=== PATIENT | female | born 2005 | race Caucasian/White ===

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

== ENCOUNTER 2024-03-23 11:09 | Emergency (ER) | payer MEDICAID, SELFPAY ==
[2024-03-23] VITALS (30 sets, daily range): BP systolic 126–127; BP diastolic 72–76; PULSE 84–118; RESP 12–39; TEMP 36.7; O2SAT 97–100
--- NOTE | 2024-03-23 11:30 | RT.EKG_ITS ---
APPROVED REPORT Exam: Resting ECG Reason for Exam: weakness Patient Location: E HR:73 bpm ECG Measurements Heart Rate 73 AXIS RI 130 P -9 QRSd 76 QRS 68 QT 426 T 71 QTc 469 Conclusion Sinus rhythm...normal P axis, V-rate 60- 99 Abnormal T, consider ischemia, anterior leads...T <-0.20mV, V2-V4 Physicin: no stemi
[2024-03-23] MEDS: LORazepam 1 MG TAB PO (12:10)
--- NOTE | 2024-03-23 12:12 | ED.GENADUL_ITS ---
Discharge Plan Disposition Condition: Stable Discharge Details Chief Complaint: Anxiety Clinical Impression: Anxiety, Hypokalemia, Hypomagnesemia, Hypocalcemia, Suicidal ideation Primary Care Provider: Unknown,Unknown ED Provider: Oskar Gordon and New Rx's Prescriptions: New potassium chloride 20 mEq tablet,ER particles/crystals 20 meq PO DAILY Qty: 10 0RF magnesium 250 mg tablet 250 mg PO DAILY Qty: 10 0RF calcium carbonate 600 mg calcium (1,500 mg) tablet 600 mg PO DAILY Qty: 10 0RF Continued montelukast 10 mg tablet See Rx Instructions .ROUTE .COMPLEX Qty: 30 0RF Dose Instruction: TAKE ONE TABLET BY MOUTH THE NIGHT BEFORE ALLERGY INJECTIONS AND ONE TABLET THE MORNING OF THE ALLERGY INJECTION Patient Comments: Pt takes once a month prior to injections. Rx Instructions: TAKE ONE TABLET BY MOUTH THE NIGHT BEFORE ALLERGY INJECTIONS AND ONE TABLET THE MORNING OF THE ALLERGY INJECTION (DME) compressor, for nebulizer Device See Rx Instructions .Route Qty: 1 0RF Rx Instructions: As directed (DME) nebulizer accessories Kit See Rx Instructions .Route Qty: 1 0RF Rx Instructions: As directed albuterol sulfate 2.5 mg /3 mL (0.083 %) solution for nebulization 2.5 mg inhalation Q6H Qty: 75 0RF Rx Instructions: Take 2.5mg (3mL) nebulizer solution every 4-6 hours as needed olopatadine [Eye Allergy Itch Relief] 0.2 % drops 1 drp ophthalmic (eye) DAILY PRN levalbuterol tartrate [Xopenex HFA] 45 mcg/actuation HFA aerosol inhaler 2 inh inhalation Q6H PRN Nucala 100 mg/mL auto-injector 100 mg subcut Q4W Qty: 1 12RF lisdexamfetamine [Vyvanse] 40 mg capsule 40 mg PO QAM (DME) BreatheRite MDI Spacer Spacer See Rx Instructions .ROUTE .MEDSUPPLY Qty: 1 0RF Rx Instructions: As directed sertraline [Zoloft] 100 mg tablet 100 mg PO DAILY trazodone 100 mg tablet 50 mg PO QHS PRN bupropion HCl 150 mg tablet sustained-release 12 hr 300 mg PO DAILY Nexplanon 68 mg implant 1 implant subdermal ONCE Qty: 1 0RF Rx Instructions: as a single dose (DME) Depend Underwear For Women S-M Misc See Rx Instructions .Route Qty: 64 4RF Rx Instructions: As directed fluticasone propion-salmeterol [Advair HFA] 230-21 mcg/actuation HFA aerosol inhaler 2 puff inhalation BID Qty: 12 12RF aripiprazole 10 mg tablet 15 mg PO DAILY Changed calcitriol 0.5 mcg capsule 0.5 mcg PO DAILY Qty: 10 0RF Discharge Instructions Instructions: Hypokalemia, Hypocalcemia (DC), Anxiety, Adult ED, Hypomagnesemia Additional Instructions: Thank you for your calcitriol dose to 0.5 or 1 tablet daily Take the potassium supplementation, magnesium, and calcium daily as prescribed Follow-up with your doctor on Monday HPI General Date/Time Provider Initiated Documentation: 03/23/24 11:21 . HPI Narrative: 19-year-old female presents from work with report of anxiety attack . 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 She states she has had paresthesias in her hands. She states she has an ongoing history of anxiety and her brother has been home for the past week which is she suspects exacerbating her symptoms. She has had intermittent suicidality, does not necessarily new for her but worsening. Patient states that her her symptoms are consistent with her prior panic attacks. She denies any current suicidal ideation or homicidal ideation. She is followed. Additional considerations. Denies any chest pain or shortness of breath. She states she did not completely lose consciousness. Related Data Home Medications Medication Instructions Recorded Confirmed montelukast 10 mg tablet See Rx Instructions .Route 06/21/22 03/23/24 .COMPLEX #30 tabs diaper,brief,adult,disposable #64 ea 08/02/22 03/23/24 (Depend Underwear For Women Small-Medium) inhalational spacing device #1 ea 08/14/22 03/23/24 (BreatheRite MDI Spacer) albuterol sulfate 2.5 mg/3 mL 2.5 mg (3 mL) inhalation Q6H #75 mL 08/30/22 03/23/24 (0.083 %) solution for nebulization compressor, for nebulizer #1 ea 08/30/22 03/23/24 nebulizer accessories #1 ea 08/30/22 03/23/24 levalbuterol tartrate 45 2 inh inhalation Q6H PRN 03/16/23 03/23/24 mcg/actuation aerosol inhaler (Xopenex HFA) olopatadine 0.2 % eye drops (Eye 1 drp ophthalmic (eye) DAILY PRN 03/16/23 03/23/24 Allergy Itch Relief) sertraline 100 mg tablet (Zoloft) 100 mg PO DAILY 09/14/23 03/23/24 fluticasone propionate 230 2 puff inhalation BID #12 grams 09/20/23 03/23/24 mcg-salmeterol 21 mcg/actuation HFA inhaler (Advair HFA) aripiprazole 10 mg tablet 15 mg PO DAILY 10/02/23 03/23/24 bupropion HCl 150 mg tablet,12 hr 300 mg PO DAILY 11/10/23 03/23/24 sustained-release etonogestrel 68 mg subdermal 1 implant subdermal ONCE #1 ea 11/10/23 03/23/24 implant (Nexplanon) lisdexamfetamine 40 mg capsule 40 mg PO QAM 02/14/24 03/23/24 (Vyvanse) mepolizumab 100 mg/mL subcutaneous 100 mg subcut Q4W #1 mL 03/12/24 03/23/24 auto-injector (Nucala) trazodone 100 mg tablet 50 mg PO QHS PRN 03/12/24 03/23/24 calcitriol 0.5 mcg capsule 0.5 mcg PO DAILY #10 caps 03/23/24 03/23/24 calcium carbonate 600 mg PO DAILY #10 tabs 03/23/24 magnesium 250 mg tablet 250 mg PO DAILY #10 tabs 03/23/24 potassium chloride 20 mEq 20 meq PO DAILY #10 tabs 03/23/24 tablet,extended release(part/cryst) Previous Rx's Medication Instructions Recorded montelukast 10 mg tablet See Rx Instructions .Route 06/21/22 .COMPLEX #30 tabs diaper,brief,adult,disposable #64 ea 08/02/22 (Depend Underwear For Women Small-Medium) inhalational spacing device #1 ea 08/14/22 (BreatheRite MDI Spacer) albuterol sulfate 2.5 mg/3 mL 2.5 mg (3 mL) inhalation Q6H #75 mL 08/30/22 (0.083 %) solution for nebulization compressor, for nebulizer #1 ea 08/30/22 nebulizer accessories #1 ea 08/30/22 fluticasone propionate 230 2 puff inhalation BID #12 grams 09/20/23 mcg-salmeterol 21 mcg/actuation HFA inhaler (Advair HFA) etonogestrel 68 mg subdermal 1 implant subdermal ONCE #1 ea 11/10/23 implant (Nexplanon) mepolizumab 100 mg/mL subcutaneous 100 mg subcut Q4W #1 mL 03/12/24 auto-injector (Nucala) calcitriol 0.5 mcg capsule 0.5 mcg PO DAILY #10 caps 03/23/24 calcium carbonate 600 mg PO DAILY #10 tabs 03/23/24 magnesium 250 mg tablet 250 mg PO DAILY #10 tabs 03/23/24 potassium chloride 20 mEq 20 meq PO DAILY #10 tabs 03/23/24 tablet,extended release(part/cryst) Allergies Allergy/AdvReac Type Severity Reaction Status Date / Time cat dander Allergy Wheezing Verified 03/23/24 11:15 dog dander Allergy Wheezing Verified 03/23/24 11:15 house dust mite Allergy Wheezing Verified 03/23/24 11:15 tree and shrub pollen Allergy Wheezing Verified 03/23/24 11:15 hydrocodone AdvReac TACHYCARDIA Unverified 03/23/24 11:15 PER PT ibuprofen AdvReac per Verified 03/23/24 11:15 nephrology tramadol AdvReac Other (See Verified 03/23/24 11:15 Comment) environmental Allergy Mild Wheezing Uncoded 03/23/24 11:15 General Stated Complaint: Anxiety KEILY: 3 Exam Narrative Exam Narrative: Alert, oriented, pupils equal round reactive to light and accommodation, no respiratory distress, cardiac rate rhythm regular, no abdominal tenderness, tremulous, carpal spasms, alert and oriented x 4, ambulatory Course Vital Signs Vital signs: Vital Signs Temperature 36.7 C 03/23/24 11:12 Pulse 104 H 03/23/24 11:12 Respiratory Rate 26 H 03/23/24 11:12 Blood Pressure 126/72 03/23/24 11:12 Pulse Oximetry 98 03/23/24 11:12 Temperature 36.7 C 03/23/24 11:12 Pulse 104 H 03/23/24 11:12 Respiratory Rate 26 H 03/23/24 11:12 Respiratory Effort Short of Breath 03/23/24 11:17 Blood Pressure 126/72 03/23/24 11:12 Blood Pressure Position Sitting 03/23/24 11:12 Pulse Oximetry 98 03/23/24 11:12 Oxygen Delivery Method Room Air 03/23/24 11:12 Oxygen Flow Rate 0 03/23/24 11:12 Medical Decision Making .Given patient's history of chronic kidney disease and hyperparathyroidism I did check bladder, patient was found to have hypokalemia and hypomagnesemia with hypocalcemia. Potassium 2.9, magnesium 1.3, calcium was 7.1 will order calcium, potassium, and magnesium in the emergency department. She is on calcitriol, will increase to 0.5 daily from 0.25 daily. Patient has chronic kidney disease will not give IV calcium as patient is relatively asymptomatic on assessment will give oral calcium, increase calcitriol, IV magnesium 2 g IV potassium 10 mEq of p.o. potassium 40 mEq were initiated. Patient will be also placed on magnesium and potassium. QTc is not prolonged and EKG is baseline for patient. Denies any chest pain or shortness of breath. She is now feeling improved but expressing suicidality without specific plan. I see CPSO was ordered. Patient has medically cleared and will need mental health assessment at this time. Care will be transitioned to from pending assessment Quality:[facility] Health Related Social Needs: No Data to Display Critical Care Time Critical Care Time Attestation: 35 minutes of critical care time performed secondary, 2 g IV magnesium supplementation, 10 mEq IV potassium supplementation, calcium supplementation, telemetry monitoring [facility] All Active Problems (Updated 03/23/24 @ 20:37 by DEAN Cortes) Suicidal ideation (Acute) Hypocalcemia (Acute) Hypomagnesemia (Acute) Hypokalemia (Acute) Anxiety (Chronic) Traumatic plantar fasciitis (Acute) LEFT Nexplanon in place (Acute) 09/2023. For menstrual control. Sinusitis (Acute) TMJ pain dysfunction syndrome (Acute) Otalgia of right ear (Acute) Wears hearing aid in both ears (Acute) Contraception (Acute) 09/2023. Patient given information regarding Nexplanon. 10/18/23. Nexplanon for menstrual control. Chronic kidney disease (CKD) (Chronic) Palpitations (Acute) Dysfunction of right eustachian tube (Acute) De Quervain's tenosynovitis, left (Acute) Low back pain (Acute) Moderate persistent asthma (Acute) Abnormal chest xray (Acute) Cough (Acute) Recurrent UTI (Acute) Nocturnal enuresis (Acute 12/15/14) pull ups at night Complex regional pain syndrome of right upper extremity (Acute) Allergic reaction (Acute) Urinary tract infection (Acute) Injury of thumb, right (Acute) Strain of extensor pollicis longus tendon (Acute) Anxiety (Chronic) Sciatica of right side (Acute) Calcification of brain (Acute) per [facility] neuro notes; bifrontal first noted in 2010; 2019 with some affecting basal ganglia, d/t underlying hypoparathyroidism Right-sided tinnitus (Acute) Encounter for immunotherapy (Acute) Chronic allergic rhinitis (Acute) Patulous eustachian tube of left ear (Acute) Nasal vestibulitis (Acute) Sensorineural hearing loss of both ears (Acute) Stage 2 chronic kidney disease (Chronic) Vesicoureteric reflux (Chronic 12/15/14) s/p bilateral ureteral implants Depression (Chronic 03/02/18) With anxiety: Sometimes features of anxiety are more prominent while at other times the depression is more challenging. 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 Stopped per patient request 09/2023 restarted per patient request Hypokalemia Abnormal uterine bleeding (AUB) 2017. menstrual irreg. OCPs 05/29/2019. Dysmenorrhea. DepoProvera 150 mg every 3 months Ingrowing toenail (05/14/18) Left great toe; s/p resection ADHD (attention deficit hyperactivity disorder) Surgical History Brutus teeth extracted all 4 teeth extracted ureteral implants- bilat Tonsillectomy and adenoidectomy Myringotomy w/ PE (pressure equalizing) tubes Family History Mother Family history unknown Father Family history unknown Social History Smoking/Tobacco Use Status: Never Smoking risk assessment performed?: Yes Alcohol Intake: never Drug use: Never Substance use type: does not use Adopted: Yes Housing: house Education Level: college Details: [employer], starting [employer] in the fall current occupation: 02/28/2020 works at [employer] Pets and animals: Yes Pets and animals: cat(s), dog(s) and other Details: CHICKENS, TURKEYS, SHEEP, COWS Sexually active: No Do you feel safe at home: Yes Do you feel safe in your relationship?: Yes Female Reproductive History Menstrual Age of Menarche: 11 Duration of menses: other control method: implanted Sign Out Sign Out Data: Sign Out Comment: SI, metabolite abn, pending assessment and dispo Last updated by Hina Marrufo PA at 03/23/24 15:32 Sign Out Comment: Patient refused safety plan, vol. Has electrolyte abnor malities- hyperPTH disease. Repleted here, home meds and supplements ordered with daily BMP and magnesium lab draw. Possible CareBed available Monday- would re-eval if patient was open to going home tomorrow. Last updated by Mushtaq Jackson PA at 03/23/24 20:41
[2024-03-23 12:17] LABS: Anion Gap 13.4 mmol/L (3-11); BUN 8 mg/dL (7-18); CO2 24.6 mmol/L (21.0-32.0); CREATININE 0.8 mg/dL (0.55-1.02); Calcium 7.1 mg/dL (8.5-10.1); Chloride 104 mmol/L (98-107); Estimated GFR 108.11 (mL/min/1.73m2); Glucose 93 mg/dL (74-106); Magnesium 1.3 mg/dL (1.8-2.4); Sodium 142 mmol/L (136-145)
[2024-03-23 12:25] LABS: Potassium 2.9 mmol/L (3.5-5.1)
[2024-03-23] MEDS: Potassium Chloride 20 MEQ TABCR 40 MEQ PO (12:46)
[2024-03-23] MEDS: Magnesium Oxide 400 MG TAB 800 MG PO (12:46)
[2024-03-23] MEDS: POTASSIUM CHLORIDE 10 MEQ/100 ML BAG 100 MEQ IVINF (12:59)
[2024-03-23] MEDS: MAGNESIUM SULFATE 2 GM/50 ML BAG IVINF (12:59)
[2024-03-23 13:22] LABS: Bilirubin Negative (Negative); Blood Negative (Negative); Clarity Clear (Clear); Glucose Negative (Negative); Ketones Negative (Negative); Leukocyte Esterase Negative (Negative); Nitrite Negative (Negative); Specific Gravity 1.015 (1.005-1.025); Urobilinogen 0.2 mg/dL (Up to 0.2)
[2024-03-23] MEDS: LORazepam 2 MG/ML VIAL 0.5 MG IVP (14:32)
--- NOTE | 2024-03-23 16:08 | ED.PROG_ITS ---
Date of service: 03/23/24 Time of Service: 16:09 Medical Decision Making This dictation utilizes [id number] dictation software and may contain unedited grammatical errors. Patient seen in sign-out from Hina Marrufo PA-C, please see her complete note. Essentially this 19 y/o F presents to ED today with a chief complaint of panic attacks, lightheadedness and difficulty breathing which is her usual symptom for panic, tingling in hands and feet- later during the visit she endorsed SI and needs evaluation by [facility]. Patients' mental condition is complicated by hyperparathyroidism, and she was found to have significant electrolyte abnormalities of hypocalcemia, hypokalemia, and hypomagnesemia. Patient had been repleted with 1500mg Ca++, 2gm Magnesium, and multiple doses of IV potassium by prior provider. Her dose of calcitriol had been increased, and she was directed to use calcium, potassium, and magnesium supplements as an outpatient with potential discharge dependent on [facility] evaluation. Patients' medical history: hyperparathyroidism. Family and social history: noncontributory. Pertinent exam findings / vital signs include no seizure activity, negative Tchovstek's sign. Differential / pathologies of concern include suicidal ideation. Diagnostic studies of: -reviewed labs, will add send-out of Ionized Ca++ level. -EKG showed no QT prolongation Interventions of: -Reconciled home medications. ED Course/Assessment/Plan: 19-year-old female presents with suicidal ideation, has hyperparathyroidism and has multiple electrolyte abnormalities which were corrected by prior provider in the ED. Patient and spoke with NK at bedtime and denied SI to them, but is endorsing it to me on my initial interview after signout. Patient states she does not feel safe around herself and is refusing their safety plan. She is voluntary seeking placement. Home meds are reconciled I did add potassium supplements and magnesium supplements and calcium supplements while here in zone B, as well as qAM labs of BMP and magnesium. Patient signed out to oncoming provider Dr. Andrew Gordon at shift change without any acute outbursts or agitated events today. Disposition of Suicidal Ideation. Patient verbalized understanding of the plan and return to ED criteria and engaged in shared decision making. Medical Records Medical records reviewed: Yes I reviewed the patient's medical records. Lab Data Lab results reviewed: Yes I reviewed the patient's lab results. Labs: Laboratory Tests Range/Units 03/23/24 03/23/24 11:54 13:12 Sodium (136-145) mmol/L 142 Potassium (3.5-5.1) mmol/L 2.9 L* Chloride (98-107) mmol/L 104 Carbon Dioxide (21.0-32.0) mmol/L 24.6 Anion Gap (3-11) mmol/L 13.4 H BUN (7-18) mg/dL 8 Creatinine (0.55-1.02) mg/dL 0.8 Est GFR (CKD-EPI 2020) (mL/min/1.73m2) 108.11 Glucose (74-106) mg/dL 93 Calcium (8.5-10.1) mg/dL 7.1 L Magnesium (1.8-2.4) mg/dL 1.3 L Urine Color (Yellow) Yellow Urine Clarity (Clear) Clear Urine pH (5-8) 7.0 Ur Specific [place] (1.005-1.025) 1.015 Urine Protein (Neg-Trace) mg/dL Negative Urine Ketones (Negative) mg/dL Negative Urine Blood (Negative) Negative Urine Nitrite (Negative) Negative Urine Bilirubin (Negative) Negative Urine Urobilinogen (Up to 0.2) mg/dL 0.2 Ur Leukocyte Esterase (Negative) Negative Urine Glucose (Negative) mg/dL Negative Quality:SDOH Health Related Social Needs: No Data to Display Sign Out Sign Out Data: Sign Out Comment: SI, metabolite abn, pending MH assessment and dispo Last updated by Hina Marrufo PA at 03/23/24 15:32 Discharge Plan Disposition Condition: Stable Discharge Details Chief Complaint: Anxiety Clinical Impression: Anxiety, Hypokalemia, Hypomagnesemia, Hypocalcemia, Suicidal ideation Primary Care Provider: Unknown,Unknown ED Provider: Mushtaq Jackson Home Meds and New Rx's Prescriptions: New potassium chloride 20 mEq tablet,ER particles/crystals 20 meq PO DAILY Qty: 10 0RF magnesium 250 mg tablet 250 mg PO DAILY Qty: 10 0RF calcium carbonate 600 mg calcium (1,500 mg) tablet 600 mg PO DAILY Qty: 10 0RF Continued montelukast 10 mg tablet See Rx Instructions .ROUTE .COMPLEX Qty: 30 0RF Dose Instruction: TAKE ONE TABLET BY MOUTH THE NIGHT BEFORE ALLERGY INJECTIONS AND ONE TABLET THE MORNING OF THE ALLERGY INJECTION Patient Comments: Pt takes once a month prior to injections. Rx Instructions: TAKE ONE TABLET BY MOUTH THE NIGHT BEFORE ALLERGY INJECTIONS AND ONE TABLET THE MORNING OF THE ALLERGY INJECTION (DME) compressor, for nebulizer Device See Rx Instructions .Route Qty: 1 0RF Rx Instructions: As directed (DME) nebulizer accessories Kit See Rx Instructions .Route Qty: 1 0RF Rx Instructions: As directed albuterol sulfate 2.5 mg /3 mL (0.083 %) solution for nebulization 2.5 mg inhalation Q6H Qty: 75 0RF Rx Instructions: Take 2.5mg (3mL) nebulizer solution every 4-6 hours as needed olopatadine [Eye Allergy Itch Relief] 0.2 % drops 1 drp ophthalmic (eye) DAILY PRN levalbuterol tartrate [Xopenex HFA] 45 mcg/actuation HFA aerosol inhaler 2 inh inhalation Q6H PRN Nucala 100 mg/mL auto-injector 100 mg subcut Q4W Qty: 1 12RF lisdexamfetamine [Vyvanse] 40 mg capsule 40 mg PO QAM (DME) BreatheRite MDI Spacer Spacer See Rx Instructions .ROUTE .MEDSUPPLY Qty: 1 0RF Rx Instructions: As directed sertraline [Zoloft] 100 mg tablet 100 mg PO DAILY trazodone 100 mg tablet 50 mg PO QHS PRN bupropion HCl 150 mg tablet sustained-release 12 hr 300 mg PO DAILY Nexplanon 68 mg implant 1 implant subdermal ONCE Qty: 1 0RF Rx Instructions: as a single dose (DME) Depend Underwear For Women S-M [facility] [place] See Rx Instructions .Route Qty: 64 4RF Rx Instructions: As directed fluticasone propion-salmeterol [Advair HFA] 230-21 mcg/actuation HFA aerosol inhaler 2 puff inhalation BID Qty: 12 12RF aripiprazole 10 mg tablet 15 mg PO DAILY Changed calcitriol 0.5 mcg capsule 0.5 mcg PO DAILY Qty: 10 0RF Discharge Instructions Instructions: Hypokalemia, Hypocalcemia (DC), Anxiety, Adult ED, Hypomagnesemia Additional Instructions: Thank you for your calcitriol dose to 0.5 or 1 tablet daily Take the potassium supplementation, magnesium, and calcium daily as prescribed Follow-up with your doctor on Monday
[2024-03-23] MEDS: Calcium Carbonate 1.5 GM TAB PO (17:58)
--- NOTE | 2024-03-23 18:36 | CMSP_ITS ---
Date of service: 03/23/24 Time of Service: 18:36 Care Management Safety Plan Status Status: Voluntary Reason for Wait Reason for Wait: Inpatient Admission Safety Plan Safety Plan: VOLUNTARY FOR INPATIENT PSYCHIATRIC STABILIZATION.? Patient is appropriate in all interactions since arriving at [facility]; Pt has demonstrated appropriate coping and communication skills, has articulated his or her needs and concerns and is fully engaged during staff interactions. Safety plan has been established with patient, and care team, to adhere to patient goals, identify restrictions based on behavioral status, address nutrition, and determine allowed personal belongings, tools for hygiene and personal care. Determine level of activity including ambulation, level of superv ision, visitors, and determine privileges based on behaviors and level of engagement by pt. VOLUNTARY SAFETY PLAN: 1. Will remain on suicide precautions, in paper clothes 2. Will remain in Zone B under direct supervision of one-on-one staff at all times provided by [employer]; BANDAR, ORTHOPEDIC RADIOLOGIC TECHNOLOGIST platform architect. 3. May have paper cups, plates, finger foods as well as a cardboard spoon with which to eat meals. 4. Follow [facility] Management of the Admitted Behavioral Health Patient policy. 5. Shower available in Zone B without restriction. 6. Personal belongings-soft items permitted at RN discretion. 7. Visitors-none at this time. 8. Activities: soft cart items approved per RN discretion. 9.? Bathroom available in Zone B without restriction. 10. Phone: limited to [facility] cordless phone at RN discretion. Due to VOLUNTARY status, if patient wishes to leave [facility], staff will contact [place] Crisis Screener ([phone]) and Biomedical Engineer ([phone]) as soon as possible. In the event of elopement, notify [place] [employer] Police ([phone]). Patient is currently voluntarily at [facility] and seeking inpatient admission when a bed becomes available. [place] Frontline Ice [employer] Associate will continue seeking placement. Please contact the Biomedical Engineer ([phone]) and [place] [employer] Associate ([phone]) for any needed changes in the Safety Plan. Safety plan has been provided to interdepartmental care team.
--- NOTE | 2024-03-23 18:36 | PDOC.CMSAFE ---
Date of service: 03/23/24 Time of Service: 18:36 Care Management Safety Plan Status Status: Voluntary Reason for Wait Reason for Wait: Inpatient Admission Safety Plan Safety Plan: VOLUNTARY FOR INPATIENT PSYCHIATRIC STABILIZATION.? Patient is appropriate in all interactions since arriving at [facility]; Pt has demonstrated appropriate coping and communication skills, has articulated his or her needs and concerns and is fully engaged during staff interactions. Safety plan has been established with patient, and care team, to adhere to patient goals, identify restrictions based on behavioral status, address nutrition, and determine allowed personal belongings, tools for hygiene and personal care. Determine level of activity including ambulation, level of supervision, visitors, and determine privileges based on behaviors and level of engagement by pt. VOLUNTARY SAFETY PLAN: 1. Will remain on suicide precautions, in paper clothes 2. Will remain in Zone B under direct supervision of one-on-one staff at all times provided by [employer]; BANDAR, PAPER GRADER record maker. 3. May have paper cups, plates, finger foods as well as a cardboard spoon with which to eat meals. 4. Follow [facility] Management of the Admitted Behavioral Health Patient policy. 5. Shower available in Zone B without restriction. 6. Personal belongings-soft items permitted at RN discretion. 7. Visitors-none at this time. 8. Activities: soft cart items approved per RN discretion. 9.? Bathroom available in Zone B without restriction. 10. Phone: limited to [facility] cordless phone at RN discretion. Due to VOLUNTARY status, if patient wishes to leave [facility], staff will contact [facility] Crisis Screener ([phone]) and Slip Cover Maker ([phone]) as soon as possible. In the event of elopement, notify [facility] Police ([phone]). Patient is currently voluntarily at [facility] and seeking inpatient admission when a bed becomes available. [facility] Frontline Sod Stripper will continue seeking placement. Please contact the Slip Cover Maker ([phone]) and [facility] Sod Stripper ([phone]) for any needed changes in the Safety Plan. Safety plan has been provided to interdepartmental care team.
--- NOTE | 2024-03-23 18:37 | CMPROGNOTE_ITS ---
Date of service: 03/23/24 Time of Service: 18:37 Care Management Progress Note Progress Note Text Progress Note Text: Jyothi presented with a report of having an anxiety attack while at work ([employer]). She stated that her brother is home for the summer, which she feels is exacerbating her symptoms. 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 She was screened by [facility], who stated that she does not meet criteria for inpatient psychiatric admission, and together they created a safety plan for her to return home. As she was preparing to be discharged, she stated to MD that she feels suicidal. She was transitioned to zone B, awaiting voluntary inpatient psychiatric treatment. Per [facility], they will reassess tomorrow. Referrals have not been sent at this time; [facility] stated that she reported having to work on Monday, therefore they are unsure that she will follow through with placement. CM will continue to follow.
[2024-03-24 07:04] LABS: Anion Gap 11.3 mmol/L (3-11); BUN 13 mg/dL (7-18); CO2 25.7 mmol/L (21.0-32.0); CREATININE 0.8 mg/dL (0.55-1.02); Calcium 7.7 mg/dL (8.5-10.1); Chloride 104 mmol/L (98-107); Estimated GFR 108.11 (mL/min/1.73m2); Glucose 103 mg/dL (74-106); Magnesium 1.7 mg/dL (1.8-2.4); Potassium 4.2 mmol/L (3.5-5.1); Sodium 141 mmol/L (136-145)
[2024-03-24 10:28] VITALS: BP 103/66; PULSE 90; RESP 16; TEMP 36; O2SAT 97
[2024-03-24] MEDS: ARIPiprazole 15 MG TAB PO (10:33)
[2024-03-24] MEDS: buPROPion-CR 150 MG TABCR 300 MG PO (10:34)
[2024-03-24] MEDS: Budesonide/Formoterol 160/4.5 6 GM 60 PUFF INH IH (10:34)
[2024-03-24] MEDS: Calcium Carbonate 1.5 GM TAB PO (10:35)
[2024-03-24] MEDS: Lisdexamphetamine 40 MG CAP PO (10:35)
[2024-03-24] MEDS: Magnesium Oxide 400 MG TAB PO (10:36)
[2024-03-24] MEDS: Potassium Chloride 20 MEQ TABCR PO (10:36)
[2024-03-24] MEDS: Sertraline 100 MG TAB PO (10:36)
--- NOTE | 2024-03-24 14:47 | ED.PROG_ITS ---
<Statement entered by DEAN Cortes - 03/24/24 18:24> Patient seen in sign-out. Awaiting safety plan faxed over and Mother to pick-up. No complications, no interventions needed- patient departed around 1800hrs. Date of service: 03/24/24 Time of Service: 18:25 Medical Decision Making Patient taken in signout from Hina Marrufo PA-C. Patient is awaiting discharge with safety plan faxed to us. Patient's mother will warehouse picker, no acute events prior to discharge, departed at 1800 hrs. Medical Records Medical records reviewed: Yes I reviewed the patient's medical records. Quality:SDOH Health Related Social Needs: No Data to Display Sign Out Sign Out Data: Sign Out Comment: SI, metabolite abn, pending assessment and dispo Last updated by Hina Marrufo PA at 03/23/24 15:32 Sign Out Comment: Patient refused safety plan, vol. Has electrolyte abnormalities- hyperPTH disease. Repleted here, home meds and supplements ordered with daily BMP and magnesium lab draw. Possible CareBed available Monday- would re-eval if patient was open to going home tomorrow. Last updated by Mushtaq Jackson PA at 03/23/24 20:41 Sign Out Comment: pending dc with mother with safety plan ~1800 Last updated by Hina Marrufo PA at 03/24/24 15:37 Discharge Plan Disposition Patient Disposition: Home Condition: Stable Discharge Details Clinical Impression: Anxiety, Hypokalemia, Hypomagnesemia, Hypocalcemia, Suicidal ideation Primary Care Provider: Unknown,Unknown ED Provider: Mushtaq Jackson Home Meds and New Rx's Prescriptions: New potassium chloride 20 mEq tablet,ER particles/crystals 20 meq PO DAILY Qty: 10 0RF magnesium 250 mg tablet 250 mg PO DAILY Qty: 10 0RF calcium carbonate 600 mg calcium (1,500 mg) tablet 600 mg PO DAILY Qty: 10 0RF Continued montelukast 10 mg tablet See Rx Instructions .ROUTE .COMPLEX Qty: 30 0RF Dose Instruction: TAKE ONE TABLET BY MOUTH THE NIGHT BEFORE ALLERGY INJECTIONS AND ONE TABLET THE MORNING OF THE ALLERGY INJECTION Patient Comments: Pt takes once a month prior to injections. Rx Instructions: TAKE ONE TABLET BY MOUTH THE NIGHT BEFORE ALLERGY INJECTIONS AND ONE TABLET THE MORNING OF THE ALLERGY INJECTION (DME) compressor, for nebulizer Device See Rx Instructions .Route Qty: 1 0RF Rx Instructions: As directed (DME) nebulizer accessories Kit See Rx Instructions .Route Qty: 1 0RF Rx Instructions: As directed albuterol sulfate 2.5 mg /3 mL (0.083 %) solution for nebulization 2.5 mg inhalation Q6H Qty: 75 0RF Rx Instructions: Take 2.5mg (3mL) nebulizer solution every 4-6 hours as needed olopatadine [Eye Allergy Itch Relief] 0.2 % drops 1 drp ophthalmic (eye) DAILY PRN levalbuterol tartrate [Xopenex HFA] 45 mcg/actuation HFA aerosol inhaler 2 inh inhalation Q6H PRN Nucala 100 mg/mL auto-injector 100 mg subcut Q4W Qty: 1 12RF lisdexamfetamine [Vyvanse] 40 mg capsule 40 mg PO QAM (DME) BreatheRite MDI Spacer Spacer See Rx Instructions .ROUTE .MEDSUPPLY Qty: 1 0RF Rx Instructions: As directed sertraline [Zoloft] 100 mg tablet 100 mg PO DAILY trazodone 100 mg tablet 50 mg PO QHS PRN bupropion HCl 150 mg tablet sustained-release 12 hr 300 mg PO DAILY Nexplanon 68 mg implant 1 implant subdermal ONCE Qty: 1 0RF Rx Instructions: as a single dose (DME) Depend Underwear For Women [facility] See Rx Instructions .Route Qty: 64 4RF Rx Instructions: As directed fluticasone propion-salmeterol [Advair HFA] 230-21 mcg/actuation HFA aerosol inhaler 2 puff inhalation BID Qty: 12 12RF aripiprazole 10 mg tablet 15 mg PO DAILY Changed calcitriol 0.5 mcg capsule 0.5 mcg PO DAILY Qty: 10 0RF Discharge Instructions Instructions: Hypokalemia, Hypocalcemia (DC), Anxiety, Adult ED, Hypomagnesemia Additional Instructions: Thank you for your calcitriol dose to 0.5 or 1 tablet daily Take the potassium supplementation, magnesium, and calcium daily as prescribed Follow-up with your doctor and career law clerk on Monday Discharge Data Discharge Date/Time-TO BE ENTERED AT DEPARTURE: 03/24/24 18:11
--- NOTE | 2024-03-24 18:09 | PDOC.CMPRO ---
Date of service: 03/24/24 Time of Service: 18:10 Care Management Progress Note Progress Note Text Progress Note Text: [facility] met with Jyothi again today to discuss creating a safety plan to return home. Per report, Jyothi stated that she feels she would cut herself at home, but was able to identify how to mitigate the risk, by locking up sharp knives in her home. JESSICA reached out to her mother, who agreed to participate in the safety plan to keep Jyothi safe and lock up sharps. Her mother offered to pick her up this evening around 6pm. Discharge Anticipated Barriers to Discharge: None Identified Patient/Family Education Needs: Review discharge instructions, discuss Ask Me Three Transportation: Private vehicle Plan: Jyothi will be discharged with a safety plan that she created with [facility]. She will follow up in the community with her HAND DRY CLEANER supports, and her family will help support her with her safety plan. Her mother will drive her home today via private vehicle. She is happy to be going home.
== END 2024-03-24 18:11 | disposition home or self-care (01) ==
PROVIDERS: Physician Assistant; Emergency Provider Physician Assistant
DX: F41.9 Anxiety disorder, unspecified (principal); R45.851 Suicidal ideations; E83.51 Hypocalcemia; E87.6 Hypokalemia; E83.42 Hypomagnesemia
CPT/HCPCS: 00123; 36415; 80048; 93005; 96365; 96366; 96375; 99285; 99291; H0046; 81003; 83735; 93010; J2060; J3475; J3480

== ENCOUNTER 2024-04-08 15:19 | Outpatient (CLI) | payer MEDICAID, SELFPAY ==
[2024-04-08 15:42] LABS: Creatinine,Urine 69.05 mg/dL; POTASSIUM,URINE RANDOM 37.2 mmol/L
[2024-04-08 15:49] LABS: Albumin 4.2 g/dL (3.4-5.0); Anion Gap 12.6 mmol/L (3-11); BUN 11 mg/dL (7-18); CO2 29.4 mmol/L (21.0-32.0); Calcium 8.2 mg/dL (8.5-10.1); Chloride 102 mmol/L (98-107); Estimated GFR 82.71 (mL/min/1.73m2); Glucose 104 mg/dL (74-106); PHOSPHORUS 4.7 mg/dL (2.6-4.7); Potassium 3.3 mmol/L (3.5-5.1); Sodium 144 mmol/L (136-145)
[2024-04-08 22:11] LABS: Osmolality, Urine 409 mOsm/kg (150-1150)
[2024-04-08 22:42] LABS: Osmolality Serum 288 mOsm/kg (275-295)
== END 2024-04-08 15:20 | disposition home or self-care (01) ==
LOC: LBO 15:25
PROVIDERS: Visit Provider Pediatrics Pediatric Nephrology
DX: N18.1 Chronic kidney disease, stage 1 (principal); E87.6 Hypokalemia; E83.59 Other disorders of calcium metabolism; N29 Other disorders of kidney and ureter in diseases classified elsewhere
CPT/HCPCS: 36415; 80069; 83935; 82565; 83930; 84133

== ENCOUNTER 2024-04-09 12:00 | Outpatient (CLI) | payer MEDICAID, SELFPAY ==
[2024-04-09 11:34] LABS: Abs Immature Grans 0.02 10^3/uL (0.0-0.06); Absolute Basophil Count 0.04 10^3/uL (0.0-0.2); Absolute Eosinophil Count 0.16 10^3/uL (0.0-0.7); Absolute Lymphocyte Count 2.14 10^3/uL (1.2-3.4); Absolute Monocyte Count 0.52 10^3/uL (0.1-0.8); Absolute Neutrophil Count 3.12 10^3/uL (1.2-6.7); Basophils % 0.7 %; Eosinophils % 2.7 %; HCT 32.3 % (36.0-46.0); HGB 10.5 g/dL (11.2-15.7); Immature Grans % 0.3 %; Lymphocytes % 35.7 %; MCH 30.3 pg (27.0-33.0); MCHC 32.5 % (32.0-36.0); MCV 93 fL (80-95); MPV 10.2 fL (8.0-11.0); Monocytes % 8.7 %; Neutrophils % 51.9 %; Platelet Count 297 10^3/uL (130-400); RBC 3.46 10^6/uL (3.93-5.22); RDW 12.5 % (11.7-14.6); RDW-SD 42.8 fL
== END 2024-04-09 12:01 | disposition home or self-care (01) ==
LOC: LBO 12:01
PROVIDERS: Visit Provider Physician Assistant Surgical
DX: J45.909 Unspecified asthma, uncomplicated (principal); N18.1 Chronic kidney disease, stage 1; E87.6 Hypokalemia; E83.59 Other disorders of calcium metabolism; N29 Other disorders of kidney and ureter in diseases classified elsewhere
CPT/HCPCS: 36415; 85025

== ENCOUNTER 2024-04-16 14:41 | Emergency (ER) | payer MEDICAID, SELFPAY ==
[2024-04-16 14:44] VITALS: BP 130/77; PULSE 110; RESP 20; TEMP 36.6; O2SAT 99
--- NOTE | 2024-04-16 14:45 | DI.CT_ITS ---
Exam(s) CT ABDOMEN PELVIS W EXAM: CT ABDOMEN PELVIS W CLINICAL HISTORY: RLQ pain TECHNIQUE: Imaging Protocol: Axial computed tomography images with coronal and sagittal reformatted images were created and reviewed. CONTRAST MATERIAL: Intravenous: Omnipaque 350 Contrast volume:67 mL Oral: No COMPARISON: CT CT ABDOMEN PELVIS W from 09/20/[address] ABDOMEN PELVIS W from 10/31/2023 FINDINGS: ABDOMEN: Lung Bases: Normal where visualized. Liver: Normal density. No measurable mass. Portal, Superior Mesenteric, and Splenic Veins: Unremarkable. Gallbladder and Biliary Tract: No radiodense calculus or dilation. Pancreas: Normal density, no abnormal calcifications or inflammatory process. Spleen: Normal. Adrenals: No masses seen. Kidneys: Normal size, contour and axis. No radiodense stones or obstructive uropathy. The hypodensity seen in the kidneys bilaterally most consistent with small cysts. No follow-up is recommended. Abdominal Aorta: Abdominal portion non-dilated. Bowel: There are fluid-filled loops of small and large bowel present which can be seen with diarrheal illness. The stomach is incompletely distended limiting evaluation. There is no evidence of an virgilio endicitis. Peritoneal Cavity: No ascites, collection or mesenteric inflammatory response. No free air. Lymph Nodes: Within normal limits. Bones: Within normal limits for the patient's age. Soft Tissues: Unremarkable. PELVIS: Bladder: Symmetric distention, no gross wall thickening. Reproductive Organs: Unremarkable as visualized. Lymph Nodes: Within normal limits. Bones: Within normal limits for the patient's age. IMPRESSION: 1. Normal appendix. 2. Fluid-filled loops of small and large bowel which can be seen with a diarrheal illness. No bowel wall thickening or obstruction is seen. 3. The ovaries are grossly unremarkable as is the gallbladder. There is no biliary ductal dilatation . 4. No evidence of hydronephrosis. RADIATION DOSE DELIVERED: Total DLP DATA REPOSITORY: All CT scans at this facility are submitted to the National Radiology Data Registry (NRDR) Dose Index Registry (DIR) with the [employer] (ACR). RADIATION OPTIMIZATION: All CT scans at this facility use at least one of these dose optimization te chniques: automated exposure control; mA and/or kV adjustment per patient size (includes targeted exa ms where dose is matched to clinical indication); or iterative reconstruction.
--- NOTE | 2024-04-16 15:06 | ED.GENADUL_ITS ---
Discharge Plan Discharge Details Chief Complaint: PsychEval Primary Care Provider: Unknown,Unknown ED Provider: Sabas Benz Home Meds and New Rx's Prescriptions: No Action montelukast 10 mg tablet See Rx Instructions .ROUTE .COMPLEX Qty: 30 0RF Dose Instruction: TAKE ONE TABLET BY MOUTH THE NIGHT BEFORE ALLERGY INJECTIONS AND ONE TABLET THE MORNING OF THE ALLERGY INJECTION Patient Comments: Pt takes once a month prior to injections. Rx Instructions: TAKE ONE TABLET BY MOUTH THE NIGHT BEFORE ALLERGY INJECTIONS AND ONE TABLET THE MORNING OF THE ALLERGY INJECTION (DME) compressor, for nebulizer Device See Rx Instructions .Route Qty: 1 0RF Rx Instructions: As directed (DME) nebulizer accessories Kit See Rx Instructions .Route Qty: 1 0RF Rx Instructions: As directed levalbuterol tartrate [Xopenex HFA] 45 mcg/actuation HFA aerosol inhaler 2 inh inhalation Q6H PRN Nucala 100 mg/mL auto-injector 100 mg subcut Q4W Qty: 1 12RF lisdexamfetamine [Vyvanse] 40 mg capsule 40 mg PO QAM (DME) BreatheRite MDI Spacer Spacer See Rx Instructions .ROUTE .MEDSUPPLY Qty: 1 0RF Rx Instructions: As directed sertraline [Zoloft] 100 mg tablet 100 mg PO DAILY trazodone 100 mg tablet 50 mg PO QHS PRN bupropion HCl 150 mg tablet sustained-release 12 hr 300 mg PO DAILY Nexplanon 68 mg implant 1 implant subdermal ONCE Qty: 1 0RF Rx Instructions: as a single dose (DME) Depend Under[facility] For Women [facility] See Rx Instructions .Route Qty: 64 4RF Rx Instructions: As directed fluticasone propion-salmeterol [Advair HFA] 230-21 mcg/actuation HFA aerosol inhaler 2 puff inhalation BID Qty: 12 12RF potassium chloride 20 mEq tablet,ER particles/crystals 20 meq PO DAILY Qty: 10 0RF magnesium 250 mg tablet 250 mg PO DAILY Qty: 10 0RF calcitriol 0.5 mcg capsule 0.5 mcg PO DAILY Qty: 10 0RF calcium carbonate 600 mg calcium (1,500 mg) tablet 600 mg PO DAILY Qty: 10 0RF HPI General Date/Time Provider Initiated Documentation: 04/16/24 14:44 . HPI Narrative: 19-year-old female history of anxiety and depression, presents with right lower quad abdominal pain that began 4 hours ago at the same time patient has developed suicidal ideation and thoughts of cutting herself in order to . Patient denies any urinary symptoms. Denies headache chest pain shortness of breath or other systemic signs of illness. Denies history of abdominal surgery. Related Data Home Medications ?Medication ?Instructions ?Recorded ?Confirmed montelukast 10 mg tablet See Rx Instructions .Route 06/21/22 04/16/24 .COMPLEX #30 tabs diaper,brief,adult,disposable #64 ea 08/02/22 04/16/24 (Depend Underwear For Women Small-Medium) inhalational spacing device #1 ea 08/14/22 04/16/24 (BreatheRite MDI Spacer) compressor, for nebulizer #1 ea 08/30/22 04/16/24 nebulizer accessories #1 ea 08/30/22 04/16/24 levalbuterol tartrate 45 2 inh inhalation Q6H PRN 03/16/23 04/16/24 mcg/actuation aerosol inhaler (Xopenex HFA) sertraline 100 mg tablet (Zoloft) 100 mg PO DAILY 09/14/23 04/16/24 bupropion HCl 150 mg tablet,12 hr 300 mg PO DAILY 11/10/23 04/16/24 sustained-release etonogestrel 68 mg subdermal 1 implant subdermal ONCE #1 ea 11/10/23 04/16/24 implant (Nexplanon) lisdexamfetamine 40 mg capsule 40 mg PO QAM 02/14/24 04/16/24 (Vyvanse) mepolizumab 100 mg/mL subcutaneous 100 mg subcut Q4W #1 mL 03/12/24 04/16/24 auto-injector (Nucala) trazodone 100 mg tablet 50 mg PO QHS PRN 03/12/24 04/16/24 calcitriol 0.5 mcg capsule 0.5 mcg PO DAILY #10 caps 03/23/24 04/16/24 calcium carbonate 600 mg PO DAILY #10 tabs 03/23/24 04/16/24 magnesium 250 mg tablet 250 mg PO DAILY #10 tabs 03/23/24 04/16/24 potassium chloride 20 mEq 20 meq PO DAILY #10 tabs 03/23/24 04/16/24 tablet,extended release(part/cryst) fluticasone propionate 230 2 puff inhalation BID #12 grams 04/11/24 04/16/24 mcg-salmeterol 21 mcg/actuation HFA inhaler (Advair HFA) Previous Rx's ?Medication ?Instructions ?Recorded montelukast 10 mg tablet See Rx Instructions .Route 06/21/22 .COMPLEX #30 tabs diaper,brief,adult,disposable #64 ea 08/02/22 (Depend Underwear For Women Small-Medium) inhalational spacing device #1 ea 08/14/22 (BreatheRite MDI Spacer) compressor, for nebulizer #1 ea 08/30/22 nebulizer accessories #1 ea 08/30/22 etonogestrel 68 mg subdermal 1 implant subdermal ONCE #1 ea 11/10/23 implant (Nexplanon) mepolizumab 100 mg/mL subcutaneous 100 mg subcut Q4W #1 mL 03/12/24 auto-injector (Nucala) calcitriol 0.5 mcg capsule 0.5 mcg PO DAILY #10 caps 03/23/24 calcium carbonate 600 mg PO DAILY #10 tabs 03/23/24 magnesium 250 mg tablet 250 mg PO DAILY #10 tabs 03/23/24 potassium chloride 20 mEq 20 meq PO DAILY #10 tabs 03/23/24 tablet,extended release(part/cryst) fluticasone propionate 230 2 puff inhalation BID #12 grams 04/11/24 mcg-salmeterol 21 mcg/actuation HFA inhaler (Advair HFA) Allergies Allergy/AdvReac Type Severity Reaction Status Date / Time cat dander Allergy Wheezing Verified 04/16/24 14:47 dog dander Allergy Wheezing Verified 04/16/24 14:47 house dust mite Allergy Wheezing Verified 04/16/24 14:47 tree and shrub pollen Allergy Wheezing Verified 04/16/24 14:47 hydrocodone AdvReac TACHYCARDIA Unverified 04/16/24 14:47 PER PT ibuprofen AdvReac per Verified 04/16/24 14:47 nephrology tramadol AdvReac Other (See Verified 04/16/24 14:47 Comment) environmental Allergy Mild Wheezing Uncoded 04/16/24 14:47 General Stated Complaint: PsychEval KEILY: 2 Exam Narrative Exam Narrative: Alert oriented interactive calm cooperative Moist mucous membranes tolerating secretions Speaking full sentences no respiratory distress no tachypnea Abdomen soft nontender nondistended, some subjective discomfort in right lower quadrant without guarding or rebounding, no CVA tenderness Moving extremities without deficit, patient is in the left lower extremity total boot for ankle sprain Alert interactive, calm cooperative, does endorse worsening anxiety depression and suicidal thoughts Course Vital Signs Vital signs: Vital Signs Temperature 36.6 C 04/16/24 14:44 Pulse 110 H 04/16/24 14:44 Respiratory Rate 20 04/16/24 14:44 Blood Pressure 130/77 04/16/24 14:44 Pulse Oximetry 99 04/16/24 14:44 Temperature 36.6 C 04/16/24 14:44 Temperature Source Temporal Artery Scan 04/16/24 14:44 Pulse 110 H 04/16/24 14:44 Respiratory Rate 20 04/16/24 14:44 Respiratory Effort Normal, Non-Labored 04/16/24 14:47 Blood Pressure 130/77 04/16/24 14:44 Blood Pressure Position Sitting 04/16/24 14:44 Pulse Oximetry 99 04/16/24 14:44 Oxygen Delivery Method Room Air 04/16/24 14:44 Oxygen Flow Rate 0 04/16/24 14:44 Medical Decision Making 19-year-old female presents with right lower quadrant abdominal pain for the last 4 hours associated with 4 hours of suicidal ideation, thoughts of cutting herself in order to , denies any definitive psychosocial stressor at work or at home, feels safe where she is living, patient is afebrile nontoxic mildly tachycardic on arrival likely related to anxiety, abdomen soft nontender nondistended, no peritoneal signs however patient does have subjective discomfort in the right lower quadrant no CVA tenderness, consider early appendicitis versus kidney stone versus pyelonephritis versus UTI versus enteritis versus colitis patient also endorses that some of her physical symptoms manifest when her psychiatric symptoms are flaring. Consider component of psychosomatic discomfort. Given suicidality with thoughts of a plan patient will be evaluated by [facility] human services to determine whether inpatient psychiatric treatment would be appropriate beneficial. Patient resting comfortably calm cooperative no acute distress. Will obtain basic labs urine urinalysis CT abdomen pelvis fluids analgesia antiemetics close reassess 18: 56 patient resting comfortably no acute distress. Hemodynamically stable labs and imaging unremarkable. Patient is medically cleared. Evaluated by [facility] human services, will be held voluntarily for inpatient psychiatric placement. Patient has escalating suicidal ideation with plansof killing herself with a gun if patient is to decide to leave we will initiate EE 23: 25 rest comfortably no acute distress. Quality:SDOH Health Related Social Needs: No Data to Display PFSH All Active Problems (Updated 03/23/24 @ 20:37 by DEAN Cortes) Suicidal ideation (Acute) Hypocalcemia (Acute) Hypomagnesemia (Acute) Hypokalemia (Acute) Anxiety (Chronic) Traumatic plantar fasciitis (Acute) LEFT Nexplanon in place (Acute) 09/2023. For menstrual control. Sinusitis (Acute) TMJ pain dysfunction syndrome (Acute) Otalgia of right ear (Acute) Wears hearing aid in both ears (Acute) Contraception (Acute) 09/2023. Patient given information regarding Nexplanon. 10/18/23. Nexplanon for menstrual control. Chronic kidney disease (CKD) (Chronic) Palpitations (Acute) Dysfunction of right eustachian tube (Acute) De Quervain's tenosynovitis, left (Acute) Low back pain (Acute) Moderate persistent asthma (Acute) Abnormal chest xray (Acute) Cough (Acute) Recurrent UTI (Acute) Nocturnal enuresis (Acute 12/15/14) pull ups at night Complex regional pain syndrome of right upper extremity (Acute) Allergic reaction (Acute) Urinary tract infection (Acute) Injury of thumb, right (Acute) Strain of extensor pollicis longus tendon (Acute) Anxiety (Chronic) Sciatica of right side (Acute) Calcification of brain (Acute) per [facility] neuro notes; bifrontal first noted in 2019 with some affecting basal ganglia, d/t underlying hypoparathyroidism Right-sided tinnitus (Acute) Encounter for immunotherapy (Acute) Chronic allergic rhinitis (Acute) Patulous eustachian tube of left ear (Acute) Nasal vestibulitis (Acute) Sensorineural hearing loss of both ears (Acute) Stage 2 chronic kidney disease (Chronic) Vesicoureteric reflux (Chronic 12/15/14) s/p bilateral ureteral implants Depression (Chronic 03/02/18) With anxiety: Sometimes features of anxiety are more prominent while at other times the depression is more challenging. 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 Stopped per patient request 09/2023 restarted per patient request Hypokalemia Abnormal uterine bleeding (AUB) 2017. menstrual irreg. OCPs 05/29/2019. Dysmenorrhea. DepoProvera 150 mg every 3 months Ingrowing toenail (05/14/18) Left great toe; s/p resection ADHD (attention deficit hyperactivity disorder) Surgical History [place] teeth extracted all 4 teeth extracted ureteral implants- bilat Tonsillectomy and adenoidectomy Myringotomy w/ PE (pressure equalizing) tubes Family History Mother Family history unknown Father Family history unknown Social History Smoking/Tobacco Use Status: Never Smoking risk assessment performed?: Yes Alcohol Intake: never Drug use: Never Substance use type: does not use Adopted: Yes Housing: house Education Level: college Details: [employer], starting [employer] in the fall current occupation: 02/28/2020 works at [employer] Pets and animals: Yes Pets and animals: cat(s), dog(s) and other Details: CHICKENS, TURKEYS, SHEEP, COWS Sexually active: No Do you feel safe at home: Yes Do you feel safe in your relationship?: Yes Female Reproductive History Menstrual Age of Menarche: 11 Duration of menses: other control method: implanted
[2024-04-16 15:20] LABS: Bilirubin Negative (Negative); Blood Large (Negative); Clarity Clear (Clear); Glucose Negative (Negative); Ketones Negative (Negative); Leukocyte Esterase Negative (Negative); Nitrite Negative (Negative); Specific Gravity 1.015 (1.005-1.025); Urobilinogen 0.2 mg/dL (Up to 0.2); pH 7.5 (5-8)
[2024-04-16 15:21] LABS: Abs Immature Grans 0.02 10^3/uL (0.0-0.06); Absolute Basophil Count 0.04 10^3/uL (0.0-0.2); Absolute Eosinophil Count 0.14 10^3/uL (0.0-0.7); Absolute Lymphocyte Count 2.34 10^3/uL (1.2-3.4); Absolute Neutrophil Count 3.37 10^3/uL (1.2-6.7); Basophils % 0.6 %; Eosinophils % 2.2 %; HCT 32.1 % (36.0-46.0); HGB 10.5 g/dL (11.2-15.7); Immature Grans % 0.3 %; Lymphocytes % 36.5 %; MCH 29.8 pg (27.0-33.0); MCHC 32.7 % (32.0-36.0); MCV 91 fL (80-95); Monocytes % 7.8 %; Neutrophils % 52.6 %; Platelet Count 264 10^3/uL (130-400); RBC 3.52 10^6/uL (3.93-5.22); RDW-SD 40.2 fL; WBC 6.41 10^3/uL (4.4-10.8)
[2024-04-16] MEDS: ACETAMINOPHEN 1,000 MG/100 ML BTL 400 MG IVPB (15:22)
[2024-04-16] MEDS: Normal Saline 1,000 ML 1000 ML IV (15:22)
[2024-04-16 15:29] LABS: Bacteria Negative HPF (Negative); C & S Indicated? No; Casts Negative LPF (Negative); Crystals Negative HPF (Negative); Epithelial Cells Few HPF (Negative); Mucus Negative (Negative); Other Cells Rare Renal (Negative); WBC Negative HPF (0-5)
[2024-04-16 15:41] LABS: ALT 22 U/L (14-59); AST 16 U/L (15-37); Albumin 4.3 g/dL (3.4-5.0); Alkaline Phosphatase 66 U/L (46-116); Anion Gap 9.3 mmol/L (3-11); BUN 8 mg/dL (7-18); Bilirubin, Total 0.13 mg/dL (0.2-1.0); CO2 29.7 mmol/L (21.0-32.0); CREATININE 0.8 mg/dL (0.55-1.02); Calcium 7.3 mg/dL (8.5-10.1); Chloride 102 mmol/L (98-107); Estimated GFR 108.11 (mL/min/1.73m2); Glucose 92 mg/dL (74-106); Potassium 3.5 mmol/L (3.5-5.1); Sodium 141 mmol/L (136-145); Total Protein 7.8 g/dL (6.4-8.2)
[2024-04-16] MEDS: Omnipaque 350 MG/ML 100 ML BTL IJ (16:09)
[2024-04-16] MEDS: Normal Saline - Diluent 50 ML VIAL IJ (16:10)
[2024-04-16] MEDS: Normal Saline Flush 10 ML SYR IVP (16:11)
[2024-04-16 17:07] LABS: Lipase 33 U/L (16-77)
[2024-04-16] MEDS: traZODone 100 MG TAB PO (22:46)
--- NOTE | 2024-04-17 07:37 | ED.PROG_ITS ---
Date of service: 04/17/24 Time of Service: 07:37 Medical Decision Making Patient seeking voluntary placement for depression and SI, no reported issues on prior shift and currently calm and cooperative without new acute complaints. Will continue to monitor until safe disposition found. Quality:SDOH Health Related Social Needs: No Data to Display Sign Out Sign Out Data: Sign Out Comment: SI with plan to shoot herself, to be made EE if she tries to leave; evaluated by [facility], awaiting placement Last updated by Sabas Benz MD at 04/16/24 23:28 Sign Out Comment: Suicidal ideations with plan, currently voluntary but plan to EE if attempts to leave. No interventions throughout the night. Awaiting placement. Last updated by Mushtaq Tim DO at 04/17/24 03:22 Discharge Plan Discharge Details Chief Complaint: PsychEval Primary Care Provider: Unknown,Unknown ED Provider: Rambo Gunn Home Meds and New Rx's Prescriptions: No Action montelukast 10 mg tablet See Rx Instructions .ROUTE .COMPLEX Qty: 30 0RF Dose Instruction: TAKE ONE TABLET BY MOUTH THE NIGHT BEFORE ALLERGY INJECTIONS AND ONE TABLET THE MORNING OF THE ALLERGY INJECTION Patient Comments: Pt takes once a month prior to injections. Rx Instructions: TAKE ONE TABLET BY MOUTH THE NIGHT BEFORE ALLERGY INJECTIONS AND ONE TABLET THE MORNING OF THE ALLERGY INJECTION (DME) compressor, for nebulizer Device See Rx Instructions .Route Qty: 1 0RF Rx Instructions: As directed (DME) nebulizer accessories Kit See Rx Instructions .Route Qty: 1 0RF Rx Instructions: As directed levalbuterol tartrate [Xopenex HFA] 45 mcg/actuation HFA aerosol inhaler 2 inh inhalation Q6H PRN Nucala 100 mg/mL auto-injector 100 mg subcut Q4W Qty: 1 12RF lisdexamfetamine [Vyvanse] 40 mg capsule 40 mg PO QAM (DME) BreatheRite MDI Spacer Spacer See Rx Instructions .ROUTE .MEDSUPPLY Qty: 1 0RF Rx Instructions: As directed sertraline [Zoloft] 100 mg tablet 100 mg PO DAILY trazodone 100 mg tablet 50 mg PO QHS PRN bupropion HCl 150 mg tablet sustained-release 12 hr 300 mg PO DAILY Nexplanon 68 mg implant 1 implant subdermal ONCE Qty: 1 0RF Rx Instructions: as a single dose (DME) Depend Underwear For Women S-M [facility] See Rx Instructions .Route Qty: 64 4RF Rx Instructions: As directed fluticasone propion-salmeterol [Advair HFA] 230-21 mcg/actuation HFA aerosol inhaler 2 puff inhalation BID Qty: 12 12RF potassium chloride 20 mEq tablet,ER particles/crystals 20 meq PO DAILY Qty: 10 0RF magnesium 250 mg tablet 250 mg PO DAILY Qty: 10 0RF calcitriol 0.5 mcg capsule 0.5 mcg PO DAILY Qty: 10 0RF calcium carbonate 600 mg calcium (1,500 mg) tablet 600 mg PO DAILY Qty: 10 0RF
[2024-04-17] MEDS: Sertraline 100 MG TAB PO (09:41)
[2024-04-17] MEDS: buPROPion-CR 150 MG TABCR 300 MG PO (09:42)
[2024-04-17 09:43] VITALS: BP 96/62; PULSE 96; RESP 16; TEMP 36.7; O2SAT 99
== END 2024-04-17 11:13 | disposition home or self-care (01) ==
PROVIDERS: Emergency Medicine; Emergency Provider Emergency Medicine
DX: R45.851 Suicidal ideations (principal); R10.31 Right lower quadrant pain
CPT/HCPCS: 00123; 36415; 80053; 81025; 83690; 96365; 99285; 74177; 81003; 81015; 85025; 99284; J0131; J3490

== ENCOUNTER → 2024-04-27 12:23 | Emergency (ER) | payer MEDICAID, SELFPAY ==
[2024-04-27 12:33] VITALS: BP 131/84; PULSE 84; RESP 18; TEMP 36.9; O2SAT 98
[2024-04-27 13:39] LABS: *AMPHETAMINES SCREEN URINE Positive (Negative); *BARBITURATES SCREEN URINE Negative (Negative); *BENZODIAZEPINES SCREEN URINE Negative (Negative); Cannabinoids THC Negative (Negative); Cocaine Screen,Urine Negative (Negative); METHADONE URINE SCREEN Negative (Negative); OPIATES URINE SCREEN Negative (Negative)
[2024-04-27 13:41] LABS: Tricyclic Antidepressants Negative (Negative)
--- NOTE | 2024-04-27 15:29 | CMSP_ITS ---
Date of service: 04/27/24 Time of Service: 15:30 Care Management Safety Plan Status Status: Voluntary Reason for Wait Reason for Wait: Inpatient Admission Safety Plan Safety Plan: VOLUNTARY FOR INPATIENT PSYCHIATRIC STABILIZATION.? Patient is appropriate in all interactions since arriving at [facility]; Pt has demonstrated appropriate coping and communication skills, has articulated his or her needs and concerns and is fully engaged during staff interactions. Safety plan has been established with patient, and care team, to adhere to patient goals, identify restrictions based on behavioral status, address nutrition, and determine allowed personal belongings, tools for hygiene and personal care. Determine level of activity including ambulation, level of superv ision, visitors, and determine privileges based on behaviors and level of engagement by pt. VOLUNTARY SAFETY PLAN: 1. Will remain on suicide precautions, in paper clothes 2. Will remain in Zone B under direct supervision of one-on-one staff at all times provided by [employer]; BANDAR, PROJECT DRILLING ENGINEER forensic psychologist. 3. May have paper cups, plates, finger foods as well as a cardboard spoon with which to eat meals. 4. Follow [facility] Management of the Admitted Behavioral Health Patient policy. 5. Shower available in Zone B without restriction. 6. Personal belongings-soft items permitted at RN discretion. 7. Visitors- at RN discretion. 8. Activities: soft cart items approved per RN discretion. 9.? Bathroom available in Zone B without restriction. 10. Phone: limited to [facility] cordless phone at RN discretion. Due to VOLUNTARY status, if patient wishes to leave [facility], staff will contact [facility] Crisis Screener ([phone]) and Structural Steel Fitter ([phone]) as soon as possible. In the event of elopement, notify [facility] Police ([phone]). Patient is currently voluntarily at [facility] and seeking inpatient admission when a bed becomes available. [facility] Frontline Guzzler Builder will continue seeking p lacement. Please contact the Structural Steel Fitter ([phone]) and [facility] Guzzler Builder ([phone]) for any needed changes in the Safety Plan. Safety plan has been provided to interdepartmental care team.
--- NOTE | 2024-04-27 15:29 | PDOC.CMSAFE ---
Date of service: 04/27/24 Time of Service: 15:30 Care Management Safety Plan Status Status: Voluntary Reason for Wait Reason for Wait: Inpatient Admission Safety Plan Safety Plan: VOLUNTARY FOR INPATIENT PSYCHIATRIC STABILIZATION.? Patient is appropriate in all interactions since arriving at [facility]; Pt has demonstrated appropriate coping and communication skills, has articulated his or her needs and concerns and is fully engaged during staff interactions. Safety plan has been established with patient, and care team, to adhere to patient goals, identify restrictions based on behavioral status, address nutrition, and determine allowed personal belongings, tools for hygiene and personal care. Determine level of activity including ambulation, level of supervision, visitors, and determine privileges based on behaviors and level of engagement by pt. VOLUNTARY SAFETY PLAN: 1. Will remain on suicide precautions, in paper clothes 2. Will remain in Zone B under direct supervision of one-on-one staff at all times provided by [employer]; BANDAR, COMMERCIAL CREDIT SPECIALIST office support clerk. 3. May have paper cups, plates, finger foods as well as a cardboard spoon with which to eat meals. 4. Follow [facility] Management of the Admitted Behavioral Health Patient policy. 5. Shower available in Zone B without restriction. 6. Personal belongings-soft items permitted at RN discretion. 7. Visitors- at RN discretion. 8. Activities: soft cart items approved per RN discretion. 9.? Bathroom available in Zone B without restriction. 10. Phone: limited to [facility] cordless phone at RN discretion. Due to VOLUNTARY status, if patient wishes to leave [facility], staff will contact [facility] Crisis Screener ([phone]) and Volunteer Services Director ([phone]) as soon as possible. In the event of elopement, notify [facility] Police ([phone]). Patient is currently voluntarily at [facility] and seeking inpatient admission when a bed becomes available. [facility] Frontline Durability Engineer will continue seeking placement. Please contact the Volunteer Services Director ([phone]) and [facility] Durability Engineer ([phone]) for any needed changes in the Safety Plan. Safety plan has been provided to interdepartmental care team.
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
[2024-04-27] MEDS: traZODone 50 MG TAB PO (21:48)
--- NOTE | 2024-04-27 23:12 | W.EDPROG ---
Date of service: 04/27/24 Time of Service: 23:12 Medical Decision Making Resting comfortably no acute distress. Voluntary awaiting placement Quality:[facility] Health Related Social Needs: No Data to Display Sign Out Sign Out Data: Sign Out Comment: Pending voluntary inpatient psychiatric placement History of depression and anxiety with worsening symptoms. Recently here and held with suicidal ideation. No longer has access to gun, but is requesting voluntary placement at this time. Medically cleared, seen by [facility] Last updated by Loyd Mcclain MD at 04/27/24 16:04 Discharge Plan Disposition Patient Disposition: Psychiatric Hospital/Unit Specific Psychiatric Facility: Other Discharge Details Clinical Impression: Anxiety, Depression, Feeling suicidal Primary Care Provider: Liza Munson ED Provider: Sabas Benz Meds and New Rx's Prescriptions: No Action montelukast 10 mg tablet See Rx Instructions .ROUTE .COMPLEX Qty: 30 0RF Dose Instruction: TAKE ONE TABLET BY MOUTH THE NIGHT BEFORE ALLERGY INJECTIONS AND ONE TABLET THE MORNING OF THE ALLERGY INJECTION Patient Comments: Pt takes once a month prior to injections. Rx Instructions: TAKE ONE TABLET BY MOUTH THE NIGHT BEFORE ALLERGY INJECTIONS AND ONE TABLET THE MORNING OF THE ALLERGY INJECTION (DME) compressor, for nebulizer Device See Rx Instructions .Route Qty: 1 0RF Rx Instructions: As directed (DME) nebulizer accessories Kit See Rx Instructions .Route Qty: 1 0RF Rx Instructions: As directed levalbuterol tartrate [Xopenex HFA] 45 mcg/actuation HFA aerosol inhaler 2 inh inhalation Q6H PRN Nucala 100 mg/mL auto-injector 100 mg subcut Q4W Qty: 1 12RF lisdexamfetamine [Vyvanse] 40 mg capsule 40 mg PO QAM mecobalamin (vitamin B12) 1,000 mcg tablet,disintegrating 1,000 mcg sublingual DAILY Rx Instructions: place tablet under tongue and allow to dissolve for at least30 secs before swallowing (DME) BreatheRite MDI Spacer Spacer See Rx Instructions .ROUTE .MEDSUPPLY Qty: 1 0RF Rx Instructions: As directed sertraline [Zoloft] 100 mg tablet 100 mg PO DAILY trazodone 100 mg tablet 50 mg PO QHS PRN bupropion HCl 150 mg tablet sustained-release 12 hr 300 mg PO DAILY Nexplanon 68 mg implant 1 implant subdermal ONCE Qty: 1 0RF Rx Instructions: as a single dose (DME) Depend Underwear For Women S-M Misc See Rx Instructions .Route Qty: 64 4RF Rx Instructions: As directed fluticasone propion-salmeterol [Advair HFA] 230-21 mcg/actuation HFA aerosol inhaler 2 puff inhalation BID Qty: 12 12RF potassium chloride 20 mEq tablet,ER particles/crystals 20 meq PO DAILY Qty: 10 0RF magnesium 250 mg tablet 250 mg PO DAILY Qty: 10 0RF calcitriol 0.5 mcg capsule 0.5 mcg PO DAILY Qty: 10 0RF calcium carbonate 600 mg calcium (1,500 mg) tablet 600 mg PO DAILY Qty: 10 0RF
--- NOTE | 2024-04-28 01:56 | PDOC.MHCN_ITS ---
Date of service: 04/27/24 Time of Service: 18:05 PHQ-9 Over the last 2 weeks, how often have you been bothered by any of the following problems? 1. Little interest or pleasure in doing things: nearly every day 2. Feeling down, depressed, or hopeless: nearly every day 3. Trouble falling or staying asleep, or sleeping too much: nearly every day 4. Feeling tired or having little energy: nearly every day 5. Poor appetite or overeating: nearly every day 6. Feeling bad about yourself - or that you are a failure or have let yourself and your family down: more than half the days 7. Trouble concentrating on things, such as reading the newspaper or watching television: several days 8. Moving or speaking so slowly that other people could have noticed? - Or the opposite - being so fidgety or restless that you have been moving around a lot more than usual: not at all 9. Thoughts that you would be better off or of hurting yourself in some way: nearly every day Total score: 21 If you checked off any problems, how difficult have these problems made it for you to do your work, take care of things at home, or get along with other people?: extremely difficult Source: Developed by Drs. Oskar Marquez, Darlene Betancur, Antonio Barry and colleagues, with an educational heriberto from [employer]. Suicide Severity Rate CSSRS Have you wished you were or wished you could go to sleep and not wake up?: Yes Have you actually had any thoughts of killing yourself?: Yes CSSRS2 Have you been thinking about how you might do this?: Yes Have you had these thoughts and had some intention of acting on them?: Yes Have you started to work out or worked out the details of how to kill yourself? Do you intend to carry out this plan?: Yes CSSRS3 Have you ever done anything, started to do anything or prepared to do anything to end your life?: Yes CSSRS4 Was this within the past three months?: No Screening Score Total Score: 6 Screening: Positive Mental Health Emergency Note Release [facility] release signed:: Yes Reason for Visit In the last 2 weeks has the pt presented for ES prior to today?: Yes, presented at [facility] ED Safety Risk/Harm to Self or Others Current Ideation to Harm Self or Others: Yes to self. Intent: yes, has intent. Plan: no.does not have a plan. History of suicide attempt: No history of suicide attempt reported Asssessment/Mental Status Appearance: Unremarkable Attitude: Cooperative Behavior: Unremarkable Speech: Normal and Soft Affect: Cogruent with mood Mood: Sad, Depressed and Anxious Thought process: Unremarkable Hallucinations: yes, Visual and Auditory Delusions: No evidence Attention: Wandering and Inattention Perception: Not impaired Orientation: Fully orientated Memory: Intact Insight: Fair Judgement: Fair Neurovegetative Symptoms Sleep: Decrease Appetitie: Decrease Interests: Decrease Energy: Decrease Libido: Not applicable Substance Use: Have you used substances in the last 7 days?: No Impression Client presented to [facility] ED due to panic attack at work and worsening thoughts of NSSI and SI. Client reported that as she was leaving work, she started to panic due to wanting to hurt herself when she got home. Client reported that she had no plan but intent to do anything or use anything to hurt herself. Client reported that this made her go to the emergency room for help. Client reported that she wanted to go to inpatient treatment, and that she wanted to go. Client reported that the previous week when she admitted for mental health assistance, she was safety planned home even though she did not want to be. Client reported that her auditory and visual hallucinations have returned. Client reported that he thoughts of NSSI and SI have increased. Client reported that she is also struggling living with her parents and them frequently bringing her brother home. Client reported that she is interested in an inpatient program to help with her thoughts of SI and NSSI in addition to her hallucinations. Plan/Disposition Recommended Disposition: Hospitalization facilities contacted. Plan: Client will remain at [facility] in zone b while waiting for voluntary inpatient placement. Client will need daily assessments till place. Reports/communication Outcome discussed with: ED/Personnel
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
[2024-04-28] MEDS: Lisdexamphetamine 40 MG CAP PO (08:19)
[2024-04-28] MEDS: Budesonide/Formoterol 160/4.5 6 GM 60 PUFF INH IH (08:19)
[2024-04-28] MEDS: Calcitriol 0.25 MCG CAP 0.5 MCG PO (08:20)
[2024-04-28] MEDS: Cyanocobalamin 500 MCG TAB 1000 MCG PO (08:20)
[2024-04-28] MEDS: Calcium Carbonate 1.5 GM TAB PO (08:20)
[2024-04-28] MEDS: Sertraline 100 MG TAB PO (08:21)
[2024-04-28] MEDS: buPROPion-CR 150 MG TABCR 300 MG PO (08:21)
[2024-04-28] MEDS: Potassium Chloride 20 MEQ TABCR PO (08:25)
[2024-04-28] MEDS: Magnesium Oxide 400 MG TAB 200 MG PO (08:25)
[2024-04-28 08:33] VITALS: BP 93/60; PULSE 101; RESP 20; TEMP 36; O2SAT 98
--- NOTE | 2024-04-28 14:07 | CMSP_ITS ---
Date of service: 04/28/24 Time of Service: 14:07 Care Management Safety Plan Status Status: Voluntary Reason for Wait Reason for Wait: Inpatient Admission Safety Plan Safety Plan: VOLUNTARY FOR INPATIENT PSYCHIATRIC STABILIZATION.? Patient is appropriate in all interactions since arriving at [facility]; Pt has demonstrated appropriate coping and communication skills, has articulated his or her needs and concerns and is fully engaged during staff interactions. Safety plan has been established with patient, and care team, to adhere to patient goals, identify restrictions based on behavioral status, address nutrition, and determine allowed personal belongings, tools for hygiene and personal care. Determine level of activity including ambulation, level of supervision, visitors, and determine privileges based on behaviors and level of engagement by pt. VOLUNTARY SAFETY PLAN: 1. Will remain on suicide precautions, in paper clothes 2. Will remain in Zone B under direct supervision of one-on-one staff at all times provided by [employer]; BANDAR, EDUCATIONAL ADVISER combat systems operator. 3. May have paper cups, plates, finger foods as well as a cardboard spoon with which to eat meals. 4. Follow [facility] Management of the Admitted Behavioral Health Patient policy. 5. Shower available in Zone B without restriction. 6. Personal belongings-soft items permitted at RN discretion. 7. Visitors- at RN discretion. 8. Activities: soft cart items approved per RN discretion. 9.? Bathroom available in Zone B without restriction. 10. Phone: limited to [facility] cordless phone at RN discretion. Due to VOLUNTARY status, if patient wishes to leave [facility], staff will contact [facility] Crisis Screener ([phone]) and Pillow Cleaner ([phone]) as soon as possible. In the event of elopement, notify [facility] Police ([phone]). Patient is currently voluntarily at [facility] and seeking inpatient admission when a bed becomes available. [facility] Frontline Supervisor Decorating will continue seeking place ment. Please contact the Pillow Cleaner ([phone]) and [facility] Supervisor Decorating ([phone]) for any needed changes in the Safety Plan. Safety plan has been provided to interdepartmental care team.
--- NOTE | 2024-04-28 14:07 | PDOC.CMSAFE ---
Date of service: 04/28/24 Time of Service: 14:07 Care Management Safety Plan Status Status: Voluntary Reason for Wait Reason for Wait: Inpatient Admission Safety Plan Safety Plan: VOLUNTARY FOR INPATIENT PSYCHIATRIC STABILIZATION.? Patient is appropriate in all interactions since arriving at [facility]; Pt has demonstrated appropriate coping and communication skills, has articulated his or her needs and concerns and is fully engaged during staff interactions. Safety plan has been established with patient, and care team, to adhere to patient goals, identify restrictions based on behavioral status, address nutrition, and determine allowed personal belongings, tools for hygiene and personal care. Determine level of activity including ambulation, level of supervision, visitors, and determine privileges based on behaviors and level of engagement by pt. VOLUNTARY SAFETY PLAN: 1. Will remain on suicide precautions, in paper clothes 2. Will remain in Zone B under direct supervision of one-on-one staff at all times provided by [employer]; BANDAR, HAND ROLLER ENGRAVER tornado chaser. 3. May have paper cups, plates, finger foods as well as a cardboard spoon with which to eat meals. 4. Follow [facility] Management of the Admitted Behavioral Health Patient policy. 5. Shower available in Zone B without restriction. 6. Personal belongings-soft items permitted at RN discretion. 7. Visitors- at RN discretion. 8. Activities: soft cart items approved per RN discretion. 9.? Bathroom available in Zone B without restriction. 10. Phone: limited to [facility] cordless phone at RN discretion. Due to VOLUNTARY status, if patient wishes to leave [facility], staff will contact [facility] Crisis Screener ([phone]) and Pearl Maker ([phone]) as soon as possible. In the event of elopement, notify [facility] Police ([phone]). Patient is currently voluntarily at [facility] and seeking inpatient admission when a bed becomes available. [facility] Frontline Manufacturing Engineer Paint will continue seeking placement. Please contact the Pearl Maker ([phone]) and [facility] Manufacturing Engineer Paint ([phone]) for any needed changes in the Safety Plan. Safety plan has been provided to interdepartmental care team.
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
--- NOTE | 2024-04-28 16:31 | ED.PROG_ITS ---
Date of service: 04/28/24 Time of Service: 16:31 Medical Decision Making I received signout on this 19-year-old female in the emergency department voluntarily in the setting of suicidal ideation. She is medically cleared. No active behavioral issues last shift. Will update documentation as clinically warranted and signed patient out to the [facility] overnight provider. 7:40 PM I spoke with Dr. Lopez from the [facility] who agreed graciously to accept the patient for voluntary hospitalization. 10:54 PM I signed transfer paperwork on this patient. Will sign patient out to the [facility] overnight provider. Quality:[facility] Health Related Social Needs: No Data to Display Sign Out Sign Out Data: Sign Out Comment: Pending voluntary inpatient psychiatric placement History of depression and anxiety with worsening symptoms. Recently here and held with suicidal ideation. No longer has access to gun, but is requesting voluntary placement at this time. Medically cleared, seen by [facility] Last updated by Loyd Mcclain MD at 04/27/24 16:04 Sign Out Comment: voluntary, SI, no issues today, medically cleared, [facility] working on referrals Last updated by Sabas Benz MD at 04/27/24 23:13 Sign Out Comment: No issues overnight. Daily medications are ordered. Remains voluntary for inpatient psychiatric admission. Last updated by Oskar Gordon MD at 04/28/24 07:06 Sign Out Comment: Pending voluntary inpatient psychiatric placement History of depression and anxiety with worsening symptoms. Recently here and held with suicidal ideation. Seen by [facility] twice today, intermittently states she wants to leave but then agrees to stay. Last updated by Loyd Mcclain MD at 04/28/24 16:28 Discharge Plan Disposition Patient Disposition: Psychiatric Hospital/Unit Specific Psychiatric Facility: Other Discharge Details Clinical Impression: Anxiety, Depression, Feeling suicidal Primary Care Provider: Liza Munson ED Provider: Jeffy Mo Home Meds and New Rx's Prescriptions: No Action montelukast 10 mg tablet See Rx Instructions .ROUTE .COMPLEX Qty: 30 0RF Dose Instruction: TAKE ONE TABLET BY MOUTH THE NIGHT BEFORE ALLERGY INJECTIONS AND ONE TABLET THE MORNING OF THE ALLERGY INJECTION Patient Comments: Pt takes once a month prior to injections. Rx Instructions: TAKE ONE TABLET BY MOUTH THE NIGHT BEFORE ALLERGY INJECTIONS AND ONE TABLET THE MORNING OF THE ALLERGY INJECTION (DME) compressor, for nebulizer Device See Rx Instructions .Route Qty: 1 0RF Rx Instructions: As directed (DME) nebulizer accessories Kit See Rx Instructions .Route Qty: 1 0RF Rx Instructions: As directed levalbuterol tartrate [Xopenex HFA] 45 mcg/actuation HFA aerosol inhaler 2 inh inhalation Q6H PRN Nucala 100 mg/mL auto-injector 100 mg subcut Q4W Qty: 1 12RF lisdexamfetamine [Vyvanse] 40 mg capsule 40 mg PO QAM mecobalamin (vitamin B12) 1,000 mcg tablet,disintegrating 1,000 mcg sublingual DAILY Rx Instructions: place tablet under tongue and allow to dissolve for at least30 secs before swallowing (DME) BreatheRite MDI Spacer Spacer See Rx Instructions .ROUTE .MEDSUPPLY Qty: 1 0RF Rx Instructions: As directed sertraline [Zoloft] 100 mg tablet 100 mg PO DAILY trazodone 100 mg tablet 50 mg PO QHS PRN bupropion HCl 150 mg tablet sustained-release 12 hr 300 mg PO DAILY Nexplanon 68 mg implant 1 implant subdermal ONCE Qty: 1 0RF Rx Instructions: as a single dose (DME) Depend Underwear For Women S-M Misc See Rx Instructions .Route Qty: 64 4RF Rx Instructions: As directed fluticasone propion-salmeterol [Advair HFA] 230-21 mcg/actuation HFA aerosol inhaler 2 puff inhalation BID Qty: 12 12RF potassium chloride 20 mEq tablet,ER particles/crystals 20 meq PO DAILY Qty: 10 0RF magnesium 250 mg tablet 250 mg PO DAILY Qty: 10 0RF calcitriol 0.5 mcg capsule 0.5 mcg PO DAILY Qty: 10 0RF calcium carbonate 600 mg calcium (1,500 mg) tablet 600 mg PO DAILY Qty: 10 0RF
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
[2024-04-28] MEDS: traZODone 50 MG TAB PO (21:51)
--- NOTE | 2024-04-28 23:44 | W.EDPROG ---
Date of service: 04/28/24 Time of Service: 23:44 Medical Decision Making This patient was signed out to me. Please see previous notes for H&P and initial eval. In brief, 19yo F presenting voluntary wtih SI, medically cleared, plan for [facility] tomorrow. Overnight patient appeared to be sleeping. Did not wake for assessment. No acute events. Will be signed out to oncoming physician, plan remains as above. Quality:[facility] Health Related Social Needs: No Data to Display Sign Out Sign Out Data: Sign Out Comment: Pending voluntary inpatient psychiatric placement History of depression and anxiety with worsening symptoms. Recently here and held with suicidal ideation. No longer has access to gun, but is requesting voluntary placement at this time. Medically cleared, seen by [facility] Last updated by Loyd Mcclain MD at 04/27/24 16:04 Sign Out Comment: voluntary, SI, no issues today, medically cleared, [facility] working on referrals Last updated by Sabas Benz MD at 04/27/24 23:13 Sign Out Comment: No issues overnight. Daily medications are ordered. Remains voluntary for inpatient psychiatric admission. Last updated by Oskar Gordon MD at 04/28/24 07:06 Sign Out Comment: Pending voluntary inpatient psychiatric placement History of depression and anxiety with worsening symptoms. Recently here and held with suicidal ideation. Seen by [facility] twice today, intermittently states she wants to leave but then agrees to stay. Last updated by Loyd Mcclain MD at 04/28/24 16:28 Sign Out Comment: Patient accepted to [facility] voluntarily. No active behavioral issues last shift. Home medications in place. Last updated by Jeffy Mo MD at 04/28/24 22:55 Discharge Plan Disposition Patient Disposition: Psychiatric Hospital/Unit Specific Psychiatric Facility: Other Discharge Details Clinical Impression: Anxiety, Depression, Feeling suicidal Primary Care Provider: Liza Munson ED Provider: Yuridia Hong Home Meds and New Rx's Prescriptions: No Action montelukast 10 mg tablet See Rx Instructions .ROUTE .COMPLEX Qty: 30 0RF Dose Instruction: TAKE ONE TABLET BY MOUTH THE NIGHT BEFORE ALLERGY INJECTIONS AND ONE TABLET THE MORNING OF THE ALLERGY INJECTION Patient Comments: Pt takes once a month prior to injections. Rx Instructions: TAKE ONE TABLET BY MOUTH THE NIGHT BEFORE ALLERGY INJECTIONS AND ONE TABLET THE MORNING OF THE ALLERGY INJECTION (DME) compressor, for nebulizer Device See Rx Instructions .Route Qty: 1 0RF Rx Instructions: As directed (DME) nebulizer accessories Kit See Rx Instructions .Route Qty: 1 0RF Rx Instructions: As directed levalbuterol tartrate [Xopenex HFA] 45 mcg/actuation HFA aerosol inhaler 2 inh inhalation Q6H PRN Nucala 100 mg/mL auto-injector 100 mg subcut Q4W Qty: 1 12RF lisdexamfetamine [Vyvanse] 40 mg capsule 40 mg PO QAM mecobalamin (vitamin B12) 1,000 mcg tablet,disintegrating 1,000 mcg sublingual DAILY Rx Instructions: place tablet under tongue and allow to dissolve for at least30 secs before swallowing (DME) BreatheRite MDI Spacer Spacer See Rx Instructions .ROUTE .MEDSUPPLY Qty: 1 0RF Rx Instructions: As directed sertraline [Zoloft] 100 mg tablet 100 mg PO DAILY trazodone 100 mg tablet 50 mg PO QHS PRN bupropion HCl 150 mg tablet sustained-release 12 hr 300 mg PO DAILY Nexplanon 68 mg implant 1 implant subdermal ONCE Qty: 1 0RF Rx Instructions: as a single dose (DME) Depend Underwear For Women [facility] See Rx Instructions .Route Qty: 64 4RF Rx Instructions: As directed fluticasone propion-salmeterol [Advair HFA] 230-21 mcg/actuation HFA aerosol inhaler 2 puff inhalation BID Qty: 12 12RF potassium chloride 20 mEq tablet,ER particles/crystals 20 meq PO DAILY Qty: 10 0RF magnesium 250 mg tablet 250 mg PO DAILY Qty: 10 0RF calcitriol 0.5 mcg capsule 0.5 mcg PO DAILY Qty: 10 0RF calcium carbonate 600 mg calcium (1,500 mg) tablet 600 mg PO DAILY Qty: 10 0RF
[2024-04-29 07:28] VITALS: BP 96/61; PULSE 91; RESP 18; TEMP 36.3; O2SAT 99
[2024-04-29] MEDS: Budesonide/Formoterol 160/4.5 6 GM 60 PUFF INH IH (08:30)
[2024-04-29] MEDS: Acetaminophen 325 MG TAB 650 MG PO (08:31)
[2024-04-29] MEDS: buPROPion-CR 150 MG TABCR 300 MG PO (08:31)
[2024-04-29] MEDS: Lisdexamphetamine 40 MG CAP PO (08:32)
[2024-04-29] MEDS: Cyanocobalamin 500 MCG TAB 1000 MCG PO (08:32)
[2024-04-29] MEDS: Magnesium Oxide 400 MG TAB 200 MG PO (08:32)
[2024-04-29] MEDS: Potassium Chloride 20 MEQ TABCR PO (08:32)
[2024-04-29] MEDS: Calcitriol 0.25 MCG CAP 0.5 MCG PO (08:32)
[2024-04-29] MEDS: Calcium Carbonate 1.5 GM TAB PO (08:32)
[2024-04-29] MEDS: Sertraline 100 MG TAB PO (08:32)
--- NOTE | 2024-04-29 10:57 | MHPN_ITS ---
Date of service: 04/28/24 Time of Service: 12:45 Mental Health Emergency Note Release [facility] release signed:: Yes Reason for Visit In the last 2 weeks has the pt presented for ES prior to today?: Yes, presented at [facility] ED Asssessment/Mental Status Appearance: Disheveled Attitude: Cooperative Behavior: Unremarkable Speech: Normal Affect: Normal Mood: Depressed Thought process: Unremarkable Hallucinations: yes, Visual and Auditory Delusions: No evidence Attention: Unremarkable Perception: Not impaired Orientation: Fully orientated Memory: Intact Insight: Fair Judgement: Fair Neurovegetative Symptoms Sleep: Increase Appetitie: No change Interests: No change Energy: No change Libido: Not applicable Impression Client reported no change in he SI. Client reported she she has been sleeping. Client reported no change in her appetite. Client reported that she is still feeling suicidal. Client reported concerns about appointments she has scheduled throughout this week, client was informed that she should be able to attend while at an inpatient facility via zoom. Plan/Disposition Recommended Disposition: Hospitalization facilities contacted. Plan: Client will remain at [facility] in zone b till inpatient placement is found. Reports/communication Outcome discussed with: ED/Personnel
== END ==
LOC: ER 04-29 08:31 → RED 04-29 09:33
PROVIDERS: Emergency Medicine; Emergency Provider Student in an Organized Health Care Education/Training Program; PCP Nurse Practitioner Family
DX: F32.A Depression, unspecified (principal); R45.851 Suicidal ideations
CPT/HCPCS: 00123; 80307; 96127; 99285; H0046

== ENCOUNTER 2024-05-08 13:27 | Emergency (ER) | payer MEDICAID, SELFPAY ==
[2024-05-08 13:30] VITALS: BP 135/84; PULSE 95; RESP 15; TEMP 37; O2SAT 95
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
[2024-05-08 15:15] LABS: Abs Immature Grans 0.03 10^3/uL (0.0-0.06); Absolute Basophil Count 0.03 10^3/uL (0.0-0.2); Absolute Eosinophil Count 0.15 10^3/uL (0.0-0.7); Absolute Lymphocyte Count 2.37 10^3/uL (1.2-3.4); Absolute Neutrophil Count 3.91 10^3/uL (1.2-6.7); Basophils % 0.4 %; Eosinophils % 2.2 %; HCT 29.1 % (36.0-46.0); HGB 9.6 g/dL (11.2-15.7); Immature Grans % 0.4 %; Lymphocytes % 34.4 %; MCH 29.5 pg (27.0-33.0); MCV 90 fL (80-95); MPV 9.5 fL (8.0-11.0); Monocytes % 5.8 %; Neutrophils % 56.8 %; Platelet Count 218 10^3/uL (130-400); RBC 3.25 10^6/uL (3.93-5.22); RDW 12.8 % (11.7-14.6); RDW-SD 42.3 fL; WBC 6.89 10^3/uL (4.4-10.8)
[2024-05-08 15:32] LABS: Bilirubin Negative (Negative); Blood Negative (Negative); Clarity Clear (Clear); Glucose Negative (Negative); Ketones Negative (Negative); Leukocyte Esterase Negative (Negative); Nitrite Negative (Negative); Specific Gravity 1.015 (1.005-1.025); Urobilinogen 0.2 mg/dL (Up to 0.2); pH 6.5 (5-8)
[2024-05-08 15:34] LABS: ALT 14 U/L (14-59); AST 17 U/L (15-37); Albumin 3.9 g/dL (3.4-5.0); Alkaline Phosphatase 57 U/L (46-116); Anion Gap 10.2 mmol/L (3-11); BUN 8 mg/dL (7-18); Bilirubin, Total 0.18 mg/dL (0.2-1.0); CO2 27.8 mmol/L (21.0-32.0); CREATININE 0.8 mg/dL (0.55-1.02); Calcium 6.9 mg/dL (8.5-10.1); Chloride 102 mmol/L (98-107); Estimated GFR 108.11 (mL/min/1.73m2); Glucose 109 mg/dL (74-106); Potassium 3.1 mmol/L (3.5-5.1); Sodium 140 mmol/L (136-145); TSH (W/Ref FT4) 1.43 uIU/mL (0.36-3.74); Total Protein 7.3 g/dL (6.4-8.2)
[2024-05-08 15:35] LABS: Salicylate < 2.8 mg/dL (<2.8)
[2024-05-08 15:38] LABS: Acetaminophen < 2 ug/mL (10-30)
[2024-05-08 15:41] LABS: ETHANOL BLOOD < 3.0 mg/dL (<10)
[2024-05-08 15:47] LABS: *AMPHETAMINES SCREEN URINE Positive (Negative); *BARBITURATES SCREEN URINE Negative (Negative); *BENZODIAZEPINES SCREEN URINE Negative (Negative); Cannabinoids THC Negative (Negative); Cocaine Screen,Urine Negative (Negative); METHADONE URINE SCREEN Negative (Negative); OPIATES URINE SCREEN Negative (Negative); Tricyclic Antidepressants Negative (Negative)
[2024-05-08] MEDS: Potassium Chloride 20 MEQ TABCR 40 MEQ PO (16:12)
[2024-05-08 17:25] VITALS: BP 124/77; PULSE 96; RESP 12; O2SAT 100
== END 2024-05-08 17:27 | disposition home or self-care (01) ==
PROVIDERS: Emergency Provider Emergency Medicine; PCP Nurse Practitioner Family
DX: R45.851 Suicidal ideations (principal); F32.A Depression, unspecified
CPT/HCPCS: 36415; 80053; 80307; 81025; 99283; 80320; 80329; 81003; 84443; 85025

== ENCOUNTER 2024-06-27 16:22 | Outpatient (CLI) | payer MEDICAID, SELFPAY ==
[2024-06-27 17:09] LABS: Albumin 4.2 g/dL (3.4-5.0); Anion Gap 12.9 mmol/L (3-11); BUN 10 mg/dL (7-18); CO2 27.1 mmol/L (21.0-32.0); CREATININE 0.8 mg/dL (0.55-1.02); Calcium 6.9 mg/dL (8.5-10.1); Chloride 103 mmol/L (98-107); Estimated GFR 108.11 (mL/min/1.73m2); Glucose 85 mg/dL (74-106); PHOSPHORUS 5.1 mg/dL (2.6-4.7); Potassium 3.5 mmol/L (3.5-5.1); Sodium 143 mmol/L (136-145)
[2024-06-27 21:46] LABS: Ionized Calcium 0.85 mmol/L (1.14-1.35)
== END 2024-06-27 16:23 | disposition home or self-care (01) ==
LOC: LBO 16:22
PROVIDERS: PCP Nurse Practitioner Family; Visit Provider Pediatrics Pediatric Nephrology
DX: Z86.39 Personal history of other endocrine, nutritional and metabolic disease (principal); N18.1 Chronic kidney disease, stage 1
CPT/HCPCS: 36415; 80069; 82330

== ENCOUNTER 2024-07-08 16:51 | Emergency (ER) | payer MEDICAID, SELFPAY ==
[2024-07-08 16:53] VITALS: BP 111/59; PULSE 109; RESP 18; TEMP 36.4; O2SAT 98
[2024-07-08 17:30] VITALS: RESP 18
[2024-07-08 18:16] LABS: Magnesium 1.6 mg/dL (1.8-2.4)
[2024-07-08 18:17] LABS: Anion Gap 10.8 mmol/L (3-11); BUN 12 mg/dL (7-18); CO2 27.2 mmol/L (21.0-32.0); Calcium 7.4 mg/dL (8.5-10.1); Chloride 104 mmol/L (98-107); Estimated GFR 82.71 (mL/min/1.73m2); Glucose 87 mg/dL (74-106); Sodium 142 mmol/L (136-145)
[2024-07-08] MEDS: Acetaminophen 500 MG TAB 1000 MG PO (18:18)
[2024-07-08] MEDS: Potassium Chloride Liquid 20 MEQ PKT 40 MEQ PO (18:36)
[2024-07-08] MEDS: Magnesium Oxide 400 MG TAB PO (18:36)
[2024-07-08 18:51] LABS: *AMPHETAMINES SCREEN URINE Positive (Negative); *BARBITURATES SCREEN URINE Negative (Negative); *BENZODIAZEPINES SCREEN URINE Negative (Negative); Cannabinoids THC Negative (Negative); Cocaine Screen,Urine Negative (Negative); METHADONE URINE SCREEN Negative (Negative); OPIATES URINE SCREEN Negative (Negative)
[2024-07-08 18:52] LABS: Tricyclic Antidepressants Negative (Negative)
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
== END 2024-07-08 19:00 | disposition home or self-care (01) ==
PROVIDERS: Emergency Provider Emergency Medicine; PCP Nurse Practitioner Family
DX: E87.6 Hypokalemia (principal); E83.42 Hypomagnesemia; E83.51 Hypocalcemia; R45.851 Suicidal ideations
CPT/HCPCS: 80048; 80307; 81025; 99284; 83735

== ENCOUNTER 2024-07-10 12:43 | Outpatient (CLI) | payer MEDICAID, SELFPAY ==
--- NOTE | 2024-07-10 13:04 | DI.RAD_ITS ---
Exam(s) XR CHEST 2V PA LATERAL EXAM: XR CHEST 2V PA LATERAL CLINICAL HISTORY: Cough, R05.9. TECHNIQUE: 2D digital imaging was performed. COMPARISON: CR,XR XR CHEST 3 VIEW from 03/25/2023 FINDINGS: 2 views: Heart size is normal. The mediastinum is not widened. Lungs are clear. No infiltrates nor pleural effusions. IMPRESSION: No acute pulmonary findings. DATA REPOSITORY: RADIATION DOSE DELIVERED:
== END 2024-07-10 13:03 ==
LOC: DI 12:46
PROVIDERS: PCP Nurse Practitioner Family; Visit Provider Physician Assistant Medical
DX: R05.9 Cough, unspecified (principal)
CPT/HCPCS: 71046

== ENCOUNTER 2024-08-12 12:12 | Outpatient (REF) | payer MEDICAID, SELFPAY ==
[2024-08-12 18:42] LABS: Folate 14.8 ng/mL (8.6-20.0); T4 8.1 ug/dL (4.7-13.3); TSH 1.22 uIU/mL (0.36-3.74); Vitamin B12 904 pg/mL (193-986)
== END 2024-08-12 12:13 | disposition home or self-care (01) ==
LOC: NCHCN 12:12
PROVIDERS: PCP Nurse Practitioner Family; Visit Provider Nurse Practitioner Family
DX: R20.2 Paresthesia of skin (principal)
CPT/HCPCS: 82607; 82746; 84436; 84443

== ENCOUNTER 2024-08-29 17:48 | Outpatient (REF) | payer MEDICAID, SELFPAY ==
[2024-08-29 17:05] LABS: Bilirubin Negative (Negative); Blood Moderate (Negative); Clarity Clear (Clear); Glucose Negative (Negative); Ketones Negative (Negative); Leukocyte Esterase Negative (Negative); Nitrite Negative (Negative); Specific Gravity 1.025 (1.005-1.025); Urobilinogen 0.2 mg/dL (Up to 0.2); pH 5.5 (5-8)
[2024-08-29 17:20] LABS: Bacteria Rare HPF (Negative); C & S Indicated? C&S Done As Ordered; Casts Negative LPF (Negative); Crystals Negative HPF (Negative); Epithelial Cells Few HPF (Negative); Mucus Negative (Negative); RBC 20-50 HPF (0-2); WBC 0-2 HPF (0-5)
== END 2024-08-29 17:49 | disposition home or self-care (01) ==
LOC: LBN 17:48
PROVIDERS: PCP Nurse Practitioner Family; Visit Provider Pediatrics Pediatric Nephrology
DX: R30.0 Dysuria (principal)
CPT/HCPCS: 81003; 81015; 87086

== ENCOUNTER 2024-09-02 01:14 | Outpatient (CLI) | payer MEDICAID, SELFPAY ==
--- NOTE | 2024-09-02 | DI.MRI_ITS ---
Exam(s) MR LUMBAR SPINE WO EXAM: MR LUMBAR SPINE WO CLINICAL HISTORY: LUMBAR RADICULOPATHY, M54.16. TECHNIQUE: Multiplanar multisequence MRI of the Lumbar spine was performed. COMPARISON: CT CT ABDOMEN PELVIS W from 04/16/[address] scan images of 04/16/2024 were re viewed. FINDINGS: Conus medullaris is at normal level. There is no evidence of conus mass nor subjacent clumping of in trathecal nerve roots to suggest arachnoiditis. The distal thecal sac appears unremarkable.There is no evidence of Tarlov intrasacral cysts nor other significant findings within the sacral canal Bones:There are no fractures nor ominous osseous lesions in the lumbar vertebral bodies and visualize d sacrum. On the uppermost aspect of the field of view of the sagittal images there is the Schmorl's node invagination in the inferior endplate of T10 noted. No abnormal intraosseous signal seen on th e STIR imaging at this level. With respect to the individual levels... T12-L1: Unremarkable L1-2: Normal disc height and signal. No disc herniation nor central canal stenosis.No foraminal steno sis L2-3: Normal disc height. No disc herniation nor central canal stenosis.No foraminal stenosis.No face t arthropathy. L3-4: Normal disc height. No disc herniation or central canal stenosis.No foraminal stenosis.No face t arthropathy. L4-5: Normal disc height and signal. No disc herniation or central canal stenosis. No facet arthrop athy. No foraminal stenosis. L5-S1: Normal disc height and signal. No disc herniation or central spinal canal stenosis. No damion inal stenosis. No facet arthropathy. Soft tissues: Multiple small cysts are noted in both kidneys. The entire kidneys not occluded in th e field of view. There is no hydronephrosis. IMPRESSION: 1. No significant findings in the lumbosacral spinal column. No evidence of disc herniation or centr al canal stenosis nor foraminal stenosis. 2. No listhesis. No pars defects. 3. Small cortical cysts are noted in both kidneys. The largest measures 1.5 cm diameter. DATA REPOSITORY:
== END 2024-09-02 01:34 ==
LOC: DI 01:14
PROVIDERS: PCP Nurse Practitioner Family; Visit Provider Nurse Practitioner Family
DX: M54.16 Radiculopathy, lumbar region (principal)
CPT/HCPCS: 72148

== ENCOUNTER 2024-09-12 22:00 | Outpatient (REF) | payer MEDICAID, SELFPAY ==
[2024-09-16 19:23] LABS: HSV 1 DNA Result Negative (Negative); HSV 2 DNA Result Negative (Negative)
== END 2024-09-12 22:01 | disposition home or self-care (01) ==
LOC: LBN 22:00
PROVIDERS: PCP Nurse Practitioner Family; Visit Provider Family Medicine
DX: K13.0 Diseases of lips
CPT/HCPCS: 87529

== ENCOUNTER 2024-09-19 08:15 | Emergency (ER) | payer MEDICAID, SELFPAY ==
[2024-09-19 08:19] VITALS: BP 115/61; PULSE 114; RESP 16; TEMP 36.3; O2SAT 98
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
[2024-09-19] MEDS: Prochlorperazine 10 MG/2 ML VIAL IVP (09:02)
[2024-09-19] MEDS: diphenhydrAMINE 50 MG/ML VIAL 25 MG IVP (09:02)
[2024-09-19] MEDS: Dexamethasone 10 MG/ML VIAL IVP (09:02)
[2024-09-19 09:07] LABS: Abs Immature Grans 0.03 10^3/uL (0.0-0.06); Absolute Basophil Count 0.03 10^3/uL (0.0-0.2); Absolute Eosinophil Count 0.09 10^3/uL (0.0-0.7); Absolute Lymphocyte Count 1.51 10^3/uL (1.2-3.4); Absolute Monocyte Count 0.44 10^3/uL (0.1-0.8); Absolute Neutrophil Count 3.22 10^3/uL (1.2-6.7); Basophils % 0.6 %; Eosinophils % 1.7 %; HCT 31.9 % (36.0-46.0); HGB 10.5 g/dL (11.2-15.7); Immature Grans % 0.6 %; Lymphocytes % 28.4 %; MCH 28.1 pg (27.0-33.0); MCHC 32.9 % (32.0-36.0); MCV 85 fL (80-95); MPV 9.8 fL (8.0-11.0); Monocytes % 8.3 %; Neutrophils % 60.4 %; Platelet Count 244 10^3/uL (130-400); RBC 3.74 10^6/uL (3.93-5.22); RDW 15.6 % (11.7-14.6); RDW-SD 48.8 fL; WBC 5.32 10^3/uL (4.4-10.8)
[2024-09-19 09:10] VITALS: BP 123/77; PULSE 91
[2024-09-19 09:21] LABS: ALT 13 U/L (14-59); AST 14 U/L (15-37); Albumin 3.8 g/dL (3.4-5.0); Alkaline Phosphatase 61 U/L (46-116); Anion Gap 7.4 mmol/L (3-11); BUN 8 mg/dL (7-18); CO2 29.6 mmol/L (21.0-32.0); Calcium 8.2 mg/dL (8.5-10.1); Chloride 103 mmol/L (98-107); Estimated GFR 82.71 (mL/min/1.73m2); Glucose 101 mg/dL (74-106); Magnesium 1.4 mg/dL (1.8-2.4); Potassium 3.8 mmol/L (3.5-5.1); Sodium 140 mmol/L (136-145); Total Protein 7.5 g/dL (6.4-8.2)
[2024-09-19 09:35] LABS: HCG Qual (Serum) Negative
[2024-09-19 09:45] LABS: COVID-19 PCR Negative (Negative); Influenza A PCR Negative (Negative); Influenza B PCR Negative (Negative); RSV PCR Negative (Negative)
[2024-09-19 09:46] LABS: Source Nasopharynx
--- NOTE | 2024-09-19 16:40 | NUR.NOTE ---
Pt's prescription for zofran was not received by [facility], verbal order placed per MD's d/c paperwork.
== END 2024-09-19 10:04 | disposition home or self-care (01) ==
PROVIDERS: Emergency Provider Emergency Medicine; PCP Nurse Practitioner Family
DX: G43.909 Migraine, unspecified, not intractable, without status migrainosus (principal); E83.42 Hypomagnesemia
CPT/HCPCS: 36415; 80053; 87637; 96374; 96375; 99284; 83735; 84703; 85025; J0780; J1100; J1200

== ENCOUNTER 2024-09-23 17:14 | Outpatient (CLI) | payer MEDICAID, SELFPAY ==
--- NOTE | 2024-09-23 17:00 | RT.EKG_ITS ---
APPROVED REPORT Exam: Resting ECG Reason for Exam: chest discomfort Patient Location: O HR:79 bpm ECG Measurements Heart Rate 79 AXIS FL 152 P 8 QRSd 89 QRS 73 QT 405 T 72 QTc 465 Conclusion Sinus rhythm...normal P axis, V-rate 50- 99 Normal Electrocardiogram
== END 2024-09-23 17:15 | disposition home or self-care (01) ==
LOC: DI.CM 17:14
PROVIDERS: PCP Nurse Practitioner Family; Visit Provider Nurse Practitioner Family
DX: R07.89 Other chest pain (principal)
CPT/HCPCS: 93010

== ENCOUNTER 2024-09-23 17:50 | Emergency (ER) | payer MEDICAID, SELFPAY ==
[2024-09-23 17:57] VITALS: BP 136/94; PULSE 88; RESP 16; TEMP 36.4; O2SAT 100
[2024-09-23 17:59] VITALS: PULSE 86; RESP 16; TEMP 36.4; O2SAT 100
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
[2024-09-23] MEDS: Propranolol 10 MG TAB PO (18:30)
[2024-09-23 18:42] LABS: Abs Immature Grans 0.03 10^3/uL (0.0-0.06); Absolute Basophil Count 0.04 10^3/uL (0.0-0.2); Absolute Eosinophil Count 0.14 10^3/uL (0.0-0.7); Absolute Monocyte Count 0.55 10^3/uL (0.1-0.8); Absolute Neutrophil Count 5.24 10^3/uL (1.2-6.7); Basophils % 0.5 %; Eosinophils % 1.8 %; HCT 32.2 % (36.0-46.0); HGB 10.5 g/dL (11.2-15.7); Immature Grans % 0.4 %; Lymphocytes % 24.1 %; MCH 27.9 pg (27.0-33.0); MCHC 32.6 % (32.0-36.0); MCV 85 fL (80-95); MPV 10.3 fL (8.0-11.0); Neutrophils % 66.2 %; Platelet Count 259 10^3/uL (130-400); RBC 3.77 10^6/uL (3.93-5.22); RDW 15.7 % (11.7-14.6); RDW-SD 48.5 fL
[2024-09-23 18:57] LABS: ALT 16 U/L (14-59); AST 17 U/L (15-37); Alkaline Phosphatase 63 U/L (46-116); Anion Gap 5.1 mmol/L (3-11); BUN 11 mg/dL (7-18); CO2 32.9 mmol/L (21.0-32.0); CREATININE 0.7 mg/dL (0.55-1.02); Calcium 7.6 mg/dL (8.5-10.1); Chloride 104 mmol/L (98-107); Glucose 95 mg/dL (74-106); Magnesium 1.5 mg/dL (1.8-2.4); Potassium 3.3 mmol/L (3.5-5.1); Sodium 142 mmol/L (136-145); Total Protein 7.7 g/dL (6.4-8.2)
[2024-09-23] MEDS: Potassium Chloride 20 MEQ TABCR 40 MEQ PO (19:11)
[2024-09-23 20:07] LABS: Bilirubin Negative (Negative); Blood Negative (Negative); Clarity Sl Cloudy (Clear); Glucose Negative (Negative); Ketones Negative (Negative); Leukocyte Esterase Negative (Negative); Nitrite Negative (Negative); Urobilinogen 0.2 mg/dL (Up to 0.2)
[2024-09-23 20:08] LABS: *AMPHETAMINES SCREEN URINE Positive (Negative); *BARBITURATES SCREEN URINE Negative (Negative); *BENZODIAZEPINES SCREEN URINE Negative (Negative); Cannabinoids THC Negative (Negative); Cocaine Screen,Urine Negative (Negative); METHADONE URINE SCREEN Negative (Negative); OPIATES URINE SCREEN Negative (Negative)
[2024-09-23 20:11] LABS: Tricyclic Antidepressants Negative (Negative)
[2024-09-23 20:25] VITALS: BP 114/76; PULSE 85; RESP 16; TEMP 36.8; O2SAT 99
[2024-09-23] MEDS: Magnesium Gluconate 500 MG TAB 250 MG PO (22:41)
--- NOTE | 2024-09-24 01:22 | PDOC.MHCN_ITS ---
Date of service: 09/23/24 Time of Service: 21:00 Mental Health Emergency Note Release [facility] release signed:: Yes Reason for Visit Client reported SI while in ER for shortness of breath. 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 Risk: Does risk to harm exist?: No Risk: Low Risk Duty to warn indicated: No Impression Client is experiencing an emotional low and is feeling depleted of her coping skills so she feels that going inpatient is the only way to gain the ability back. Client refused to safety plan home and meet with her CASINO OPERATIONS SUPERVISOR team and therapist tomorrow. Resources [facility] reviewed and given:: [phone] [facility] Plan/Disposition Recommended Disposition: Hospitalization facilities contacted and CASINO OPERATIONS SUPERVISOR. Plan: [facility] Nurse sent referrals out for inpatient treatment. Person reported agreement to plan: Yes Facilities contacted if Applicable [facility] Not accepted, Other [facility] Not accepted, Other [facility] Not accepted, Other, [facility] Not accepted, Other [facility] Not accepted, Other Reports/communication Outcome discussed with: ED/Personnel
--- NOTE | 2024-09-24 01:22 | PDOC.MHCN ---
Date of service: 09/23/24 Time of Service: 21:00 Mental Health Emergency Note Release [facility] release signed:: Yes Reason for Visit Client reported SI while in ER for shortness of breath. 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 Risk: Does risk to harm exist?: No Risk: Low Risk Duty to warn indicated: No Impression Client is experiencing an emotional low and is feeling depleted of her coping skills so she feels that going inpatient is the only way to gain the ability back. Client refused to safety plan home and meet with her GUT CARRIER team and therapist tomorrow. [facility] and given[phone] and [facility] Plan/Disposition Recommended Disposition: Hospitalization facilities contacted and GUT CARRIER. Plan: Vein Pumper sent referrals out for inpatient treatment. Person reported agreement to plan: Yes Facilities contacted if Applicable [facility] Not accepted, Other [facility] Not accepted, Other [facility] Not accepted, Other, [facility] Not accepted, Other [facility] Not accepted, Other Reports/communication Outcome discussed with: ED/Personnel
[2024-09-24 07:10] VITALS: BP 82/51; PULSE 111; TEMP 36.5; O2SAT 98
--- NOTE | 2024-09-24 08:05 | ED.PROG_ITS ---
Date of service: 09/24/24 Time of Service: 08:05 Medical Decision Making I received signout on this 19-year-old female currently in the ED in the setting of SI. No active behavioral issues last shift. Home medications ordered along with regular diet on safety tray. Will update documentation as clinically war ranted and signed patient out to the oncoming evening provider. 11:20 AM I met with Nancy from [facility] who devised a safety plan for this patient with which she felt comfortable. Will discharge with empiric trial of expectant outpatient management. Quality:SDOH Health Related Social Needs: No Data to Display Discharge Plan Disposition Patient Disposition: Home Discharge Details Clinical Impression: Depression with suicidal ideation, Hypomagnesemia, Stage 2 chronic kidney disease, Anxiety, Moderate persistent asthma, Nexplanon in place Primary Care Provider: Liza Munson ED Provider: Jeffy Mo Home Meds and New Rx's Prescriptions: Continued montelukast 10 mg tablet See Rx Instructions .ROUTE .COMPLEX Qty: 30 0RF Dose Instruction: TAKE ONE TABLET BY MOUTH THE NIGHT BEFORE ALLERGY INJECTIONS AND ONE TABLET THE MORNING OF THE ALLERGY INJECTION Patient Comments: Pt takes once a month prior to injections. Rx Instructions: TAKE ONE TABLET BY MOUTH THE NIGHT BEFORE ALLERGY INJECTIONS AND ONE TABLET THE MORNING OF THE ALLERGY INJECTION (DME) compressor, for nebulizer Device See Rx Instructions .Route Qty: 1 0RF Rx Instructions: As directed (DME) nebulizer accessories Kit See Rx Instructions .Route Qty: 1 0RF Rx Instructions: As directed levalbuterol tartrate [Xopenex HFA] 45 mcg/actuation HFA aerosol inhaler 2 inh inhalation Q6H PRN lisdexamfetamine [Vyvanse] 40 mg capsule 40 mg PO QAM mecobalamin (vitamin B12) 1,000 mcg tablet,disintegrating 1,000 mcg sublingual DAILY Rx Instructions: place tablet under tongue and allow to dissolve for at least30 secs before swallowing (DME) BreatheRite MDI Spacer Spacer See Rx Instructions .ROUTE .MEDSUPPLY Qty: 1 0RF Rx Instructions: As directed sertraline [Zoloft] 100 mg tablet 100 mg PO DAILY trazodone 100 mg tablet 100 mg PO QHS PRN bupropion HCl 150 mg tablet sustained-release 12 hr 300 mg PO DAILY Nexplanon 68 mg implant 1 implant subdermal ONCE Qty: 1 0RF Rx Instructions: as a single dose Ajovy Autoinjector 225 mg/1.5 mL auto-injector 225 mg subcut Q28D ketoconazole 2 % cream 1 applic topical BID PRN (Reason: crack in corner of mouth) Qty: 15 0RF (DME) Depend Underwear For Women S-M Misc See Rx Instructions .Route Qty: 64 4RF Rx Instructions: As directed fluticasone propion-salmeterol [Advair HFA] 230-21 mcg/actuation HFA aerosol inhaler 2 puff inhalation BID Qty: 12 12RF magnesium 250 mg tablet 250 mg PO DAILY Qty: 10 0RF calcitriol 0.5 mcg capsule 0.5 mcg PO DAILY Qty: 10 0RF calcium carbonate 600 mg calcium (1,500 mg) tablet 600 mg PO DAILY Qty: 10 0RF cetirizine [24Hour Allergy] 10 mg tablet 20 mg PO DAILY ondansetron 4 mg tablet,disintegrating 4 mg PO Q8H PRN (Reason: nausea and vomiting) Qty: 30 0RF Discharge Instructions Additional Instructions: You are seen in the emergency department for your thoughts of self-harm. You received a safety plan. If you do not feel comfortable this plan or if you have any other concerns please return to the emergency department. Otherwise please follow-up with your primary care team in the next week.
[2024-09-24] MEDS: Cetirizine 10 MG TAB 20 MG PO (08:28)
[2024-09-24] MEDS: Calcium Carbonate 1.5 GM TAB PO (08:28)
[2024-09-24] MEDS: Calcitriol 0.25 MCG CAP 0.5 MCG PO (08:28)
[2024-09-24] MEDS: Magnesium Gluconate 500 MG TAB 250 MG PO (08:28)
[2024-09-24] MEDS: buPROPion-CR 150 MG TABCR 300 MG PO (08:28)
[2024-09-24] MEDS: Sertraline 100 MG TAB PO (08:29)
--- NOTE | 2024-09-24 08:32 | PDOC.CMSAFE ---
Date of service: 09/24/24 Time of Service: 08:32 Care Management Safety Plan Status Status: Voluntary Reason for Wait Reason for Wait: Inpatient Admission Safety Plan Safety Plan: VOLUNTARY FOR INPATIENT PSYCHIATRIC STABILIZATION.? Patient is appropriate in all interactions since arriving at [facility]; Pt has demonstrated appropriate coping and communication skills, has articulated his or her needs and concerns and is fully engaged during staff interactions. Safety plan has been established with patient, and care team, to adhere to patient goals, identify restrictions based on behavioral status, address nutrition, and determine allowed personal belongings, tools for hygiene and personal care. Determine level of activity including ambulation, level of supervision, visitors, and determine privileges based on behaviors and level of engagement by pt. VOLUNTARY SAFETY PLAN: 1. Will remain on suicide precautions, in paper clothes 2. Will remain in Zone B under direct supervision of one-on-one staff at all times provided by [employer]; BANDAR, DEPUTY SHERIFF CUSTODY science instructor. 3. May have paper cups, plates, finger foods as well as a cardboard spoon with which to eat meals. 4. Follow [facility] Management of the Admitted Behavioral Health Patient policy. 5. Shower available in Zone B without restriction. 6. Personal belongings-soft items permitted at RN discretion. 7. Visitors- at RN discretion. 8. Activities: soft cart items approved per RN discretion. 9.? Bathroom available in Zone B without restriction. 10. Phone: limited to [facility] cordless phone at RN discretion. Due to VOLUNTARY status, if patient wishes to leave [facility], staff will contact [facility] Crisis Screener ([phone]) and Vocational Rehabilitation Consultant ([phone]) as soon as possible. In the event of elopement, notify [facility] Police ([phone]). Patient is currently voluntarily at [facility] and seeking inpatient admission when a bed becomes available. [facility] Frontline Manager Respiratory will continue seeking placement. Please contact the Vocational Rehabilitation Consultant ([phone]) and [facility] Manager Respiratory ([phone]) for any needed changes in the Safety Plan. Safety plan has been provided to interdepartmental care team.
[2024-09-24] MEDS: Budesonide/Formoterol 160/4.5 6 GM 60 PUFF INH IH (09:01)
--- NOTE | 2024-09-24 12:00 | PDOC.CMDIS ---
Date of service: 09/24/24 Time of Service: 12:00 LACE Index Scoring Tool Questions: Length of Stay (in days): 1 Was the patient admitted via the E.D.?: Yes E.D. Visits: 7 Answers: Total Score: 8 Risk of Readmission: Low Risk Care Management Discharge Plan Reason for Hospitalization: Panic Attack, anxiety Discharge Plan: Jyothi is safety planned home after her assessment by [facility] clinician today. Follow up with community providers, ADMINISTRATIVE ANALYST and therapist is recommended. No new services are ordered at the time of discharge. Transportation will be provided by family. Patient/Family Education Needs: Review porras elements of discharge as set by [facility] clinician, Review plan for community follow up, discuss ask me three. SDOH Health Related Social Needs: No Data to Display MH Services (Omit if N/A) Current MH Services: ADMINISTRATIVE ANALYST
--- NOTE | 2024-09-25 08:31 | PDOC.MHPN2 ---
Date of service: 09/24/24 Time of Service: 09:45 Mental Health Emergency Note Release [facility] release signed:: Yes Reason for Visit Passive SI no plan. 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 Miguelina is in ful support of the safety plan and discharge. Safety Risk/Harm to Self or Others Current Ideation to Harm Self or Others: No Risk: Does risk to harm exist?: No Risk: N/A Duty to warn indicated: No Impression Client had a long day at a waterpark with friends yesterday, but physician underwriter feels she is fully able to utilize her team at this time. Resources [employer] reviewed and given:: 988 Plan/Disposition Recommended Disposition: [facility] Services [facility] Services: EMPLOYMENT CONSULTANT and Therapy and Therapy. Plan: Client and physician underwriter filled out a safety plan and she is in good spirits to head home. Person reported agreement to plan: Yes Reports/communication Outcome discussed with: ED/Personnel Final Disposition/Discharge Final accepting facility/transferred to: Other
--- NOTE | 2024-09-27 12:53 | NUR.NOTE ---
Nursing Note: Patient needing a work note
== END 2024-09-24 11:42 | disposition home or self-care (01) ==
PROVIDERS: Emergency Medicine; Emergency Provider Emergency Medicine; PCP Nurse Practitioner Family
DX: R45.851 Suicidal ideations (principal); F32.A Depression, unspecified; E83.42 Hypomagnesemia; N18.2 Chronic kidney disease, stage 2 (mild); F41.9 Anxiety disorder, unspecified
CPT/HCPCS: 00123; 36415; 80053; 80307; 99285; 81003; 83735; 85025; J3490

== ENCOUNTER 2024-09-29 16:55 | Emergency (ER) | payer MEDICAID, SELFPAY ==
[2024-09-29 16:58] VITALS: BP 97/62; PULSE 74; RESP 16; O2SAT 98
[2024-09-29] MEDS: Diph,Pertuss(Acell),Tet Vac/Pf 0.5 ML SYR IM (17:23)
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
--- NOTE | 2024-09-30 13:47 | PDOC.MHCN ---
Date of service: 09/29/24 Time of Service: 13:49 Mental Health Emergency Note Release [facility] release signed:: Yes Reason for Visit The client is known to [facility] and is serviced through the [employer] [employer] [facility] program. She has had numerous hospitalizations per her report, April @ [facility], Jul @ [facility] and August at . She was last seen on 09.23.24 by ES for a crisis assessment. She no showed her appointments this month and was last seen by her team on 09.09.24. The client arrived to the ED tonight after 988 called for an active rescue when she reported she had cut her wrists. She was seen by the ED and it was reported her wounds were superficial and were only scratches. In the last 2 weeks has the pt presented for ES prior to today?: Yes, presented at [facility] ED Client Information Client is: [employer] Well Housed: Yes Non Suicidal Self Injury Current: Yes, scratching History: yes, same as above Safety Risk/Harm to Self or Others Current Ideation to Harm Self or Others: Yes to self. Intent: yes, has intent. Plan: yes,has a plan. History of suicide attempt: No history of suicide attempt reported Risk: Does risk to harm exist?: yes. Access to means: Yes. Types of Means: Other weapons and Medication. Counseling provided: Yes Risk: Moderate Risk Duty to warn indicated: No Asssessment/Mental Status Appearance: Well groomed Attitude: Cooperative Behavior: Unremarkable Speech: Normal Affect: Normal Mood: Euthymic Thought process: Unremarkable Hallucinations: No Delusions: No Attention: Unremarkable Perception: Not impaired Orientation: Fully orientated Memory: Intact Insight: Fair Judgement: Poor Neurovegetative Symptoms Sleep: Decrease Appetitie: Decrease Interests: No change Energy: No change Libido: Not applicable Substance Use: Do you use nicotine?: No Have you used substances in the last 7 days?: No Additional Issues: Assaultive/Threatening Behavior: No Medical Concerns: No Client engaged in active self harm w/weapon: No Threatening to run away: No Child reported abuse/neglect: No Voluntarily presenting for services: Yes Domestic violence is a concern: No Extreme Psychosis or extreme behavior is present: Yes Impression The client is a 19-year-old, single, female who lives with her parents in [facility]. 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 The client uses She/Her pronouns. All underrepresented identifiers were honored during this assessment. The client presents in Zone B lying in bed with the TV on via zoom. She endorses SI with a risk rating of 7/10 with a plan of cutting herself or crashing her car. She stated that she needs another inpatient stay. This clinician inquired about what she feel an inpatient stay would do and she was unable to answer. This clinician had already spoken to the CARE industrial safety and health manager who agreed to admit her until her appointment wit her therapist on Monday. The client showed fair insight and poor judgement. She made good eye contact and there are no observations of a thought disorder. Resources Reosurces reviewed and given:: 988 and Other Plan/Disposition Recommended Disposition: Community resources. Plan: The client was agreeable to a CARE Bed stay and will admit tonight. Person reported agreement to plan: Yes Reports/communication Outcome discussed with: ED/Personnel
--- NOTE | 2024-10-01 12:52 | NUR.NOTE ---
Nursing Note: Pt presented to the Triage area today to ask for a work note. She states she was told by her care team that she should ask for a note to excuse her from work until she is seen by her provider, for which she has an appointment scheduled Monday. Work note written and copy provided to patient. Original to be scanned to chart.
== END 2024-09-29 19:17 | disposition home or self-care (01) ==
PROVIDERS: Emergency Provider Emergency Medicine; PCP Nurse Practitioner Family
DX: S61.512A Laceration without foreign body of left wrist, initial encounter (principal); F32.A Depression, unspecified; F41.9 Anxiety disorder, unspecified; J45.40 Moderate persistent asthma, uncomplicated; N18.2 Chronic kidney disease, stage 2 (mild); X78.8XXA Intentional self-harm by other sharp object, initial encounter; Y93.89 Activity, other specified
CPT/HCPCS: 00123; 90471; 90715; 99284

== ENCOUNTER 2024-10-03 08:39 | Emergency (ER) | payer MEDICAID, SELFPAY ==
[2024-10-03 08:50] VITALS: BP 113/74; PULSE 90; RESP 15; TEMP 36.6; O2SAT 100
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
--- NOTE | 2024-10-04 11:57 | PDOC.MHCN ---
Date of service: 10/03/24 Time of Service: 10:35 Mental Health Emergency Note Release [facility] release signed:: Yes Reason for Visit The client presented to this clinician with shaking and was withdrawn physical by wrapping her arms around herself. The client appeared well groomed. The client presented as anxious with shaking and anxious thought patterns. 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 (The client reports passive SI- denies plan or intent) Intent: no, has no intent. Plan: no.does not have a plan. History of suicide attempt: No history of suicide attempt reported Risk: Does risk to harm exist?: No Duty to warn indicated: No Asssessment/Mental Status Appearance: Unremarkable Attitude: Cooperative and Friendly Behavior: Agitated Speech: Normal Affect: Constricted and Cogruent with mood Mood: Stressed and Anxious Thought process: Unremarkable Hallucinations: No Delusions: No Attention: Unremarkable Perception: Not impaired Orientation: Fully orientated Memory: Intact Insight: Fair Judgement: Fair Neurovegetative Symptoms Sleep: No change Appetitie: No change Interests: No change Energy: No change Libido: Not applicable Substance Use: Do you use nicotine?: No Have you used substances in the last 7 days?: No Additional Issues: Assaultive/Threatening Behavior: No Medical Concerns: No Client engaged in active self harm w/weapon: No Threatening to run away: No Child reported abuse/neglect: No Voluntarily presenting for services: Yes Domestic violence is a concern: No Extreme Psychosis or extreme behavior is present: No Impression The client to this clinician with anxiety based on reported anxious thoughts and agitated body ,one ends while also withdrawing and wrapping her arms around d herself while shaking. Client also reported racing heart. The clinician briefly walked the client through DBT skills to lower her heart rate and decrease anxiety symptoms. The client reported self harm to her wrists with her pocket knife. The client reported no intention of suicide when self harming. The client reported wanting medication management and groups to work with. The clinician informed the client of her treatment team meeting on the that would cover medication management and therapy groups for her. The client engaged in safety plan and was able to identify her family, friends and her dog as deterrents. The client agreed to her father holding onto sharps and medications as part of the safety plan. All underrepresented individuals were honored during this assessment. Resources Reosurces reviewed and given:: [id number] and [facility] Plan/Disposition Recommended Disposition: PHYSIOLOGICAL CHEMIST (Follow-up already established with PHYSIOLOGICAL CHEMIST team tomorrow. ). Plan: The client will hand over medications and sharps to her father and attend her treatment team meeting on the 04 of October. The client will hand over medications and sharps to her father and attend her treatment team meeting tomorrow 10/04/24. Person reported agreement to plan: Yes Reports/communication Outcome discussed with: ED/Personnel (Verbal passover given to ED provider and zone b nurse Rambo)
== END 2024-10-03 14:35 | disposition home or self-care (01) ==
PROVIDERS: Emergency Provider Emergency Medicine Emergency Medical Services; PCP Nurse Practitioner Family
DX: R45.851 Suicidal ideations (principal); F32.A Depression, unspecified
CPT/HCPCS: 00123; 99284

== ENCOUNTER 2024-10-04 09:36 | Emergency (ER) | payer MEDICAID, SELFPAY ==
[2024-10-04 09:40] VITALS: BP 109/74; PULSE 96; RESP 14; O2SAT 99
--- NOTE | 2024-10-04 10:08 | NUR.NOTE ---
Propranolol bottle labeled and sent to pharmacy Nursing Note:
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
== END 2024-10-04 11:08 | disposition home or self-care (01) ==
PROVIDERS: Emergency Provider Emergency Medicine Emergency Medical Services; PCP Nurse Practitioner Family
DX: F32.A Depression, unspecified (principal); R45.851 Suicidal ideations
CPT/HCPCS: 99285; 99284

== ENCOUNTER 2024-10-04 13:10 | Emergency (ER) | payer MEDICAID, SELFPAY ==
[2024-10-04 13:23] VITALS: BP 111/79; PULSE 120; RESP 10; TEMP 37.1; O2SAT 96
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
--- NOTE | 2024-10-04 15:04 | PDOC.MHCN ---
Date of service: 10/04/24 Time of Service: 11:15 PHQ-9 Over the last 2 weeks, how often have you been bothered by any of the following problems? 1. Little interest or pleasure in doing things: nearly every day 2. Feeling down, depressed, or hopeless: nearly every day 3. Trouble falling or staying asleep, or sleeping too much: more than half the days 4. Feeling tired or having little energy: more than half the days 5. Poor appetite or overeating: more than half the days 6. Feeling bad about yourself - or that you are a failure or have let yourself and your family down: nearly every day 7. Trouble concentrating on things, such as reading the newspaper or watching television: more than half the days 8. Moving or speaking so slowly that other people could have noticed? - Or the opposite - being so fidgety or restless that you have been moving around a lot more than usual: several days 9. Thoughts that you would be better off or of hurting yourself in some way: nearly every day Total score: 21 Source: Developed by Drs. Oskar Marquez, Darlene Betancur, Antonio Barry and colleagues, with an educational heriberto from [employer]. Suicide Severity Rate CSSRS Have you wished you were or wished you could go to sleep and not wake up?: Yes Have you actually had any thoughts of killing yourself?: Yes CSSRS2 Have you been thinking about how you might do this?: Yes Have you had these thoughts and had some intention of acting on them?: Yes Have you started to work out or worked out the details of how to kill yourself? Do you intend to carry out this plan?: No CSSRS3 Have you ever done anything, started to do anything or prepared to do anything to end your life?: Yes CSSRS4 Was this within the past three months?: No Screening Score Total Score: 6 Screening: Positive Mental Health Emergency Note Release [facility] release signed:: Yes Reason for Visit suicidal ideation In the last 2 weeks has the pt presented for ES prior to today?: Yes, presented at Client Information Client is: [employer] Non Suicidal Self Injury Current: Yes, forearms History: yes, yesterday Safety Risk/Harm to Self or Others Current Ideation to Harm Self or Others: Yes to self. Intent: yes, has intent. Plan: no.does not have a plan. Risk: Does risk to harm exist?: yes. Risk: Moderate Risk Duty to warn indicated: No Asssessment/Mental Status Appearance: Unremarkable Attitude: Cooperative and Guarded Behavior: Agitated Speech: Soft and Slow Affect: Cogruent with mood Mood: Sad, Stressed, Depressed and Anxious Thought process: Goal directed Hallucinations: No Delusions: No Attention: Unremarkable Perception: Not impaired Orientation: Fully orientated Memory: Intact Insight: Poor Judgement: Poor Neurovegetative Symptoms Sleep: Decrease Appetitie: Decrease Energy: Decrease Libido: Not applicable Substance Use: Other Drug Issues: Other Do you use nicotine?: No Have you used substances in the last 7 days?: No Additional Issues: Assaultive/Threatening Behavior: No Medical Concerns: Yes Client engaged in active self harm w/weapon: No Threatening to run away: No Child reported abuse/neglect: No Voluntarily presenting for services: Yes Domestic violence is a concern: No Extreme Psychosis or extreme behavior is present: No Impression This 19 year female states that she does not feel safe at home nor by hereself and will find a away to end her life. She is intelligent, future focused, and wants to learn more coping skills so she does not endorse SI Plan/Disposition Recommended Disposition: [facility] Services [facility] Services: [employer] and Therapy and Hospitalization facilities contacted. Plan: Go to the ER and wait in hospital until an inpatient bed referral comes available Person reported agreement to plan: Yes Facilities contacted if Applicable [facility] Not accepted, No bed available [facility] Not accepted, No bed available, [facility] Not accepted, No bed available Reports/communication Outcome discussed with: ED/Personnel
--- NOTE | 2024-10-04 17:02 | CMSP_ITS ---
Date of service: 10/04/24 Time of Service: 17:03 Care Management Safety Plan Status Status: Voluntary Reason for Wait Reason for Wait: Inpatient Admission Safety Plan Safety Plan: VOLUNTARY FOR INPATIENT PSYCHIATRIC STABILIZATION.? Patient is appropriate in all interactions since arriving at [facility]; Pt has demonstrated appropriate coping and communication skills, has articulated his or her needs and concerns and is fully engaged during staff interactions. Safety plan has been established with patient, and care team, to adhere to patient goals, identify restrictions based on behavioral status, address nutrition, and determine allowed personal belongings, tools for hygiene and personal care. Determine level of activity including ambulation, level of supervision, visitors, and determine privileges based on behaviors and level of engagement by pt. VOLUNTARY SAFETY PLAN: 1. Will remain on suicide precautions, in paper clothes 2. Will remain in Zone B under direct supervision of one-on-one staff at all times provided by [employer]; BNADAR, MAGAZINE EDITOR floriculture teacher. 3. May have paper cups, plates, finger foods as well as a cardboard spoon with which to eat meals. 4. Follow [facility] Management of the Admitted Behavioral Health Patient policy. 5. Shower available in Zone B without restriction. 6. Personal belongings-soft items permitted at RN discretion. 7. Visitors- at RN discretion. 8. Activities: soft cart items approved per RN discretion. 9.? Bathroom available in Zone B without restriction. 10. Phone: limited to [facility] cordless phone at RN discretion. Due to VOLUNTARY status, if patient wishes to leave [facility], staff will contact [facility] Crisis Screener ([phone]) and Office Cashier ([phone]) as soon as possible. In the event of elopement, notify [facility] Police ([phone]). Patient is currently voluntarily at [facility] and seeking inpatient admission when a bed becomes available. [facility] Frontline Staffing Administrator will continue seeking placement. Please contact the Office Cashier ([phone]) and [facility] Staffing Administrator ([phone]) for any needed changes in the Safety Plan. Safety plan has been provided to interdepartmental care team.
--- NOTE | 2024-10-04 17:02 | PDOC.CMSAFE ---
Date of service: 10/04/24 Time of Service: 17:03 Care Management Safety Plan Status Status: Voluntary Reason for Wait Reason for Wait: Inpatient Admission Safety Plan Safety Plan: VOLUNTARY FOR INPATIENT PSYCHIATRIC STABILIZATION.? Patient is appropriate in all interactions since arriving at [facility]; Pt has demonstrated appropriate coping and communication skills, has articulated his or her needs and concerns and is fully engaged during staff interactions. Safety plan has been established with patient, and care team, to adhere to patient goals, identify restrictions based on behavioral status, address nutrition, and determine allowed personal belongings, tools for hygiene and personal care. Determine level of activity including ambulation, level of supervision, visitors, and determine privileges based on behaviors and level of engagement by pt. VOLUNTARY SAFETY PLAN: 1. Will remain on suicide precautions, in paper clothes 2. Will remain in Zone B under direct supervision of one-on-one staff at all times provided by [employer]; BANDAR, PROGRAM AIDE sorter/assay tech. 3. May have paper cups, plates, finger foods as well as a cardboard spoon with which to eat meals. 4. Follow [facility] Management of the Admitted Behavioral Health Patient policy. 5. Shower available in Zone B without restriction. 6. Personal belongings-soft items permitted at RN discretion. 7. Visitors- at RN discretion. 8. Activities: soft cart items approved per RN discretion. 9.? Bathroom available in Zone B without restriction. 10. Phone: limited to [facility] cordless phone at RN discretion. Due to VOLUNTARY status, if patient wishes to leave [facility], staff will contact [facility] Crisis Screener ([phone]) and Spray Pilot ([phone]) as soon as possible. In the event of elopement, notify [facility] Police ([phone]). Patient is currently voluntarily at [facility] and seeking inpatient admission when a bed becomes available. [facility] Frontline Oracle Architect will continue seeking placement. Please contact the Spray Pilot ([phone]) and [facility] Oracle Architect ([phone]) for any needed changes in the Safety Plan. Safety plan has been provided to interdepartmental care team.
--- NOTE | 2024-10-04 17:03 | PDOC.CMPRO ---
Date of service: 10/04/24 Time of Service: 17:03 Care Management Progress Note Progress Note Text Progress Note Text: CM met with staff regarding Jyothi's plan of care. Jyothi was in the general ED at the time, but was being transitioned to zone B. Per report, she was in the ED earlier today, then left to go see her medication provider at a scheduled [facility] visit. Her med provider made the recommendation that she return to the hospital for inpatient psychiatric treatment, which her father was also asking for. Jyothi is agreeable to this plan. Jyothi is voluntary, seeking inpatient psychiatric treatment. Referrals are being sent; safety plan in place. CM will continue to follow. Social Determinants of Health Screening Social Determinants of Health last assessed: 10/04/24 Will the Patient Participate in the Screening?: Yes Do you worry about having a steady place to live?: no Problems where you live: no known problems In the past 12 months, have you had to go without electric, gas, oil or water in your home?: no Have you or anyone in your house had to go without enough food to eat?: no Has lack of transportation kept you from medical appointments or from doing things needed for daily living?: no Has anyone in your life made you feel unsafe or unsupported?: no How hard is it for you to pay for the very basics like food, housing, medical care, and heating? Would you say it is:: Not hard at all Do you want help finding or keeping work or a job?: I do not need or want help If for any reason you need help with day-to-day activities such as bathing, preparing meals, shopping, managing finances, etc., do you get the help you need?: I don?t need any help How often do you feel lonely or isolated from those around you?: Often Do you speak a language other than Frisian at home?: No Does the patient want assistance with any of the above?: Yes Social Determinants of Health Comments(SDOH Details): Seeking placement for MH. Health Related Social Needs Health related social needs: feeling lonely/isolated (Z60.8)
[2024-10-04 19:05] LABS: *AMPHETAMINES SCREEN URINE Positive (Negative); *BARBITURATES SCREEN URINE Negative (Negative); *BENZODIAZEPINES SCREEN URINE Negative (Negative); Cannabinoids THC Negative (Negative); Cocaine Screen,Urine Negative (Negative); METHADONE URINE SCREEN Negative (Negative); OPIATES URINE SCREEN Negative (Negative); Tricyclic Antidepressants Negative (Negative)
[2024-10-04] MEDS: traZODone 100 MG TAB 200 MG PO (20:08)
[2024-10-05 07:06] VITALS: BP 104/71; PULSE 102; RESP 18; TEMP 36.5; O2SAT 98
--- NOTE | 2024-10-05 07:21 | ED.PROG_ITS ---
Date of service: 10/05/24 Time of Service: 07:21 Medical Decision Making Patient seeking voluntary placement for thoughts of self-harm, no reported issues on prior shift and no new acute complaints. Will continue to monitor until safe disposition found. Quality:SDOH Health Related Social Needs: Health related social needs feeling lonely/isolated (Z 60.8) Discharge Plan Discharge Details Chief Complaint: PsychEval Clinical Impression: Depression with suicidal ideation Primary Care Provider: Liza Munson ED Provider: Rambo Gunn [place] Meds and New Rx's Prescriptions: No Action montelukast 10 mg tablet See Rx Instructions .ROUTE .COMPLEX Qty: 30 0RF Dose Instruction: TAKE ONE TABLET BY MOUTH THE NIGHT BEFORE ALLERGY INJECTIONS AND ONE TABLET THE MORNING OF THE ALLERGY INJECTION Patient Comments: Pt takes once a month prior to injections. Rx Instructions: TAKE ONE TABLET BY MOUTH THE NIGHT BEFORE ALLERGY INJECTIONS AND ONE TABLET THE MORNING OF THE ALLERGY INJECTION (DME) compressor, for nebulizer Device See Rx Instructions .Route Qty: 1 0RF Rx Instructions: As directed (DME) nebulizer accessories Kit See Rx Instructions .Route Qty: 1 0RF Rx Instructions: As directed lisdexamfetamine [Vyvanse] 40 mg capsule 40 mg PO QAM mecobalamin (vitamin B12) 1,000 mcg tablet,disintegrating 1,000 mcg sublingual DAILY Rx Instructions: place tablet under tongue and allow to dissolve for at least30 secs before swallowing calcitriol 0.25 mcg capsule 0.25 mcg PO BID calcitriol 0.5 mcg capsule 0.5 mcg PO HS albuterol sulfate 0.63 mg/3 mL solution for nebulization 0.63 mg inhalation Q6H PRN (DME) BreatheRite MDI Spacer Spacer See Rx Instructions .ROUTE .MEDSUPPLY Qty: 1 0RF Rx Instructions: As directed trazodone 100 mg tablet 200 mg PO QHS PRN sertraline [Zoloft] 100 mg tablet 150 mg PO DAILY Nexplanon 68 mg implant 1 implant subdermal ONCE Qty: 1 0RF Rx Instructions: as a single dose Ajovy Autoinjector 225 mg/1.5 mL auto-injector 225 mg subcut Q28D (DME) Depend Underwear For Women S-M Misc See Rx Instructions .Route Qty: 64 4RF Rx Instructions: As directed fluticasone propion-salmeterol [Advair HFA] 230-21 mcg/actuation HFA aerosol inhaler 2 puff inhalation BID Qty: 12 12RF levalbuterol tartrate [Xopenex HFA] 45 mcg/actuation HFA aerosol inhaler 2 inh inhalation Q6H PRN (Reason: shortness of breath) Qty: 15 12RF aripiprazole [Abilify] 15 mg tablet 15 mg PO QHS benztropine 0.5 mg tablet 0.5 mg PO BID Effer-K 20 mEq tablet, effervescent 20 meq PO DAILY prazosin 1 mg capsule 3 mg PO QHS Ubrelvy 100 mg tablet 100 mg PO ONCE PRN Rx Instructions: 1-2 tabs epinephrine [EpiPen] 0.3 mg/0.3 mL auto-injector 0.3 ml subcut ONCE PRN Rx Instructions: as a single dose; may repeat once calcium carbonate 400 mg/5 mL suspension 1,250 mg PO BID Rx Instructions: 1250mg/5ml oral suspension Effer-K 20 mEq tablet, effervescent 20 meq PO DAILY levalbuterol tartrate [Xopenex HFA] 2 puff inhalation PRN magnesium 250 mg tablet 250 mg PO DAILY Qty: 10 0RF cetirizine [24Hour Allergy] 10 mg tablet 20 mg PO DAILY
--- NOTE | 2024-10-05 09:07 | CMSP_ITS ---
Date of service: 10/05/24 Time of Service: 09:07 Care Management Safety Plan Status Status: Voluntary Reason for Wait Reason for Wait: Inpatient Admission Safety Plan Safety Plan: VOLUNTARY FOR INPATIENT PSYCHIATRIC STABILIZATION.? Patient is appropriate in all interactions since arriving at [facility]; Pt has demonstrated appropriate coping and communication skills, has articulated his or her needs and concerns and is fully engaged during staff interactions. Safety plan has been established with patient, and care team, to adhere to patient goals, identify restrictions based on behavioral status, address nutrition, and determine allowed personal belongings, tools for hygiene and personal care. Determine level of activity including ambulation, level of supervision, visitors, and determine privileges based on behaviors and level of engagement by pt. VOLUNTARY SAFETY PLAN: 1. Will remain on suicide precautions, in paper clothes. Jyothi may wear her fleece jacket that she came in with. 2. Will remain in Zone B under direct supervision of one-on-one staff at all times provided by [employer]; BANDAR, EDUCATION MANAGER music video director. 3. May have paper cups, plates, finger foods as well as a cardboard spoon with which to eat meals. 4. Follow [facility] Management of the Admitted Behavioral Health Patient policy. 5. Shower available in Zone B without restriction. 6. Personal belongings-soft items permitted at RN discretion. 7. Visitors- at RN discretion. 8. Activities: soft cart items approved per RN discretion. 9.? Bathroom available in Zone B without restriction. 10. Phone: limited to [facility] cordless phone at RN discretion. Due to VOLUNTARY status, if patient wishes to leave [facility], staff will contact [facility] Crisis Screener ([phone]) and Liner Machine Operator ([phone]) as soon as possible. In the event of elopement, notify [facility] Police ([phone]). Patient is currently voluntarily at [facility] and seeking inpatient admission when a bed becomes available. [facility] Frontline Home Health Assistant will continue seeking placement. Please contact the Liner Machine Operator ([phone]) and [facility] Home Health Assistant ([phone]) for any needed changes in the Safety Plan. Safety plan has been provided to interdepartmental care team.
--- NOTE | 2024-10-05 12:46 | NUR.NOTE ---
Nursing Note: Pt informed [facility] that she is not receiving her medications. Notes re-consulted and [facility] informed that per Dr. Segundo's notes, I ordered the patient's home medications, patient reports that she was taken off everything except for her trazodone, which was ordered 200 mg at bedtime. She states that the plan was for her to be stabilized on new medications, and at this time I will hold on initiation of mood stabilizers given that she is not sure what the plan for her med changes were. If the patient has acute exacerbation of symptoms, or is boarding in our emergency department for an extended period of time we can consult telepsychiatry to discuss medication management. [facility] consulted with their prescriber who stated that she has not been removed from her medications but correct that her Trazodone has been increased. Physician informed of discrepancy and pt's medications ordered.
--- NOTE | 2024-10-05 12:50 | NUR.NOTE ---
Nursing Note: Upon arrival of pt to Zone B (10/04/24), pt presented with wrist wrapped in coban. Pt advised that she cannot have a ligature in the milieu. Pt stated, The doctor told me that I can have this on my wrist. This radio script writer informed pt that for her safety, the dressing must be replaced with a safer alternative. Dressing taken down to reveal superficial lacerations, scabbed intact. No bleeding. Wound redressed with 2x2 and short tape.
--- NOTE | 2024-10-05 15:04 | CMPROGNOTE_ITS ---
Date of service: 10/05/24 Time of Service: 15:04 Care Management Progress Note Progress Note Text Progress Note Text: CM met with Jeferson, television maintenance worker from [facility], today after her met with Jyothi. He stated that Jyothi is endorsing suicidal thoughts and has a plan if she were to go home. She and her family are seeking voluntary admission. Referrals have been sent. [facility] Care Bed evaluated Jyothi, and did not find the setting suitable for Jyothi. Jyothi also does not feel she does well at the Care Bed. Jyothi stated to Jeferson that she does not feel safe with herself or her family. Safety plan is in place. CM will continue to follow. Social Determinants of Health Screening Social Determinants of Health last assessed: 10/05/24 Will the Patient Participate in the Screening?: Yes Do you worry about having a steady place to live?: no Problems where you live: no known problems In the past 12 months, have you had to go without electric, gas, oil or water in your home?: no Have you or anyone in your house had to go without enough food to eat?: no Has lack of transportation kept you from medical appointments or from doing things needed for daily living?: no Has anyone in your life made you feel unsafe or unsupported?: no How hard is it for you to pay for the very basics like food, housing, medical care, and heating? Would you say it is:: Not hard at all Do you want help finding or keeping work or a job?: I do not need or want help If for any reason you need help with day-to-day activities such as bathing, preparing meals, shopping, managing finances, etc., do you get the help you need?: I don?t need any help How often do you feel lonely or isolated from those around you?: Often Do you speak a language other than Gabonese at home?: No Does the patient want assistance with any of the above?: Yes Social Determinants of Health Comments(SDOH Details): Seeking placement for MH. Health Related Social Needs Health related social needs: feeling lonely/isolated (Z60.8)
--- NOTE | 2024-10-05 15:56 | MHPN_ITS ---
Date of service: 10/05/24 Time of Service: 10:30 PHQ-9 Over the last 2 weeks, how often have you been bothered by any of the following problems? 1. Little interest or pleasure in doing things: more than half the days 2. Feeling down, depressed, or hopeless: nearly every day 3. Trouble falling or staying asleep, or sleeping too much: more than half the days 4. Feeling tired or having little energy: more than half the days 5. Poor appetite or overeating: several days 6. Feeling bad about yourself - or that you are a failure or have let yourself and your family down: nearly every day 7. Trouble concentrating on things, such as reading the newspaper or watching television: more than half the days 8. Moving or speaking so slowly that other people could have noticed? - Or the opposite - being so fidgety or restless that you have been moving around a lot more than usual: not at all 9. Thoughts that you would be better off or of hurting yourself in some way: nearly every day Total score: 18 Source: Developed by Drs. Oskar Marquez, Darlene Betancur, Antonio Barry and colleagues, with an educational heriberto from [employer]. Suicide Severity Rate CSSRS Have you wished you were or wished you could go to sleep and not wake up?: Yes Have you actually had any thoughts of killing yourself?: Yes CSSRS2 Have you been thinking about how you might do this?: Yes Have you had these thoughts and had some intention of acting on them?: Yes Have you started to work out or worked out the details of how to kill yourself? 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 Intent: yes, has intent. Plan: yes,has a plan. Risk: Does risk to harm exist?: yes. Risk: High Risk Duty to warn indicated: No Asssessment/Mental Status Appearance: Other Attitude: Cooperative and Friendly Behavior: Other Speech: Normal and Soft Affect: Cogruent with mood Mood: Sad, Stressed and Depressed Thought process: Goal directed Hallucinations: No Delusions: No Attention: Unremarkable Perception: Not impaired Orientation: Fully orientated Memory: Intact Insight: Fair Judgement: Fair Neurovegetative Symptoms Sleep: Decrease Appetitie: Disordered Interests: Decrease Energy: Decrease Libido: Not applicable Substance Use: Other (no alcohol use) Drug Issues: Other (no drug use) Do you use nicotine?: No Have you used substances in the last 7 days?: No Additional Issues: Assaultive/Threatening Behavior: No Medical Concerns: Yes Client engaged in active self harm w/weapon: No Threatening to run away: No Child reported abuse/neglect: No Voluntarily presenting for services: No Domestic violence is a concern: No Extreme Psychosis or extreme behavior is present: No Impression depressed, suicidal, active thoughts of self harm. Intelligent young lady with mental health issues which need to be further examined Resources Reosurces reviewed and given:: 988 Plan/Disposition Recommended Disposition: Hospitalization facilities contacted. Plan: Awaiting placement while on zone B, referrals have been sent out Person reported agreement to plan: Yes Facilities contacted if Applicable [facility] Not accepted, No bed available Not accepted, No bed available, [facility] Not accepted, No bed available Reports/communication Outcome discussed with: ED/Personnel
--- NOTE | 2024-10-05 20:05 | W.EDPROG ---
Date of service: 10/23/24 Time of Service: 15:00 Medical Decision Making This is a 19-year-old female patient boarding in our emergency department for suicidal ideation and depression. Prior to my taking over their care, the patient was medically cleared, and has been resting comfortably. They have met with the social worker delinquency prevention and we are awaiting final dispo. They have not required any additional medications for restraint or sedation. The patient was signed out to the oncoming provider prior to final disposition. Remained hemodynamically appropriate, calm, cooperative, and comfortable while under my care. Moira Walters MD Medical Records Medical records reviewed: Yes I reviewed the patient's medical records. Lab Data Lab results reviewed: Yes I reviewed the patient's lab results. Quality:SDOH Health Related Social Needs: Health related social needs feeling lonely/isolated (Z60.8) Discharge Plan Discharge Details Chief Complaint: PsychEval Clinical Impression: Depression with suicidal ideation Primary Care Provider: Liza Munson ED Provider: Moira Walters Home Meds and New Rx's Prescriptions: No Action (DME) compressor, for nebulizer Device See Rx Instructions .Route Qty: 1 0RF Rx Instructions: As directed (DME) nebulizer accessories Kit See Rx Instructions .Route Qty: 1 0RF Rx Instructions: As directed lisdexamfetamine [Vyvanse] 40 mg capsule 40 mg PO QAM calcitriol 0.25 mcg capsule 0.25 mcg PO BID (DME) BreatheRite MDI Spacer Spacer See Rx Instructions .ROUTE .MEDSUPPLY Qty: 1 0RF Rx Instructions: As directed trazodone 100 mg tablet 200 mg PO QHS PRN sertraline [Zoloft] 100 mg tablet 150 mg PO DAILY (DME) Depend Underwear For Women [facility] See Rx Instructions .Route Qty: 64 4RF Rx Instructions: As directed aripiprazole [Abilify] 15 mg tablet 15 mg PO QHS benztropine 0.5 mg tablet 0.5 mg PO BID Effer-K 20 mEq tablet, effervescent 20 meq PO DAILY prazosin 1 mg capsule 3 mg PO QHS Ubrelvy 100 mg tablet 100 mg PO ONCE PRN Rx Instructions: 1-2 tabs epinephrine [EpiPen] 0.3 mg/0.3 mL auto-injector 0.3 ml subcut ONCE PRN Rx Instructions: as a single dose; may repeat once calcium carbonate 400 mg/5 mL suspension 1,250 mg PO BID Rx Instructions: 1250mg/5ml oral suspension levalbuterol tartrate [Xopenex HFA] 2 puff inhalation PRN cetirizine [24Hour Allergy] 10 mg tablet 20 mg PO DAILY
[2024-10-05 20:45] VITALS: BP 106/60; PULSE 86; O2SAT 99
[2024-10-05] MEDS: Calcium Carbonate *TUMS* 500 MG CHEW 1000 MG PO (20:47)
[2024-10-05] MEDS: Benztropine 1 MG TAB 0.5 MG PO (20:47)
[2024-10-05] MEDS: Calcitriol 0.25 MCG CAP PO (20:47)
[2024-10-05] MEDS: ARIPiprazole 15 MG TAB PO (20:47)
[2024-10-05] MEDS: traZODone 100 MG TAB PO (20:49)
[2024-10-05] MEDS: Prazosin 1 MG CAP 3 MG PO (20:49)
--- NOTE | 2024-10-06 07:36 | ED.PROG_ITS ---
Date of service: 10/06/24 Time of Service: 07:36 Medical Decision Making Patient is seeking voluntary placement for thoughts of self-harm, no reported issues with prior shift and no new acute complaints. Will continue to monitor until safe disposition found. Quality:SDOH Health Related Social Needs: Health related social needs feeling lonely/isolated (Z 60.8) Discharge Plan Discharge Details Chief Complaint: PsychEval Clinical Impression: Depression with suicidal ideation Primary Care Provider: Liza Munson ED Provider: Rambo Gunn Home Meds and New Rx's Prescriptions: No Action (DME) compressor, for nebulizer Device See Rx Instructions .Route Qty: 1 0RF Rx Instructions: As directed (DME) nebulizer accessories Kit See Rx Instructions .Route Qty: 1 0RF Rx Instructions: As directed lisdexamfetamine [Vyvanse] 40 mg capsule 40 mg PO QAM calcitriol 0.25 mcg capsule 0.25 mcg PO BID (DME) BreatheRite MDI Spacer Spacer See Rx Instructions .ROUTE .MEDSUPPLY Qty: 1 0RF Rx Instructions: As directed trazodone 100 mg tablet 200 mg PO QHS PRN sertraline [Zoloft] 100 mg tablet 150 mg PO DAILY (DME) Depend Underwear For Women [place] [facility] [place] Rx Instructions .Route Qty: 64 4RF Rx Instructions: As directed aripiprazole [Abilify] 15 mg tablet 15 mg PO QHS benztropine 0.5 mg tablet 0.5 mg PO BID Effer-K 20 mEq tablet, effervescent 20 meq PO DAILY prazosin 1 mg capsule 3 mg PO QHS Ubrelvy 100 mg tablet 100 mg PO ONCE PRN Rx Instructions: 1-2 tabs epinephrine [EpiPen] 0.3 mg/0.3 mL auto-injector 0.3 ml subcut ONCE PRN Rx Instructions: as a single dose; may repeat once calcium carbonate 400 mg/5 mL suspension 1,250 mg PO BID Rx Instructions: 1250mg/5ml oral suspension levalbuterol tartrate [Xopenex HFA] 2 puff inhalation PRN cetirizine [24Hour Allergy] 10 mg tablet 20 mg PO DAILY
[2024-10-06 08:07] VITALS: BP 92/56; PULSE 123; RESP 20; TEMP 36.8; O2SAT 99
[2024-10-06] MEDS: Cetirizine 10 MG TAB 20 MG PO (08:57)
[2024-10-06] MEDS: Calcitriol 0.25 MCG CAP PO ×2 (08:58→19:41)
[2024-10-06] MEDS: Potassium Bicarbonate/Cit AC 25 MEQ TABLET.EFF PO (08:58)
[2024-10-06] MEDS: Calcium Carbonate *TUMS* 500 MG CHEW 1000 MG PO ×2 (08:58→19:41)
[2024-10-06] MEDS: Lisdexamphetamine 40 MG CAP PO (08:59)
[2024-10-06] MEDS: Benztropine 1 MG TAB 0.5 MG PO ×2 (08:59→19:41)
[2024-10-06] MEDS: Sertraline 100 MG TAB 150 MG PO (09:00)
--- NOTE | 2024-10-06 12:04 | CMSP_ITS ---
Date of service: 10/06/24 Time of Service: 12:04 Care Management Safety Plan Status Status: Voluntary Reason for Wait Reason for Wait: Inpatient Admission Safety Plan Safety Plan: VOLUNTARY FOR INPATIENT PSYCHIATRIC STABILIZATION.? Patient is appropriate in all interactions since arriving at [facility]; Pt has demonstrated appropriate coping and communication skills, has articulated his or her needs and concerns and is fully engaged during staff interactions. Safety plan has been established with patient, and care team, to adhere to patient goals, identify restrictions based on behavioral status, address nutrition, and determine allowed personal belongings, tools for hygiene and personal care. Determine level of activity including ambulation, level of supervision, visitors, and determine privileges based on behaviors and level of engagement by pt. VOLUNTARY SAFETY PLAN: 1. Will remain on suicide precautions, in paper clothes. Jyothi may wear her fleece jacket that she came in with. 2. Will remain in Zone B under direct supervision of one-on-one staff at all times provided by [employer]; BANDAR, COMMUNITY SERVICES MANAGER director data processing. 3. May have paper cups, plates, finger foods as well as a cardboard spoon with which to eat meals. 4. Follow [facility] Management of the Admitted Behavioral Health Patient policy. 5. Shower available in Zone B without restriction. 6. Personal belongings-soft items permitted at RN discretion. 7. Visitors- at RN discretion. 8. Activities: soft cart items approved per RN discretion. 9.? Bathroom available in Zone B without restriction. 10. Phone: limited to [facility] cordless phone at RN discretion. Due to VOLUNTARY status, if patient wishes to leave [facility], staff will contact [facility] Crisis Screener ([phone]) and Hadoop Java Developer ([phone]) as soon as possible. In the event of elopement, notify [facility] Police ([phone]). Patient is currently voluntarily at [facility] and seeking inpatient admission when a bed becomes available. [facility] Frontline Genomics Scientist will continue seeking placement. Please contact the Hadoop Java Developer ([phone]) and [facility] Genomics Scientist ([phone]) for any needed changes in the Safety Plan. Safety plan has been provided to interdepartmental care team.
--- NOTE | 2024-10-06 12:23 | MHPN_ITS ---
Date of service: 10/06/24 Time of Service: 11:21 Mental Health Emergency Note Release [facility] release signed:: Yes Reason for Visit The client is known to [facility] and the ES team and is an active client of the SYSTEMS INTEGRATION ADVISOR team. The client was admitted to the ED with superficial injuries to her wrists earlier last week and then discharged on a safety plan. The client was admitted into the care bed on 09/29/24 and discharged on 10/02/24. The client has been in patient within the last twelve months per chart review this was about 4 months ago at [facility]. All inpatient hospitalizations have been on a voluntary basis. On Monday10/04/2024 SHAMA Pradhan and ELIUD Delong completed a mobile crisis assessment of the client post a medication appointment with her psychiatric provider at [facility]. Per the provider he felt like the client needed to be hospitalized. The client is currently at [facility] zone b seeking inpatient treatment. This machine sign writer meets with the client face to face at [facility] for daily re- assessment. In the last 2 weeks has the pt presented for ES prior to today?: Yes, presented at [facility] ED and [facility] Client Information Client is: SYSTEMS INTEGRATION ADVISOR Well Housed: Yes Current Treatment Team if applicable First care steam station supervisor: Name: Pieter Zaragoza Role: SYSTEMS INTEGRATION ADVISOR therapist Contact Info: [phone] Second care steam station supervisor: Name: Peter Brown Role: SYSTEMS INTEGRATION ADVISOR family caseworkermanager care Info: [phone] Non Suicidal Self Injury Current: No Impression The client is a 19 year old single female who reports living with her parents. 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 She was seen by this clinician at [facility] in the ED for re- assessment while awaiting for voluntary inpatient treatment .The client presented to this clinician with anxiety based on reported anxious thoughts and continued passive suicidal ideations. The client reports that she does not currently have a plan to harm herself, but reports that this changes based on the environment and whether she feels safe or not. The client reports that her appetite has been good and that she has had an increase in sleep since being in the hospital. This machine sign writer and the client discuss goals of treatment and the client reports that she wants to become stable, adjust medications, and learn more skills to utilize. Plan/Disposition Recommended Disposition: Hospitalization (No beds available today) facilities contacted. Plan: The client will continue to await inpatient treatment at [facility] b. The client will be assessed daily until placement is secured or the client is able to be safety planned back to the community. Person reported agreement to plan: Yes Reports/communication Outcome discussed with: ED/Personnel (Verbal report given to [facility] staff)
--- NOTE | 2024-10-06 12:23 | PDOC.MHPN2 ---
Date of service: 10/06/24 Time of Service: 11:21 Mental Health Emergency Note Release [facility] release signed:: Yes Reason for Visit The client is known to [facility] and the ES team and is an active client of the EVENT ORGANIZER team. The client was admitted to the ED with superficial injuries to her wrists earlier last week and then discharged on a safety plan. The client was admitted into the care bed on 09/29/24 and discharged on 10/02/24. The client has been in patient within the last twelve months per chart review this was about 4 months ago at [facility]. All inpatient hospitalizations have been on a voluntary basis. On Monday10/04/2024 SHAMA Pradhan and ELIUD Delong completed a mobile crisis assessment of the client post a medication appointment with her psychiatric provider at [facility]. Per the provider he felt like the client needed to be hospitalized. The client is currently at [facility] zone b seeking inpatient treatment. This financial writer meets with the client face to face at [facility] for daily re-assessment. In the last 2 weeks has the pt presented for ES prior to today?: Yes, presented at [facility] ED and [facility] Client Information Client is: EVENT ORGANIZER Well Housed: Yes Current Treatment Team if applicable First care steam setter: Name: Pieter Zaragoza Role: EVENT ORGANIZER therapist Contact Info: [phone] Second care steam setter: Name: Peter Brown Role: EVENT ORGANIZER director of casework departmentpolicy manager Info: [phone] Non Suicidal Self Injury Current: No Impression The client is a 19 year old single female who reports living with her parents. 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 She was seen by this clinician at [facility] in the ED for re-assessment while awaiting for voluntary inpatient treatment .The client presented to this clinician with anxiety based on reported anxious thoughts and continued passive suicidal ideations. The client reports that she does not currently have a plan to harm herself, but reports that this changes based on the environment and whether she feels safe or not. The client reports that her appetite has been good and that she has had an increase in sleep since being in the hospital. This financial writer and the client discuss goals of treatment and the client reports that she wants to become stable, adjust medications, and learn more skills to utilize. Plan/Disposition Recommended Disposition: Hospitalization (No beds available today) facilities contacted. Plan: The client will continue to await inpatient treatment at [facility] b. The client will be assessed daily until placement is secured or the client is able to be safety planned back to the community. Person reported agreement to plan: Yes Reports/communication Outcome discussed with: ED/Personnel (Verbal report given to [facility] b staff)
--- NOTE | 2024-10-06 17:12 | W.EDPROG ---
Date of service: 10/06/24 Time of Service: 16:00 Medical Decision Making In brief, this is a 19-year-old female patient boarding voluntarily, awaiting inpatient placement for suicidal ideation prior to my taking over their care, the patient was medically cleared, and has been resting comfortably. They have met with the sr. social media & mobile manager and we are awaiting final dispo. They have not required any additional medications for restraint or sedation. She had some bleeding of her second toe on her right foot after picking at a scab, which was bandaged. The patient was signed out to the oncoming provider prior to final disposition. Remained hemodynamically appropriate, calm, cooperative, and comfortable while under my care. Moira Walters MD Medical Records Medical records reviewed: Yes I reviewed the patient's medical records. Lab Data Lab results reviewed: Yes I reviewed the patient's lab results. Quality:SDOH Health Related Social Needs: Health related social needs feeling lonely/isolated (Z60.8) Discharge Plan Discharge Details Chief Complaint: PsychEval Clinical Impression: Depression with suicidal ideation Primary Care Provider: Liza Munson ED Provider: Moira Walters Home Meds and New Rx's Prescriptions: No Action (DME) compressor, for nebulizer Device See Rx Instructions .Route Qty: 1 0RF Rx Instructions: As directed (DME) nebulizer accessories Kit See Rx Instructions .Route Qty: 1 0RF Rx Instructions: As directed lisdexamfetamine [Vyvanse] 40 mg capsule 40 mg PO QAM calcitriol 0.25 mcg capsule 0.25 mcg PO BID (DME) BreatheRite MDI Spacer Spacer See Rx Instructions .ROUTE .MEDSUPPLY Qty: 1 0RF Rx Instructions: As directed trazodone 100 mg tablet 200 mg PO QHS PRN sertraline [Zoloft] 100 mg tablet 150 mg PO DAILY (DME) Depend Underwear For Women S-M Misc See Rx Instructions .Route Qty: 64 4RF Rx Instructions: As directed aripiprazole [Abilify] 15 mg tablet 15 mg PO QHS benztropine 0.5 mg tablet 0.5 mg PO BID Effer-K 20 mEq tablet, effervescent 20 meq PO DAILY prazosin 1 mg capsule 3 mg PO QHS Ubrelvy 100 mg tablet 100 mg PO ONCE PRN Rx Instructions: 1-2 tabs epinephrine [EpiPen] 0.3 mg/0.3 mL auto-injector 0.3 ml subcut ONCE PRN Rx Instructions: as a single dose; may repeat once calcium carbonate 400 mg/5 mL suspension 1,250 mg PO BID Rx Instructions: 1250mg/5ml oral suspension levalbuterol tartrate [Xopenex HFA] 2 puff inhalation PRN cetirizine [24Hour Allergy] 10 mg tablet 20 mg PO DAILY
[2024-10-06 17:51] VITALS: PULSE 114; O2SAT 99
[2024-10-06] MEDS: Budesonide/Formoterol 80/4.5 6.9 GM 60 PUFF INH IH (18:35)
[2024-10-06] MEDS: Inhaler, Assist Device 1 EACH MC (18:36)
[2024-10-06] MEDS: ARIPiprazole 15 MG TAB PO (19:27)
[2024-10-06 19:35] VITALS: BP 100/62; PULSE 93; O2SAT 98
[2024-10-06] MEDS: Prazosin 1 MG CAP 3 MG PO (19:42)
[2024-10-06] MEDS: traZODone 100 MG TAB PO (19:42)
[2024-10-07 08:11] VITALS: BP 104/66; PULSE 110; TEMP 36.6; O2SAT 99
[2024-10-07] MEDS: Sertraline 100 MG TAB 150 MG PO (08:11)
[2024-10-07] MEDS: Benztropine 1 MG TAB 0.5 MG PO (08:24)
[2024-10-07] MEDS: Potassium Bicarbonate/Cit AC 25 MEQ TABLET.EFF PO (08:24)
[2024-10-07] MEDS: Calcitriol 0.25 MCG CAP PO (08:24)
[2024-10-07] MEDS: Cetirizine 10 MG TAB 20 MG PO (08:24)
--- NOTE | 2024-10-07 08:31 | ED.PROG_ITS ---
Date of service: 10/07/24 Time of Service: 08:31 Medical Decision Making Patient seeking voluntary placement for thoughts of self-harm, no reported issues on prior shift and no new acute complaints we will continue to monitor until safe disposition found Quality:SDOH Health Related Social Needs: Health related social needs feeling lonely/isolated (Z 60.8) Discharge Plan Discharge Details Chief Complaint: PsychEval Clinical Impression: Depression with suicidal ideation Primary Care Provider: Liza Munson ED Provider: Rambo Gunn Home Meds and New Rx's Prescriptions: No Action (DME) compressor, for nebulizer Device See Rx Instructions .Route Qty: 1 0RF Rx Instructions: As directed (DME) nebulizer accessories Kit See Rx Instructions .Route Qty: 1 0RF Rx Instructions: As directed lisdexamfetamine [Vyvanse] 40 mg capsule 40 mg PO QAM calcitriol 0.25 mcg capsule 0.25 mcg PO BID (DME) BreatheRite MDI Spacer Spacer See Rx Instructions .ROUTE .MEDSUPPLY Qty: 1 0RF Rx Instructions: As directed trazodone 100 mg tablet 200 mg PO QHS PRN sertraline [Zoloft] 100 mg tablet 150 mg PO DAILY (DME) Depend Underwear For Women S-M [facility] See Rx Instructions .Route Qty: 64 4RF Rx Instructions: As directed aripiprazole [Abilify] 15 mg tablet 15 mg PO QHS benztropine 0.5 mg tablet 0.5 mg PO BID Effer-K 20 mEq tablet, effervescent 20 meq PO DAILY prazosin 1 mg capsule 3 mg PO QHS Ubrelvy 100 mg tablet 100 mg PO ONCE PRN Rx Instructions: 1-2 tabs epinephrine [EpiPen] 0.3 mg/0.3 mL auto-injector 0.3 ml subcut ONCE PRN Rx Instructions: as a single dose; may repeat once calcium carbonate 400 mg/5 mL suspension 1,250 mg PO BID Rx Instructions: 1250mg/5ml oral suspension levalbuterol tartrate [Xopenex HFA] 2 puff inhalation PRN cetirizine [24Hour Allergy] 10 mg tablet 20 mg PO DAILY
[2024-10-07] MEDS: Budesonide/Formoterol 80/4.5 6.9 GM 60 PUFF INH IH (13:45)
[2024-10-07] MEDS: LORazepam 1 MG TAB PO ×2 (16:33→19:32)
--- NOTE | 2024-10-07 16:53 | CMSP_ITS ---
Date of service: 10/07/24 Time of Service: 16:53 Care Management Safety Plan Status Status: Voluntary Reason for Wait Reason for Wait: Inpatient Admission Safety Plan Safety Plan: VOLUNTARY FOR INPATIENT PSYCHIATRIC STABILIZATION.? Patient is appropriate in all interactions since arriving at [facility]; Pt has demonstrated appropriate coping and communication skills, has articulated his or her needs and concerns and is fully engaged during staff interactions. Safety plan has been established with patient, and care team, to adhere to patient goals, identify restrictions based on behavioral status, address nutrition, and determine allowed personal belongings, tools for hygiene and personal care. Determine level of activity including ambulation, level of supervision, visitors, and determine privileges based on behaviors and level of engagement by pt. VOLUNTARY SAFETY PLAN: 1. Will remain on suicide precautions, in paper clothes. Jyothi may wear her fleece jacket that she came in with. 2. Will remain in Zone B under direct supervision of one-on-one staff at all times provided by [employer]; BANDAR, IT SUPPORT TECHNICIAN prints and drawings curator. 3. May have paper cups, plates, finger foods as well as a cardboard spoon with which to eat meals. 4. Follow [facility] Management of the Admitted Behavioral Health Patient policy. 5. Shower available in Zone B without restriction. 6. Personal belongings-soft items permitted at RN discretion. Pt has own sweatshirt/fleece jacket and stuffed animal, at RN discretion. 7. Visitors- at RN discretion. 8. Activities: soft cart items approved per RN discretion. 9.? Bathroom available in Zone B without restriction. 10. Phone: limited to [facility] cordless phone at RN discretion. Due to VOLUNTARY status, if patient wishes to leave [facility], staff will contact [facility] Crisis Screener ([phone]) and Junior Account Manager ([phone]) as soon as possible. In the event of elopement, notify [place] [employer] Police ([phone]). Patient is currently voluntarily at [facility] and seeking inpatient admission when a bed becomes available. [facility] Frontline Supervisor [employer] will continue seeking placement. Please contact the Junior Account Manager ([phone]) and [facility] Supervisor [employer] ([phone]) for any needed changes in the Safety Plan. Safety plan has been provided to interdepartmental care team.
--- NOTE | 2024-10-07 16:55 | PDOC.CMPRO ---
Date of service: 10/07/24 Time of Service: 16:55 Care Management Progress Note Progress Note Text Progress Note Text: CM met with staff to discuss Jyothi's plan of care. Per RN and [employer], she has been appropriate in interactions. She is wearing her own fleece sweatshirt, and has her own stuffed animal for comfort. Per report, [facility] met with Jyothi via zoom today, who feels that she continues to meet criteria for inpatient psychiatric treatment. Safety plan in place. CM will continue to follow. Social Determinants of Health Screening Social Determinants of Health last assessed: 10/07/24 Will the Patient Participate in the Screening?: Yes Do you worry about having a steady place to live?: no Problems where you live: no known problems In the past 12 months, have you had to go without electric, gas, oil or water in your home?: no Have you or anyone in your house had to go without enough food to eat?: no Has lack of transportation kept you from medical appointments or from doing things needed for daily living?: no Has anyone in your life made you feel unsafe or unsupported?: no How hard is it for you to pay for the very basics like food, housing, medical care, and heating? Would you say it is:: Not hard at all Do you want help finding or keeping work or a job?: I do not need or want help If for any reason you need help with day-to-day activities such as bathing, preparing meals, shopping, managing finances, etc., do you get the help you need?: I don?t need any help How often do you feel lonely or isolated from those around you?: Often Do you speak a language other than Mozambican at home?: No Does the patient want assistance with any of the above?: Yes Social Determinants of Health Comments(SDOH Details): Seeking placement for MH. Health Related Social Needs Health related social needs: feeling lonely/isolated (Z60.8)
--- NOTE | 2024-10-07 17:56 | ED.PROG_ITS ---
Date of service: 10/07/24 Time of Service: 17:58 Medical Decision Making Care assumed from off going provider. Patient is currently pending voluntary inpatient psychiatric placement for treatment for suicidal ideation. At this time she has been accepted for placement by Jarrell duran. A doc to doc has been done with Dr. North Patient's Calcitrol was provided as the facility will not be able to give that her this medication or require it during the holiday weekend. We dispensed 2 days worth of this medication. Quality:SDOH Health Related Social Needs: Health related social needs feeling lonely/isolated (Z 60.8) Discharge Plan Discharge Details Chief Complaint: PsychEval Clinical Impression: Depression with suicidal ideation Primary Care Provider: Liza Munson ED Provider: Loyd Mcclain Home Meds and New Rx's Prescriptions: No Action (DME) compressor, for nebulizer Device See Rx Instructions .Route Qty: 1 0RF Rx Instructions: As directed (DME) nebulizer accessories Kit See Rx Instructions .Route Qty: 1 0RF Rx Instructions: As directed lisdexamfetamine [Vyvanse] 40 mg capsule 40 mg PO QAM calcitriol 0.25 mcg capsule 0.25 mcg PO BID (DME) BreatheRite MDI Spacer Spacer See Rx Instructions .ROUTE .MEDSUPPLY Qty: 1 0RF Rx Instructions: As directed trazodone 100 mg tablet 200 mg PO QHS PRN sertraline [Zoloft] 100 mg tablet 150 mg PO DAILY (DME) Depend Underwear For Women S-M [facility] See Rx Instructions .Route Qty: 64 4RF Rx Instructions: As directed aripiprazole [Abilify] 15 mg tablet 15 mg PO QHS benztropine 0.5 mg tablet 0.5 mg PO BID Effer-K 20 mEq tablet, effervescent 20 meq PO DAILY prazosin 1 mg capsule 3 mg PO QHS Ubrelvy 100 mg tablet 100 mg PO ONCE PRN Rx Instructions: 1-2 tabs epinephrine [EpiPen] 0.3 mg/0.3 mL auto-injector 0.3 ml subcut ONCE PRN Rx Instructions: as a single dose; may repeat once calcium carbonate 400 mg/5 mL suspension 1,250 mg PO BID Rx Instructions: 1250mg/5ml oral suspension levalbuterol tartrate [Xopenex HFA] 2 puff inhalation PRN cetirizine [24Hour Allergy] 10 mg tablet 20 mg PO DAILY
--- NOTE | 2024-10-07 20:17 | PDOC.MHPN2 ---
Date of service: 10/07/24 Time of Service: 10:15 Mental Health Emergency Note Release [facility] release signed:: Yes Reason for Visit Hospital reassessment completed while client waits at [facility] for voluntary inpatient treatment. This conventional mortgage underwriter is importing documentation for ESC Sandra In the last 2 weeks has the pt presented for ES prior to today?: Yes, presented at [facility] ED and [facility] Impression I completed a mental health assessment for this client while they wait for voluntary inpatient mental health treatment placement from [facility]. The client states that they are doing alright. The client described their mood as on and off, depending of the time of day. They feel a little bit better today than yesterday. The client continues to endorse SI but denies HI. The client had a breakfast sandwich prior to the reassessment. The client slept ok from 9pm-1:30am but once awake had difficulty staying asleep. The client has been completing word searches while they wait for placement. The client has no additional needs, questions or concerns at this time. Plan/Disposition Recommended Disposition: Hospitalization (No beds available) facilities contacted. Plan: Client requests to remain at [facility] for voluntary inpatient mental health treatment placement. Reports/communication Outcome discussed with: ED/Personnel (Verbal report given to [facility] staff)
== END 2024-10-07 19:54 ==
PROVIDERS: Emergency Medicine; Emergency Provider Emergency Medicine; PCP Nurse Practitioner Family
DX: F32.A Depression, unspecified (principal); R45.851 Suicidal ideations; F41.9 Anxiety disorder, unspecified; Z60.8 Other problems related to social environment
CPT/HCPCS: 00123; 80307; 81025; 96127; 99285; J3490

== ENCOUNTER 2024-10-29 08:26 | Outpatient (REF) | payer MEDICAID, SELFPAY ==
[2024-10-29 09:09] LABS: Bilirubin Negative (Negative); Blood Negative (Negative); Clarity Clear (Clear); Glucose Negative (Negative); Ketones Negative (Negative); Leukocyte Esterase Negative (Negative); Nitrite Negative (Negative); Specific Gravity 1.015 (1.005-1.025); Urobilinogen 0.2 mg/dL (Up to 0.2); pH 6.5 (5-8)
== END 2024-10-29 08:27 | disposition home or self-care (01) ==
LOC: LBN 08:26
PROVIDERS: PCP Nurse Practitioner Family; Visit Provider Pediatrics Pediatric Nephrology
DX: R30.0 Dysuria (principal); R82.89 Other abnormal findings on cytological and histological examination of urine
CPT/HCPCS: 81003; 87086

== ENCOUNTER 2024-11-05 16:54 | Emergency (ER) | payer MEDICAID, SELFPAY ==
[2024-11-05 17:01] VITALS: BP 137/83; PULSE 107; RESP 18; TEMP 36.8; O2SAT 97
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
[2024-11-05 17:32] VITALS: PULSE 92; PULSE 95; RESP 26; O2SAT 98
[2024-11-05 17:34] VITALS: BP 125/66; PULSE 84; PULSE 90; RESP 18; O2SAT 97
[2024-11-05 17:39] VITALS: RESP 20
[2024-11-05 17:40] VITALS: PULSE 92; RESP 22; O2SAT 98
[2024-11-05 17:44] LABS: Bilirubin Negative (Negative); Blood Negative (Negative); Clarity Clear (Clear); Glucose Negative (Negative); Ketones Negative (Negative); Leukocyte Esterase Negative (Negative); Nitrite Negative (Negative); Urobilinogen 0.2 mg/dL (Up to 0.2); pH 8.5 (5-8)
[2024-11-05 17:48] LABS: Abs Immature Grans 0.04 10^3/uL (0.0-0.06); Absolute Basophil Count 0.05 10^3/uL (0.0-0.2); Absolute Eosinophil Count 0.06 10^3/uL (0.0-0.7); Absolute Lymphocyte Count 2.15 10^3/uL (1.2-3.4); Absolute Monocyte Count 0.52 10^3/uL (0.1-0.8); Absolute Neutrophil Count 5.77 10^3/uL (1.2-6.7); Basophils % 0.6 %; Eosinophils % 0.7 %; HCT 31.7 % (36.0-46.0); HGB 10.2 g/dL (11.2-15.7); Immature Grans % 0.5 %; MCH 27.3 pg (27.0-33.0); MCHC 32.2 % (32.0-36.0); MCV 85 fL (80-95); MPV 10.4 fL (8.0-11.0); Monocytes % 6.1 %; Neutrophils % 67.1 %; Platelet Count 323 10^3/uL (130-400); RBC 3.74 10^6/uL (3.93-5.22); RDW 16.9 % (11.7-14.6); RDW-SD 52.4 fL; WBC 8.59 10^3/uL (4.4-10.8)
[2024-11-05 17:54] LABS: *AMPHETAMINES SCREEN URINE Negative (Negative); *BARBITURATES SCREEN URINE Negative (Negative); *BENZODIAZEPINES SCREEN URINE Negative (Negative); Cannabinoids THC Negative (Negative); Cocaine Screen,Urine Negative (Negative); METHADONE URINE SCREEN Negative (Negative); OPIATES URINE SCREEN Negative (Negative)
[2024-11-05 17:55] LABS: Tricyclic Antidepressants Negative (Negative)
[2024-11-05 18:03] LABS: ALT 43 U/L (14-59); AST 25 U/L (15-37); Albumin 4.1 g/dL (3.4-5.0); Alkaline Phosphatase 67 U/L (46-116); Anion Gap 8.5 mmol/L (3-11); BUN 16 mg/dL (7-18); Bilirubin, Total 0.28 mg/dL (0.2-1.0); CO2 27.5 mmol/L (21.0-32.0); Calcium 7.5 mg/dL (8.5-10.1); Chloride 105 mmol/L (98-107); Estimated GFR 82.71 (mL/min/1.73m2); Glucose 100 mg/dL (74-106); Magnesium 1.6 mg/dL (1.8-2.4); Potassium 3.3 mmol/L (3.5-5.1); Sodium 141 mmol/L (136-145)
[2024-11-05 18:11] LABS: TSH (W/Ref FT4) 1.15 uIU/mL (0.36-3.74)
[2024-11-05] MEDS: LORazepam 0.5 MG TAB PO (19:07)
[2024-11-05] MEDS: POTASSIUM CHLORIDE 20 MEQ, POTASSIUM CHLORIDE 10 MEQ 30 MEQ PO (19:07)
[2024-11-05] MEDS: Magnesium Oxide 400 MG TAB PO (19:07)
[2024-11-05] MEDS: Calcium Carbonate *TUMS* 500 MG CHEW 1000 MG PO (19:07)
== END 2024-11-05 19:58 | disposition home or self-care (01) ==
PROVIDERS: Emergency Provider Registered Nurse Emergency; PCP Nurse Practitioner Family
DX: R25.2 Cramp and spasm (principal); E87.8 Other disorders of electrolyte and fluid balance, not elsewhere classified
CPT/HCPCS: 80053; 80307; 81025; 99283; 81003; 83735; 84443; 85025

== ENCOUNTER 2024-11-06 18:56 | Emergency (ER) | payer MEDICAID, SELFPAY ==
[2024-11-06 18:58] VITALS: BP 137/82; PULSE 96; RESP 18; TEMP 36.5; O2SAT 98
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
[2024-11-06 19:38] VITALS: RESP 16
[2024-11-06 19:42] LABS: Abs Immature Grans 0.03 10^3/uL (0.0-0.06); Absolute Basophil Count 0.04 10^3/uL (0.0-0.2); Absolute Eosinophil Count 0.13 10^3/uL (0.0-0.7); Absolute Lymphocyte Count 1.81 10^3/uL (1.2-3.4); Absolute Monocyte Count 0.41 10^3/uL (0.1-0.8); Absolute Neutrophil Count 5.53 10^3/uL (1.2-6.7); Basophils % 0.5 %; Eosinophils % 1.6 %; HCT 31.9 % (36.0-46.0); HGB 10.2 g/dL (11.2-15.7); Immature Grans % 0.4 %; Lymphocytes % 22.8 %; MCH 27.5 pg (27.0-33.0); MCV 86 fL (80-95); MPV 10.8 fL (8.0-11.0); Monocytes % 5.2 %; Neutrophils % 69.5 %; Platelet Count 309 10^3/uL (130-400); RBC 3.71 10^6/uL (3.93-5.22); RDW 17.1 % (11.7-14.6); WBC 7.95 10^3/uL (4.4-10.8)
[2024-11-06 20:04] LABS: Anion Gap 11.7 mmol/L (3-11); BUN 19 mg/dL (7-18); CO2 26.3 mmol/L (21.0-32.0); CREATININE 1.1 mg/dL (0.55-1.02); Calcium 7.7 mg/dL (8.5-10.1); Chloride 102 mmol/L (98-107); Estimated GFR 73.77 (mL/min/1.73m2); Glucose 125 mg/dL (74-106); Magnesium 1.6 mg/dL (1.8-2.4); Potassium 3.4 mmol/L (3.5-5.1); Sodium 140 mmol/L (136-145)
[2024-11-06] MEDS: CALCIUM GLUCONATE in NaCl 1 GM/50 ML BAG IVPB (21:19)
[2024-11-06] MEDS: MAGNESIUM SULFATE 2 GM/50 ML BAG IVINF (21:20)
[2024-11-06] MEDS: LORazepam 1 MG TAB PO (21:20)
[2024-11-06 22:37] VITALS: BP 120/69; PULSE 73; RESP 22; O2SAT 99
== END 2024-11-06 22:37 | disposition home or self-care (01) ==
PROVIDERS: Emergency Provider Emergency Medicine; PCP Nurse Practitioner Family
DX: M24.542 Contracture, left hand (principal); M24.541 Contracture, right hand; E83.42 Hypomagnesemia; E83.51 Hypocalcemia
CPT/HCPCS: 80048; 96365; 96368; 99284; 83735; 85025; J0613; J3475

== ENCOUNTER 2024-11-11 18:49 | Emergency (ER) | payer MEDICAID, SELFPAY ==
[2024-11-11] VITALS (8 sets, daily range): BP systolic 122–124; BP diastolic 74; PULSE 85–112; RESP 16; TEMP 36.4; O2SAT 96
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
[2024-11-11 20:10] LABS: Abs Immature Grans 0.03 10^3/uL (0.0-0.06); Absolute Basophil Count 0.05 10^3/uL (0.0-0.2); Absolute Eosinophil Count 0.15 10^3/uL (0.0-0.7); Absolute Lymphocyte Count 2.45 10^3/uL (1.2-3.4); Absolute Monocyte Count 0.42 10^3/uL (0.1-0.8); Basophils % 0.7 %; Eosinophils % 2.1 %; HCT 31.1 % (36.0-46.0); HGB 9.7 g/dL (11.2-15.7); Immature Grans % 0.4 %; MCH 26.9 pg (27.0-33.0); MCHC 31.2 % (32.0-36.0); MCV 86 fL (80-95); MPV 10.2 fL (8.0-11.0); Monocytes % 5.8 %; Platelet Count 312 10^3/uL (130-400); RBC 3.61 10^6/uL (3.93-5.22); RDW 16.2 % (11.7-14.6); RDW-SD 51.7 fL
[2024-11-11 20:25] LABS: ALT 29 U/L (14-59); AST 21 U/L (15-37); Albumin 3.9 g/dL (3.4-5.0); Alkaline Phosphatase 63 U/L (46-116); Anion Gap 7.2 mmol/L (3-11); BUN 17 mg/dL (7-18); Bilirubin, Total 0.16 mg/dL (0.2-1.0); CO2 29.8 mmol/L (21.0-32.0); CREATININE 0.9 mg/dL (0.55-1.02); Calcium 7.6 mg/dL (8.5-10.1); Chloride 106 mmol/L (98-107); Estimated GFR 93.86 (mL/min/1.73m2); Glucose 89 mg/dL (74-106); Magnesium 1.5 mg/dL (1.8-2.4); Potassium 3.2 mmol/L (3.5-5.1); Sodium 143 mmol/L (136-145); Total Protein 7.4 g/dL (6.4-8.2)
[2024-11-11] MEDS: Potassium Chloride 20 MEQ TABCR 40 MEQ PO (20:40)
[2024-11-11] MEDS: MAGNESIUM SULFATE 2 GM/50 ML BAG IV_INF (20:40)
[2024-11-11] MEDS: Magnesium Oxide 400 MG TAB PO (20:40)
[2024-11-11 21:05] LABS: Folate 13.2 ng/mL (8.6-20.0); Vitamin B12 1273 pg/mL (193-986)
== END 2024-11-11 22:08 | disposition home or self-care (01) ==
PROVIDERS: Emergency Provider Physician Assistant; PCP Nurse Practitioner Family
DX: E87.6 Hypokalemia (principal); E83.51 Hypocalcemia; E83.42 Hypomagnesemia; Z60.8 Other problems related to social environment
CPT/HCPCS: 80053; 83519; 96365; 99284; 82308; 82330; 82397; 82607; 82746; 83735; 84443; 85025; J3475

== ENCOUNTER 2024-11-15 15:41 | Observation (INO) | payer MEDICAID, SELFPAY ==
[2024-11-15] VITALS (44 sets, daily range): BP systolic 108–134; BP diastolic 56–82; PULSE 69–100; RESP 12–36; TEMP 36.4; O2SAT 96–100
--- NOTE | 2024-11-15 16:00 | RT.EKG_ITS ---
APPROVED REPORT Exam: Resting ECG Reason for Exam: near syncope Patient Location: E HR:71 bpm ECG Measurements Heart Rate 71 AXIS OK 132 P -27 QRSd 75 QRS 66 QT 409 T 59 QTc 446 Conclusion Sinus rhythm, rate 71 No interval abnormalities No STEMI No significant changes from priors
--- NOTE | 2024-11-15 16:05 | W.ED.GENAD ---
Discharge Plan Disposition Patient Disposition: Admit to [facility] Discharge Details Clinical Impression: Muscle spasm, Electrolyte disturbance, Hypokalemia, Hypomagnesemia, Hypocalcemia Primary Care Provider: Liza Munson ED Provider: Jana Short Home Meds and New Rx's Prescriptions: No Action (DME) compressor, for nebulizer Device See Rx Instructions .Route Qty: 1 0RF Rx Instructions: As directed (DME) nebulizer accessories Kit See Rx Instructions .Route Qty: 1 0RF Rx Instructions: As directed lisdexamfetamine [Vyvanse] 40 mg capsule 20 mg PO QAM calcitriol 0.25 mcg capsule 0.25 mcg PO BID (DME) BreatheRite MDI Spacer Spacer See Rx Instructions .ROUTE .MEDSUPPLY Qty: 1 0RF Rx Instructions: As directed trazodone 100 mg tablet 175 mg PO QHS PRN sertraline [Zoloft] 100 mg tablet 150 mg PO DAILY (DME) Depend Underwear For Women S-M Misc See Rx Instructions .Route Qty: 64 4RF Rx Instructions: As directed benztropine 0.5 mg tablet 0.5 mg PO BID prazosin 1 mg capsule 3 mg PO QHS Ubrelvy 100 mg tablet 100 mg PO ONCE PRN Rx Instructions: 1-2 tabs epinephrine [EpiPen] 0.3 mg/0.3 mL auto-injector 0.3 ml subcut ONCE PRN Rx Instructions: as a single dose; may repeat once calcium carbonate 400 mg/5 mL suspension 1,250 mg PO BID Rx Instructions: 1250mg/5ml oral suspension levalbuterol tartrate [Xopenex HFA] 2 puff inhalation PRN buspirone 30 mg tablet 20 mg PO TID cetirizine [24Hour Allergy] 10 mg tablet 20 mg PO DAILY HPI General Date/Time Provider Initiated Documentation: 11/15/24 15:42. HPI Narrative: Jyothi is a 19year old female who presents to the emergency department today for evaluation of muscle spasms in hands and feet with soreness. She reports that this started approximately 3 weeks ago, she was diagnosed with hypomagnesemia, hypokalemia, and hypocalcemia.she has been taking supplements recommended, but says that symptoms became worse today. Today she had an episode while standing at the refrigerator where she felt like she was going to pass out, her heart started racing, she felt weak all over, and her vision blacked out for a moment. She grabbed onto the fridge and this dissipated without intervention after 1 minute. She denies recent illness such as fever/chills, congestion, sore throat, cough, nausea/vomiting, change in bowel or bladder function. She does have a low appetite, admits that she has not been eating regularly, tries to get 1 good meal a day. past medical history is significant for hypoparathyroidism, CKD. Physical exam remarkable for hyperreflexia to patellar reflexes. Sensation grossly intact bilaterally. 5/5 muscle strength upper and lower extremities. During evaluation she had a muscle spasm in her hands which resulted in her third fourth and fifth fingers flexing and remaining in this position. Cranial nerves II through XII intact as tested. Moist mucous membranes. Easy work of breathing, lung sounds clear bilaterally. Normal heart sounds. D/dx includes but is not limited to: Electrolyte imbalance, starvation ketosis, anorexia, dehydration I independently interpreted the following tests: EKG reassuring, normal sinus rhythm, rate 71. No changes consistent with acute ischemia, normal intervals. CBC reassuring, mild anemia unchanged from previous on 11/11/2024. CMP notable for mild hypokalemia, today 3.3 compared to 3.2 on 11/11/24 and hypocalcemia, 8.3. Hypomagnesemia today 1.4, compared to 1.5 on 11/11/2019. TSH unremarkable. While in the emergency department, Jyothi received IV magnesium and calcium, as well as p.o. potassium. She was able to eat sandwich, crackers, and marcie karley while waiting. After repletion of IV magnesium level sarita to 2.7. Potassium dropped from 3.3 from 3.1 after p.o. potassium. Calcium remains low at 8.2 after receiving calcium gluconate IV. Her hands have remained in a clenched position, and that she has experienced lower leg spasm as well which was appreciated by this clinician. Jyothi also reports some sternal discomfort, EKG unchanged from previous, famotidine given for probable heartburn inpatient with low risk of ACS. No troponins indicated based on [facility] high-sensitivity troponin decision aid in patient with heart score of 0. Unclear etiology of spasm/tetany; possibly related to electrolyte imbalance, though somatization is also possible. Discussed case with Dr Morris; pt to be admitted overnight for electrolyte repletion/monitoring Related Data Home Medications ?Medication ?Instructions ?Recorded ?Confirmed diaper,brief,adult,disposable #64 ea 08/02/22 11/15/24 (Depend Underwear For Women Small-Medium) inhalational spacing device #1 ea 08/14/22 11/15/24 (BreatheRite MDI Spacer) compressor, for nebulizer #1 ea 08/30/22 11/15/24 nebulizer accessories #1 ea 08/30/22 11/15/24 lisdexamfetamine 40 mg capsule 20 mg PO QAM 02/14/24 11/15/24 (Vyvanse) trazodone 100 mg tablet 175 mg PO QHS PRN 03/12/24 11/15/24 cetirizine 10 mg tablet (24Hour 20 mg PO DAILY 07/08/24 11/15/24 Allergy) calcitriol 0.25 mcg capsule 0.25 mcg PO BID 10/01/24 11/15/24 sertraline 100 mg tablet (Zoloft) 150 mg PO DAILY 10/01/24 11/15/24 benztropine 0.5 mg tablet 0.5 mg PO BID 10/04/24 11/15/24 calcium carbonate 400 mg/5 mL oral 1,250 mg PO BID 10/04/24 11/15/24 suspension epinephrine 0.3 mg/0.3 mL 0.3 ml subcut ONCE PRN 10/04/24 11/15/24 injection, auto-injector (EpiPen) levalbuterol tartrate 2 puff inhalation PRN 10/04/24 11/15/24 prazosin 1 mg capsule 3 mg PO QHS 10/04/24 11/15/24 ubrogepant 100 mg tablet (Ubrelvy) 100 mg PO ONCE PRN 10/04/24 11/15/24 buspirone 30 mg tablet 20 mg PO TID 11/11/24 11/15/24 Previous Rx's ?Medication ?Instructions ?Recorded diaper,brief,adult,disposable #64 ea 08/02/22 (Depend Underwear For Women Small-Medium) inhalational spacing device #1 ea 08/14/22 (BreatheRite MDI Spacer) compressor, for nebulizer #1 ea 08/30/22 nebulizer accessories #1 08/30/22 Allergies Allergy/AdvReac Type Severity Reaction Status Date / Time cat dander Allergy Wheezing Verified 11/15/24 15:46 dog dander Allergy Wheezing Verified 11/15/24 15:46 house dust mite Allergy Wheezing Verified 11/15/24 15:46 tree and shrub pollen Allergy Wheezing Verified 11/15/24 15:46 hydrocodone AdvReac TACHYCARDIA Verified 11/15/24 15:46 PER PT ibuprofen AdvReac per Verified 11/15/24 15:46 nephrology tramadol AdvReac Other (See Verified 11/15/24 15:46 Comment) General Stated Complaint: GenMedical KEILY: 4 Review of Systems Narrative: See HPI Exam Const General: cooperative, healthy appearing, comfortable, no acute distress, well developed and well groomed Nutritional Appearance: average body habitus Orientation: alert and oriented x3 HENMT Head: normal to inspection and atraumatic Ears: hearing grossly normal bilaterally General nose exam: external nose normal Face and sinus: normal facial exam Mouth: oral mucosae normal and moist mucous membranes Throat: posterior oropharynx normal Neck Neck: normal visual inspection Resp Effort & Inspection: normal respiratory effort and able to speak in complete sentences Auscultation: clear to auscultation bilaterally Cardio Rate: regular rate Rhythm: regular rhythm Skin General skin exam: no rashes or lesions noted Trauma: no lacerations or abrasions Neuro General: patient alert, patient oriented x3, gait normal, tone normal, moves all extremities, no focal motor deficits and CN's II-XI intact bilaterally Cranial Nerves: CN's II-XI intact bilaterally, EOM intact bilaterally, no nystagmus, facial strength normal and other (negative chvostek sign) Cognition: normal cognition Speech: speech normal Motor: muscle tone normal throughout and strength 5/5 throughout Sensory Exam: no sensory deficits noted DTR's: Rt Patellar: 3+ and Lt Patellar: 3+ Extrem General: normal to inspection Course Vital Signs Vital signs: Vital Signs Temperature 36.4 C 11/15/24 15:43 Pulse 98 H 11/15/24 15:43 Respiratory Rate 18 11/15/24 15:43 Blood Pressure 108/62 11/15/24 15:43 Pulse Oximetry 98 11/15/24 15:43 Temperature 36.4 C 11/15/24 15:43 Pulse 98 H 11/15/24 15:43 Respiratory Rate 18 11/15/24 15:43 Blood Pressure 108/62 11/15/24 15:43 Pulse Oximetry 98 11/15/24 15:43 Oxygen Delivery Method Room Air 11/15/24 15:43 Oxygen Flow Rate 0 11/15/24 15:43 Pain Level 6 11/15/24 15:43 Medical Decision Making Quality:SDOH Health Related Social Needs: Health related social needs feeling lonely/isolated (Z60.8) PFSH All Active Problems (Updated 11/15/24 @ 22:07 by Jana Salas) Hypokalemia (Acute) Hypocalcemia (Acute) Hypomagnesemia (Acute) Hypocalcemia (Acute) Muscle spasm (Acute) Hypomagnesemia (Acute) Electrolyte disturbance (Acute) Muscle spasm (Acute) Lip lesion (Acute) Traumatic plantar fasciitis (Acute) LEFT Nexplanon in place (Acute) 09/2023. For menstrual control. Sinusitis (Acute) TMJ pain dysfunction syndrome (Acute) Otalgia of right ear (Acute) Wears hearing aid in both ears (Acute) Contraception (Acute) 09/2023. Patient given information regarding Nexplanon. 10/18/23. Nexplanon for menstrual control. Chronic kidney disease (CKD) (Chronic) Palpitations (Acute) Dysfunction of right eustachian tube (Acute) De Quervain's tenosynovitis, left (Acute) Low back pain (Acute) Moderate persistent asthma (Acute) Abnormal chest xray (Acute) Cough (Acute) Recurrent UTI (Acute) Nocturnal enuresis (Acute 12/15/14) pull ups at night Complex regional pain syndrome of right upper extremity (Acute) Allergic reaction (Acute) Urinary tract infection (Acute) Injury of thumb, right (Acute) Strain of extensor pollicis longus tendon (Acute) Anxiety (Chronic) Sciatica of right side (Acute) Calcification of brain (Acute) per [facility] neuro notes; bifrontal first noted in 2019 with some affecting basal ganglia, d/t underlying hypoparathyroidism Right-sided tinnitus (Acute) Encounter for immunotherapy (Acute) Chronic allergic rhinitis (Acute) Patulous eustachian tube of left ear (Acute) Nasal vestibulitis (Acute) Sensorineural hearing loss of both ears (Acute) Stage 2 chronic kidney disease (Chronic) Vesicoureteric reflux (Chronic 12/15/14) s/p bilateral ureteral implants Depression (Chronic 03/02/18) With anxiety: Sometimes features of anxiety are more prominent while at other times the depression is more challenging. 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 Stopped per patient request 09/2023 restarted per patient request Hypokalemia Abnormal uterine bleeding (AUB) 2017. menstrual irreg. OCPs 05/29/2019. Dysmenorrhea. DepoProvera 150 mg every 3 months Ingrowing toenail (05/14/18) Left great toe; s/p resection ADHD (attention deficit hyperactivity disorder) Surgical History [place] teeth extracted all 4 teeth extracted ureteral implants- bilat Tonsillectomy and adenoidectomy Myringotomy w/ PE (pressure equalizing) tubes Family History Mother Family history unknown Father Family history unknown Social History Smoking/Tobacco Use Status: Never Smoking risk assessment performed?: Yes Alcohol Intake: current Alcohol Intake frequency: a few times a month Drug use: Never Substance use type: does not use Adopted: Yes Housing: house Education Level: college Details: [employer], starting [employer] in the fall current occupation: 02/28/2020 works at [email or web address] Pets and animals: Yes Pets and animals: cat(s), dog(s) and other Details: CHICKENS, TURKEYS, SHEEP, COWS Sexually active: No Do you feel safe at home: No (Pt reports environment is safe but she feels suicidal) Do you feel safe in your relationship?: Yes Female Reproductive History Menstrual Age of Menarche: 11 Duration of menses: other control method: implanted
[2024-11-15 16:27] LABS: Abs Immature Grans 0.04 10^3/uL (0.0-0.06); Absolute Basophil Count 0.03 10^3/uL (0.0-0.2); Absolute Eosinophil Count 0.05 10^3/uL (0.0-0.7); Absolute Lymphocyte Count 1.81 10^3/uL (1.2-3.4); Absolute Monocyte Count 0.42 10^3/uL (0.1-0.8); Absolute Neutrophil Count 5.34 10^3/uL (1.2-6.7); Basophils % 0.4 %; Eosinophils % 0.7 %; HCT 30.3 % (36.0-46.0); HGB 9.8 g/dL (11.2-15.7); Immature Grans % 0.5 %; Lymphocytes % 23.5 %; MCH 27.3 pg (27.0-33.0); MCHC 32.3 % (32.0-36.0); MCV 84 fL (80-95); MPV 10.5 fL (8.0-11.0); Monocytes % 5.5 %; Neutrophils % 69.4 %; Platelet Count 283 10^3/uL (130-400); RBC 3.59 10^6/uL (3.93-5.22); RDW 16.1 % (11.7-14.6); RDW-SD 50.4 fL; WBC 7.69 10^3/uL (4.4-10.8)
[2024-11-15 16:55] LABS: ALT 30 U/L (14-59); AST 21 U/L (15-37); Albumin 4.2 g/dL (3.4-5.0); Alkaline Phosphatase 63 U/L (46-116); Anion Gap 13.1 mmol/L (3-11); BUN 18 mg/dL (7-18); Bilirubin, Total 0.28 mg/dL (0.2-1.0); CO2 27.9 mmol/L (21.0-32.0); CREATININE 0.9 mg/dL (0.55-1.02); Calcium 8.3 mg/dL (8.5-10.1); Chloride 102 mmol/L (98-107); Estimated GFR 93.86 (mL/min/1.73m2); Glucose 93 mg/dL (74-106); Magnesium 1.4 mg/dL (1.8-2.4); Potassium 3.3 mmol/L (3.5-5.1); Sodium 143 mmol/L (136-145); TSH (W/Ref FT4) 1.52 uIU/mL (0.36-3.74); Total Protein 7.7 g/dL (6.4-8.2)
[2024-11-15 17:26] LABS: Lab Add On Test DONE
[2024-11-15 18:04] LABS: Folate 19.6 ng/mL (8.6-20.0); Vitamin B12 1089 pg/mL (193-986)
[2024-11-15] MEDS: Magnesium Oxide 400 MG TAB PO (18:49)
[2024-11-15] MEDS: CALCIUM GLUCONATE in NaCl 1 GM/50 ML BAG IVPB (18:49)
[2024-11-15] MEDS: Potassium Bicarbonate/Cit AC 25 MEQ TABLET.EFF PO (18:56)
[2024-11-15] MEDS: MAGNESIUM SULFATE 2 GM/50 ML BAG IV_INF (18:57)
--- NOTE | 2024-11-15 20:30 | RT.EKG_ITS ---
APPROVED REPORT Exam: Resting ECG Reason for Exam: chest pain Patient Location: E HR:82 bpm ECG Measurements Heart Rate 82 AXIS WV 143 P 54 QRSd 78 QRS 80 QT 398 T 74 QTc 464 Conclusion Sinus rhythm, rate 82 No interval abnormalities No STEMI T wave inversions V1, V2, no change from priors
[2024-11-15 21:28] LABS: Anion Gap 8.1 mmol/L (3-11); BUN 16 mg/dL (7-18); CO2 28.9 mmol/L (21.0-32.0); CREATININE 0.9 mg/dL (0.55-1.02); Calcium 8.2 mg/dL (8.5-10.1); Chloride 106 mmol/L (98-107); Estimated GFR 93.86 (mL/min/1.73m2); Glucose 78 mg/dL (74-106); Magnesium 2.7 mg/dL (1.8-2.4); Potassium 3.1 mmol/L (3.5-5.1); Sodium 143 mmol/L (136-145)
[2024-11-15 22:05] LABS: PHOSPHORUS 3.8 mg/dL (2.6-4.7)
--- NOTE | 2024-11-15 22:51 | HPE_ITS ---
Date of service: 11/15/24 Time of Service: 22:51 Assessment and Plan Assessment and plan (1) Hypokalemia: Status: Acute Assessment and plan: Potassium is 3.1. It was 3.3 on admission and she received some oral liquid potassium. The follow-up potassium was slightly lower. I question whether she actually took the medication. Will give her IV D5 quarter normal saline with 40 mEq of potassium per liter at 100 cc/h overnight. Recheck her electrolytes in the a.m. (2) Hypocalcemia: Status: Acute Assessment and plan: Calcium is slightly low. I do not think is low enough to cause hyperreflexia or spasms. She received a dose of calcium gluconate in the emergency room. Will continue to monitor her symptoms and check her level again in the a.m. (3) Hypomagnesemia: Status: Acute Assessment and plan: Magnesium level was low on admission but she responded to a magnesium bolus and it is now normal. (4) Muscle spasm: Status: Acute Assessment and plan: The muscle spasms she has seem to be somewhat volitional. They are symmetrical on the right and left in her hands and they are not consistent with the actual flexor muscles going into spasm as evidenced by the soft forearms and the lack of evidence of contracture of these muscles. At this point I am suspicious that some of this muscle spasm display is factitious. (5) Anxiety: Status: Chronic Assessment and plan: She is a long history of anxiety disorder. She is followed at [facility]. Continue on her present psych meds. (6) Sensorineural hearing loss of both ears: Status: Acute Assessment and plan: She has bilateral hearing aids which seem to be working (7) Stage 2 chronic kidney disease: Status: Chronic Assessment and plan: She says she has stage II chronic kidney disease. Her creatinine is normal. Will check a phosphorus level. She is followed by nephrology at [facility] Dr. Mitchell. (8) Hypoparathyroidism: Status: Chronic Assessment and plan: She has a congenital form of hypoparathyroidism. She is followed by endocrinology at [facility], Dr. Anderson. History of Present Illness History of Present Illness Chief Complaint: Fingers cramping/electrolyte abnormality Narrative: 19-year-old female with history of hypoparathyroidism and recurrent electrolyte abnormalities presented to the emergency room this evening because her third fourth and fifth digits on both hands are josh. She finds this painful and worrisome. She states she is taking her medications as prescribed. In the emergency room she was found to have potassium of 3.1, calcium 8.2, corrects to 8.04 magnesium 1.4 came up to 2.7 with replacement. The remainder of her exam and vitals were normal. She is admitted to observation for electrolyte replacement and monitoring. Review of Systems Narrative: Patient has a long history of depression and anxiety. She has had multiple emergency room visits for suicidal ideation. This evening her main concern is this contraction of her third fourth and fifth digits of both hands. She says she also gets spasms at her ankles. Tonight it is primarily her right ankle that is turning in. She is not complaining of any other systemic illness at this time. No chest pain or shortness of breath. No abdominal discomfort. No headache no dizziness. She states she had about a 35 pound weight loss several months ago but that has stabilized. She has some very fixed ideas about her diet. She drinks vitamin water and Powerade daily. She denies drinking excessive amounts of fluids. PFSH All Active Problems (Updated 11/15/24 @ 23:02 by Rambo Morris MD) Hypokalemia (Acute) Hypocalcemia (Acute) Hypomagnesemia (Acute) Muscle spasm (Acute) Hypomagnesemia (Acute) Anxiety (Chronic) Sensorineural hearing loss of both ears (Acute) Stage 2 chronic kidney disease (Chronic) Hypoparathyroidism (Chronic 10/31/14) congenital, followed by [facility] endocrinology Medical History (Updated 11/15/24 @ 23:02 by Rambo Morris MD) Esotropia (12/15/14) glasses for correction 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 Started fluox 03/05, stopped spring 2020- restarted but stopped in the fall secondary to concerns of worsening suicidal ideation- trial lexapro- increase dose to 20 mg today (03/28/22) Chronic kidney disease (CKD) Nasal vestibulitis Patulous eustachian tube of left ear Chronic allergic rhinitis Encounter for immunotherapy Right-sided tinnitus Calcification of brain per [facility] neuro notes; bifrontal first noted in 2019 with some affecting basal ganglia, d/t underlying hypoparathyroidism Sciatica of right side Strain of extensor pollicis longus tendon Injury of thumb, right Urinary tract infection Allergic reaction Complex regional pain syndrome of right upper extremity Nocturnal enuresis (12/15/14) pull ups at night Recurrent UTI Cough Abnormal chest xray Moderate persistent asthma Low back pain De Quervain's tenosynovitis, left Dysfunction of right eustachian tube Palpitations Contraception 09/2023. Patient given information regarding Nexplanon. 10/18/23. Nexplanon for menstrual control. Wears hearing aid in both ears Otalgia of right ear TMJ pain dysfunction syndrome Sinusitis Nexplanon in place 09/2023. For menstrual control. Traumatic plantar fasciitis LEFT Lip lesion Muscle spasm Electrolyte disturbance Hypocalcemia Depo-Provera contraceptive status 04/2023. Stopped per patient request 09/2023 restarted per patient request Hypokalemia Abnormal uterine bleeding (AUB) 2017. menstrual irreg. OCPs 05/29/2019. Dysmenorrhea. DepoProvera 150 mg every 3 months Ingrowing toenail (05/14/18) Left great toe; s/p resection ADHD (attention deficit hyperactivity disorder) Surgical History (Updated 11/15/24 @ 23:02 by Rambo Morris MD) Vesicoureteric reflux (12/15/14) s/p bilateral ureteral implants [place] teeth extracted all 4 teeth extracted ureteral implants- bilat Tonsillectomy and adenoidectomy Myringotomy w/ PE (pressure equalizing) tubes Family History Mother Family history unknown Father Family history unknown Social History Smoking/Tobacco Use Status: Never Smoking risk assessment performed?: Yes Alcohol Intake: current Alcohol Intake frequency: a few times a month Drug use: Never Substance use type: does not use Adopted: Yes Housing: house Education Level: college Details: [employer], starting [employer] in the fall current occupation: 02/28/2020 works at [employer] Pets and animals: Yes Pets and animals: cat(s), dog(s) and other Details: CHICKENS, TURKEYS, SHEEP, COWS Sexually active: No Do you feel safe at home: No (Pt reports environment is safe but she feels suicidal) Do you feel safe in your relationship?: Yes Female Reproductive History Menstrual Age of Menarche: 11 Duration of menses: other control method: implanted Meds Allergies and Home Medications Allergies Allergy/AdvReac Type Severity Reaction Status Date / Time cat dander Allergy Wheezing Verified 11/15/24 15:46 dog dander Allergy Wheezing Verified 11/15/24 15:46 house dust mite Allergy Wheezing Verified 11/15/24 15:46 tree and shrub pollen Allergy Wheezing Verified 11/15/24 15:46 hydrocodone AdvReac TACHYCARDIA Verified 11/15/24 15:46 PER PT ibuprofen AdvReac per Verified 11/15/24 15:46 nephrology tramadol AdvReac Other (See Verified 11/15/24 15:46 Comment) Home Medications ?Medication ?Instructions ?Recorded ?Confirmed ?Type diaper,brief,adult,disposable #64 ea 08/02/22 11/15/24 Rx (Depend Underwear For Women Small-Medium) inhalational spacing device #1 ea 08/14/22 11/15/24 Rx (BreatheRite MDI Spacer) compressor, for nebulizer #1 ea 08/30/22 11/15/24 Rx nebulizer accessories #1 ea 08/30/22 11/15/24 Rx lisdexamfetamine 40 mg capsule 20 mg PO QAM 02/14/24 11/15/24 History (Vyvanse) trazodone 100 mg tablet 175 mg PO QHS PRN 03/12/24 11/15/24 History cetirizine 10 mg tablet (24Hour 20 mg PO DAILY 07/08/24 11/15/24 History Allergy) calcitriol 0.25 mcg capsule 0.25 mcg PO BID 10/01/24 11/15/24 History sertraline 100 mg tablet (Zoloft) 150 mg PO DAILY 10/01/24 11/15/24 History benztropine 0.5 mg tablet 0.5 mg PO BID 10/04/24 11/15/24 History calcium carbonate 400 mg/5 mL oral 1,250 mg PO BID 10/04/24 11/15/24 History suspension epinephrine 0.3 mg/0.3 mL 0.3 ml subcut ONCE PRN 10/04/24 11/15/24 History injection, auto-injector (EpiPen) levalbuterol tartrate 2 puff inhalation PRN 10/04/24 11/15/24 History prazosin 1 mg capsule 3 mg PO QHS 10/04/24 11/15/24 History ubrogepant 100 mg tablet (Ubrelvy) 100 mg PO ONCE PRN 10/04/24 11/15/24 History buspirone 30 mg tablet 20 mg PO TID 11/11/24 11/15/24 History Exam Narrative Exam Narrative: On exam she is well-kempt and in no apparent distress. She is holding her phone with her hand using primarily her thumb and index finger. Her third fourth and fifth digits are tightly flexed against the palm of her hand on both the right and left hand. She was able to straighten them out manually but said it really hurt in the palm of her hand and around the wrist region. Interestingly there was no tenderness along the flexor muscles of her forearm. The contracture does not appear to be at all permanent and indeed she is able to fully extend all of her fingers using the other hand. Her lungs are completely clear to auscultation. Heart sounds regular. Abdomen soft and nontender. The lower extremities she is turning the right ankle and slightly but it is flexible the left ankle was normal. She is moving upper and lower extremities without any other decrement of function. Her affect was calm and appropriate. Results Labs 11/15/24 16:22 11/15/24 21:14 Labs: Laboratory Results - last 24 hr 11/15/24 11/15/24 11/15/24 16:22 16:38 21:14 WBC 7.69 RBC 3.59 L Hgb 9.8 L Hct 30.3 L MCV 84 MCH 27.3 MCHC 32.3 RDW 16.1 H Plt Count 283 MPV 10.5 Immature Gran % 0.5 Neutrophils % 69.4 Lymphocytes % 23.5 Monocytes % 5.5 Eosinophils % 0.7 Basophils % 0.4 Nucleated RBC % 0.0 Absolute Neutrophils 5.34 Absolute Lymphocytes 1.81 Absolute Monocytes 0.42 Absolute Eosinophils 0.05 Absolute Basophils 0.03 Sodium 143 143 Potassium 3.3 L 3.1 L Chloride 102 106 Carbon Dioxide 27.9 28.9 Anion Gap 13.1 H 8.1 BUN 18 16 Creatinine 0.9 0.9 Est GFR (CKD-EPI 2020) 93.86 93.86 Glucose 93 78 Calcium 8.3 L 8.2 L Phosphorus 3.8 Magnesium 1.4 L 2.7 H Total Bilirubin 0.28 AST 21 ALT 30 Alkaline Phosphatase 63 Total Protein 7.7 Albumin 4.2 Vitamin B12 1089 H Folate 19.6 TSH 1.52 Add-On Test Request DONE Last Vital Signs Temp 36.4 C 11/15/24 15:43 Pulse 98 H 11/15/24 15:43 Resp 18 11/15/24 15:43 BP 108/62 11/15/24 15:43 Pulse Ox 98 11/15/24 15:43 Time Spent Time spent with Patient: 55-74 minutes Time was spent: preparing to see the patient(eg.review tests), obtaining and/or reviewing separately otained hiistory, ordering medications,tests, procedures, referring, communicating with other health transitional care nurse, indepentently interpreting results and counseling the patient
--- NOTE | 2024-11-15 23:50 | W.PC.ACHO ---
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) Depression (03/02/18) Chronic kidney disease (CKD) Nasal vestibulitis Patulous eustachian tube of left ear Chronic allergic rhinitis Encounter for immunotherapy Right-sided tinnitus Calcification of brain Sciatica of right side Strain of extensor pollicis longus tendon Injury of thumb, right Urinary tract infection Allergic reaction Complex regional pain syndrome of right upper extremity Nocturnal enuresis (12/15/14) Recurrent UTI Cough Abnormal chest xray Moderate persistent asthma Low back pain De Quervain's tenosynovitis, left Dysfunction of right eustachian tube Palpitations Contraception Wears hearing aid in both ears Otalgia of right ear TMJ pain dysfunction syndrome Sinusitis Nexplanon in place Traumatic plantar fasciitis Lip lesion Muscle spasm Electrolyte disturbance Hypocalcemia Depo-Provera contraceptive status Hypokalemia Abnormal uterine bleeding (AUB) Ingrowing toenail (05/14/18) ADHD (attention deficit hyperactivity disorder) (Last Updated 11/15/24 @ 23:02 by Rambo Morris MD) Vesicoureteric reflux (12/15/14) [place] teeth extracted ureteral implants- bilat Tonsillectomy and adenoidectomy Myringotomy w/ PE (pressure equalizing) tubes Most Recent Vital Signs Temperature 36.4 C 11/15/24 15:43 Pulse 84 11/15/24 23:20 Pulse 86 11/15/24 23:20 Respiratory Rate 20 11/15/24 23:20 Blood Pressure 112/66 11/15/24 23:01 Blood Pressure Mean 80 11/15/24 23:01 Pulse Oximetry 98 11/15/24 23:20 Oxygen Delivery Method Room Air 11/15/24 15:43 Oxygen Flow Rate 0 11/15/24 15:43 Pain Level 6 11/15/24 15:43 Allergies cat dander Allergy (Verified 11/15/24 15:46) Wheezing dog dander Allergy (Verified 11/15/24 15:46) Wheezing house dust mite Allergy (Verified 11/15/24 15:46) Wheezing tree and shrub pollen Allergy (Verified 11/15/24 15:46) Wheezing hydrocodone Adverse Reaction (Verified 11/15/24 15:46) TACHYCARDIA PER PT ibuprofen Adverse Reaction (Verified 11/15/24 15:46) per nephrology tramadol Adverse Reaction (Verified 11/15/24 15:46) Other (See Comment) 10/18/23- Pt reports gives palpitations and low BP Precautions Isolation Standard precaution 11/15/24 15:47 IV IV Catheter Type [Right Saline Lock Antecubital] IV Catheter Gauge [Right 18 Antecubital] Diagnostics 11/15/24 11/15/24 11/15/24 Range/Units 21:14 16:38 16:22 WBC 7.69 (4.4-10.8) 10^3/uL RBC 3.59 L (3.93-5.22) 10^6/uL Hgb 9.8 L (11.2-15.7) g/dL Hct 30.3 L (36.0-46.0) % MCV 84 (80-95) fL MCH 27.3 (27.0-33.0) pg MCHC 32.3 (32.0-36.0) % RDW 16.1 H (11.7-14.6) % Plt Count 283 (130-400) 10^3/uL MPV 10.5 (8.0-11.0) fL Immature Gran % 0.5 % Neutrophils % 69.4 % Lymphocytes % 23.5 % Monocytes % 5.5 % Eosinophils % 0.7 % Basophils % 0.4 % Nucleated RBC % 0.0 (0.0-0.3) % Absolute Neutrophils 5.34 (1.2-6.7) 10^3/uL Absolute Lymphocytes 1.81 (1.2-3.4) 10^3/uL Absolute Monocytes 0.42 (0.1-0.8) 10^3/uL Absolute Eosinophils 0.05 (0.0-0.7) 10^3/uL Absolute Basophils 0.03 (0.0-0.2) 10^3/uL Sodium 143 143 (136-145) mmol/L Potassium 3.1 L 3.3 L (3.5-5.1) mmol/L Chloride 106 102 (98-107) mmol/L Carbon Dioxide 28.9 27.9 (21.0-32.0) mmol/L Anion Gap 8.1 13.1 H (3-11) mmol/L BUN 16 18 (7-18) mg/dL Creatinine 0.9 0.9 (0.55-1.02) mg/dL Est GFR (CKD-EPI 2020) 93.86 93.86 (mL/min/1.73m2) Glucose 78 93 (74-106) mg/dL Calcium 8.2 L 8.3 L (8.5-10.1) mg/dL Phosphorus 3.8 (2.6-4.7) mg/dL Magnesium 2.7 H 1.4 L (1.8-2.4) mg/dL Total Bilirubin 0.28 (0.2-1.0) mg/dL AST 21 (15-37) U/L ALT 30 (14-59) U/L Alkaline Phosphatase 63 (46-116) U/L Total Protein 7.7 (6.4-8.2) g/dL Albumin 4.2 (3.4-5.0) g/dL Vitamin B12 1089 H (193-986) pg/mL Folate 19.6 (8.6-20.0) ng/mL TSH 1.52 (0.36-3.74) uIU/mL Add-On Test Request DONE [id number] Documentation POC Urine Test Start: 11/15/24 16:04 Freq: .Urine Test Status: Active Protocol: Activity Type Activity Date Activity User E-sign Co-sign Detail Recorded Client Recorded Date Recorded By Document 11/15/24 16:27 N.RILR [id number] 11/15/24 16:28 N.RILR Intake and Output - 24 Hour Total 11/15/24 15:41 thru 11/15/24 21:10 Intake Total 100 Balance 100 Weight 56.245 kg Intake: IV 100 Problems (Last Updated 11/15/24 @ 23:02 by Rambo Morris MD) Hypokalemia (Acute) Hypocalcemia (Acute) Hypomagnesemia (Acute) Muscle spasm (Acute) Anxiety (Chronic) Sensorineural hearing loss of both ears (Acute) Stage 2 chronic kidney disease (Chronic) Hypoparathyroidism (Chronic 10/31/14) v v v v v v v v v Sending and/or Receiving Nurses: Please use comment section below to note any information pertinent to the patient hand-off not included above. Information / Comments: Report given by SHOP ESTIMATOR Jaxon., patient is alert and oriented, came in due to weakness and spasms, Has history of pschiac, Vital signs stable, electrolytes enzymes with abnormal results. Denied of pain. Report received from:
[2024-11-15] MEDS: Famotidine 20 MG TAB PO (23:55)
[2024-11-16] MEDS: POTASSIUM CHLORIDE/D5-0.45NACL 1,000 ML 100 MEQ IV ×2 (00:38→09:57)
[2024-11-16] MEDS: Prazosin 1 MG CAP 3 MG PO ×2 (00:50→20:16)
[2024-11-16 07:13] LABS: Abs Immature Grans 0.01 10^3/uL (0.0-0.06); Absolute Basophil Count 0.03 10^3/uL (0.0-0.2); Absolute Eosinophil Count 0.17 10^3/uL (0.0-0.7); Absolute Lymphocyte Count 2.21 10^3/uL (1.2-3.4); Absolute Monocyte Count 0.43 10^3/uL (0.1-0.8); Absolute Neutrophil Count 2.89 10^3/uL (1.2-6.7); Basophils % 0.5 %; HCT 30.8 % (36.0-46.0); HGB 9.8 g/dL (11.2-15.7); Immature Grans % 0.2 %; Lymphocytes % 38.5 %; MCH 27.2 pg (27.0-33.0); MCHC 31.8 % (32.0-36.0); MCV 86 fL (80-95); MPV 11.1 fL (8.0-11.0); Monocytes % 7.5 %; Neutrophils % 50.3 %; Platelet Count 307 10^3/uL (130-400); RDW 16.7 % (11.7-14.6); RDW-SD 52.4 fL; WBC 5.74 10^3/uL (4.4-10.8)
[2024-11-16 07:33] LABS: Anion Gap 8.6 mmol/L (3-11); BUN 15 mg/dL (7-18); CO2 28.4 mmol/L (21.0-32.0); Calcium 7.5 mg/dL (8.5-10.1); Chloride 104 mmol/L (98-107); Estimated GFR 82.71 (mL/min/1.73m2); Glucose 95 mg/dL (74-106); Magnesium 1.7 mg/dL (1.8-2.4); Potassium 3.7 mmol/L (3.5-5.1); Sodium 141 mmol/L (136-145)
[2024-11-16 07:58] VITALS: BP 90/41; PULSE 68; RESP 18; TEMP 36.8; O2SAT 98
[2024-11-16] MEDS: Cetirizine 10 MG TAB 20 MG PO (09:40)
[2024-11-16] MEDS: Sertraline 100 MG TAB 150 MG PO (09:40)
[2024-11-16] MEDS: Calcitriol 0.25 MCG CAP PO ×2 (09:40→20:16)
[2024-11-16] MEDS: busPIRone 5 MG TAB 20 MG PO ×3 (09:40→20:16)
[2024-11-16] MEDS: Calcium Carbonate 1.25 GM TAB PO ×2 (09:40→20:15)
[2024-11-16] MEDS: Benztropine 1 MG TAB 0.5 MG PO ×2 (09:41→20:16)
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
--- NOTE | 2024-11-16 10:21 | PGE_ITS ---
Date of Service Date of service: 11/16/24 Time of Service: 10:22 Assessment and Plan Assessment and plan (1) Hypokalemia: Status: Acute Assessment and plan: Resolved now was 3.7 this morning. Will discontinue IV fluid with potassium and observe overnight BMP in the morning (2) Hypocalcemia: Status: Acute Assessment and plan: Remains low despite calcium calcium gluconate in the emergency room. Will give another gram of calcium gluconate and reassess in a.m. (3) Hypomagnesemia: Status: Acute Assessment and plan: Ongoing hypomagnesemia despite supplementation, additional IV magnesium given Magnesium level in the morning (4) Muscle spasm: Status: Acute Assessment and plan: No further pathologic reported or symptoms during physical examination was initiated initially thought to be somewhat volitional/factitious as They were symmetrical on the right and left in her hands and not consistent with the actual flexor muscles going into spasm as evidenced by the soft forearms and the lack of evidence of contracture of these muscles. (5) Anxiety: Status: Chronic Assessment and plan: Ongoing history of anxiety and followed by [facility]; the patient has had multiple visits to the ED. Continue home psych medicine regimen (6) Sensorineural hearing loss of both ears: Status: Acute Assessment and plan: She has bilateral hearing aids which seem to be working (7) Stage 2 chronic kidney disease: Status: Chronic Assessment and plan: She says she has stage II chronic kidney disease. Her creatinine is normal. Phosphorus level minimally elevated at 5.0 will repeat in a.m. Followed by nephrology at [facility] Dr. Mitchell. Patient advised that if her flower arranger needs her to be transferred that she would have to contact the medical provider directly. (8) Hypoparathyroidism: Status: Chronic Assessment and plan: She has a congenital form of hypoparathyroidism that might be a factor in her hypocalcemia. Followed by endocrinology at [facility], Dr. Anderson. Discussed with Dr. Meléndez Subjective Subjective Interval history since last seen: Reports partner due to lack of sleep during admission process last night, no further problem reported, no acute distress oral intake well-tolerated denies nausea vomiting abdominal 46-year-old chills. Exam Narrative Exam Narrative: Alert and oriented x 3, nonfocal, S1-S2 regular no murmur, positive pulses to all 4 extremities, abdomen is nondistended soft and nontender, bowel sounds are present no CVA tenderness Objective Last Vital Signs Temp 36.8 C 11/16/24 07:58 Pulse 68 11/16/24 07:58 Resp 18 11/16/24 07:58 BP 90/41 L 11/16/24 07:58 Pulse Ox 98 11/16/24 07:58 Laboratory Results - last 24 hr 11/15/24 11/15/24 11/15/24 16:22 16:38 21:14 WBC 7.69 RBC 3.59 L Hgb 9.8 L Hct 30.3 L MCV 84 MCH 27.3 MCHC 32.3 RDW 16.1 H Plt Count 283 MPV 10.5 Immature Gran % 0.5 Neutrophils % 69.4 Lymphocytes % 23.5 Monocytes % 5.5 Eosinophils % 0.7 Basophils % 0.4 Nucleated RBC % 0.0 Absolute Neutrophils 5.34 Absolute Lymphocytes 1.81 Absolute Monocytes 0.42 Absolute Eosinophils 0.05 Absolute Basophils 0.03 Sodium 143 143 Potassium 3.3 L 3.1 L Chloride 102 106 Carbon Dioxide 27.9 28.9 Anion Gap 13.1 H 8.1 BUN 18 16 Creatinine 0.9 0.9 Est GFR (CKD-EPI 2020) 93.86 93.86 Glucose 93 78 Calcium 8.3 L 8.2 L Phosphorus 3.8 Magnesium 1.4 L 2.7 H Total Bilirubin 0.28 AST 21 ALT 30 Alkaline Phosphatase 63 Total Protein 7.7 Albumin 4.2 Vitamin B12 1089 H Folate 19.6 TSH 1.52 Add-On Test Request DONE 11/16/24 06:12 WBC 5.74 RBC 3.60 L Hgb 9.8 L Hct 30.8 L MCV 86 MCH 27.2 MCHC 31.8 L RDW 16.7 H Plt Count 307 MPV 11.1 H Immature Gran % 0.2 Neutrophils % 50.3 Lymphocytes % 38.5 Monocytes % 7.5 Eosinophils % 3.0 Basophils % 0.5 Nucleated RBC % 0.0 Absolute Neutrophils 2.89 Absolute Lymphocytes 2.21 Absolute Monocytes 0.43 Absolute Eosinophils 0.17 Absolute Basophils 0.03 Sodium 141 Potassium 3.7 Chloride 104 Carbon Dioxide 28.4 Anion Gap 8.6 BUN 15 Creatinine 1.0 Est GFR (CKD-EPI 2020) 82.71 Glucose 95 Calcium 7.5 L Phosphorus 5.0 H Magnesium 1.7 L Total Bilirubin AST ALT Alkaline Phosphatase Total Protein Albumin Vitamin B12 Folate TSH Add-On Test Request Time Spent with Patient Time Spent with Patient: >50 minutes Time was spent: preparing to see the patient(eg.review tests), obtaining and/or reviewing separately otained hiistory, ordering medications,tests, procedures, referring, communicating with other health career guidance counselor, indepentently interpreting results, counseling the patient and care coordination
[2024-11-16 10:52] VITALS: BP 107/52; BP 113/63; BP 89/60; PULSE 100; PULSE 74; PULSE 84
[2024-11-16 11:05] LABS: Creatine Kinase 108 U/L (26-192)
[2024-11-16] MEDS: MAGNESIUM SULFATE 2 GM/50 ML BAG IV_INF (11:09)
[2024-11-16 12:40] VITALS: BP 90/41; PULSE 68; RESP 18; TEMP 36.8; O2SAT 98
[2024-11-16 12:49] LABS: Bilirubin Negative (Negative); Blood Large (Negative); Clarity Clear (Clear); Glucose Negative (Negative); Ketones Negative (Negative); Leukocyte Esterase Negative (Negative); Nitrite Negative (Negative); Urobilinogen 0.2 mg/dL (Up to 0.2); pH 7.5 (5-8)
[2024-11-16 12:57] LABS: Bacteria Negative HPF (Negative); C & S Indicated? No; Casts Negative LPF (Negative); Crystals Negative HPF (Negative); Epithelial Cells Rare HPF (Negative); Mucus Negative (Negative); WBC Negative HPF (0-5)
[2024-11-16 13:02] LABS: *AMPHETAMINES SCREEN URINE Negative (Negative); *BARBITURATES SCREEN URINE Negative (Negative); *BENZODIAZEPINES SCREEN URINE Negative (Negative); Cannabinoids THC Negative (Negative); Cocaine Screen,Urine Negative (Negative); METHADONE URINE SCREEN Negative (Negative); OPIATES URINE SCREEN Negative (Negative)
[2024-11-16] MEDS: Lactated Ringers 1,000 ML 1000 ML IV (13:06)
[2024-11-16 13:08] LABS: Tricyclic Antidepressants Negative (Negative)
[2024-11-16 15:37] VITALS: BP 109/66; PULSE 74; RESP 18; TEMP 36.7; O2SAT 97
[2024-11-16] MEDS: Acetaminophen 325 MG TAB PO (18:46)
[2024-11-16 19:24] VITALS: BP 120/56; PULSE 71; RESP 16; TEMP 36.5; O2SAT 98
[2024-11-16] MEDS: Normal Saline Flush 10 ML SYR IVP ×2 (20:16→22:03)
[2024-11-16] MEDS: CALCIUM GLUCONATE in NaCl 1 GM/50 ML BAG IVPB (22:02)
[2024-11-17 07:06] LABS: Magnesium 1.6 mg/dL (1.8-2.4)
[2024-11-17 07:09] LABS: ALT 27 U/L (14-59); AST 20 U/L (15-37); Albumin 3.9 g/dL (3.4-5.0); Alkaline Phosphatase 60 U/L (46-116); Anion Gap 10.7 mmol/L (3-11); BUN 17 mg/dL (7-18); Bilirubin, Total 0.22 mg/dL (0.2-1.0); CO2 27.3 mmol/L (21.0-32.0); CREATININE 0.9 mg/dL (0.55-1.02); Calcium 7.8 mg/dL (8.5-10.1); Chloride 104 mmol/L (98-107); Estimated GFR 93.86 (mL/min/1.73m2); Glucose 96 mg/dL (74-106); Potassium 3.8 mmol/L (3.5-5.1); Sodium 142 mmol/L (136-145); Total Protein 7.4 g/dL (6.4-8.2)
[2024-11-17 07:26] VITALS: BP 101/55; PULSE 80; RESP 18; TEMP 36.7; O2SAT 97
[2024-11-17] MEDS: Calcitriol 0.25 MCG CAP PO (09:47)
[2024-11-17] MEDS: busPIRone 5 MG TAB 20 MG PO ×2 (09:48→14:43)
[2024-11-17] MEDS: Sertraline 100 MG TAB 150 MG PO (09:49)
[2024-11-17] MEDS: Calcium Carbonate 1.25 GM TAB PO (09:49)
[2024-11-17] MEDS: Normal Saline Flush 10 ML SYR IVP ×2 (09:50→14:19)
[2024-11-17] MEDS: Cetirizine 10 MG TAB 20 MG PO (09:51)
[2024-11-17] MEDS: Benztropine 1 MG TAB 0.5 MG PO (09:53)
[2024-11-17] MEDS: MAGNESIUM SULFATE 2 GM/50 ML BAG IV_INF (12:20)
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
--- NOTE | 2024-11-17 17:50 | CMDISCH_ITS ---
Date of service: 11/17/24 Time of Service: 17:50 LACE Index Scoring Tool Questions: Length of Stay (in days): 2 Was the patient admitted via the E.D.?: Yes E.D. Visits: 10 Answers: Total Score: 9 Risk of Readmission: Low Risk Care Management Discharge Plan Reason for Hospitalization: electrolyte abnormalities Discharge Plan: Jyothi returned home with no new services. She drove herself home via private vehicle. She will follow up with her PCP and discharge plan of care. Patient/Family Education Needs: Review discharge instructions and limitations, discussion of self care needs including ask me three. [facility] Health Related Social Needs: Health related social needs education (Z55.6)
== END 2024-11-17 15:46 | disposition home or self-care (01) ==
LOC: ER 23:22 → MS 23:42
PROVIDERS: Nurse Practitioner Acute Care; Admitting Provider Family Medicine; Emergency Provider Nurse Practitioner Family; PCP Nurse Practitioner Family; Responsible Provider Nurse Practitioner Acute Care; Visit Provider Family Medicine
DX: E87.6 Hypokalemia (principal); E83.42 Hypomagnesemia; M62.838 Other muscle spasm; H90.3 Sensorineural hearing loss, bilateral; N18.2 Chronic kidney disease, stage 2 (mild); Z79.899 Other long term (current) drug therapy; D64.9 Anemia, unspecified; R07.89 Other chest pain; J45.40 Moderate persistent asthma, uncomplicated; G90.511 Complex regional pain syndrome I of right upper limb; M54.31 Sciatica, right side; F41.8 Other specified anxiety disorders; N29 Other disorders of kidney and ureter in diseases classified elsewhere
CPT/HCPCS: 00123; 36415; 80048; 80053; 80307; 81025; 82550; 93005; 96365; 96366; 96375; 99285; 81003; 81015; 82607; 82746; 83735; 84100; 84443; 85025; 93010; 99223; 99233; 99239; G0378; J0613; J3475; J3490

== ENCOUNTER 2024-12-09 16:39 | Outpatient (CLI) | payer MEDICAID, SELFPAY ==
[2024-12-11 09:53] LABS: Vitamin D 25 Total 19 ng/mL (30-100)
== END 2024-12-09 16:40 | disposition home or self-care (01) ==
LOC: LBO 16:41
PROVIDERS: PCP Nurse Practitioner Family; Visit Provider Internal Medicine
DX: E20.0 Idiopathic hypoparathyroidism (principal); E20.81 Hypoparathyroidism due to impaired parathyroid hormone secretion
CPT/HCPCS: 36415; 82306; 82310

== ENCOUNTER 2024-12-17 09:57 | Outpatient (CLI) | payer MEDICAID, SELFPAY | END 2024-12-17 09:58 | disposition home or self-care (01) | LOC: LBO 05-15 09:58 | PROVIDERS: PCP Nurse Practitioner Family; Visit Provider Internal Medicine | DX: E20.0 Idiopathic hypoparathyroidism (principal); E20.81 Hypoparathyroidism due to impaired parathyroid hormone secretion | CPT/HCPCS: 82306; 82310 ==

== ENCOUNTER 2024-12-17 13:21 | Outpatient (REF) | payer MEDICAID, SELFPAY ==
[2024-12-17 20:17] LABS: ALT 19 U/L (14-59); AST 18 U/L (15-37); Albumin 4.2 g/dL (3.4-5.0); Alkaline Phosphatase 62 U/L (46-116); Anion Gap 8.1 mmol/L (3-11); BUN 9 mg/dL (7-18); Bilirubin, Total 0.2 mg/dL (0.2-1.0); CO2 32.9 mmol/L (21.0-32.0); CREATININE 0.9 mg/dL (0.55-1.02); Calcium 9.3 mg/dL (8.5-10.1); Chloride 103 mmol/L (98-107); Estimated GFR 93.86 (mL/min/1.73m2); Glucose 93 mg/dL (74-106); Magnesium 1.4 mg/dL (1.8-2.4); Potassium 4.2 mmol/L (3.5-5.1); Sodium 144 mmol/L (136-145); Total Protein 7.7 g/dL (6.4-8.2)
== END 2024-12-17 13:22 | disposition home or self-care (01) ==
LOC: NCHCN 13:21
PROVIDERS: PCP Nurse Practitioner Family; Visit Provider Nurse Practitioner Family
DX: E87.6 Hypokalemia (principal); E83.42 Hypomagnesemia
CPT/HCPCS: 80053; 83735

== ENCOUNTER 2024-12-19 09:31 | Outpatient (RCR) | payer MEDICAID, SELFPAY ==
--- NOTE | 2024-12-31 15:26 | W.HOLTRPT ---
Date of service: 12/31/24 Time of Service: 15:26 Holter Monitor Report Referring Provider:: Liza Munson Indications:: Tachycardia Holter Monitor Note: This is a 48-hour Holter monitor. Rhythm throughout was sinus with an average heart rate of 87. Minimum was 54, maximum 149 There were 3 premature ventricular contractions. There was 1 atrial premature beat. There was no atrial fibrillation, no SVT, no high-grade AV block, no pauses greater than 3 seconds. No symptoms were reported
== END 2025-01-15 23:59 | disposition home or self-care (01) ==
LOC: CARDOPNVT 09:31
PROVIDERS: PCP Nurse Practitioner Family; Visit Provider Internal Medicine Cardiovascular Disease
DX: R00.0 Tachycardia, unspecified (principal); I49.1 Atrial premature depolarization
CPT/HCPCS: 93225; 93226

== ENCOUNTER 2024-12-20 20:53 | Emergency (ER) | payer MEDICAID, SELFPAY ==
[2024-12-20 20:58] VITALS: BP 118/76; PULSE 69; RESP 18; TEMP 36.9; O2SAT 100
[2024-12-20 21:02] VITALS: RESP 18
--- NOTE | 2024-12-20 21:30 | RT.EKG_ITS ---
APPROVED REPORT Exam: Resting ECG Reason for Exam: Hx of electrolyte abn/bulemia Patient Location: E HR:59 bpm ECG Measurements Heart Rate 59 AXIS OH 152 P 14 QRSd 81 QRS 62 QT 437 T 63 QTc 434 Conclusion Sinus bradycardia...rate< 60 No STEMI
--- NOTE | 2024-12-20 21:35 | ED.GENADUL_ITS ---
Discharge Plan Disposition Patient Disposition: Home Condition: Stable Discharge Details Clinical Impression: Hypomagnesemia, Myalgia, Self induced vomiting Primary Care Provider: Liza Munson ED Provider: Magalys Le Home Meds and New Rx's Prescriptions: New magnesium oxide 400 mg (241.3 mg magnesium) tablet 400 mg PO DAILY 7 Days Qty: 7 0RF Rx Instructions: Please take 1 tablet by mouth daily for the next 7 days Continued (DME) compressor, for nebulizer Device See Rx Instructions .Route Qty: 1 0RF Rx Instructions: As directed (DME) nebulizer accessories Kit See Rx Instructions .Route Qty: 1 0RF Rx Instructions: As directed lisdexamfetamine [Vyvanse] 40 mg capsule 20 mg PO QAM calcitriol 0.25 mcg capsule 0.25 mcg PO BID (DME) BreatheRite MDI Spacer Spacer See Rx Instructions .ROUTE .MEDSUPPLY Qty: 1 0RF Rx Instructions: As directed trazodone 100 mg tablet 300 mg PO TID PRN sertraline [Zoloft] 100 mg tablet 150 mg PO DAILY (DME) [facility] [place] .Route Qty: 64 4RF Rx Instructions: As directed benztropine 0.5 mg tablet 0.5 mg PO BID prazosin 1 mg capsule 3 mg PO QHS Ubrelvy 100 mg tablet 100 mg PO ONCE PRN Rx Instructions: 1-2 tabs epinephrine [EpiPen] 0.3 mg/0.3 mL auto-injector 0.3 ml subcut ONCE PRN Rx Instructions: as a single dose; may repeat once calcium carbonate 400 mg/5 mL suspension 1,250 mg PO BID Rx Instructions: 1250mg/5ml oral suspension levalbuterol tartrate [Xopenex HFA] 2 puff inhalation PRN buspirone 30 mg tablet 20 mg PO TID cyclobenzaprine 10 mg Tablet 10 mg PO TID PRN PRNQty: 10 0RF cetirizine [24Hour Allergy] 10 mg tablet 20 mg PO DAILY Discharge Instructions Instructions: Bulimia nervosa, Hypomagnesemia Additional Instructions: At this time your magnesium is low, it was replaced here in the department. All other labs are within normal limits or at your baseline. A prescription for magnesium for the next 7 days was sent to pharmacy on file. This may also help with your headaches. Please follow-up with your primary care provider and/or [facility] human services regarding the self-induced vomiting. Increase oral fluids Follow up with primary care provider in 3-5 days. Return to ED sooner if any worsening or concerns. Thank you for allowing us to care for you today. Referrals: [facility] [Provider Group] - 2 days (Call regarding the vomiting) Liza Munson [Primary Care Provider] - 3 days HPI General Date/Time Provider Initiated Documentation: 12/20/24 21:05 . Limitations to Documentation: no limitations . Information obtained by: patient, RN notes reviewed and old records reviewed . HPI Narrative: 19-year-old female presents to the ER with chief complaint of overall not feeling well, body aches and headache for the last 3 to 4 days. She reports that she has been inducing vomiting for approximately a year now. She is wearing a Zio patch for some tachycardia. She is not tachycardic upon arrival. Reports some dysuria. Denies any fever or chills. Related Data Home Medications ?Medication ?Instructions ?Recorded ?Confirmed diaper,brief,adult,disposable #64 ea 08/02/22 11/15/24 (Depend Underwear For Women Small-Medium) inhalational spacing device #1 ea 08/14/22 11/15/24 (BreatheRite MDI Spacer) compressor, for nebulizer #1 ea 08/30/22 11/15/24 nebulizer accessories #1 ea 08/30/22 11/15/24 lisdexamfetamine 40 mg capsule 20 mg PO QAM 02/14/24 12/20/24 (Vyvanse) trazodone 100 mg tablet 300 mg PO TID PRN 03/12/24 12/20/24 cetirizine 10 mg tablet (24Hour 20 mg PO DAILY 07/08/24 12/20/24 Allergy) calcitriol 0.25 mcg capsule 0.25 mcg PO BID 10/01/24 12/20/24 sertraline 100 mg tablet (Zoloft) 150 mg PO DAILY 10/01/24 12/20/24 benztropine 0.5 mg tablet 0.5 mg PO BID 10/04/24 12/20/24 calcium carbonate 400 mg/5 mL oral 1,250 mg PO BID 10/04/24 12/20/24 suspension epinephrine 0.3 mg/0.3 mL 0.3 ml subcut ONCE PRN 10/04/24 12/20/24 injection, auto-injector (EpiPen) levalbuterol tartrate 2 puff inhalation PRN 10/04/24 12/20/24 prazosin 1 mg capsule 3 mg PO QHS 10/04/24 12/20/24 ubrogepant 100 mg tablet (Ubrelvy) 100 mg PO ONCE PRN 10/04/24 12/20/24 buspirone 30 mg tablet 20 mg PO TID 11/11/24 12/20/24 cyclobenzaprine 10 mg tablet 10 mg PO TID PRN PRN #10 tabs 11/17/24 12/20/24 magnesium oxide 400 mg (241.3 mg 400 mg PO DAILY Low magnesium 7 12/20/24 magnesium) tablet days #7 tabs Previous Rx's ?Medication ?Instructions ?Recorded diaper,brief,adult,disposable #64 ea 08/02/22 (Depend Underwear For Women Small-Medium) inhalational spacing device #1 ea 08/14/22 (BreatheRite MDI Spacer) compressor, for nebulizer #1 ea 08/30/22 nebulizer accessories #1 ea 08/30/22 cyclobenzaprine 10 mg tablet 10 mg PO TID PRN PRN #10 tabs 11/17/24 magnesium oxide 400 mg (241.3 mg 400 mg PO DAILY Low magnesium 7 12/20/24 magnesium) tablet days #7 tabs Allergies Allergy/AdvReac Type Severity Reaction Status Date / Time cat dander Allergy Wheezing Verified 12/20/24 21:02 dog dander Allergy Wheezing Verified 12/20/24 21:02 house dust mite Allergy Wheezing Verified 12/20/24 21:02 tree and shrub pollen Allergy Wheezing Verified 12/20/24 21:02 hydrocodone AdvReac TACHYCARDIA Verified 12/20/24 21:02 PER PT ibuprofen AdvReac per Verified 12/20/24 21:02 nephrology tramadol AdvReac Other (See Verified 12/20/24 21:02 Comment) General Stated Complaint: GenMedical KEILY: 4 Review of Systems All systems reviewed & are unremarkable except as noted in HPI and below Constitutional Constitutional: Reports as per HPI, Reports body ache(s) and Reports headache(s) ENT Ears, Nose, Mouth, and Throat: Reports headache(s) Genitourinary Genitourinary: Reports dysuria Neurologic Neurologic: Reports headache(s) Exam Narrative Exam Narrative: Constitutional: Alert and oriented x3. Appears stated age. Normal body habitus. Head: Normocephalic, no trauma. Eyes: Pupils PERRL, Red reflex noted, EOM's intact. Eyelids symmetrical without lesions, discharge, or swelling. ENT: Bilateral TM's WNL, External ear normal to inspection, no mastoid TTP, swelling, or erythema, Nasal turbinates WNL, no nasal discharge. Normal dentition, Posterior pharynx WNL, no exudate. Chest: RRR, Normal S1, S2, distal pulses intact. Resp: Lungs clear to auscultation bilaterally, no wheezes, rales, or rhonchi. Abdomen: Soft, non-distended, Normoactive bowel sounds all 4 quads. Musculoskeletal: Normal gait, Moves all 4 extremities without difficulty. Skin: No suspicious rashes or lesions. Capillary refill less than 2 sec. Neurologic: Cranial nerves II-XII intact. Alert and oriented x 3. Motor: No deficits noted. Sensory: Intact bilaterally all 4 extremities. Hematologic/Lymphatic: No ecchymosis, no lymphadenopathy. Course Vital Signs Vital signs: Vital Signs Temperature 36.9 C 12/20/24 20:58 Pulse 69 12/20/24 20:58 Respiratory Rate 18 12/20/24 20:58 Blood Pressure 118/76 12/20/24 20:58 Pulse Oximetry 100 12/20/24 20:58 Temperature 36.9 C 12/20/24 20:58 Temperature Source Oral 12/20/24 20:58 Pulse 69 12/20/24 20:58 Respiratory Rate 18 12/20/24 21:02 Respiratory Effort Normal 12/20/24 21:02 Respiratory Depth Normal 12/20/24 21:02 Respiratory Pattern Normal 12/20/24 21:02 Blood Pressure 118/76 12/20/24 20:58 Blood Pressure Position Sitting 12/20/24 20:58 Pulse Oximetry 100 12/20/24 20:58 Oxygen Delivery Method Room Air 12/20/24 20:58 Oxygen Flow Rate 0 12/20/24 20:58 Medical Decision Making 19-year-old female presents to the ER with chief complaint of overall not feeling well, body aches and headache for the last 3 to 4 days. She reports that she has been inducing vomiting for approximately a year now. She is wearing a Zio patch for some tachycardia. She is not tachycardic upon arrival. Reports some dysuria. Denies any fever or chills. CBC shows no leukocytosis, hemoglobin 9.5 hematocrit 29.4, this is at patient's baseline. Sodium 139 potassium 3.7 BUN 19 creatinine 1.0 magnesium is low at 1.4, lipase within normal limits. Will give a gram of Tylenol p.o., 4 of Zofran ODT, gram of magnesium IV piggyback and 4 mg of p.o. magnesium oxide. Patient to be discharged home with 7 days p.o. magnesium oxide. Reviewed information to follow-up with human services regarding the self-induced vomiting. This text was generated using [employer] system, please disregard any oddities of phrase or misspellings. Medical Records Medical records reviewed: Yes I reviewed the patient's medical records. Lab Data Lab results reviewed: Yes I reviewed the patient's lab results. Labs: Laboratory Tests Range/Units 12/20/24 21:40 WBC (4.4-10.8) 10^3/uL 6.77 RBC (3.93-5.22) 10^6/uL 3.51 L Hgb (11.2-15.7) g/dL 9.5 L Hct (36.0-46.0) % 29.4 L MCV (80-95) fL 84 MCH (27.0-33.0) pg 27.1 MCHC (32.0-36.0) % 32.3 RDW (11.7-14.6) % 16.1 H Plt Count (130-400) 10^3/uL 231 MPV (8.0-11.0) fL 11.0 Immature Gran % % 0.1 Neutrophils % % 56.2 Lymphocytes % % 35.2 Monocytes % % 5.6 Eosinophils % % 2.5 Basophils % % 0.4 Nucleated RBC % (0.0-0.3) % 0.0 Absolute Neutrophils (1.2-6.7) 10^3/uL 3.80 Absolute Lymphocytes (1.2-3.4) 10^3/uL 2.38 Absolute Monocytes (0.1-0.8) 10^3/uL 0.38 Absolute Eosinophils (0.0-0.7) 10^3/uL 0.17 Absolute Basophils (0.0-0.2) 10^3/uL 0.03 Sodium (136-145) mmol/L 139 Potassium (3.5-5.1) mmol/L 3.7 Chloride (98-107) mmol/L 102 Carbon Dioxide (21.0-32.0) mmol/L 29.7 Anion Gap (3-11) mmol/L 7.3 BUN (7-18) mg/dL 19 H Creatinine (0.55-1.02) mg/dL 1.0 Est GFR (CKD-EPI 2020) (mL/min/1.73m2) 82.71 Glucose (74-106) mg/dL 96 Calcium (8.5-10.1) mg/dL 8.9 Magnesium (1.8-2.4) mg/dL 1.4 L Total Bilirubin (0.2-1.0) mg/dL 0.2 AST (15-37) U/L 16 ALT (14-59) U/L 14 Alkaline Phosphatase (46-116) U/L 57 Total Protein (6.4-8.2) g/dL 7.5 Albumin (3.4-5.0) g/dL 4.0 Lipase (<78) U/L 24 Quality:SDOH Health Related Social Needs: Health related social needs education (Z55.6) PFSH All Active Problems (Updated 12/20/24 @ 22:56 by Magalys Le NP) Self induced vomiting (Acute) Myalgia (Acute) Hypokalemia (Acute) Hypocalcemia (Acute) Hypomagnesemia (Acute) Muscle spasm (Acute) Hypomagnesemia (Acute) Anxiety (Chronic) Sensorineural hearing loss of both ears (Acute) Stage 2 chronic kidney disease (Chronic) Hypoparathyroidism (Chronic 10/31/14) congenital, followed by [facility] endocrinology Medical History (Updated 12/20/24 @ 22:56 by Magalys Le NP) Esotropia (12/15/14) glasses for correction 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 Started fluox 03/05, stopped spring 2020- restarted but stopped in the fall secondary to concerns of worsening suicidal ideation- trial lexapro- increase dose to 20 mg today (03/28/22) Chronic kidney disease (CKD) Nasal vestibulitis Patulous eustachian tube of left ear Chronic allergic rhinitis Encounter for immunotherapy Right-sided tinnitus Calcification of brain per [facility] neuro notes; bifrontal first noted in 2010; 2019 with some affecting basal ganglia, d/t underlying hypoparathyroidism Sciatica of right side Strain of extensor pollicis longus tendon Injury of thumb, right Urinary tract infection Allergic reaction Complex regional pain syndrome of right upper extremity Nocturnal enuresis (12/15/14) pull ups at night Recurrent UTI Cough Abnormal chest xray Moderate persistent asthma Low back pain De Quervain's tenosynovitis, left Dysfunction of right eustachian tube Palpitations Contraception 09/2023. Patient given information regarding Nexplanon. 10/18/23. Nexplanon for menstrual control. Wears hearing aid in both ears Otalgia of right ear TMJ pain dysfunction syndrome Sinusitis Nexplanon in place 09/2023. For menstrual control. Traumatic plantar fasciitis LEFT Lip lesion Electrolyte disturbance Depo-Provera contraceptive status 04/2023. Stopped per patient request 09/2023 restarted per patient request Hypokalemia Abnormal uterine bleeding (AUB) 2017. menstrual irreg. OCPs 05/29/2019. Dysmenorrhea. DepoProvera 150 mg every 3 months Ingrowing toenail (05/14/18) Left great toe; s/p resection ADHD (attention deficit hyperactivity disorder) Surgical History (Updated 11/15/24 @ 23:02 by Rambo Morris MD) Vesicoureteric reflux (12/15/14) s/p bilateral ureteral implants [place] teeth extracted all 4 teeth extracted ureteral implants- bilat Tonsillectomy and adenoidectomy Myringotomy w/ PE (pressure equalizing) tubes Family History Mother Family history unknown Father Family history unknown Social History Smoking/Tobacco Use Status: Never Smoking risk assessment performed?: Yes Alcohol Intake: current Alcohol Intake frequency: a few times a month Drug use: Never Substance use type: does not use Adopted: Yes Housing: house Education Level: college Details: [employer], starting [employer] in the fall current occupation: 02/28/2020 works at [employer] Pets and animals: Yes Pets and animals: cat(s), dog(s) and other Details: CHICKENS, TURKEYS, SHEEP, COWS Sexually active: No Do you feel safe at home: No (Pt reports environment is safe but she feels suicidal) Do you feel safe in your relationship?: Yes Female Reproductive History Menstrual Age of Menarche: 11 Duration of menses: other control method: implanted
[2024-12-20 21:49] LABS: Abs Immature Grans 0.01 10^3/uL (0.0-0.06); Absolute Basophil Count 0.03 10^3/uL (0.0-0.2); Absolute Eosinophil Count 0.17 10^3/uL (0.0-0.7); Absolute Lymphocyte Count 2.38 10^3/uL (1.2-3.4); Absolute Monocyte Count 0.38 10^3/uL (0.1-0.8); Basophils % 0.4 %; Eosinophils % 2.5 %; HCT 29.4 % (36.0-46.0); HGB 9.5 g/dL (11.2-15.7); Immature Grans % 0.1 %; Lymphocytes % 35.2 %; MCH 27.1 pg (27.0-33.0); MCHC 32.3 % (32.0-36.0); MCV 84 fL (80-95); Monocytes % 5.6 %; Neutrophils % 56.2 %; Platelet Count 231 10^3/uL (130-400); RBC 3.51 10^6/uL (3.93-5.22); RDW 16.1 % (11.7-14.6); RDW-SD 49.2 fL; WBC 6.77 10^3/uL (4.4-10.8)
[2024-12-20] MEDS: Normal Saline 1,000 ML 1000 ML IV (21:51)
[2024-12-20 22:05] LABS: ALT 14 U/L (14-59); AST 16 U/L (15-37); Alkaline Phosphatase 57 U/L (46-116); Anion Gap 7.3 mmol/L (3-11); BUN 19 mg/dL (7-18); Bilirubin, Total 0.2 mg/dL (0.2-1.0); CO2 29.7 mmol/L (21.0-32.0); Calcium 8.9 mg/dL (8.5-10.1); Chloride 102 mmol/L (98-107); Estimated GFR 82.71 (mL/min/1.73m2); Glucose 96 mg/dL (74-106); Lipase 24 U/L (<78); Magnesium 1.4 mg/dL (1.8-2.4); Potassium 3.7 mmol/L (3.5-5.1); Sodium 139 mmol/L (136-145); Total Protein 7.5 g/dL (6.4-8.2)
[2024-12-20] MEDS: Acetaminophen 500 MG TAB 1000 MG PO (22:32)
[2024-12-20] MEDS: Magnesium Oxide 400 MG TAB PO (22:32)
[2024-12-20] MEDS: MAGNESIUM SULFATE 1 GM/100 ML BAG IV_INF (22:32)
[2024-12-20] MEDS: Ondansetron O.D.T. 4 MG TABEF PO (22:32)
--- NOTE | 2024-12-23 09:24 | NUR.NOTE ---
Nursing Note: Received call from Karishma at [facility] clarifying patients new prescription. Verbal confirmation made regarding Magnesium x 7 days for low magnesium
== END 2024-12-20 23:36 | disposition home or self-care (01) ==
PROVIDERS: Emergency Provider Registered Nurse Emergency; PCP Nurse Practitioner Family
DX: M79.10 Myalgia, unspecified site (principal); F50.89 Other specified eating disorder; E83.42 Hypomagnesemia
CPT/HCPCS: 80053; 83690; 93005; 96361; 96365; 99284; 83735; 85025; 93010; J3475

== ENCOUNTER 2024-12-26 16:45 | Outpatient (REF) | payer MEDICAID, SELFPAY ==
[2024-12-26 18:08] LABS: Calcium 10.7 mg/dL (8.5-10.1); Vitamin D 25 Total 22 ng/mL (30-100)
== END 2024-12-26 16:46 | disposition home or self-care (01) ==
LOC: LBO 16:45
PROVIDERS: Internal Medicine; PCP Nurse Practitioner Family; Visit Provider Nurse Practitioner Family
DX: Z13.89 Encounter for screening for other disorder (principal)
CPT/HCPCS: 82306; 82310

== ENCOUNTER 2025-01-07 15:36 | Outpatient (REF) | payer MEDICAID, SELFPAY ==
[2025-01-07 19:17] LABS: ALT 17 U/L (14-59); AST 17 U/L (15-37); Albumin 3.9 g/dL (3.4-5.0); Alkaline Phosphatase 72 U/L (46-116); Anion Gap 5.9 mmol/L (3-11); BUN 15 mg/dL (7-18); Bilirubin, Total 0.2 mg/dL (0.2-1.0); CO2 30.1 mmol/L (21.0-32.0); CREATININE 0.9 mg/dL (0.55-1.02); Calcium 9.5 mg/dL (8.5-10.1); Chloride 106 mmol/L (98-107); Estimated GFR 93.86 (mL/min/1.73m2); Glucose 103 mg/dL (74-106); Potassium 3.5 mmol/L (3.5-5.1); Sodium 142 mmol/L (136-145); Total Protein 7.2 g/dL (6.4-8.2)
== END 2025-01-07 15:37 | disposition home or self-care (01) ==
LOC: NCHCN 15:36
PROVIDERS: PCP Nurse Practitioner Family; Visit Provider Nurse Practitioner Family
DX: N18.2 Chronic kidney disease, stage 2 (mild) (principal)
CPT/HCPCS: 80053

== ENCOUNTER 2025-01-10 16:51 | Emergency (ER) | payer MEDICAID, SELFPAY ==
[2025-01-10 17:02] VITALS: BP 129/85; PULSE 94; RESP 16; TEMP 37.1; O2SAT 100
--- NOTE | 2025-01-10 17:30 | W.ED.GENAD ---
Discharge Plan Discharge Details Chief Complaint: Suicide-Atempt Clinical Impression: Self-inflicted laceration of wrist, Depression with suicidal ideation, Hypokalemia Primary Care Provider: Liza Munson ED Provider: Silvia Guevara Home Meds and New Rx's Prescriptions: No Action lisdexamfetamine [Vyvanse] 40 mg capsule 20 mg PO QAM calcitriol 0.25 mcg capsule 0.25 mcg PO BID teriparatide 20 mcg/dose (560mcg/2.24mL) pen injector 20 mcg subcut BID buspirone 10 mg tablet 10 mg PO TID Ajovy Autoinjector 225 mg/1.5 mL auto-injector 225 mg subcut QMONTH Nexplanon 68 mg implant 1 implant subdermal ONCE Rx Instructions: as a single dose albuterol sulfate [Ventolin HFA] 90 mcg/actuation HFA aerosol inhaler 2 puff inhalation Q6H PRN montelukast 10 mg tablet 10 mg PO DAILY trazodone 100 mg tablet 300 mg PO TID PRN sertraline [Zoloft] 100 mg tablet 150 mg PO DAILY fluticasone propion-salmeterol [Advair HFA] 230-21 mcg/actuation HFA aerosol inhaler 2 puff inhalation BID Qty: 12 12RF benztropine 0.5 mg tablet 0.5 mg PO BID prazosin 1 mg capsule 3 mg PO QHS Ubrelvy 100 mg tablet 100 mg PO ONCE PRN Rx Instructions: 1-2 tabs epinephrine [EpiPen] 0.3 mg/0.3 mL auto-injector 0.3 ml subcut ONCE PRN Rx Instructions: as a single dose; may repeat once calcium carbonate 400 mg/5 mL suspension 1,250 mg PO BID Rx Instructions: 1250mg/5ml oral suspension levalbuterol tartrate [Xopenex HFA] 2 puff inhalation PRN buspirone 30 mg tablet 20 mg PO TID cyclobenzaprine 10 mg Tablet 10 mg PO TID PRN PRNQty: 10 0RF cetirizine [24Hour Allergy] 10 mg tablet 20 mg PO DAILY HPI General Date/Time Provider Initiated Documentation: 01/10/25 17:04. HPI Narrative: 20-year-old female with history of depression presents for evaluation of suicidal ideation. Patient contracts left anterior wrist today with a pocket knife. There is small wound with the bleeding. Tetanus is up-to-date. No active bleeding. She states that she has had increased life stressors. She did not take her medication last night or today otherwise has been taking her mental health medications as prescribed. She last saw her therapist last week. Denies any medical concerns at this time. Related Data Home Medications ?Medication ?Instructions ?Recorded ?Confirmed lisdexamfetamine 40 mg capsule 20 mg PO QAM 02/14/24 01/10/25 (Vyvanse) trazodone 100 mg tablet 300 mg PO TID PRN 03/12/24 01/10/25 cetirizine 10 mg tablet (24Hour 20 mg PO DAILY 07/08/24 01/10/25 Allergy) calcitriol 0.25 mcg capsule 0.25 mcg PO BID 10/01/24 01/10/25 sertraline 100 mg tablet (Zoloft) 150 mg PO DAILY 10/01/24 01/10/25 benztropine 0.5 mg tablet 0.5 mg PO BID 10/04/24 01/10/25 calcium carbonate 400 mg/5 mL oral 1,250 mg PO BID 10/04/24 01/10/25 suspension epinephrine 0.3 mg/0.3 mL 0.3 ml subcut ONCE PRN 10/04/24 01/10/25 injection, auto-injector (EpiPen) levalbuterol tartrate 2 puff inhalation PRN 10/04/24 01/10/25 prazosin 1 mg capsule 3 mg PO QHS 10/04/24 01/10/25 ubrogepant 100 mg tablet (Ubrelvy) 100 mg PO ONCE PRN 10/04/24 01/10/25 buspirone 30 mg tablet 20 mg PO TID 11/11/24 01/10/25 cyclobenzaprine 10 mg tablet 10 mg PO TID PRN PRN #10 tabs 11/17/24 01/10/25 fluticasone propionate 230 2 puff inhalation BID #12 grams 12/27/24 01/10/25 mcg-salmeterol 21 mcg/actuation HFA inhaler (Advair HFA) albuterol sulfate 90 mcg/actuation 2 puff inhalation Q6H PRN 12/31/24 01/10/25 aerosol inhaler (Ventolin HFA) buspirone 10 mg tablet 10 mg PO TID 12/31/24 01/10/25 etonogestrel 68 mg subdermal 1 implant subdermal ONCE 12/31/24 01/10/25 implant (Nexplanon) fremanezumab-vfrm 225 mg/1.5 mL 225 mg subcut QMONTH 12/31/24 01/10/25 subcutaneous auto-injector (Ajovy) montelukast 10 mg tablet 10 mg PO DAILY 12/31/24 01/10/25 teriparatide 20 mcg/dose (560 20 mcg subcut BID 12/31/24 01/10/25 mcg/2.24 mL) subcutaneous pen injector Previous Rx's ?Medication ?Instructions ?Recorded cyclobenzaprine 10 mg tablet 10 mg PO TID PRN PRN #10 tabs 11/17/24 fluticasone propionate 230 2 puff inhalation BID #12 grams 12/27/24 mcg-salmeterol 21 mcg/actuation HFA inhaler (Advair HFA) Allergies Allergy/AdvReac Type Severity Reaction Status Date / Time cat dander Allergy Wheezing Verified 01/10/25 17:05 dog dander Allergy Wheezing Verified 01/10/25 17:05 house dust mite Allergy Wheezing Verified 01/10/25 17:05 tree and shrub pollen Allergy Wheezing Verified 01/10/25 17:05 hydrocodone AdvReac TACHYCARDIA Verified 01/10/25 17:05 PER PT ibuprofen AdvReac per Verified 01/10/25 17:05 nephrology tramadol AdvReac Other (See Verified 01/10/25 17:05 Comment) General Stated Complaint: Suicide-Atempt KEILY: 2 Review of Systems Narrative: Remainder of review of systems otherwise negative except for as noted in the HPI x 10. Exam Narrative Exam Narrative: General: non-toxic, no respiratory distress, comfortable HEENT: normocephalic, atraumatic, lids and lashes normal, PERRL, EOMI, anicteric sclera, no conjunctival injection, moist oral mucosa Card: regular rate and rhythm, S1S2, no murmurs, rubs, or gallops Lungs: good air entry, clear to auscultation bilaterally. no wheezes, rales, rhonchi, or retractions Abd: soft, non-tender, non-distended, normal bowel sounds, no rebound or guarding, no peritoneal signs Musculoskeletal: 2.5 cm superficial laceration with half centimeter area of gaping to anterior right wrist, 2+ radial pulses, sensation intact, able to fully range fingers, wrist, elbow, otherwise full range of motion of arms and legs, no tenderness to palpation. no clubbing, cyanosis, or edema Neurologic: appropriate for age, strength normal Psych: alert and oriented, + suicidal ideation Skin: as above, otherwise no petechiae, no lesions, warm and dry Course Vital Signs Vital signs: Vital Signs Temperature 37.1 C 01/10/25 17:02 Pulse 94 H 01/10/25 17:02 Respiratory Rate 16 01/10/25 17:02 Blood Pressure 129/85 01/10/25 17:02 Pulse Oximetry 100 01/10/25 17:02 Temperature 37.1 C 01/10/25 17:02 Temperature Source Oral 01/10/25 17:02 Pulse 94 H 01/10/25 17:02 Respiratory Rate 16 01/10/25 17:02 Blood Pressure 129/85 01/10/25 17:02 Blood Pressure Position Sitting 01/10/25 17:02 Pulse Oximetry 100 01/10/25 17:02 Oxygen Delivery Method Room Air 01/10/25 17:02 Oxygen Flow Rate 0 01/10/25 17:02 Procedure Laceration Laceration 1: Procedure Description/Note: Location: Left anterior wrist Length: 2.5 cm. Centimeters gaping The wound was thoroughly explored and there were no foreign bodies found. The wound penetrated down to subcutaneous tissue. There was no damage to deeper structures. The wound was closed using surgical glue. This achieved good wound approximation. Medical Decision Making 28-year-old female with history of depression presents for evaluation of self-inflicted superficial wound to left anterior wrist. Wound is washed and small amount of surgical glue applied to area. Tetanus is up-to-date. Laboratory studies show mildly low potassium. Oral potassium replacement was ordered. Patient medically cleared for mental health evaluation. Patient evaluated by mental health and is voluntary for psychiatric admission. Home medications were ordered. Quality:SDOH Health Related Social Needs: Health related social needs education (Z55.6) PFSH All Active Problems (Updated 01/10/25 @ 19:09 by Silvia Guevara MD) Hypokalemia (Acute) Depression with suicidal ideation (Acute) Self-inflicted laceration of wrist (Acute) Self induced vomiting (Acute) Myalgia (Acute) Hypokalemia (Acute) Hypocalcemia (Acute) Hypomagnesemia (Acute) Muscle spasm (Acute) Hypomagnesemia (Acute) Anxiety (Chronic) Sensorineural hearing loss of both ears (Acute) Stage 2 chronic kidney disease (Chronic) Hypoparathyroidism (Chronic 10/31/14) congenital, followed by [facility] endocrinology Medical History Esotropia (12/15/14) glasses for correction 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 Started fluox 03/05, stopped spring 2020- restarted but stopped in the fall secondary to concerns of worsening suicidal ideation- trial lexapro- increase dose to 20 mg today (03/28/22) Chronic kidney disease (CKD) Nasal vestibulitis Patulous eustachian tube of left ear Chronic allergic rhinitis Encounter for immunotherapy Right-sided tinnitus Calcification of brain per [facility] neuro notes; bifrontal first noted in 2010; 2019 with some affecting basal ganglia, d/t underlying hypoparathyroidism Sciatica of right side Strain of extensor pollicis longus tendon Injury of thumb, right Urinary tract infection Allergic reaction Complex regional pain syndrome of right upper extremity Nocturnal enuresis (12/15/14) pull ups at night Recurrent UTI Cough Abnormal chest xray Moderate persistent asthma Low back pain De Quervain's tenosynovitis, left Dysfunction of right eustachian tube Palpitations Contraception 09/2023. Patient given information regarding Nexplanon. 10/18/23. Nexplanon for menstrual control. Wears hearing aid in both ears Otalgia of right ear TMJ pain dysfunction syndrome Sinusitis Nexplanon in place 09/2023. For menstrual control. Traumatic plantar fasciitis LEFT Lip lesion Electrolyte disturbance Depo-Provera contraceptive status 04/2023. Stopped per patient request 09/2023 restarted per patient request Hypokalemia Abnormal uterine bleeding (AUB) 2017. menstrual irreg. OCPs 05/29/2019. Dysmenorrhea. DepoProvera 150 mg every 3 months Ingrowing toenail (05/14/18) Left great toe; s/p resection ADHD (attention deficit hyperactivity disorder) Surgical History Vesicoureteric reflux (12/15/14) s/p bilateral ureteral implants [place] teeth extracted all 4 teeth extracted ureteral implants- bilat Tonsillectomy and adenoidectomy Myringotomy w/ PE (pressure equalizing) tubes Family History Mother Family history unknown Father Family history unknown Social History Smoking/Tobacco Use Status: Never Smoking risk assessment performed?: Yes Alcohol Intake: current Alcohol Intake frequency: a few times a month Drug use: Never Substance use type: does not use Adopted: Yes Housing: house Education Level: college Details: [employer], starting [employer] in the fall current occupation: 02/28/2020 works at [employer] Pets and animals: Yes Pets and animals: cat(s), dog(s) and other Details: CHICKENS, TURKEYS, SHEEP, COWS Sexually active: No Do you feel safe at home: No (Pt reports environment is safe but she feels suicidal) Do you feel safe in your relationship?: Yes Female Reproductive History Menstrual Age of Menarche: 11 Duration of menses: other control method: implanted
[2025-01-10 18:16] LABS: Bilirubin Negative (Negative); Blood Negative (Negative); Clarity Clear (Clear); Glucose Negative (Negative); Ketones Negative (Negative); Leukocyte Esterase Negative (Negative); Nitrite Negative (Negative); Specific Gravity 1.015 (1.005-1.025); Urobilinogen 0.2 mg/dL (Up to 0.2); pH 6.5 (5-8)
[2025-01-10 18:27] LABS: Abs Immature Grans 0.03 10^3/uL (0.0-0.06); Absolute Basophil Count 0.03 10^3/uL (0.0-0.2); Absolute Eosinophil Count 0.12 10^3/uL (0.0-0.7); Absolute Monocyte Count 0.45 10^3/uL (0.1-0.8); Absolute Neutrophil Count 5.62 10^3/uL (1.2-6.7); Basophils % 0.4 %; Eosinophils % 1.5 %; HCT 29.8 % (36.0-46.0); HGB 9.8 g/dL (11.2-15.7); Immature Grans % 0.4 %; Lymphocytes % 24.2 %; MCH 27.1 pg (27.0-33.0); MCHC 32.9 % (32.0-36.0); MCV 83 fL (80-95); Monocytes % 5.5 %; Platelet Count 269 10^3/uL (130-400); RBC 3.61 10^6/uL (3.93-5.22); RDW 15.9 % (11.7-14.6); RDW-SD 47.8 fL; WBC 8.25 10^3/uL (4.4-10.8)
[2025-01-10 18:31] LABS: *AMPHETAMINES SCREEN URINE Negative (Negative); *BARBITURATES SCREEN URINE Negative (Negative); *BENZODIAZEPINES SCREEN URINE Negative (Negative); Cannabinoids THC Negative (Negative); Cocaine Screen,Urine Negative (Negative); METHADONE URINE SCREEN Negative (Negative); OPIATES URINE SCREEN Negative (Negative)
[2025-01-10 18:35] LABS: Tricyclic Antidepressants Negative (Negative)
[2025-01-10 18:43] LABS: HCG Qual (Serum) Negative
[2025-01-10 18:48] LABS: ALT 14 U/L (14-59); AST 19 U/L (15-37); Albumin 4.2 g/dL (3.4-5.0); Alkaline Phosphatase 72 U/L (46-116); Anion Gap 11.8 mmol/L (3-11); BUN 16 mg/dL (7-18); Bilirubin, Total 0.2 mg/dL (0.2-1.0); CO2 28.2 mmol/L (21.0-32.0); CREATININE 0.8 mg/dL (0.55-1.02); Calcium 8.5 mg/dL (8.5-10.1); Chloride 100 mmol/L (98-107); Estimated GFR 107.44 (mL/min/1.73m2); Glucose 85 mg/dL (74-106); Potassium 3.3 mmol/L (3.5-5.1); Sodium 140 mmol/L (136-145); Total Protein 7.7 g/dL (6.4-8.2)
[2025-01-10 19:00] LABS: ETHANOL BLOOD < 3.0 mg/dL (<10)
[2025-01-10 21:21] VITALS: BP 99/60; PULSE 81; RESP 12; TEMP 36.9; O2SAT 98
--- NOTE | 2025-01-10 22:12 | W.EDPROG ---
Date of service: 01/10/25 Time of Service: 22:12 Medical Decision Making This patient was signed out to me. Please see previous notes for H&P and initial eval. In brief, 20yo F presenting with SI, SA via cutting wrist, shallow laceration repaired with glue. Medically cleared, home meds ordered, pending voluntary inpatient placement. Overnight no acute events. Will be signed out to oncoming physician; plan remains as above. Quality:SDOH Health Related Social Needs: Health related social needs education (Z55.6) Discharge Plan Discharge Details Chief Complaint: Suicide-Atempt Clinical Impression: Self-inflicted laceration of wrist, Depression with suicidal ideation, Hypokalemia Primary Care Provider: Liza Munson ED Provider: Yuridia Hong Home Meds and New Rx's Prescriptions: No Action lisdexamfetamine [Vyvanse] 40 mg capsule 20 mg PO QAM calcitriol 0.25 mcg capsule 0.25 mcg PO BID teriparatide 20 mcg/dose (560mcg/2.24mL) pen injector 20 mcg subcut BID buspirone 10 mg tablet 10 mg PO TID Ajovy Autoinjector 225 mg/1.5 mL auto-injector 225 mg subcut QMONTH Nexplanon 68 mg implant 1 implant subdermal ONCE Rx Instructions: as a single dose albuterol sulfate [Ventolin HFA] 90 mcg/actuation HFA aerosol inhaler 2 puff inhalation Q6H PRN montelukast 10 mg tablet 10 mg PO DAILY trazodone 100 mg tablet 300 mg PO TID PRN sertraline [Zoloft] 100 mg tablet 150 mg PO DAILY fluticasone propion-salmeterol [Advair HFA] 230-21 mcg/actuation HFA aerosol inhaler 2 puff inhalation BID Qty: 12 12RF benztropine 0.5 mg tablet 0.5 mg PO BID prazosin 1 mg capsule 3 mg PO QHS Ubrelvy 100 mg tablet 100 mg PO ONCE PRN Rx Instructions: 1-2 tabs epinephrine [EpiPen] 0.3 mg/0.3 mL auto-injector 0.3 ml subcut ONCE PRN Rx Instructions: as a single dose; may repeat once calcium carbonate 400 mg/5 mL suspension 1,250 mg PO BID Rx Instructions: 1250mg/5ml oral suspension levalbuterol tartrate [Xopenex HFA] 2 puff inhalation PRN buspirone 30 mg tablet 20 mg PO TID cyclobenzaprine 10 mg Tablet 10 mg PO TID PRN PRNQty: 10 0RF cetirizine [24Hour Allergy] 10 mg tablet 20 mg PO DAILY
--- NOTE | 2025-01-11 00:24 | PDOC.MHCN ---
Date of service: 01/10/25 Time of Service: 21:30 PHQ-9 Over the last 2 weeks, how often have you been bothered by any of the following problems? 1. Little interest or pleasure in doing things: nearly every day 2. Feeling down, depressed, or hopeless: nearly every day 3. Trouble falling or staying asleep, or sleeping too much: nearly every day 4. Feeling tired or having little energy: nearly every day 5. Poor appetite or overeating: nearly every day 6. Feeling bad about yourself - or that you are a failure or have let yourself and your family down: nearly every day 7. Trouble concentrating on things, such as reading the newspaper or watching television: nearly every day 8. Moving or speaking so slowly that other people could have noticed? - Or the opposite - being so fidgety or restless that you have been moving around a lot more than usual: several days 9. Thoughts that you would be better off or of hurting yourself in some way: nearly every day Total score: 25 If you checked off any problems, how difficult have these problems made it for you to do your work, take care of things at home, or get along with other people?: extremely difficult Source: Developed by Drs. Oskar Marquez, Darlene Betancur, Antonio Barry and colleagues, with an educational heriberto from [employer]. Suicide Severity Rate CSSRS Have you wished you were or wished you could go to sleep and not wake up?: Yes Have you actually had any thoughts of killing yourself?: Yes CSSRS2 Have you been thinking about how you might do this?: Yes Have you had these thoughts and had some intention of acting on them?: Yes Have you started to work out or worked out the details of how to kill yourself? Do you intend to carry out this plan?: Yes CSSRS3 Have you ever done anything, started to do anything or prepared to do anything to end your life?: Yes CSSRS4 Was this within the past three months?: Yes Screening Score Total Score: 8 Screening: Positive Mental Health Emergency Note Release [facility] release signed:: Yes Reason for Visit Self harm and suicidal ideations In the last 2 weeks has the pt presented for ES prior to today?: No Client Information Client is: [employer] Well Housed: Yes Non Suicidal Self Injury Current: Yes, Client engages in NSSI but cutting herself. History: yes, Client has been engaging in NSSI for the last 3 years on and off Safety Risk/Harm to Self or Others Current Ideation to Harm Self or Others: Yes to self. Intent: yes, has intent. Plan: yes,has a plan. History of suicide attempt: No history of suicide attempt reported Risk: Does risk to harm exist?: yes. Access to means: Yes. Types of Means: Other weapons and Medication. Details: Client reported having access to medications and ropes . Risk: Moderate Risk Duty to warn indicated: No Asssessment/Mental Status Appearance: Unremarkable Attitude: Cooperative and Friendly Behavior: Unremarkable Speech: Normal Affect: Cogruent with mood Mood: Depressed Thought process: Goal directed and Circumstational Hallucinations: yes, Auditory (Client reports hearing a voice in her head telling her to harm herself.) Delusions: No Attention: Unremarkable Perception: Not impaired Orientation: Fully orientated Memory: Intact Insight: Poor Judgement: Poor Neurovegetative Symptoms Sleep: Decrease Appetitie: Decrease Interests: Decrease Energy: Decrease Libido: Not applicable Additional Issues: Assaultive/Threatening Behavior: No Medical Concerns: No Client engaged in active self harm w/weapon: Yes Threatening to run away: No Child reported abuse/neglect: No Voluntarily presenting for services: Yes Domestic violence is a concern: No Extreme Psychosis or extreme behavior is present: No Plan/Disposition Recommended Disposition: Hospitalization ([facility], [facility], , [facility], [facility] [place] [facility] facilities contacted. Plan: The client is a 20 year old biological female who rides with her parents in [facility]. The client presents in blue paper scrubs in her hospital bed in a well groomed appearance. Affect is congruent with mood. Client is cooperative and friendly with this clinician; they report their mood as depressed. Thought process appears goal directed as they are seeking help for their mental health, but also appears circumstantial. There are no delusions observed. The client reports having auditory hallucinations with hearing voices in her head telling her to harm herself. The client denied any visual hallucinations. Cognitive assessment reveals orientation to person, place and time. The client presented to the [facility] ED [facility] after cutting her wrist with a pocket knife in attempt to end her life. The client did not show the cut to this brief writer. Per collateral report from [facility] ED provider the cut was superficial. The client reports she has been feeling stressed with work and life. The client states her girlfriends dad hasn't been the easiest person to talk to lately, and has been hostile towards her. The client reports her girlfriends dad has accused her of being manipulative to her girlfriend. The client reports feeling suicidal with a plan of cutting her wrist again or hanging herself. The client reports her intent to be a 8 out of 10. The client states she has been engaging in NSSI off and on for the last 3 years by cutting herself. The client denies wanting to harm anyone else. The client scored a a 25/27 on the PHQ-9 and a 6/6 on the CSSRS. The client reports her needs as going somewhere to not only get a break but get support and find the strength to move on in her life. Reports/communication Outcome discussed with: ED/Personnel
[2025-01-11 08:10] VITALS: BP 109/64; PULSE 77; RESP 17; TEMP 36.7; O2SAT 99
[2025-01-11] MEDS: Sertraline 100 MG TAB 150 MG PO (08:28)
[2025-01-11] MEDS: Calcitriol 0.25 MCG CAP PO (08:29)
[2025-01-11] MEDS: Cetirizine 10 MG TAB 20 MG PO (08:39)
[2025-01-11] MEDS: Calcium Carbonate 1.25 GM TAB PO (08:39)
[2025-01-11] MEDS: Budesonide/Formoterol 160/4.5 6 GM 60 PUFF INH IH (08:56)
--- NOTE | 2025-01-11 10:15 | NUR.NOTE ---
[facility] declined patient. Nursing Note:
[2025-01-11] MEDS: diazePAM 5 MG TAB PO (10:53)
--- NOTE | 2025-01-11 12:40 | CMSP_ITS ---
Date of service: 01/11/25 Time of Service: 12:41 Care Management Safety Plan Status Status: Voluntary Reason for Wait Reason for Wait: Inpatient Admission Safety Plan Safety Plan: VOLUNTARY FOR INPATIENT PSYCHIATRIC STABILIZATION.? Patient is appropriate in all interactions since arriving at [facility]; Pt has demonstrated appropriate coping and communication skills, has articulated his or her needs and concerns and is fully engaged during staff interactions. Safety plan has been established with patient, and care team, to adhere to patient goals, identify restrictions based on behavioral status, address nutrition, and determine allowed personal belongings, tools for hygiene and personal care. Determine level of activity including ambulation, level of supe rvision, visitors, and determine privileges based on behaviors and level of engagement by pt. VOLUNTARY SAFETY PLAN: 1. Will remain on suicide precautions, in paper clothes 2. Will remain in Zone B under direct supervision of one-on-one staff at all times provided by [employer]; BANDAR, DOPING SUPERVISOR sewing room supervisor. 3. May have paper cups, plates, finger foods as well as a cardboard spoon with which to eat meals. 4. Follow [facility] Management of the Admitted Behavioral Health Patient policy. 5. Shower available in Zone B without restriction. 6. Personal belongings-soft items permitted at RN discretion. 7. Visitors- supportive visitors, at RN discretion. 8. Activities: soft cart items, hospital tablets (Netflix/Portal+/music) approved per RN discretion. 9.? Bathroom available in Zone B without restriction. 10. Phone: limited to [facility] cordless phone at RN discretion. Due to VOLUNTARY status, if patient wishes to leave [facility], staff will contact [facility] Crisis Screener ([phone]) and Mandolin Repairer ([phone]) as soon as possible. In the event of elopement, notify [facility] Police ([phone]). Patient is currently voluntarily at [facility] and seeking inpatient admission when a bed becomes available. [facility] Frontline Senior Biostatistician will continue seeking placement. Please contact the Mandolin Repairer ([phone]) and [facility] Senior Biostatistician ([phone]) for any needed changes in the Safety Plan. Safety plan has been provided to interdepartmental care team.
--- NOTE | 2025-01-11 12:40 | PDOC.CMSAFE ---
Date of service: 01/11/25 Time of Service: 12:41 Care Management Safety Plan Status Status: Voluntary Reason for Wait Reason for Wait: Inpatient Admission Safety Plan Safety Plan: VOLUNTARY FOR INPATIENT PSYCHIATRIC STABILIZATION.? Patient is appropriate in all interactions since arriving at [facility]; Pt has demonstrated appropriate coping and communication skills, has articulated his or her needs and concerns and is fully engaged during staff interactions. Safety plan has been established with patient, and care team, to adhere to patient goals, identify restrictions based on behavioral status, address nutrition, and determine allowed personal belongings, tools for hygiene and personal care. Determine level of activity including ambulation, level of supervision, visitors, and determine privileges based on behaviors and level of engagement by pt. VOLUNTARY SAFETY PLAN: 1. Will remain on suicide precautions, in paper clothes 2. Will remain in Zone B under direct supervision of one-on-one staff at all times provided by [employer]; BANDAR, ASSISTANT DESIGNER press operator carbon blocks. 3. May have paper cups, plates, finger foods as well as a cardboard spoon with which to eat meals. 4. Follow [facility] Management of the Admitted Behavioral Health Patient policy. 5. Shower available in Zone B without restriction. 6. Personal belongings-soft items permitted at RN discretion. 7. Visitors- supportive visitors, at RN discretion. 8. Activities: soft cart items, hospital tablets (Netflix/[place]+/music) approved per RN discretion. 9.? Bathroom available in Zone B without restriction. 10. Phone: limited to [facility] cordless phone at RN discretion. Due to VOLUNTARY status, if patient wishes to leave [facility], staff will contact [facility] Crisis Screener ([phone]) and Forest Pathology Teacher ([phone]) as soon as possible. In the event of elopement, notify [facility] Police ([phone]). Patient is currently voluntarily at [facility] and seeking inpatient admission when a bed becomes available. [facility] Frontline Assistant Analyst will continue seeking placement. Please contact the Forest Pathology Teacher ([phone]) and [facility] Assistant Analyst ([phone]) for any needed changes in the Safety Plan. Safety plan has been provided to interdepartmental care team.
--- NOTE | 2025-01-11 12:41 | PDOC.CMPRO ---
Date of service: 01/11/25 Time of Service: 12:41 Care Management Progress Note Progress Note Text Progress Note Text: CM huddled with ED and [facility] staff regarding Jyothi's plan of care. Per RN, she presented with a self inflicted laceration of her left wrist, which was repaired with glue. Per report, she has been appropriate today. Per [facility], Jyothi is requesting to go to inpatient psychiatric treatment. Per report, her father is a good support; she lives with her parents. Jyothi is currently voluntary, seeking inpatient psychiatric treatment. Referrals were sent to facilities. She has been declined by [place]. [facility] requested additional documentation today, which was sent; they are reviewing her referral. Safety plan in place; CM will continue to follow. Social Determinants of Health Screening Will the Patient Participate in the Screening?: Unable to obtain
--- NOTE | 2025-01-11 14:02 | MHPN_ITS ---
Date of service: 01/11/25 Time of Service: 10:25 Mental Health Emergency Note Release [facility] release signed:: Yes Reason for Visit The client presented to [facility] with SI, intent and plan. The client made a superficial cut to her wrist, and self reported it was with the intention to end her life. 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 History: yes, The client self reports to have a history of NSSI by cutting herself. Safety Risk/Harm to Self or Others Current Ideation to Harm Self or Others: Yes to self. Intent: yes, has intent. Plan: yes,has a plan. History of suicide attempt: No history of suicide attempt reported Risk: Does risk to harm exist?: yes. Access to means: Yes. Types of Means: Other weapons and Medication. Risk: Moderate Risk Duty to warn indicated: No Asssessment/Mental Status Appearance: Disheveled Attitude: Friendly Behavior: Unremarkable Speech: Normal Affect: Cogruent with mood Mood: Depressed and Anxious Thought process: Goal directed Hallucinations: yes, Auditory (The client reports hearing a voice telling her to harm herself. ) Delusions: No Attention: Unremarkable Perception: Not impaired Orientation: Fully orientated Memory: Intact Insight: Poor Judgement: Poor Neurovegetative Symptoms Sleep: Decrease Appetitie: Decrease Interests: Decrease Energy: Decrease Libido: Not applicable Additional Issues: Assaultive/Threatening Behavior: No Medical Concerns: No Client engaged in active self harm w/weapon: Yes Threatening to run away: No Child reported abuse/neglect: No Voluntarily presenting for services: Yes Domestic violence is a concern: No Extreme Psychosis or extreme behavior is present: No Impression The client is a 20 year old biological female who rides with her parents in [facility]. The client presents in blue paper scrubs in her hospital bed in a disheveled appearance. Affect is congruent with mood. Client is cooperative and friendly with this clinician; they report their mood as depressed and anxious. Thought process appears goal directed as they are seeking help for their mental health. There are no delusions observed. The client reports having auditory hallucinations with hearing voices in her head telling her to harm herself. The client denied any visual hallucinations. Cognitive assessment reveals orientation to person, place and time. The client reports feeling ill today, and that she still has hardly been able to eat and her sleep last night was poor. The client states her face and feet have been feeling numb since last night. The client reports she has been conflicted between going to treatment or to work. The client reports still having SI with an intent of a 7 out of 10. The client reports her plan to be hanging herself to end her life by suicide. The client states she has been picking at her superficial cut on her wrist from yesterday when she cut her wrist with a pocket knife. The client reports she still is seeking voluntary impatient treatment for her mental health. Plan/Disposition Recommended Disposition: Hospitalization facilities contacted. Plan: The client will remain in the [facility] Zone B until placement is secured at a treatment facility. The client will receive daily assessments by ES until placement is secured Reports/communication Outcome discussed with: ED/Personnel
--- NOTE | 2025-01-11 14:26 | W.EDPROG ---
Date of service: 01/11/25 Time of Service: 14:26 Medical Decision Making Care assumed from outgoing provider. Patient has been accepted for inpatient voluntary psychiatric treatment at [facility] and will be transferred this afternoon Quality:[facility] Health Related Social Needs: Health related social needs education (Z55.6) Discharge Plan Disposition Patient Disposition: Psychiatric Hospital/Unit Specific Psychiatric Facility: [facility] Discharge Details Clinical Impression: Self-inflicted laceration of wrist, Depression with suicidal ideation, Hypokalemia Primary Care Provider: Liza Munson ED Provider: Loyd Mcclain Home Meds and New Rx's Prescriptions: No Action calcitriol 0.25 mcg capsule 0.25 mcg PO DAILY teriparatide 20 mcg/dose (560mcg/2.24mL) pen injector 20 mcg subcut BID Ajovy Autoinjector 225 mg/1.5 mL auto-injector 225 mg subcut QMONTH Nexplanon 68 mg implant 1 implant subdermal ONCE Rx Instructions: as a single dose albuterol sulfate [Ventolin HFA] 90 mcg/actuation HFA aerosol inhaler 2 puff inhalation Q6H PRN montelukast 10 mg tablet 10 mg PO PRN trazodone 100 mg tablet 300 mg PO TID PRN sertraline [Zoloft] 100 mg tablet 150 mg PO DAILY fluticasone propion-salmeterol [Advair HFA] 230-21 mcg/actuation HFA aerosol inhaler 2 puff inhalation BID Qty: 12 12RF prazosin 1 mg capsule 3 mg PO QHS Ubrelvy 100 mg tablet 100 mg PO ONCE PRN Rx Instructions: 1-2 tabs epinephrine [EpiPen] 0.3 mg/0.3 mL auto-injector 0.3 ml subcut ONCE PRN Rx Instructions: as a single dose; may repeat once calcium carbonate 400 mg/5 mL suspension 1,250 mg PO BID Rx Instructions: 1250mg/5ml oral suspension levalbuterol tartrate [Xopenex HFA] 2 puff inhalation PRN buspirone 30 mg tablet 20 mg PO TID cyclobenzaprine 10 mg Tablet 10 mg PO TID PRN PRNQty: 10 0RF gabapentin 300 mg capsule 300 mg PO TID cetirizine [24Hour Allergy] 10 mg tablet 20 mg PO DAILY
--- NOTE | 2025-01-15 15:27 | NUR.NOTE ---
Patient called asking if a note could be faxed to her place of work stating the dates that she was here. Note stating Jyothi Wright was a patient in the Emergency Departmet from 01/10/25 to 01/11/25. Dr. Tim signed the note. This was faxed to [facility] fax [phone]. Nursing Note:
--- NOTE | 2025-01-16 10:11 | NUR.NOTE ---
accessing chart as follow up for Marjan Rivero Note:
--- NOTE | 2025-01-16 11:08 | NUR.NOTE ---
Completed needed documentation in chart for this visit.
== END 2025-01-11 14:35 ==
PROVIDERS: Emergency Medicine Emergency Medical Services; Emergency Provider Emergency Medicine; PCP Nurse Practitioner Family
DX: F32.A Depression, unspecified (principal); R45.851 Suicidal ideations; S61.512A Laceration without foreign body of left wrist, initial encounter; X78.1XXA Intentional self-harm by knife, initial encounter; Z55.6 Problems related to health literacy; E87.6 Hypokalemia
CPT/HCPCS: 99285 ×2; 12001; 81025; 00123; 36415; 80053; 80307; 96127; 80320; 81003; 84703; 85025

== ENCOUNTER 2025-01-19 21:23 | Emergency (ER) | payer MEDICAID, SELFPAY ==
[2025-01-19 21:22] VITALS: BP 133/86; PULSE 85; RESP 18; TEMP 36.4; O2SAT 98
--- NOTE | 2025-01-19 21:38 | ED.GENADUL_ITS ---
Discharge Plan Discharge Details Chief Complaint: PsychEval Clinical Impression: Depression with suicidal ideation Primary Care Provider: Liza Munson ED Provider: Rambo Gunn Home Meds and New Rx's Prescriptions: No Action calcitriol 0.25 mcg capsule 0.25 mcg PO DAILY teriparatide 20 mcg/dose (560mcg/2.24mL) pen injector 20 mcg subcut BID Ajovy Autoinjector 225 mg/1.5 mL auto-injector 225 mg subcut QMONTH Nexplanon 68 mg implant 1 implant subdermal ONCE Rx Instructions: as a single dose albuterol sulfate [Ventolin HFA] 90 mcg/actuation HFA aerosol inhaler 2 puff inhalation Q6H PRN montelukast 10 mg tablet 10 mg PO PRN trazodone 100 mg tablet 50 mg PO TID PRN sertraline [Zoloft] 100 mg tablet 150 mg PO DAILY fluticasone propion-salmeterol [Advair HFA] 230-21 mcg/actuation HFA aerosol inhaler 2 puff inhalation BID Qty: 12 12RF prazosin 1 mg capsule 3 mg PO QHS Ubrelvy 100 mg tablet 100 mg PO ONCE PRN Rx Instructions: 1-2 tabs epinephrine [EpiPen] 0.3 mg/0.3 mL auto-injector 0.3 ml subcut ONCE PRN Rx Instructions: as a single dose; may repeat once calcium carbonate 400 mg/5 mL suspension 1,250 mg PO BID Rx Instructions: 1250mg/5ml oral suspension levalbuterol tartrate [Xopenex HFA] 2 puff inhalation PRN buspirone 30 mg tablet 20 mg PO BID cyclobenzaprine 10 mg Tablet 10 mg PO TID PRN PRNQty: 10 0RF gabapentin 300 mg capsule 300 mg PO TID cholecalciferol (vitamin D3) [Vitamin D3] 50 mcg (2,000 unit) tablet 50 mcg PO DAILY cetirizine [24Hour Allergy] 10 mg tablet 20 mg PO DAILY HPI General Mode of arrival: EMS . Date/Time Provider Initiated Documentation: 01/19/25 21:29 . Limitations to Documentation: no limitations . Information obtained by: patient . History of Present Illness 20 year old F presents to the emergency department with the chief complaint of SI, described as moderate, Patient started experiencing this week(s) (2) and it has been constant. No relieving factors improve symptom(s), No exacerbating factors reported . Patient notes denies fever/chills and shortness of breath. Related Data Home Medications ?Medication ?Instructions ?Recorded ?Confirmed trazodone 100 mg tablet 50 mg PO TID PRN 03/12/24 01/19/25 cetirizine 10 mg tablet (24Hour 20 mg PO DAILY 07/08/24 01/19/25 Allergy) calcitriol 0.25 mcg capsule 0.25 mcg PO DAILY 10/01/24 01/19/25 sertraline 100 mg tablet (Zoloft) 150 mg PO DAILY 10/01/24 01/19/25 calcium carbonate 400 mg/5 mL oral 1,250 mg PO BID 10/04/24 01/19/25 suspension epinephrine 0.3 mg/0.3 mL 0.3 ml subcut ONCE PRN 10/04/24 01/19/25 injection, auto-injector (EpiPen) levalbuterol tartrate 2 puff inhalation PRN 10/04/24 01/19/25 prazosin 1 mg capsule 3 mg PO QHS 10/04/24 01/19/25 ubrogepant 100 mg tablet (Ubrelvy) 100 mg PO ONCE PRN 10/04/24 01/19/25 buspirone 30 mg tablet 20 mg PO BID 11/11/24 01/19/25 cyclobenzaprine 10 mg tablet 10 mg PO TID PRN PRN #10 tabs 11/17/24 01/19/25 fluticasone propionate 230 2 puff inhalation BID #12 grams 12/27/24 01/19/25 mcg-salmeterol 21 mcg/actuation HFA inhaler (Advair HFA) albuterol sulfate 90 mcg/actuation 2 puff inhalation Q6H PRN 12/31/24 01/19/25 aerosol inhaler (Ventolin HFA) etonogestrel 68 mg subdermal 1 implant subdermal ONCE 12/31/24 01/19/25 implant (Nexplanon) fremanezumab-vfrm 225 mg/1.5 mL 225 mg subcut QMONTH 12/31/24 01/19/25 subcutaneous auto-injector (Ajovy) montelukast 10 mg tablet 10 mg PO PRN 12/31/24 01/19/25 teriparatide 20 mcg/dose (560 20 mcg subcut BID 12/31/24 01/19/25 mcg/2.24 mL) subcutaneous pen injector gabapentin 300 mg capsule 300 mg PO TID 01/11/25 01/19/25 cholecalciferol (vitamin D3) 50 50 mcg PO DAILY 01/19/25 01/19/25 mcg (2,000 unit) tablet (Vitamin D3) Previous Rx's ?Medication ?Instructions ?Recorded cyclobenzaprine 10 mg tablet 10 mg PO TID PRN PRN #10 tabs 11/17/24 fluticasone propionate 230 2 puff inhalation BID #12 grams 12/27/24 mcg-salmeterol 21 mcg/actuation HFA inhaler (Advair HFA) Allergies Allergy/AdvReac Type Severity Reaction Status Date / Time cat dander Allergy Wheezing Verified 01/10/25 17:05 dog dander Allergy Wheezing Verified 01/10/25 17:05 house dust mite Allergy Wheezing Verified 01/10/25 17:05 tree and shrub pollen Allergy Wheezing Verified 01/10/25 17:05 hydrocodone AdvReac TACHYCARDIA Verified 01/10/25 17:05 PER PT ibuprofen AdvReac per Verified 01/10/25 17:05 nephrology tramadol AdvReac Other (See Verified 01/10/25 17:05 Comment) General Stated Complaint: PsychEval KEILY: 2 Review of Systems All systems reviewed & are unremarkable except as noted in HPI and below Constitutional Constitutional: Denies chills and Denies fever(s) Cardiovascular Cardiovascular: Denies chest pain and Denies dyspnea Respiratory Respiratory: Denies cough and Denies dyspnea Gastrointestinal Gastrointestinal: Denies abdominal pain, Denies nausea and Denies vomiting Psychiatric Psychiatric: Reports depression Exam Const General: no acute distress Orientation: alert HENMT Head: normal to inspection Ears: external ears normal General nose exam: external nose normal Mouth: moist mucous membranes Eyes General: appearance normal, both eyes and all related structures Neck Neck: normal visual inspection Resp Effort & Inspection: normal respiratory effort and able to speak in complete sentences Cardio Rate: regular rate Skin General skin exam: no rashes or lesions noted Neuro General: patient alert and patient oriented x3 Extrem General: full ROM and capillary refill normal Psych Affect: other (flat) Attitude: cooperative Course Vital Signs Vital signs: Vital Signs Temperature 36.4 C 01/19/25 21:22 Pulse 85 01/19/25 21:22 Respiratory Rate 18 01/19/25 21:22 Blood Pressure 133/86 01/19/25 21:22 Pulse Oximetry 98 01/19/25 21:22 Temperature 36.4 C 01/19/25 21:22 Temperature Source Temporal Artery Scan 01/19/25 21:22 Pulse 85 01/19/25 21:22 Respiratory Rate 18 01/19/25 21:22 Blood Pressure 133/86 01/19/25 21:22 Blood Pressure Position Sitting 01/19/25 21:22 Pulse Oximetry 98 01/19/25 21:22 Oxygen Delivery Method Room Air 01/19/25 21: Oxygen Flow Rate 0 01/19/25 21:22 Medical Decision Making 20-year-old female who was recently hospitalized at [facility] for depression and SI comes in with continued thoughts of self-harm after being discharged this past Monday per patient. She has not attempted to harm her self other than cutting her left wrist. She denies any ingestions or drug use. She is oriented x 4. Normal gait. No focal motor deficits. Denies any fevers or other symptoms. She has superficial 1 cm laceration to the anterior distal mid forearm with full range of motion of the wrist and intact sensation and pulses. The wound is not deep enough to require sutures, I will have nursing Steri- Stripped this after they cleaned it. Will obtain screening labs and have mental health evaluate. Patient was screened [facility] and will be seeking voluntary placement. Quality:SDOH Health Related Social Needs: Health related social needs feeling lonely/isolated (Z 60.8) Health related social needs details patient frequently here for SI. PFSH All Active Problems (Updated 01/19/25 @ 21:42 by Rambo Gunn MD) Hypokalemia (Acute) Depression with suicidal ideation (Acute) Self-inflicted laceration of wrist (Acute) Self induced vomiting (Acute) Myalgia (Acute) Hypokalemia (Acute) Hypocalcemia (Acute) Hypomagnesemia (Acute) Muscle spasm (Acute) Hypomagnesemia (Acute) Anxiety (Chronic) Sensorineural hearing loss of both ears (Acute) Stage 2 chronic kidney disease (Chronic) Hypoparathyroidism (Chronic 10/31/14) congenital, followed by [facility] endocrinology Medical History Esotropia (12/15/14) glasses for correction 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 Started fluox 03/05, stopped spring 2020- restarted but stopped in the fall secondary to concerns of worsening suicidal ideation- trial lexapro- increase dose to 20 mg today (03/28/22) Chronic kidney disease (CKD) Nasal vestibulitis Patulous eustachian tube of left ear Chronic allergic rhinitis Encounter for immunotherapy Right-sided tinnitus Calcification of brain per [facility] neuro notes; bifrontal first noted in 2010; 2019 with some affecting basal ganglia, d/t underlying hypoparathyroidism Sciatica of right side Strain of extensor pollicis longus tendon Injury of thumb, right Urinary tract infection Allergic reaction Complex regional pain syndrome of right upper extremity Nocturnal enuresis (12/15/14) pull ups at night Recurrent UTI Cough Abnormal chest xray Moderate persistent asthma Low back pain De Quervain's tenosynovitis, left Dysfunction of right eustachian tube Palpitations Contraception 09/2023. Patient given information regarding Nexplanon. 10/18/23. Nexplanon for menstrual control. Wears hearing aid in both ears Otalgia of right ear TMJ pain dysfunction syndrome Sinusitis Nexplanon in place 09/2023. For menstrual control. Traumatic plantar fasciitis LEFT Lip lesion Electrolyte disturbance Depo-Provera contraceptive status 04/2023. Stopped per patient request 09/2023 restarted per patient request Hypokalemia Abnormal uterine bleeding (AUB) 2017. menstrual irreg. OCPs 05/29/2019. Dysmenorrhea. DepoProvera 150 mg every 3 months Ingrowing toenail (05/14/18) Left great toe; s/p resection ADHD (attention deficit hyperactivity disorder) Surgical History Vesicoureteric reflux (12/15/14) s/p bilateral ureteral implants [place] teeth extracted all 4 teeth extracted ureteral implants- bilat Tonsillectomy and adenoidectomy Myringotomy w/ PE (pressure equalizing) tubes Family History Mother Family history unknown Father Family history unknown Social History Smoking/Tobacco Use Status: Never Smoking risk assessment performed?: Yes Alcohol Intake: never Drug use: Never Substance use type: does not use Adopted: Yes Housing: house Education Level: college Details: [employer], starting [employer] in the fall current occupation: 02/28/2020 works at [employer] Pets and animals: Yes Pets and animals: cat(s), dog(s) and other Details: CHICKENS, TURKEYS, SHEEP, COWS Sexually active: No Do you feel safe at home: No (Pt reports environment is safe but she feels suicidal) Do you feel safe in your relationship?: Yes Additional Social history: safe environment, but not safe in myself Female Reproductive History Menstrual Age of Menarche: 11 Duration of menses: other control method: implanted
[2025-01-19 21:57] LABS: Abs Immature Grans 0.03 10^3/uL (0.0-0.06); Absolute Basophil Count 0.04 10^3/uL (0.0-0.2); Absolute Eosinophil Count 0.19 10^3/uL (0.0-0.7); Absolute Lymphocyte Count 2.84 10^3/uL (1.2-3.4); Absolute Monocyte Count 0.48 10^3/uL (0.1-0.8); Absolute Neutrophil Count 5.09 10^3/uL (1.2-6.7); Basophils % 0.5 %; Eosinophils % 2.2 %; HCT 31.9 % (36.0-46.0); HGB 10.4 g/dL (11.2-15.7); Immature Grans % 0.3 %; Lymphocytes % 32.8 %; MCH 27.2 pg (27.0-33.0); MCHC 32.6 % (32.0-36.0); MCV 83 fL (80-95); MPV 10.1 fL (8.0-11.0); Monocytes % 5.5 %; Neutrophils % 58.7 %; Platelet Count 295 10^3/uL (130-400); RBC 3.83 10^6/uL (3.93-5.22); RDW 16.5 % (11.7-14.6); RDW-SD 50.4 fL; WBC 8.67 10^3/uL (4.4-10.8)
--- NOTE | 2025-01-19 21:58 | PDOC.MHCN ---
Date of service: 01/19/25 Time of Service: 20:45 Mental Health Emergency Note Release [facility] release signed:: Yes Reason for Visit The client is known to [facility] and currently receives services through the [facility] program. The client has been hospitalized numerous times all on a voluntary basis. The client was released from [facility] on 01/17. Tonight the client called [phone] and mobile crisis was dispatched to a chosen location by the client. This writer technical publications outreached to the client via phone to get their time of arrival and they reported that they were parked out front and refused to come inside or have this writer technical publications come out as they had already self-harmed. The client then hung up on this writer technical publications. This writer technical publications called both [employer] and [facility] and a ARSH was issued. [employer] located the clients car behind [employer] where the client was found to be actively self harming. [facility] this writer technical publications and this writer technical publications responded to evaluate the client face to face. In the last 2 weeks has the pt presented for ES prior to today?: Yes, presented at (Client was released from [facility] on Wednesday 01/17) Other Client Information Client is: [employer] Well Housed: No,status: Not homeless, Unstable housing Non Suicidal Self Injury Current: Yes, Client has two superficial cuts to left forearm that she completed today with a knife. History: yes, History of NSSI via cutting. Safety Risk/Harm to Self or Others Current Ideation to Harm Self or Others: Yes to self. (Client is currently reporting SI with plan and intent, however would not disclose specific plan to this writer technical publications. The client reports that they plan to complete plan. ) Intent: yes, has intent. Plan: yes,has a plan. History of suicide attempt: No history of suicide attempt reported Risk: Does risk to harm exist?: yes. Access to means: No. Risk: Moderate Risk Asssessment/Mental Status Appearance: Unremarkable Attitude: Guarded Behavior: Unremarkable Speech: Soft, Slow and Hesitant Affect: Flat and Cogruent with mood Mood: Sad, Depressed and Anxious Thought process: Unremarkable Hallucinations: No Delusions: No Attention: Poor concentration Perception: Not impaired Orientation: Fully orientated Memory: Intact Insight: Poor Judgement: Poor Neurovegetative Symptoms Sleep: Decrease Appetitie: Decrease Interests: Decrease Energy: Decrease Libido: Not applicable Substance Use: Do you use nicotine?: No Have you used substances in the last 7 days?: No Additional Issues: Assaultive/Threatening Behavior: No Medical Concerns: No Client engaged in active self harm w/weapon: Yes Threatening to run away: No Child reported abuse/neglect: No Voluntarily presenting for services: Yes Domestic violence is a concern: No Extreme Psychosis or extreme behavior is present: No Impression The client is a single 20 y/o female that resides with her parents and siblings in [place], [place]. The client is currently employed by [employer] in [place], [place]. [facility] due to the client not engaging assessment. Tonight the client called [phone] and mobile crisis was dispatched to a chosen location by the client. This writer technical publications outreached to the client via phone to get their time of arrival and they reported that they were parked out front and refused to come inside or have this writer technical publications come out as they had already self-harmed. The client then hung up on this writer technical publications. This writer technical publications called both [employer] and [facility] and a ARSH was issued. [employer] located the clients car behind [employer] where the client was found to be actively self harming. [facility] outreached to this writer technical publications and this writer technical publications responded to evaluate the client face to face. The client presented as guarded and exhibited an unwillingness to engage during the assessment. She refused to complete the screening tools. The client demonstrated self-harming behavior by using a knife on her forearm and reported ongoing lack of sleep and appetite. She conveyed persistent suicidal ideations, disclosing both a plan and intent to carry it out. Despite her reluctance, the client sought voluntary inpatient treatment at [facility] ED. Throughout the assessment, the client was tearful and displayed a noticeable depressive affect. The client presented as guarded and exhibited an unwillingness to engage during the assessment. She refused to complete the screening tools. The client demonstrated self-harming behavior by using a knife on her forearm and reported ongoing lack of sleep and appetite. She conveyed persistent suicidal ideations, disclosing both a plan and intent to carry it out. Despite her reluctance, the client sought voluntary inpatient treatment at [facility] ED. Throughout the assessment, the client was tearful and displayed a noticeable depressive affect. Plan/Disposition Recommended Disposition: Hospitalization (Referrals will be sent to [facility], [facility] transfer station, [facility], and [facility]. ) No. Plan: The client transported to [facility] ED via [facility]. The client will remain at [facility] ED on voluntary status pending placement in an inpatient facility. If the client attempts to leave an EE should be considered. The client will be re-assessed by [facility] daily until placement is secured. Person reported agreement to plan: Yes Reports/communication Outcome discussed with: ED/Personnel ([facility] called and gave information to [facility] ED staff. )
[2025-01-19 22:14] LABS: Salicylate < 2.8 mg/dL (<2.8)
[2025-01-19 22:16] LABS: Acetaminophen < 2 ug/mL (10-30)
[2025-01-19 22:23] LABS: ALT 24 U/L (14-59); AST 22 U/L (15-37); Alkaline Phosphatase 81 U/L (46-116); Anion Gap 8.1 mmol/L (3-11); BUN 26 mg/dL (7-18); Bilirubin, Total 0.2 mg/dL (0.2-1.0); CO2 28.9 mmol/L (21.0-32.0); CREATININE 0.9 mg/dL (0.55-1.02); Chloride 103 mmol/L (98-107); Estimated GFR 93.28 (mL/min/1.73m2); Glucose 97 mg/dL (74-106); Magnesium 1.4 mg/dL (1.8-2.4); Potassium 3.3 mmol/L (3.5-5.1); Sodium 140 mmol/L (136-145); TSH (W/Ref FT4) 3.54 uIU/mL (0.36-3.74); Total Protein 7.8 g/dL (6.4-8.2)
[2025-01-19 22:29] LABS: Bilirubin Negative (Negative); Blood Negative (Negative); Clarity Clear (Clear); Glucose Negative (Negative); Ketones Negative (Negative); Leukocyte Esterase Trace (Negative); Nitrite Negative (Negative); Urobilinogen 0.2 mg/dL (Up to 0.2)
[2025-01-19 22:33] LABS: ETHANOL BLOOD < 3.0 mg/dL (<10)
[2025-01-19 22:38] LABS: Bacteria Moderate HPF (Negative); C & S Indicated? No; Casts Negative LPF (Negative); Crystals Negative HPF (Negative); Epithelial Cells Rare HPF (Negative); Mucus Negative (Negative); RBC Negative HPF (0-2)
[2025-01-19] MEDS: Prazosin 1 MG CAP 3 MG PO (22:38)
[2025-01-19] MEDS: traZODone 100 MG TAB 50 MG PO (22:38)
[2025-01-19 22:43] LABS: *AMPHETAMINES SCREEN URINE Negative (Negative); *BARBITURATES SCREEN URINE Negative (Negative); *BENZODIAZEPINES SCREEN URINE Negative (Negative); Cannabinoids THC Negative (Negative); Cocaine Screen,Urine Negative (Negative); METHADONE URINE SCREEN Negative (Negative); OPIATES URINE SCREEN Negative (Negative)
[2025-01-19 22:44] LABS: Tricyclic Antidepressants Negative (Negative)
--- NOTE | 2025-01-20 05:06 | ED.PROG_ITS ---
Date of service: 01/20/25 Time of Service: 05:06 Medical Decision Making Patient suicidal but voluntary, stable throughout the shift. At time of transition labs came back from previous physician which did show mild hypocalcemia, mild hypokalemia, mild hypomagnesemia. Oral replacements were added to be given for the next few days for oral calcium magnesium and potassium. Patient otherwise was stable throughout shift. Quality:SDOH Health Related Social Needs: Health related social needs feeling lonely/isolated (Z 60.8) Health related social needs details patient frequently here for SI. Discharge Plan Discharge Details Chief Complaint: PsychEval Clinical Impression: Depression with suicidal ideation Primary Care Provider: Liza Munson ED Provider: Mushtaq Tim Home Meds and New Rx's Prescriptions: No Action calcitriol 0.25 mcg capsule 0.25 mcg PO DAILY teriparatide 20 mcg/dose (560mcg/2.24mL) pen injector 20 mcg subcut BID Ajovy Autoinjector 225 mg/1.5 mL auto-injector 225 mg subcut QMONTH Nexplanon 68 mg implant 1 implant subdermal ONCE Rx Instructions: as a single dose albuterol sulfate [Ventolin HFA] 90 mcg/actuation HFA aerosol inhaler 2 puff inhalation Q6H PRN montelukast 10 mg tablet 10 mg PO PRN trazodone 100 mg tablet 50 mg PO TID PRN sertraline [Zoloft] 100 mg tablet 150 mg PO DAILY fluticasone propion-salmeterol [Advair HFA] 230-21 mcg/actuation HFA aerosol inhaler 2 puff inhalation BID Qty: 12 12RF prazosin 1 mg capsule 3 mg PO QHS Ubrelvy 100 mg tablet 100 mg PO ONCE PRN Rx Instructions: 1-2 tabs epinephrine [EpiPen] 0.3 mg/0.3 mL auto-injector 0.3 ml subcut ONCE PRN Rx Instructions: as a single dose; may repeat once calcium carbonate 400 mg/5 mL suspension 1,250 mg PO BID Rx Instructions: 1250mg/5ml oral suspension levalbuterol tartrate [Xopenex HFA] 2 puff inhalation PRN buspirone 30 mg tablet 20 mg PO BID cyclobenzaprine 10 mg Tablet 10 mg PO TID PRN PRNQty: 10 0RF gabapentin 300 mg capsule 300 mg PO TID cholecalciferol (vitamin D3) [Vitamin D3] 50 mcg (2,000 unit) tablet 50 mcg PO DAILY cetirizine [24Hour Allergy] 10 mg tablet 20 mg PO DAILY
[2025-01-20 07:57] VITALS: BP 102/61; PULSE 70; RESP 16; O2SAT 99
[2025-01-20] MEDS: Sertraline 100 MG TAB 150 MG PO (08:41)
[2025-01-20] MEDS: Cholecalciferol (Vitamin D3) 1,000 UNIT TAB 2000 UNITS PO (08:41)
[2025-01-20] MEDS: Gabapentin 300 MG CAP PO ×3 (08:41→21:44)
[2025-01-20] MEDS: Cetirizine 10 MG TAB 20 MG PO (08:41)
[2025-01-20] MEDS: busPIRone 5 MG TAB 20 MG PO ×2 (08:41→21:43)
[2025-01-20] MEDS: Calcium Carbonate *TUMS* 500 MG CHEW 1000 MG PO ×2 (08:41→21:44)
[2025-01-20] MEDS: Magnesium Oxide 400 MG TAB 800 MG PO (09:11)
[2025-01-20] MEDS: Potassium Chloride 20 MEQ TABCR PO (09:11)
--- NOTE | 2025-01-20 14:42 | CMSP_ITS ---
Date of service: 01/20/25 Time of Service: 14:50 Care Management Safety Plan Status Status: Voluntary Reason for Wait Reason for Wait: Inpatient Admission Safety Plan Safety Plan: VOLUNTARY FOR INPATIENT PSYCHIATRIC STABILIZATION.? Patient is appropriate in all interactions since arriving at [facility]; Pt has demonstrated appropriate coping and communication skills, has articulated his or her needs and concerns and is fully engaged during staff interactions. Safety plan has been established with patient, and care team, to adhere to patient goals, identify restrictions based on behavioral status, address nutrition, and determine allowed personal belongings, tools for hygiene and personal care. Determine level of activity including ambulation, level of superv ision, visitors, and determine privileges based on behaviors and level of engagement by pt. VOLUNTARY SAFETY PLAN: 1. Will remain on suicide precautions, in paper clothes 2. Will remain in Zone B under direct supervision of one-on-one staff at all times provided by [employer]; BANDAR, CHEMICAL DEPENDENCY THERAPIST teacher tutor. 3. May have paper cups, plates, and finger foods- no cardboard spoon. 4. Follow [facility] Management of the Admitted Behavioral Health Patient policy. 5. Shower available in Zone B without restriction. 6. Personal belongings-soft items permitted at RN discretion. 7. Visitors- supportive visitors, at RN discretion. 8. Activities: soft cart items, hospital tablets (Netflix/[place]+/music) approved per RN discretion. 9.? Bathroom available in Zone B without restriction. 10. Phone: limited to [facility] cordless phone at RN discretion. Due to VOLUNTARY status, if patient wishes to leave [facility], staff will contact [facility] Crisis Screener ([phone]) and Crm Coordinator ([phone]) as soon as possible. In the event of elopement, notify [facility] Police ([phone]). Patient is currently voluntarily at [facility] and seeking inpatient admission when a bed becomes available. [facility] Frontline Manager Of Supply Chain will continue seeking placement. Please contact the Crm Coordinator ([phone]) and [facility] Manager Of Supply Chain ([phone]) for any needed changes in the Safety Plan. Safety plan has been provided to interdepartmental care team.
--- NOTE | 2025-01-20 14:42 | PDOC.CMSAFE ---
Date of service: 01/20/25 Time of Service: 14:50 Care Management Safety Plan Status Status: Voluntary Reason for Wait Reason for Wait: Inpatient Admission Safety Plan Safety Plan: VOLUNTARY FOR INPATIENT PSYCHIATRIC STABILIZATION.? Patient is appropriate in all interactions since arriving at [facility]; Pt has demonstrated appropriate coping and communication skills, has articulated his or her needs and concerns and is fully engaged during staff interactions. Safety plan has been established with patient, and care team, to adhere to patient goals, identify restrictions based on behavioral status, address nutrition, and determine allowed personal belongings, tools for hygiene and personal care. Determine level of activity including ambulation, level of supervision, visitors, and determine privileges based on behaviors and level of engagement by pt. VOLUNTARY SAFETY PLAN: 1. Will remain on suicide precautions, in paper clothes 2. Will remain in Zone B under direct supervision of one-on-one staff at all times provided by [employer]; BANDAR, AUTOMATIC BUFFING WHEEL FORMER supervisor weaving. 3. May have paper cups, plates, and finger foods- no cardboard spoon. 4. Follow [facility] Management of the Admitted Behavioral Health Patient policy. 5. Shower available in Zone B without restriction. 6. Personal belongings-soft items permitted at RN discretion. 7. Visitors- supportive visitors, at RN discretion. 8. Activities: soft cart items, hospital tablets (Netflix/[place]+/music) approved per RN discretion. 9.? Bathroom available in Zone B without restriction. 10. Phone: limited to [facility] cordless phone at RN discretion. Due to VOLUNTARY status, if patient wishes to leave [facility], staff will contact [facility] Crisis Screener ([phone]) and Pcb Designer ([phone]) as soon as possible. In the event of elopement, notify [facility] Police ([phone]). Patient is currently voluntarily at [facility] and seeking inpatient admission when a bed becomes available. [facility] Frontline Mechanic Industrial Truck will continue seeking placement. Please contact the Pcb Designer ([phone]) and [facility] Mechanic Industrial Truck ([phone]) for any needed changes in the Safety Plan. Safety plan has been provided to interdepartmental care team.
--- NOTE | 2025-01-20 14:52 | W.EDPROG ---
Date of service: 01/20/25 Time of Service: 14:52 Medical Decision Making Care assumed from off going provider. Patient is a 20-year-old female, currently pending voluntary inpatient placement for suicidal ideation. She was recently here and placed at [place], recently just discharged from [facility] and returns for same symptoms. On lab work evaluation, she had some electrolyte derangement and replacement medications have been ordered for her. [facility] evaluation has concerns that patient would likely need EE criteria if she chose to no longer be voluntary placement. Today it was noted also that the patient kept her safety spoon off of her tray and attempted to cut herself with this spoon. Patient will no longer be getting any utensils even paper ones Quality:SDOH Health Related Social Needs: Health related social needs feeling lonely/isolated (Z60.8) Health related social needs details patient frequently here for SI. Discharge Plan Discharge Details Chief Complaint: PsychEval Clinical Impression: Depression with suicidal ideation Primary Care Provider: Liza Munson ED Provider: Loyd Mcclain Home Meds and New Rx's Prescriptions: No Action calcitriol 0.25 mcg capsule 0.25 mcg PO DAILY teriparatide 20 mcg/dose (560mcg/2.24mL) pen injector 20 mcg subcut BID Ajovy Autoinjector 225 mg/1.5 mL auto-injector 225 mg subcut QMONTH Nexplanon 68 mg implant 1 implant subdermal ONCE Rx Instructions: as a single dose albuterol sulfate [Ventolin HFA] 90 mcg/actuation HFA aerosol inhaler 2 puff inhalation Q6H PRN montelukast 10 mg tablet 10 mg PO PRN trazodone 100 mg tablet 50 mg PO TID PRN sertraline [Zoloft] 100 mg tablet 150 mg PO DAILY fluticasone propion-salmeterol [Advair HFA] 230-21 mcg/actuation HFA aerosol inhaler 2 puff inhalation BID Qty: 12 12RF prazosin 1 mg capsule 3 mg PO QHS Ubrelvy 100 mg tablet 100 mg PO ONCE PRN Rx Instructions: 1-2 tabs epinephrine [EpiPen] 0.3 mg/0.3 mL auto-injector 0.3 ml subcut ONCE PRN Rx Instructions: as a single dose; may repeat once calcium carbonate 400 mg/5 mL suspension 1,250 mg PO BID Rx Instructions: 1250mg/5ml oral suspension levalbuterol tartrate [Xopenex HFA] 2 puff inhalation PRN buspirone 30 mg tablet 20 mg PO BID cyclobenzaprine 10 mg Tablet 10 mg PO TID PRN PRNQty: 10 0RF gabapentin 300 mg capsule 300 mg PO TID cholecalciferol (vitamin D3) [Vitamin D3] 50 mcg (2,000 unit) tablet 50 mcg PO DAILY cetirizine [24Hour Allergy] 10 mg tablet 20 mg PO DAILY
--- NOTE | 2025-01-20 14:55 | CMPROGNOTE_ITS ---
Date of service: 01/20/25 Time of Service: 14:59 Care Management Progress Note Progress Note Text Progress Note Text: CM huddled with [facility] and [facility] staff regarding Jyothi's plan of care. Per RN, Jyothi was cooperative and appropriate this morning. Later in the day, CM was notified that Jyothi was able to cut her wrist with the cardboard spoon provided with lunch. CM removed the cardboard spoons from the safety plan, as Jyothi was unable to maintain safety; she will have finger foods in order to avoid the use of any utensils. Per [facility], Jyothi is reporting SI with intent and plan, which is to cut her wrists. [facility] feels that she would be held involuntarily, if she states that she wants to leave. Her parents may visit to bring in medications that are home meds. Jyothi is currently voluntary, seeking inpatient psychiatric care. Referrals have been sent. Safety plan in place; CM will continue to follow. Social Determinants of Health Screening Will the Patient Participate in the Screening?: Unable to obtain
--- NOTE | 2025-01-20 16:22 | ED.PROG_ITS ---
Date of service: 01/20/25 Time of Service: 16:23 Medical Decision Making Patient here currently voluntary for thoughts of self-harm, no new acute complaints. Will continue to monitor until safe disposition found. Quality:SDOH Health Related Social Needs: Health related social needs feeling lonely/isolated (Z 60.8) Health related social needs details patient frequently here for SI. Discharge Plan Discharge Details Chief Complaint: PsychEval Clinical Impression: Depression with suicidal ideation Primary Care Provider: Liza Munson ED Provider: Rambo Gunn [place] Meds and New Rx's Prescriptions: No Action calcitriol 0.25 mcg capsule 0.25 mcg PO DAILY teriparatide 20 mcg/dose (560mcg/2.24mL) pen injector 20 mcg subcut BID Ajovy Autoinjector 225 mg/1.5 mL auto-injector 225 mg subcut QMONTH Nexplanon 68 mg implant 1 implant subdermal ONCE Rx Instructions: as a single dose albuterol sulfate [Ventolin HFA] 90 mcg/actuation HFA aerosol inhaler 2 puff inhalation Q6H PRN montelukast 10 mg tablet 10 mg PO PRN trazodone 100 mg tablet 50 mg PO TID PRN sertraline [Zoloft] 100 mg tablet 150 mg PO DAILY fluticasone propion-salmeterol [Advair HFA] 230-21 mcg/actuation HFA aerosol inhaler 2 puff inhalation BID Qty: 12 12RF prazosin 1 mg capsule 3 mg PO QHS Ubrelvy 100 mg tablet 100 mg PO ONCE PRN Rx Instructions: 1-2 tabs epinephrine [EpiPen] 0.3 mg/0.3 mL auto-injector 0.3 ml subcut ONCE PRN Rx Instructions: as a single dose; may repeat once calcium carbonate 400 mg/5 mL suspension 1,250 mg PO BID Rx Instructions: 1250mg/5ml oral suspension levalbuterol tartrate [Xopenex HFA] 2 puff inhalation PRN buspirone 30 mg tablet 20 mg PO BID cyclobenzaprine 10 mg Tablet 10 mg PO TID PRN PRNQty: 10 0RF gabapentin 300 mg capsule 300 mg PO TID cholecalciferol (vitamin D3) [Vitamin D3] 50 mcg (2,000 unit) tablet 50 mcg PO DAILY cetirizine [24Hour Allergy] 10 mg tablet 20 mg PO DAILY
--- NOTE | 2025-01-20 21:23 | MHPN_ITS ---
Date of service: 01/20/25 Time of Service: 10:00 PHQ-9 Over the last 2 weeks, how often have you been bothered by any of the following problems? 1. Little interest or pleasure in doing things: nearly every day 2. Feeling down, depressed, or hopeless: nearly every day 3. Trouble falling or staying asleep, or sleeping too much: nearly every day 4. Feeling tired or having little energy: nearly every day 5. Poor appetite or overeating: not at all 6. Feeling bad about yourself - or that you are a failure or have let yourself and your family down: nearly every day 7. Trouble concentrating on things, such as reading the newspaper or watching television: nearly every day 8. Moving or speaking so slowly that other people could have noticed? - Or the opposite - being so fidgety or restless that you have been moving around a lot more than usual: not at all 9. Thoughts that you would be better off or of hurting yourself in some way: nearly every day Total score: 21 If you checked off any problems, how difficult have these problems made it for you to do your work, take care of things at home, or get along with other people?: extremely difficult PHQ-9 Results: Positive Source: Developed by Drs. Oskar Marquez, Darlene Betancur, Antonio Barry and colleagues, with an educational heriberto from [employer]. Suicide Severity Rate CSSRS Have you wished you were or wished you could go to sleep and not wake up?: Yes Have you actually had any thoughts of killing yourself?: Yes CSSRS2 Have you been thinking about how you might do this?: Yes Have you had these thoughts and had some intention of acting on them?: Yes Have you started to work out or worked out the details of how to kill yourself? Do you intend to carry out this plan?: Yes CSSRS3 Have you ever done anything, started to do anything or prepared to do anything to end your life?: Yes CSSRS4 Was this within the past three months?: Yes Screening Score Total Score: 8 Screening: Positive Mental Health Emergency Note Release HS release signed:: Yes Reason for Visit Ms Wright is a 20 year old single female who resides in [place] with her parents and brother. The client presented as friendly and cooperative. The client reports that she ate some Peruvian toast for breakfast. The client states that she is experiencing thoughts of suicidal ideation with a plan of cutting her wrists. The client states she is doing okay as she does not have access to means to complete her plan. The client does state she wants to go home but that her parents want her to be in the hospital. The client states that became overwhelmed with all of the responding emergency responders the previous night and had tried to avoid them but that they found her near the [employer] where a friend of hers had left her. The client states that she is agreeing to stay voluntarily. The client states that she misses her puppy and her other dogs. 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 Intent: yes, has intent. Plan: yes,has a plan. History of suicide attempt: yes,history of suicide attempt reported. Details of previous suicide attempt: cutting wrists. Risk: Does risk to harm exist?: No Duty to warn indicated: No Asssessment/Mental Status Appearance: Unremarkable Attitude: Cooperative and Friendly Behavior: Unremarkable Speech: Normal Affect: Normal Mood: Stressed Thought process: Poverty of content Hallucinations: No Delusions: No Attention: Unremarkable Perception: Not impaired Orientation: Fully orientated Memory: Intact Insight: Fair Judgement: Fair Neurovegetative Symptoms Sleep: Decrease Appetitie: No change Interests: No change Energy: No change Libido: Not applicable Substance Use: Do you use nicotine?: No Have you used substances in the last 7 days?: No Additional Issues: Assaultive/Threatening Behavior: No Medical Concerns: No Client engaged in active self harm w/weapon: No Threatening to run away: No Child reported abuse/neglect: No Voluntarily presenting for services: Yes Domestic violence is a concern: No Extreme Psychosis or extreme behavior is present: No Impression Ms Wright is a 20 year old single female who resides in [place] with her parents and brother. The client presented as friendly and cooperative. The client reports that she ate some Peruvian toast for breakfast. The client states that she is experiencing thoughts of suicidal ideation with a plan of cutting her wrists. The client states she is doing okay as she does not have access to means to complete her plan. The client does state she wants to go home but that her parents want her to be in the hospital. The client states that became overwhelmed with all of the responding emergency responders the previous night and had tried to avoid them but that they found her near the [employer] [place] where a friend of hers had left her. The client states that she is agreeing to stay voluntarily. The client states that she misses her puppy and her other do gs. Plan/Disposition Recommended Disposition: Hospitalization facilities contacted. Plan: The client will wait for in patient treatment in the [facility] zone b. Reports/communication Outcome discussed with: ED/Personnel
[2025-01-20] MEDS: Prazosin 1 MG CAP 3 MG PO (21:44)
--- NOTE | 2025-01-21 06:11 | W.EDPROG ---
Date of service: 01/21/25 Time of Service: 06:13 Medical Decision Making 20-year-old female, suicidal, recently discharged from [place], laboratory workup showed some electrolyte abnormalities for which she is getting daily electrolyte oral corrections. Mental health recommends transitioning to EE status that the patient tries to leave. Patient did try to cut herself with her spoon yesterday, and is no longer allowed to have spoons. Pending placement. Quality:SDOH Health Related Social Needs: Health related social needs feeling lonely/isolated (Z60.8) Health related social needs details patient frequently here for SI. Discharge Plan Discharge Details Chief Complaint: PsychEval Clinical Impression: Depression with suicidal ideation Primary Care Provider: Liza Munson ED Provider: Mushtaq Tim Home Meds and New Rx's Prescriptions: No Action calcitriol 0.25 mcg capsule 0.25 mcg PO DAILY teriparatide 20 mcg/dose (560mcg/2.24mL) pen injector 20 mcg subcut BID Ajovy Autoinjector 225 mg/1.5 mL auto-injector 225 mg subcut QMONTH Nexplanon 68 mg implant 1 implant subdermal ONCE Rx Instructions: as a single dose albuterol sulfate [Ventolin HFA] 90 mcg/actuation HFA aerosol inhaler 2 puff inhalation Q6H PRN montelukast 10 mg tablet 10 mg PO PRN trazodone 100 mg tablet 50 mg PO TID PRN sertraline [Zoloft] 100 mg tablet 150 mg PO DAILY fluticasone propion-salmeterol [Advair HFA] 230-21 mcg/actuation HFA aerosol inhaler 2 puff inhalation BID Qty: 12 12RF prazosin 1 mg capsule 3 mg PO QHS Ubrelvy 100 mg tablet 100 mg PO ONCE PRN Rx Instructions: 1-2 tabs epinephrine [EpiPen] 0.3 mg/0.3 mL auto-injector 0.3 ml subcut ONCE PRN Rx Instructions: as a single dose; may repeat once calcium carbonate 400 mg/5 mL suspension 1,250 mg PO BID Rx Instructions: 1250mg/5ml oral suspension levalbuterol tartrate [Xopenex HFA] 2 puff inhalation PRN buspirone 30 mg tablet 20 mg PO BID cyclobenzaprine 10 mg Tablet 10 mg PO TID PRN PRNQty: 10 0RF gabapentin 300 mg capsule 300 mg PO TID cholecalciferol (vitamin D3) [Vitamin D3] 50 mcg (2,000 unit) tablet 50 mcg PO DAILY cetirizine [24Hour Allergy] 10 mg tablet 20 mg PO DAILY
--- NOTE | 2025-01-21 07:27 | ED.PROG_ITS ---
Date of service: 02/19/25 Time of Service: 07:27 Medical Decision Making I received signout on this 20-year-old female, suicidal, recently discharged from [place], laboratory workup showed some electrolyte abnormalities for which she is getting daily electrolyte oral corrections. Mental health recommends transitioning to EE status that the patient tries to leave. Patient did try to cut herself with her spoon yesterday, and is no longer allowed to have spoons. Pending placement. Will update documentation as clinically warranted and signed patient out to evening provider. 3:45 PM I spoke to Megan Toney at the [facility] who graciously accept the patient for hospitalization. 4:20 PM I signed transfer paperwork to have the patient transferred to the [facility]. Quality:SDOH Health Related Social Needs: Health related social needs feeling lonely/isolated (Z 60.8) Health related social needs details patient frequently here for SI. Discharge Plan Discharge Details Chief Complaint: PsychEval Clinical Impression: Depression with suicidal ideation Primary Care Provider: Liza Munson ED Provider: Jeffy Mo Home Meds and New Rx's Prescriptions: No Action calcitriol 0.25 mcg capsule 0.25 mcg PO DAILY teriparatide 20 mcg/dose (560mcg/2.24mL) pen injector 20 mcg subcut BID Ajovy Autoinjector 225 mg/1.5 mL auto-injector 225 mg subcut QMONTH Nexplanon 68 mg implant 1 implant subdermal ONCE Rx Instructions: as a single dose albuterol sulfate [Ventolin HFA] 90 mcg/actuation HFA aerosol inhaler 2 puff inhalation Q6H PRN montelukast 10 mg tablet 10 mg PO PRN trazodone 100 mg tablet 50 mg PO TID PRN sertraline [Zoloft] 100 mg tablet 150 mg PO DAILY fluticasone propion-salmeterol [Advair HFA] 230-21 mcg/actuation HFA aerosol inhaler 2 puff inhalation BID Qty: 12 12RF prazosin 1 mg capsule 3 mg PO QHS Ubrelvy 100 mg tablet 100 mg PO ONCE PRN Rx Instructions: 1-2 tabs epinephrine [EpiPen] 0.3 mg/0.3 mL auto-injector 0.3 ml subcut ONCE PRN Rx Instructions: as a single dose; may repeat once calcium carbonate 400 mg/5 mL suspension 1,250 mg PO BID Rx Instructions: 1250mg/5ml oral suspension levalbuterol tartrate [Xopenex HFA] 2 puff inhalation PRN buspirone 30 mg tablet 20 mg PO BID cyclobenzaprine 10 mg Tablet 10 mg PO TID PRN PRNQty: 10 0RF gabapentin 300 mg capsule 300 mg PO TID cholecalciferol (vitamin D3) [Vitamin D3] 50 mcg (2,000 unit) tablet 50 mcg PO DAILY cetirizine [24Hour Allergy] 10 mg tablet 20 mg PO DAILY
[2025-01-21 08:16] VITALS: BP 107/70; PULSE 94; RESP 16; TEMP 35.9; O2SAT 97
[2025-01-21] MEDS: Cholecalciferol (Vitamin D3) 1,000 UNIT TAB 2000 UNITS PO (10:22)
[2025-01-21] MEDS: Sertraline 100 MG TAB 150 MG PO (10:22)
[2025-01-21] MEDS: busPIRone 5 MG TAB 20 MG PO (10:23)
[2025-01-21] MEDS: Cetirizine 10 MG TAB 20 MG PO (10:32)
[2025-01-21] MEDS: Calcium Carbonate *TUMS* 500 MG CHEW 1000 MG PO (10:32)
[2025-01-21] MEDS: Gabapentin 300 MG CAP PO (10:32)
--- NOTE | 2025-01-21 13:39 | PDOC.MHPN2 ---
Date of service: 01/21/25 Time of Service: 11:30 Mental Health Emergency Note Release [facility] release signed:: Yes Reason for Visit Client is endorsing SI and is activly cutting herself. 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 History: yes, Cutting herself/ overdosing. Safety Risk/Harm to Self or Others Current Ideation to Harm Self or Others: Yes to self. Intent: yes, has intent. Plan: yes,has a plan. Risk: Does risk to harm exist?: yes. Risk: Low Risk Duty to warn indicated: No Asssessment/Mental Status Appearance: Unremarkable Attitude: Cooperative and Friendly Behavior: Unremarkable Speech: Normal and Soft Affect: Flat and Cogruent with mood Mood: Sad, Stressed and Depressed Thought process: Poverty of content Hallucinations: No evidence Delusions: No evidence Attention: Unremarkable Perception: Not impaired Orientation: Fully orientated Memory: Intact Insight: Poor Judgement: Poor Neurovegetative Symptoms Sleep: No change Appetitie: Decrease Interests: No change Energy: No change Additional Issues: Assaultive/Threatening Behavior: No Medical Concerns: No Client engaged in active self harm w/weapon: Yes Threatening to run away: No Child reported abuse/neglect: No Voluntarily presenting for services: Yes Domestic violence is a concern: No Extreme Psychosis or extreme behavior is present: No Impression The client is a 20 year old single female who resides in [place] with her parents and brother. The client presented as friendly and cooperative. Screening tools were not asked as this is a reassessment. It was shared with this poem writer that the client had attempted to cut her wrist with her paper spoon and so she was not given any utensils to use. The client expressed frustration with this and she was given the option to eat with a nurse present or to figure out a way to eat without utensils. This poem writer was also notified that this client's father came to visits and didn't take off a knife and so moving forward he will need to be searched before entering. The client states that she is experiencing thoughts of suicidal ideation with a plan of cutting her wrists and shared that she is experiencing a general feeling of not wanting to exist. The client states she is doing okay as she does not have access to means to complete her plan. The client does state she wants to go home but that her parents want her to be in the hospital. The client states that became overwhelmed with all of the responding emergency responders the previous night and had tried to avoid them but that they found her near the [employer] station where a friend of hers had left her. The client states that she misses her puppy and her other dogs and would like to go home. this poem writer explained that she did not feel comfortable with the client going home as she just attempted to cut herself the previous night. The client stated that she didn't feel safe with herself and is agreeing to stay voluntarily. Resources Reosurces reviewed and given:: [facility] Plan/Disposition Recommended Disposition: Hospitalization facilities contacted. Plan: The client is to wait ing Zone B until placed inpatient. Person reported agreement to plan: Yes Reports/communication Outcome discussed with: ED/Personnel
--- NOTE | 2025-01-21 16:59 | CMSP_ITS ---
Date of service: 01/21/25 Time of Service: 17:00 Care Management Safety Plan Status Status: Voluntary Reason for Wait Reason for Wait: Inpatient Admission Safety Plan Safety Plan: VOLUNTARY FOR INPATIENT PSYCHIATRIC STABILIZATION.? Patient is appropriate in all interactions since arriving at [facility]; Pt has demonstrated appropriate coping and communication skills, has articulated his or her needs and concerns and is fully engaged during staff interactions. Safety plan has been established with patient, and care team, to adhere to patient goals, identify restrictions based on behavioral status, address nutrition, and determine allowed personal belongings, tools for hygiene and personal care. Determine level of activity including ambulation, level of supervision, visitors, and determine privileges based on behaviors and level of engagement by pt. VOLUNTARY SAFETY PLAN: 1. Will remain on suicide precautions, in paper clothes 2. Will remain in Zone B under direct supervision of one-on-one staff at all times provided by [employer]; BANDAR, RAILROAD TRACK REPAIR SUPERVISOR green end department supervisor. 3. May have paper cups, plates, and finger foods- no cardboard spoon. 4. Follow [facility] Management of the Admitted Behavioral Health Patient policy. 5. Shower available in Zone B without restriction. 6. Personal belongings-soft items permitted at RN discretion. 7. Visitors- supportive visitors, at RN discretion. 8. Activities: soft cart items, hospital tablets (Netflix/Pattie+/music) approved per RN discretion. 9.? Bathroom available in Zone B without restriction. 10. Phone: limited to [facility] cordless phone at RN discretion. Due to VOLUNTARY status, if patient wishes to leave [facility], staff will contact [facility] Crisis Screener ([phone]) and Sheetmetal Patternmaker ([phone]) as soon as possible. In the event of elopement, notify [facility] Police ([phone]). Patient is currently voluntarily at [facility] and seeking inpatient admission when a bed becomes available. [facility] Frontline Second Steward will continue seeking placement. Please contact the Sheetmetal Patternmaker ([phone]) and [facility] Second Steward ([phone]) for any needed changes in the Safety Plan. Safety plan has been provided to interdepartmental care team.
--- NOTE | 2025-01-21 17:00 | PDOC.CMPRO ---
Date of service: 01/21/25 Time of Service: 17:00 Care Management Progress Note Progress Note Text Progress Note Text: CM huddled with ED and HS staff regarding Jyothi's plan of care. Per RN, she has been refusing to eat today, as she is no longer able to use the cardboard spoon, due to safety concerns. Per report, her father visited yesterday and was hesitant to remove belongings from his pockets; it was found that he had a pocket knife with him, which he agreed to put in the locker before entering zone B. Security is aware of the situation. Per [facility], referrals were sent, and she was being considered at [facility]. Later in the afternoon, [facility] accepted Jyothi for admission, pending transport, which ED staff were having difficulty securing. RN was reaching out about utilizing [facility], as local EMS was not available. Jyothi is voluntary, seeking inpatient psychiatric treatment. She was accepted at [facility], pending transport. CM will continue to follow. Social Determinants of Health Screening Will the Patient Participate in the Screening?: Unable to obtain
--- NOTE | 2025-03-12 14:43 | NUR.NOTE ---
Access chart to see what the date was that Dr. Mo saw the patient and filled out an ambulance PCS. A new PCS filled out and faxed to [facility]. Nursing Note:
== END 2025-01-20 18:16 ==
PROVIDERS: Emergency Medicine; Emergency Provider Emergency Medicine; PCP Nurse Practitioner Family
DX: R45.851 Suicidal ideations (principal); F32.A Depression, unspecified; S61.512A Laceration without foreign body of left wrist, initial encounter; X78.8XXA Intentional self-harm by other sharp object, initial encounter
CPT/HCPCS: 00123; 80053; 80307; 81025; 96127; 99285; 80320; 80329; 81003; 81015; 83735; 84443; 85025

== ENCOUNTER 2025-04-25 15:06 | Outpatient (CLI) | payer MEDICAID, SELFPAY ==
[2025-04-25 12:34] LABS: ALT 28 U/L (14-59); AST 22 U/L (15-37); Albumin 3.8 g/dL (3.4-5.0); Alkaline Phosphatase 86 U/L (46-116); Anion Gap 12.1 mmol/L (3-11); BUN 16 mg/dL (7-18); Bilirubin, Total 0.3 mg/dL (0.2-1.0); CO2 24.9 mmol/L (21.0-32.0); Calcium 7.6 mg/dL (8.5-10.1); Chloride 105 mmol/L (98-107); Estimated GFR 93.28 (mL/min/1.73m2); Glucose 117 mg/dL (74-106); Potassium 3.3 mmol/L (3.5-5.1); Sodium 142 mmol/L (136-145); Total Protein 7.5 g/dL (6.4-8.2)
[2025-04-25 12:57] LABS: Magnesium 1.7 mg/dL (1.8-2.4); Vitamin D 25 Total 34 ng/mL (30-100)
== END 2025-04-25 15:07 | disposition home or self-care (01) ==
LOC: LBO 15:06
PROVIDERS: Internal Medicine Endocrinology, Diabetes & Metabolism; PCP Nurse Practitioner Family; Visit Provider Pediatrics Pediatric Nephrology
DX: E20.0 Idiopathic hypoparathyroidism (principal); E20.81 Hypoparathyroidism due to impaired parathyroid hormone secretion; E20.9 Hypoparathyroidism, unspecified
CPT/HCPCS: 36415; 80053; 82306; 83735; 84100

== ENCOUNTER 2025-04-30 15:59 | Emergency (ER) | payer MEDICAID, SELFPAY ==
[2025-04-30 16:04] VITALS: BP 117/76; PULSE 79; RESP 18; TEMP 37
--- NOTE | 2025-04-30 16:38 | W.ED.GENAD ---
Discharge Plan Discharge Details Chief Complaint: PsychEval Primary Care Provider: EDILIA GIBSON ED Provider: Jana Short Home Meds and New Rx's Prescriptions: No Action calcitriol 0.25 mcg capsule 0.25 mcg PO BID olanzapine 2.5 mg tablet 2.5 mg PO QHS Patient Comments: Take 1 tablet oral once a day, at bedtime for mood stabilization Patient reports 10mg at HS magnesium oxide 400 mg (241.3 mg magnesium) tablet 400 mg PO DAILY Patient Comments: TAKE ONE TABLET BY MOUTH EVERY DAY teriparatide 20 mcg/dose (560mcg/2.24mL) pen injector 20 mcg subcut BID Ajovy Autoinjector 225 mg/1.5 mL auto-injector 225 mg subcut QMONTH Nexplanon 68 mg implant 1 implant subdermal ONCE Rx Instructions: as a single dose albuterol sulfate [Ventolin HFA] 90 mcg/actuation HFA aerosol inhaler 2 puff inhalation Q6H PRN quetiapine [Seroquel] 200 mg tablet 300 mg PO QHS multivitamin [Daily Multi-Vitamin] Tablet 1 tab PO DAILY sertraline [Zoloft] 100 mg tablet 100 mg PO DAILY fluticasone propion-salmeterol [Advair HFA] 230-21 mcg/actuation HFA aerosol inhaler 2 puff inhalation BID Qty: 12 12RF Airsupra 90-80 mcg/actuation HFA aerosol inhaler 2 inh inhalation ONCE Qty: 10.7 12RF Rx Instructions: as a single dose; may repeat up to 6 doses per day (12 inhalations) albuterol sulfate 2.5 mg /3 mL (0.083 %) solution for nebulization 2.5 mg inhalation Q4H PRN (Reason: shortness of breath or wheezing) Qty: 180 0RF budesonide 90 mcg/actuation aerosol powdr breath activated 2 inh inhalation BID Qty: 1 6RF prazosin 1 mg capsule 3 mg PO QHS Ubrelvy 100 mg tablet 100 mg PO ONCE PRN Rx Instructions: 1-2 tabs epinephrine [EpiPen] 0.3 mg/0.3 mL auto-injector 0.3 ml subcut ONCE PRN Rx Instructions: as a single dose; may repeat once calcium carbonate 400 mg/5 mL suspension 1,250 mg PO BID Rx Instructions: 1250mg/5ml oral suspension levalbuterol tartrate [Xopenex HFA] 2 puff inhalation PRN gabapentin 300 mg capsule 300 mg PO TID cholecalciferol (vitamin D3) [Vitamin D3] 50 mcg (2,000 unit) tablet 50 mcg PO DAILY buspirone 10 mg tablet 20 mg PO TID Patient Comments: TAKE TWO TABLETS BY MOUTH THREE TIMES A DAY . (DISCONTINUE 5MG DOSE) HPI General Date/Time Provider Initiated Documentation: 04/30/25 16:06. HPI Narrative: Jyothi is a 20-year-old female (they/them pronouns) who presents to the emergency department today for evaluation of suicidal ideation. They report that their psychiatrist stopped the Zyprexa 1 week ago after they had not been taking it consistently, says they were not sure it was working, but is now realizing that it was effective. Since then, Jyothi has had trouble sleeping, decreased appetite, and persistent command hallucinations to harm themself. They report suicidal ideation with plan to cut, says that they have attempted suicide in the past by this way and feel strongly that they will be a danger to themselves and kill himself if discharged home. Aside from fatigue, Jyothi reports they are feeling well, denies recent fever/chills, unusual headaches, vision changes, congestion, sore throat, cough, chest pain, abdominal pain, change in bowel or bladder function, recent self harm. Denies recent alcohol, tobacco, or drug use. Denies homicidal ideation. Past medical history significant for asthma, stage II CKD, and hypoparathyroidism Physical exam reassuring. Patient is alert and oriented, no acute distress. Flat, depressed affect. Easy work of breathing, lung sounds clear bilaterally. Normal heart sounds. Moving all extremities equally History and presentation consistent with uncomplicated depression with suicidal ideation. I independently interpreted the following tests: CBC, CMP, magnesium, TSH, UDS, EtOH, APAP, ASA all unremarkable. Patient medically cleared Pt's nighttime meds patient's routine medications ordered and observation admission orders placed Handoff report given to Dr Hong, overnight attending. Related Data Home Medications ?Medication ?Instructions ?Recorded ?Confirmed calcitriol 0.25 mcg capsule 0.25 mcg PO BID 10/01/24 04/30/25 sertraline 100 mg tablet (Zoloft) 100 mg PO DAILY 10/01/24 04/30/25 calcium carbonate 400 mg/5 mL oral 1,250 mg PO BID 10/04/24 04/30/25 suspension epinephrine 0.3 mg/0.3 mL 0.3 ml subcut ONCE PRN 10/04/24 04/30/25 injection, auto-injector (EpiPen) levalbuterol tartrate 2 puff inhalation PRN 10/04/24 04/30/25 prazosin 1 mg capsule 3 mg PO QHS 10/04/24 04/30/25 ubrogepant 100 mg tablet (Ubrelvy) 100 mg PO ONCE PRN 10/04/24 04/30/25 albuterol sulfate 90 mcg/actuation 2 puff inhalation Q6H PRN 12/31/24 04/30/25 aerosol inhaler (Ventolin HFA) etonogestrel 68 mg subdermal 1 implant subdermal ONCE 12/31/24 04/30/25 implant (Nexplanon) fremanezumab-vfrm 225 mg/1.5 mL 225 mg subcut QMONTH 12/31/24 04/30/25 subcutaneous auto-injector (Ajovy) teriparatide 20 mcg/dose (560 20 mcg subcut BID 12/31/24 04/30/25 mcg/2.24 mL) subcutaneous pen injector gabapentin 300 mg capsule 300 mg PO TID 01/11/25 04/30/25 cholecalciferol (vitamin D3) 50 50 mcg PO DAILY 01/19/25 04/30/25 mcg (2,000 unit) tablet (Vitamin D3) fluticasone propionate 230 2 puff inhalation BID #12 grams 02/17/25 04/30/25 mcg-salmeterol 21 mcg/actuation HFA inhaler (Advair HFA) albuterol 90 mcg-budesonide 80 2 inh inhalation ONCE #10.7 grams 02/24/25 04/30/25 mcg/actuation HFA aerosol inhaler (Airsupra) albuterol sulfate 2.5 mg/3 mL 2.5 mg (3 mL) inhalation Q4H PRN 02/24/25 04/30/25 (0.083 %) solution for nebulization shortness of breath or wheezing #180 mL budesonide 90 mcg/actuation breath 2 inh inhalation BID #1 ea 03/03/25 04/30/25 activated powder inhaler multivitamin (Daily Multi-Vitamin 1 tab PO DAILY 03/03/25 04/30/25 tablet) quetiapine 200 mg tablet (Seroquel) 300 mg PO QHS 03/03/25 04/30/25 magnesium oxide 400 mg (241.3 mg 400 mg PO DAILY 03/27/25 04/30/25 magnesium) tablet olanzapine 2.5 mg tablet 2.5 mg PO QHS 03/27/25 04/30/25 buspirone 10 mg tablet 20 mg PO TID 04/30/25 04/30/25 Previous Rx's ?Medication ?Instructions ?Recorded fluticasone propionate 230 2 puff inhalation BID #12 grams 02/17/25 mcg-salmeterol 21 mcg/actuation HFA inhaler (Advair HFA) albuterol 90 mcg-budesonide 80 2 inh inhalation ONCE #10.7 grams 02/24/25 mcg/actuation HFA aerosol inhaler (Airsupra) albuterol sulfate 2.5 mg/3 mL 2.5 mg (3 mL) inhalation Q4H PRN 02/24/25 (0.083 %) solution for nebulization shortness of breath or wheezing #180 mL budesonide 90 mcg/actuation breath 2 inh inhalation BID #1 ea 03/03/25 activated powder inhaler Allergies Allergy/AdvReac Type Severity Reaction Status Date / Time cat dander Allergy Wheezing Verified 04/30/25 16:08 dog dander Allergy Wheezing Verified 04/30/25 16:08 house dust mite Allergy Wheezing Verified 04/30/25 16:08 tree and shrub pollen Allergy Wheezing Verified 04/30/25 16:08 hydrocodone AdvReac TACHYCARDIA Verified 04/30/25 16:08 PER PT ibuprofen AdvReac per Verified 04/30/25 16:08 nephrology tramadol AdvReac Other (See Verified 04/30/25 16:08 Comment) General Stated Complaint: PsychEval KEILY: 2 Exam Const General: cooperative, healthy appearing, comfortable, no acute distress, well developed and well groomed Nutritional Appearance: average body habitus and well nourished Orientation: alert and oriented x3 Resp Effort & Inspection: normal respiratory effort and able to speak in complete sentences Auscultation: clear to auscultation bilaterally Cardio Rate: regular rate Rhythm: regular rhythm Skin General skin exam: no rashes or lesions noted Neuro General: patient alert, patient oriented x3, tone normal and moves all extremities Psych Appearance: grossly normal Mental Status: mental status grossly normal Mood: dysthymic mood Affect: dysphoric affect and blunted Attitude: cooperative Thought Content: suicidality Course Vital Signs Vital signs: Vital Signs Temperature 37.0 C 04/30/25 16:04 Pulse 79 04/30/25 16:04 Respiratory Rate 18 04/30/25 16:04 Blood Pressure 117/76 04/30/25 16:04 Temperature 37.0 C 04/30/25 16:04 Temperature Source Oral 04/30/25 16:04 Pulse 79 04/30/25 16:04 Respiratory Rate 18 04/30/25 16:04 Blood Pressure 117/76 04/30/25 16:04 Oxygen Delivery Method Room Air 04/30/25 16:04 Oxygen Flow Rate 0 04/30/25 16:04 Lab/Test Results Lab/Test Results: Laboratory Tests Range/Units 04/30/25 16:16 WBC Cancelled RBC Cancelled Hgb Cancelled Hct Cancelled MCV Cancelled MCH Cancelled MCHC Cancelled RDW Cancelled Plt Count Cancelled MPV Cancelled Immature Gran % Cancelled Neutrophils % Cancelled Band Neutrophils % Cancelled Lymphocytes % Cancelled Atypical Lymphs % Cancelled Monocytes % Cancelled Eosinophils % Cancelled Basophils % Cancelled Metamyelocytes % Cancelled Myelocytes % Cancelled Promyelocytes % Cancelled Other Cells % Cancelled Nucleated RBC % Cancelled Absolute Neutrophils Cancelled Absolute Lymphocytes Cancelled Absolute Monocytes Cancelled Absolute Eosinophils Cancelled Absolute Basophils Cancelled RBC Morphology Cancelled Polychromasia Cancelled Hypochromasia Cancelled Poikilocytosis Cancelled Basophilic Stippling Cancelled Anisocytosis Cancelled Microcytosis Cancelled Macrocytosis Cancelled Spherocytes Cancelled Tear Drop Cells Cancelled Ovalocytes Cancelled Stomatocytes Cancelled [place] Bodies Cancelled [place] Cells/Echinocytes Cancelled Acanthocytes (Spur) Cancelled Schistocytes Cancelled Sodium Cancelled Potassium Cancelled Chloride Cancelled Carbon Dioxide Cancelled Anion Gap Cancelled BUN Cancelled Creatinine Cancelled Est GFR (CKD-EPI 2020) Cancelled Glucose Cancelled Calcium Cancelled Total Bilirubin Cancelled AST Cancelled ALT Cancelled Alkaline Phosphatase Cancelled Total Protein Cancelled Albumin Cancelled Medical Decision Making Quality:SDOH Health Related Social Needs: Health related social needs lonely/isolated Health related social needs details patient frequently here for SI. 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 Started fluox 03/05, stopped spring 2020- restarted but stopped in the fall secondary to concerns of worsening suicidal ideation- trial lexapro- increase dose to 20 mg today (03/28/22) Chronic kidney disease (CKD) Nasal vestibulitis Patulous eustachian tube of left ear Chronic allergic rhinitis Encounter for immunotherapy Right-sided tinnitus Calcification of brain per [facility] neuro notes; bifrontal first noted in 2010; 2019 with some affecting basal ganglia, d/t underlying hypoparathyroidism Sciatica of right side Strain of extensor pollicis longus tendon Injury of thumb, right Allergic reaction Complex regional pain syndrome of right upper extremity Recurrent UTI Cough Abnormal chest xray Moderate persistent asthma Low back pain De Quervain's tenosynovitis, left Dysfunction of right eustachian tube Palpitations Wears hearing aid in both ears Otalgia of right ear TMJ pain dysfunction syndrome Sinusitis Nexplanon in place 09/2023. For menstrual control. Traumatic plantar fasciitis LEFT Lip lesion Electrolyte disturbance Depo-Provera contraceptive status 04/2023. Stopped per patient request 09/2023 restarted per patient request Hypokalemia Abnormal uterine bleeding (AUB) 2017. menstrual irreg. OCPs 05/29/2019. Dysmenorrhea. DepoProvera 150 mg every 3 months Ingrowing toenail (05/14/18) Left great toe; s/p resection ADHD (attention deficit hyperactivity disorder) Surgical History Vesicoureteric reflux (12/15/14) s/p bilateral ureteral implants [place] teeth extracted all 4 teeth extracted ureteral implants- bilat Tonsillectomy and adenoidectomy Myringotomy w/ PE (pressure equalizing) tubes Family History Mother Family history unknown Father Family history unknown Social History Smoking/Tobacco Use Status: Never Smoking risk assessment performed?: Yes Alcohol Intake: never Drug use: Never Substance use type: does not use Adopted: Yes Housing: house Education Level: college Details: [employer], starting [employer] in the fall current occupation: 02/28/2020 works at [employer] Pets and animals: Yes Pets and animals: cat(s), dog(s) and other Details: CHICKENS, TURKEYS, SHEEP, COWS Sexually active: No Do you feel safe at home: No (Pt reports environment is safe but she feels suicidal) Do you feel safe in your relationship?: Yes Additional Social history: safe environment, but not safe in myself Female Reproductive History Menstrual Age of Menarche: 11 Duration of menses: other control method: implanted
--- NOTE | 2025-04-30 16:40 | PDOC.MHCN ---
Date of service: 04/30/25 Time of Service: 16:42 PHQ-9 Over the last 2 weeks, how often have you been bothered by any of the following problems? 1. Little interest or pleasure in doing things: nearly every day 2. Feeling down, depressed, or hopeless: nearly every day 3. Trouble falling or staying asleep, or sleeping too much: nearly every day 4. Feeling tired or having little energy: nearly every day 5. Poor appetite or overeating: nearly every day 6. Feeling bad about yourself - or that you are a failure or have let yourself and your family down: nearly every day 7. Trouble concentrating on things, such as reading the newspaper or watching television: more than half the days 8. Moving or speaking so slowly that other people could have noticed? - Or the opposite - being so fidgety or restless that you have been moving around a lot more than usual: not at all 9. Thoughts that you would be better off or of hurting yourself in some way: nearly every day Total score: 23 If you checked off any problems, how difficult have these problems made it for you to do your work, take care of things at home, or get along with other people?: extremely difficult PHQ-9 Results: Positive Source: Developed by Drs. Oskar Marquez, Darlene Betancur, Antonio Barry and colleagues, with an educational heriberto from [employer]. Suicide Severity Rate CSSRS Have you wished you were or wished you could go to sleep and not wake up?: Yes Have you actually had any thoughts of killing yourself?: Yes CSSRS2 Have you been thinking about how you might do this?: Yes Have you had these thoughts and had some intention of acting on them?: Yes Have you started to work out or worked out the details of how to kill yourself? Do you intend to carry out this plan?: Yes CSSRS3 Have you ever done anything, started to do anything or prepared to do anything to end your life?: Yes CSSRS4 Was this within the past three months?: Yes Screening Score Total Score: 8 Screening: Positive Mental Health Emergency Note Release [facility] release signed:: Yes Reason for Visit The client is known to [facility] and this clinician. They were last seen on 8.13 by their psychiatrist Karin Dasilva with [facility]. They have been hospitalized in the past and their last hospitalization was January 2025 at [facility]. Per report from Dr. Dasilva the client is presenting with acute SI with plan to cut themselves with a knife that is in their car. The had been taking off her Zyprexa as they did not believe they were working and since has had an increase of SI and auditory hallucinations. Dr. Dasilva would like to restart the Zyprexa and is willing to collaborate with [facility] attending to discuss restarting this medication as soon as possible. The client reported they can not keep themselves safe once they leave the office if safety planned again. 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 Intent: yes, has intent. Plan: yes,has a plan. History of suicide attempt: yes,history of suicide attempt reported. Details of previous suicide attempt: cutting Risk: Does risk to harm exist?: yes. Access to means: Yes. Types of Means: Other weapons and Medication. Counseling provided: Yes Risk: High Risk Duty to warn indicated: No Asssessment/Mental Status Appearance: Well groomed Attitude: Cooperative and Friendly Behavior: Unremarkable Speech: Normal Affect: Cogruent with mood Mood: Happy and Depressed Thought process: Goal directed Hallucinations: yes, Auditory Delusions: No Attention: Unremarkable Perception: Not impaired Orientation: Fully orientated Memory: Intact Insight: Good Judgement: Good Neurovegetative Symptoms Sleep: Decrease Appetitie: Decrease Interests: Decrease Energy: Decrease Libido: Not applicable Substance Use: Do you use nicotine?: No Have you used substances in the last 7 days?: No Additional Issues: Assaultive/Threatening Behavior: No Medical Concerns: No Client engaged in active self harm w/weapon: No Threatening to run away: No Child reported abuse/neglect: No Voluntarily presenting for services: Yes Domestic violence is a concern: No Extreme Psychosis or extreme behavior is present: No Impression The jodi is a 20-year-old, born female who lives in transitional housing in [facility]. They are unemployed and use They/Them pronouns. All underrepresented categories were honored during the assessment. CAMS was not completed at the time of assessment. The client reported that If I leave here ([facility]) I will do something and admits to having a knife in their car to do so. The client was assessed on 04.29 at their home and a safety plan was put in place for them to go to [facility] until their appointment on 04.[address] Dasilva. The client reported they were not sleeping and left this am to go home to see if they could get some sleep and this was unsuccessful. The client reported she has been without sleep for 8 day's now. They reported their symptoms have become worse since stopping the Zyprexa. Those symptoms are reported to be lack of sleep, increase in SI and auditory hallucinations. The client has a history of cutting in the form of NSSI as well as with the intent to . They last cut in January of this year. The client has access to their medications as well as sharps and ropes. The client denied a history of substance use. The client identified their father, grandmother and girlfriend as their natural support. They identified [facility] FELT COVERER team: Marjan Becker, and Darrell Acosta, Dr. Dasilva and radha Marie therapist (radha), Their PCP is Nevin Olivera. 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 The client denied a history of legal issues. The client is taking all medications however they are not working. THe cleint is adopted so no known family histroy could be provided. Plan/Disposition Recommended Disposition: Hospitalization facilities contacted. Plan: The client was transported to [facility] by this clinician and will stay voluntarily until placed. They will be evaluated daily until placement. Person reported agreement to plan: Yes Reports/communication Outcome discussed with: ED/Personnel
--- NOTE | 2025-04-30 17:08 | NUR.NOTE ---
Nursing Note:The patient came in with a wallet full of zarate stating I closed out my account before I came here. She initially did not want to count the zarate and said that there was roughly $200 zarate in the wallet. Once I was able to get an envelope to secure the wallet, I asked her to please sit with me and count the zarate. I explained that I needed an exact count and would not settle for roughly $200. Together, we counted $300 zarate and noted her debit card. Together, we placed the entire wallet in the envelope, sealed it, and then placed a patient label over the seal to ensure that it was not tampered with. The patient and I both signed the envelope and placed it in the safe in Zone B. The tab from the envelope was added to her belongings list and left on the clipboard in ZB. Pt is aware of where her wallet is being kept.
[2025-04-30 17:11] LABS: HCT 31.3 % (36.0-46.0); HGB 10.0 g/dL (11.2-15.7); MCH 25.6 pg (27.0-33.0); MCHC 31.9 % (32.0-36.0); MCV 80 fL (80-95); MPV 10.6 fL (8.0-11.0); Platelet Count 311 10^3/uL (130-400); RBC 3.91 10^6/uL (3.93-5.22); RDW 15.3 % (11.7-14.6); RDW-SD 44.2 fL; WBC 7.70 10^3/uL (4.4-10.8)
[2025-04-30 17:14] LABS: Cannabinoids THC Negative (Negative); METHADONE URINE SCREEN Negative (Negative)
[2025-04-30 17:27] LABS: Magnesium 1.7 mg/dL (1.8-2.4)
[2025-04-30 17:38] LABS: ALT 27 U/L (14-59); AST 23 U/L (15-37); Albumin 4.0 g/dL (3.4-5.0); Alkaline Phosphatase 80 U/L (46-116); Anion Gap 11.0 mmol/L (3-11); BUN 21 mg/dL (7-18); Bilirubin, Total 0.2 mg/dL (0.2-1.0); CO2 26.0 mmol/L (21.0-32.0); Calcium 8.5 mg/dL (8.5-10.1); Chloride 103 mmol/L (98-107); Estimated GFR 107.44 (mL/min/1.73m2); Glucose 98 mg/dL (74-106); Potassium 3.7 mmol/L (3.5-5.1); Sodium 140 mmol/L (136-145); TSH (W/Ref FT4) 1.16 uIU/mL (0.36-3.74); Total Protein 7.8 g/dL (6.4-8.2)
[2025-04-30 17:49] LABS: Lab Add On Test DONE
[2025-04-30 18:01] LABS: Salicylate < 2.8 mg/dL (<2.8)
[2025-04-30 18:09] LABS: Acetaminophen < 2 ug/mL (10-30)
[2025-04-30] MEDS: Prazosin 1 MG CAP 3 MG PO (21:08)
[2025-04-30] MEDS: OLANZapine 10 MG TAB PO (21:08)
[2025-04-30] MEDS: busPIRone 5 MG TAB 20 MG PO (21:09)
[2025-04-30] MEDS: Budesonide/Formoterol 160/4.5 6 GM 60 PUFF INH IH (21:09)
[2025-04-30] MEDS: Calcitriol 0.25 MCG CAP PO (21:09)
[2025-04-30] MEDS: Gabapentin 300 MG CAP PO (21:09)
[2025-04-30 21:12] VITALS: BP 126/78; PULSE 83; RESP 16; TEMP 36.6; O2SAT 98
--- NOTE | 2025-05-01 07:38 | ED.PSYCHBOAR ---
Date of service: 05/01/25 Time of Service: 07:38 Psychiatric Border Handoff Update Brief Story: Patient seeking voluntary placement for thoughts of self-harm and depression, no reported issues on prior shift and no new acute complaints. Will continue to monitor until safe disposition found. Status: voluntary Able to leave: would need physician/BRIAN and crisis evaluation prior to leaving Mediation Reconciliation performed: Yes Code Status ordered: Yes Diet ordered: Yes Discharge Plan Discharge Details Chief Complaint: PsychEval Clinical Impression: Depression Primary Care Provider: EDILIA GIBSON ED Provider: Rambo Gunn [facility] Meds and New Rx's Prescriptions: No Action calcitriol 0.25 mcg capsule 0.25 mcg PO BID olanzapine 2.5 mg tablet 2.5 mg PO QHS Patient Comments: Take 1 tablet oral once a day, at bedtime for mood stabilization Patient reports 10mg at HS magnesium oxide 400 mg (241.3 mg magnesium) tablet 400 mg PO DAILY Patient Comments: TAKE ONE TABLET BY MOUTH EVERY DAY teriparatide 20 mcg/dose (560mcg/2.24mL) pen injector 20 mcg subcut BID Ajovy Autoinjector 225 mg/1.5 mL auto-injector 225 mg subcut QMONTH Nexplanon 68 mg implant 1 implant subdermal ONCE Rx Instructions: as a single dose albuterol sulfate [Ventolin HFA] 90 mcg/actuation HFA aerosol inhaler 2 puff inhalation Q6H PRN quetiapine [Seroquel] 200 mg tablet 300 mg PO QHS multivitamin [Daily Multi-Vitamin] Tablet 1 tab PO DAILY sertraline [Zoloft] 100 mg tablet 100 mg PO DAILY fluticasone propion-salmeterol [Advair HFA] 230-21 mcg/actuation HFA aerosol inhaler 2 puff inhalation BID Qty: 12 12RF Airsupra 90-80 mcg/actuation HFA aerosol inhaler 2 inh inhalation ONCE Qty: 10.7 12RF Rx Instructions: as a single dose; may repeat up to 6 doses per day (12 inhalations) albuterol sulfate 2.5 mg /3 mL (0.083 %) solution for nebulization 2.5 mg inhalation Q4H PRN (Reason: shortness of breath or wheezing) Qty: 180 0RF budesonide 90 mcg/actuation aerosol powdr breath activated 2 inh inhalation BID Qty: 1 6RF prazosin 1 mg capsule 3 mg PO QHS Ubrelvy 100 mg tablet 100 mg PO ONCE PRN Rx Instructions: 1-2 tabs epinephrine [EpiPen] 0.3 mg/0.3 mL auto-injector 0.3 ml subcut ONCE PRN Rx Instructions: as a single dose; may repeat once calcium carbonate 400 mg/5 mL suspension 1,250 mg PO BID Rx Instructions: 1250mg/5ml oral suspension levalbuterol tartrate [Xopenex HFA] 2 puff inhalation PRN gabapentin 300 mg capsule 300 mg PO TID cholecalciferol (vitamin D3) [Vitamin D3] 50 mcg (2,000 unit) tablet 50 mcg PO DAILY buspirone 10 mg tablet 20 mg PO TID Patient Comments: TAKE TWO TABLETS BY MOUTH THREE TIMES A DAY . (DISCONTINUE 5MG DOSE)
[2025-05-01] MEDS: busPIRone 5 MG TAB 20 MG PO (07:44)
[2025-05-01] MEDS: Sertraline 100 MG TAB PO (07:44)
[2025-05-01] MEDS: Multivitamin TAB 1 TAB PO (07:44)
[2025-05-01] MEDS: Cholecalciferol (Vitamin D3) 1,000 UNIT TAB 2000 UNITS PO (07:44)
[2025-05-01] MEDS: Gabapentin 300 MG CAP PO (07:44)
[2025-05-01] MEDS: Budesonide/Formoterol 160/4.5 6 GM 60 PUFF INH IH (07:45)
[2025-05-01] MEDS: OLANZapine 10 MG TAB PO (07:50)
[2025-05-01] MEDS: Magnesium Oxide 400 MG TAB PO (07:50)
[2025-05-01] MEDS: Calcitriol 0.25 MCG CAP PO (07:55)
[2025-05-01 07:59] VITALS: BP 113/76; PULSE 105; TEMP 36.1
--- NOTE | 2025-05-01 08:38 | CMSP_ITS ---
Date of service: 05/01/25 Time of Service: 08:38 Care Management Safety Plan Status Status: Voluntary Reason for Wait Reason for Wait: Inpatient Admission Safety Plan Safety Plan: VOLUNTARY FOR INPATIENT PSYCHIATRIC STABILIZATION.? Patient is appropriate in all interactions since arriving at [facility]; Pt has demonstrated appropriate coping and communication skills and has articulated needs, concerns and is fully engaged during staff interactions. Safety plan has been established with patient, and care team, to adhere to patient goals, identify restrictions based on behavioral status, address nutrition, and determine allowed personal belongings, tools for hygiene and personal care. Determine level of activity including ambulation, level of supervision, visitors, and determine privileges based on behaviors and level of engagement by pt. SAFETY PLAN: 1. Will remain on suicide precautions, in paper clothes 2. Will remain in Zone B under direct supervision of one-on-one staff at all times provided by [employer]; BANDAR, RESIDENTIAL CONSTRUCTION INSTRUCTOR investor. 3. May have paper cups, plates, finger foods as well as a cardboard spoon with which to eat meals. 4. Follow [facility] Management of the Admitted Behavioral Health Patient policy. 5. Shower available in Zone B without restriction. 6. Personal belongings-soft items permitted at RN discretion. 7. Visitors- none at this time. 8. Activities: soft cart items approved per RN discretion. 9.? Bathroom available in Zone B without restriction. 10. Phone: incoming/outgoing calls limited to [facility] cordless phone at RN discretion. Due to VOLUNTARY status, if patient wishes to leave [facility], staff will contact [facility] Crisis Screener ([phone]) and Investor ([phone]) as soon as possible. In the event of elopement, notify [facility] Police ([phone]). Patient is currently voluntarily at [facility] and seeking inpatient admission when a bed becomes available. [facility] Frontline Olive Picker will continue seeking place ment. Please contact the Investor ([phone]) and [facility] Olive Picker ([phone]) for any needed changes in the Safety Plan. Safety plan has been provided to interdepartmental care team.
--- NOTE | 2025-05-01 08:38 | PDOC.CMSAFE ---
Date of service: 05/01/25 Time of Service: 08:38 Care Management Safety Plan Status Status: Voluntary Reason for Wait Reason for Wait: Inpatient Admission Safety Plan Safety Plan: VOLUNTARY FOR INPATIENT PSYCHIATRIC STABILIZATION.? Patient is appropriate in all interactions since arriving at [facility]; Pt has demonstrated appropriate coping and communication skills and has articulated needs, concerns and is fully engaged during staff interactions. Safety plan has been established with patient, and care team, to adhere to patient goals, identify restrictions based on behavioral status, address nutrition, and determine allowed personal belongings, tools for hygiene and personal care. Determine level of activity including ambulation, level of supervision, visitors, and determine privileges based on behaviors and level of engagement by pt. SAFETY PLAN: 1. Will remain on suicide precautions, in paper clothes 2. Will remain in Zone B under direct supervision of one-on-one staff at all times provided by [employer]; BANDAR, GUIDE DOG INSTRUCTOR acquisition cost estimator. 3. May have paper cups, plates, finger foods as well as a cardboard spoon with which to eat meals. 4. Follow [facility] Management of the Admitted Behavioral Health Patient policy. 5. Shower available in Zone B without restriction. 6. Personal belongings-soft items permitted at RN discretion. 7. Visitors- none at this time. 8. Activities: soft cart items approved per RN discretion. 9.? Bathroom available in Zone B without restriction. 10. Phone: incoming/outgoing calls limited to [facility] cordless phone at RN discretion. Due to VOLUNTARY status, if patient wishes to leave [facility], staff will contact [facility] Crisis Screener ([phone]) and Microfiche Camera Operator ([phone]) as soon as possible. In the event of elopement, notify [facility] Police ([phone]). Patient is currently voluntarily at [facility] and seeking inpatient admission when a bed becomes available. [facility] Frontline Prepress Stripper will continue seeking placement. Please contact the Microfiche Camera Operator ([phone]) and [facility] Prepress Stripper ([phone]) for any needed changes in the Safety Plan. Safety plan has been provided to interdepartmental care team.
== END 2025-05-01 10:51 | disposition short-term general hospital (02) ==
PROVIDERS: Nurse Practitioner Family; Emergency Provider Emergency Medicine; PCP Nurse Practitioner Family
DX: F32.A Depression, unspecified (principal); R45.851 Suicidal ideations; Z60.8 Other problems related to social environment
CPT/HCPCS: 99285 ×2; 81025; 00123; 80053; 80307; 85027; 96127; 80320; 80329; 83735; 84100; 84443; 85025

== ENCOUNTER 2025-05-09 14:03 | Outpatient (CLI) | payer MEDICAID, SELFPAY ==
[2025-05-09 13:07] LABS: ALT 23 U/L (14-59); AST 17 U/L (15-37); Albumin 4.0 g/dL (3.4-5.0); Alkaline Phosphatase 84 U/L (46-116); Anion Gap 10.6 mmol/L (3-11); BUN 17 mg/dL (7-18); Bilirubin, Total 0.2 mg/dL (0.2-1.0); CO2 27.4 mmol/L (21.0-32.0); Calcium 7.9 mg/dL (8.5-10.1); Chloride 103 mmol/L (98-107); Estimated GFR 107.44 (mL/min/1.73m2); Glucose 94 mg/dL (74-106); Potassium 3.7 mmol/L (3.5-5.1); Sodium 141 mmol/L (136-145); Total Protein 7.7 g/dL (6.4-8.2)
== END 2025-05-09 14:04 | disposition home or self-care (01) ==
LOC: LBO 14:03
PROVIDERS: PCP Nurse Practitioner Family; Visit Provider Internal Medicine Endocrinology, Diabetes & Metabolism
DX: E83.51 Hypocalcemia (principal)
CPT/HCPCS: 36415; 80053

== ENCOUNTER 2025-05-21 15:00 | Outpatient (CLI) | payer MEDICAID, SELFPAY ==
[2025-05-21 16:03] LABS: Albumin 4.2 g/dL (3.4-5.0); Vitamin D 25 Total 35 ng/mL (30-100)
[2025-05-21 16:47] LABS: Calcium 11.8 mg/dL (8.5-10.1)
== END 2025-05-21 15:01 | disposition home or self-care (01) ==
LOC: LBO 15:00
PROVIDERS: PCP Nurse Practitioner Family; Visit Provider Internal Medicine
DX: E20.9 Hypoparathyroidism, unspecified (principal)
CPT/HCPCS: 36415; 82306; 82040; 82310

== ENCOUNTER 2025-05-21 20:44 | Emergency (ER) | payer MEDICAID, SELFPAY ==
--- NOTE | 2025-05-21 20:45 | RT.EKG_ITS ---
APPROVED REPORT Exam: Resting ECG Reason for Exam: Patient Location: E HR:99 bpm ECG Measurements Heart Rate 99 AXIS VA 131 P 19 QRSd 78 QRS 66 QT 339 T 39 QTc 436 Conclusion Sinus rhythm...normal P axis, V-rate 60- 99 No STEMI
[2025-05-21 20:47] VITALS: BP 118/75; PULSE 100; RESP 16; TEMP 36.8; O2SAT 94
[2025-05-21 21:20] VITALS: RESP 20
[2025-05-21 21:22] LABS: Abs Immature Grans 0.12 10^3/uL (0.0-0.06); HCT 34.2 % (36.0-46.0); HGB 10.8 g/dL (11.2-15.7); Immature Grans % 1.2 %; MCH 26.2 pg (27.0-33.0); MCHC 31.6 % (32.0-36.0); MCV 83 fL (80-95); MPV 10.5 fL (8.0-11.0); Platelet Count 285 10^3/uL (130-400); RBC 4.12 10^6/uL (3.93-5.22); RDW 18.8 % (11.7-14.6); RDW-SD 55.1 fL; WBC 9.86 10^3/uL (4.4-10.8)
--- NOTE | 2025-05-21 21:29 | W.ED.GENAD ---
Discharge Plan Disposition Patient Disposition: Home Discharge Details Clinical Impression: Hypercalcemia Primary Care Provider: EDILIA GIBSON ED Provider: Adiel Tang Home Meds and New Rx's Prescriptions: Continued calcitriol 0.25 mcg capsule 0.25 mcg PO BID olanzapine 2.5 mg tablet 2.5 mg PO QHS Patient Comments: Take 1 tablet oral once a day, at bedtime for mood stabilization Patient reports 10mg at HS magnesium oxide 400 mg (241.3 mg magnesium) tablet 400 mg PO DAILY Patient Comments: TAKE ONE TABLET BY MOUTH EVERY DAY prednisone 10 mg tablet 10 mg PO DAILY Qty: 34 0RF Rx Instructions: Take 40mg (4 tablets) one a day for 4 days, 30mg (3 tablets) once a day for 3 days, 20mg (2 tablets) once a day for 3 days , 10mg (1 tablet) for 2 days, 5mg (0.5 tablets) for 2 days amoxicillin-pot clavulanate 875-125 mg tablet 1 tab PO BID Qty: 14 0RF teriparatide 20 mcg/dose (560mcg/2.24mL) pen injector 20 mcg subcut BID Ajovy Autoinjector 225 mg/1.5 mL auto-injector 225 mg subcut QMONTH Nexplanon 68 mg implant 1 implant subdermal ONCE Rx Instructions: as a single dose albuterol sulfate [Ventolin HFA] 90 mcg/actuation HFA aerosol inhaler 2 puff inhalation Q6H PRN quetiapine [Seroquel] 200 mg tablet 300 mg PO QHS multivitamin [Daily Multi-Vitamin] Tablet 1 tab PO DAILY sertraline [Zoloft] 100 mg tablet 100 mg PO DAILY fluticasone propion-salmeterol [Advair HFA] 230-21 mcg/actuation HFA aerosol inhaler 2 puff inhalation BID Qty: 12 12RF Airsupra 90-80 mcg/actuation HFA aerosol inhaler 2 inh inhalation ONCE Qty: 10.7 12RF Rx Instructions: as a single dose; may repeat up to 6 doses per day (12 inhalations) albuterol sulfate 2.5 mg /3 mL (0.083 %) solution for nebulization 2.5 mg inhalation Q4H PRN (Reason: shortness of breath or wheezing) Qty: 180 0RF budesonide 90 mcg/actuation aerosol powdr breath activated 2 inh inhalation BID Qty: 1 6RF prazosin 1 mg capsule 3 mg PO QHS Ubrelvy 100 mg tablet 100 mg PO ONCE PRN Rx Instructions: 1-2 tabs epinephrine [EpiPen] 0.3 mg/0.3 mL auto-injector 0.3 ml subcut ONCE PRN Rx Instructions: as a single dose; may repeat once calcium carbonate 400 mg/5 mL suspension 1,250 mg PO BID Rx Instructions: 1250mg/5ml oral suspension levalbuterol tartrate [Xopenex HFA] 2 puff inhalation PRN gabapentin 300 mg capsule 400 mg PO TID cholecalciferol (vitamin D3) [Vitamin D3] 50 mcg (2,000 unit) tablet 50 mcg PO DAILY buspirone 10 mg tablet 20 mg PO TID Patient Comments: TAKE TWO TABLETS BY MOUTH THREE TIMES A DAY . (DISCONTINUE 5MG DOSE) olanzapine 10 mg tablet 10 mg PO DAILY Patient Comments: TAKE ONE TABLET BY MOUTH AT BEDTIME Discharge Instructions Additional Instructions: Please follow-up with your primary care provider regarding your visit to the emergency department today. Be sure to discuss results of all test performed here today to include radiology, and laboratory testing as well as results for any pending cultures. Your iron levels and your iron binding capacity were normal today. Should your symptoms worsen, or if you develop new concerning symptoms, please return immediately emergency department for further evaluation. HPI General Date/Time Provider Initiated Documentation: 05/21/25 20:58. HPI Narrative: MDM/Narrative: Initial Assessment: 20-year-old female with hypoparathyroidism, hypercalcemia, and chest pains. Differential Diagnosis: Hypercalcemia (Ca 11.8), plan: IV fluids. Hx of Iron deficiency, plan: Check iron levels, follow up with PCP if abnormal. ED Course: EKG normal, PERC negative. IV fluids administered. This document was created with assistance from [employer]. The patient consented to its use. HPI: The patient is a 20-year-old female with a known diagnosis of hypoparathyroidism, presenting with hypercalcemia. She was referred to the emergency department by her dba following today's blood work, which revealed elevated serum calcium levels. The patient reports experiencing chest pain since this morning, without accompanying dyspnea. She has a history of similar episodes of chest pain. Her current medications include calcium carbonate (Tums), calcitriol, and nitisinone (Orfadin), the latter of which was initiated two weeks ago. Additionally, the patient expresses concern regarding potential iron deficiency, as she has been experiencing fatigue and lethargy. ROS: Negative besides as mentioned above Exam: Vital signs: Reviewed. General Appearance: Alert and oriented. No acute distress. HEENT: NCAT, EOMI, not icteric. External ears normal. No rhinorrhea. Moist mucous membranes. Neck: Supple, full range of motion, no observable masses, No meningeal sign. Respiratory: Clear breath sounds bilaterally, no wheezes, rales, or rhonchi. Cardiovascular: Normal heart sounds, no murmurs, rubs, or gallops. Gastrointestinal: Soft, nondistended, No rebound tenderness. Back: No midline tenderness to palpation or palpable step-offs of the C/T/L spine. Skin: Warm and dry, no rash. Neurological: Normal Gait, Grossly intact. Psychiatric: Appropriate for situation. Rhythm: NSR Rate: 99 [place]: Normal axis Intervals: Normal intervals Other findings: No acute ST segment or T wave changes to suggest acute ischemia. Labs: Laboratory Tests Range/Units 05/21/25 21:16 WBC (4.4-10.8) 10^3/uL 9.86 RBC (3.93-5.22) 10^6/uL 4.12 Hgb (11.2-15.7) g/dL 10.8 L Hct (36.0-46.0) % 34.2 L MCV (80-95) fL 83 MCH (27.0-33.0) pg 26.2 L MCHC (32.0-36.0) % 31.6 L RDW (11.7-14.6) % 18.8 H Plt Count (130-400) 10^3/uL 285 MPV (8.0-11.0) fL 10.5 Immature Gran % % 1.2 Neutrophils % % 56.6 Lymphocytes % % 33.2 Monocytes % % 6.8 Eosinophils % % 1.8 Basophils % % 0.4 Nucleated RBC % (0.0-0.3) % 0.0 Absolute Neutrophils (1.2-6.7) 10^3/uL 5.58 Absolute Lymphocytes (1.2-3.4) 10^3/uL 3.27 Absolute Monocytes (0.1-0.8) 10^3/uL 0.67 Absolute Eosinophils (0.0-0.7) 10^3/uL 0.18 Absolute Basophils (0.0-0.2) 10^3/uL 0.04 Sodium (136-145) mmol/L 140 Potassium (3.5-5.1) mmol/L 4.0 Chloride (98-107) mmol/L 104 Carbon Dioxide (21.0-32.0) mmol/L 29.2 Anion Gap (3-11) mmol/L 6.8 BUN (7-18) mg/dL 29 H Creatinine (0.55-1.02) mg/dL 1.1 H Est GFR (CKD-EPI 2020) (mL/min/1.73m2) 73.31 Glucose (74-106) mg/dL 106 Calcium (8.5-10.1) mg/dL 11.3 H Magnesium (1.8-2.4) mg/dL 1.9 Iron (50-170) ug/dL 66 TIBC (250-450) ug/dL 402 Transferrin % Sat (15-50) % 16 Total Bilirubin (0.2-1.0) mg/dL 0.2 AST (15-37) U/L 19 ALT (14-59) U/L 40 Alkaline Phosphatase (46-116) U/L 68 Total Protein (6.4-8.2) g/dL 7.9 Albumin (3.4-5.0) g/dL 4.2 Related Data Home Medications ?Medication ?Instructions ?Recorded ?Confirmed calcitriol 0.25 mcg capsule 0.25 mcg PO BID 10/01/24 05/21/25 sertraline 100 mg tablet (Zoloft) 100 mg PO DAILY 10/01/24 05/21/25 calcium carbonate 400 mg/5 mL oral 1,250 mg PO BID 10/04/24 05/21/25 suspension epinephrine 0.3 mg/0.3 mL 0.3 ml subcut ONCE PRN 10/04/24 05/21/25 injection, auto-injector (EpiPen) levalbuterol tartrate 2 puff inhalation PRN 10/04/24 05/21/25 prazosin 1 mg capsule 3 mg PO QHS 10/04/24 05/21/25 ubrogepant 100 mg tablet (Ubrelvy) 100 mg PO ONCE PRN 10/04/24 05/21/25 albuterol sulfate 90 mcg/actuation 2 puff inhalation Q6H PRN 12/31/24 05/21/25 aerosol inhaler (Ventolin HFA) etonogestrel 68 mg subdermal 1 implant subdermal ONCE 12/31/24 05/21/25 implant (Nexplanon) fremanezumab-vfrm 225 mg/1.5 mL 225 mg subcut QMONTH 12/31/24 05/21/25 subcutaneous auto-injector (Ajovy) teriparatide 20 mcg/dose (560 20 mcg subcut BID 12/31/24 05/21/25 mcg/2.24 mL) subcutaneous pen injector gabapentin 300 mg capsule 400 mg PO TID 01/11/25 05/21/25 cholecalciferol (vitamin D3) 50 50 mcg PO DAILY 01/19/25 05/21/25 mcg (2,000 unit) tablet (Vitamin D3) fluticasone propionate 230 2 puff inhalation BID #12 grams 02/17/25 05/21/25 mcg-salmeterol 21 mcg/actuation HFA inhaler (Advair HFA) albuterol 90 mcg-budesonide 80 2 inh inhalation ONCE #10.7 grams 02/24/25 05/21/25 mcg/actuation HFA aerosol inhaler (Airsupra) albuterol sulfate 2.5 mg/3 mL 2.5 mg (3 mL) inhalation Q4H PRN 02/24/25 05/21/25 (0.083 %) solution for nebulization shortness of breath or wheezing #180 mL budesonide 90 mcg/actuation breath 2 inh inhalation BID #1 ea 03/03/25 05/21/25 activated powder inhaler multivitamin (Daily Multi-Vitamin 1 tab PO DAILY 03/03/25 05/21/25 tablet) quetiapine 200 mg tablet (Seroquel) 300 mg PO QHS 03/03/25 05/21/25 magnesium oxide 400 mg (241.3 mg 400 mg PO DAILY 03/27/25 05/21/25 magnesium) tablet olanzapine 2.5 mg tablet 2.5 mg PO QHS 03/27/25 05/21/25 buspirone 10 mg tablet 20 mg PO TID 04/30/25 05/21/25 amoxicillin 875 mg-potassium 1 tab PO BID #14 tabs 05/06/25 05/21/25 clavulanate 125 mg tablet prednisone 10 mg tablet 10 mg PO DAILY #34 tabs 05/06/25 05/21/25 olanzapine 10 mg tablet 10 mg PO DAILY 05/21/25 05/21/25 Previous Rx's ?Medication ?Instructions ?Recorded fluticasone propionate 230 2 puff inhalation BID #12 grams 02/17/25 mcg-salmeterol 21 mcg/actuation HFA inhaler (Advair HFA) albuterol 90 mcg-budesonide 80 2 inh inhalation ONCE #10.7 grams 02/24/25 mcg/actuation HFA aerosol inhaler (Airsupra) albuterol sulfate 2.5 mg/3 mL 2.5 mg (3 mL) inhalation Q4H PRN 02/24/25 (0.083 %) solution for nebulization shortness of breath or wheezing #180 mL budesonide 90 mcg/actuation breath 2 inh inhalation BID #1 ea 03/03/25 activated powder inhaler amoxicillin 875 mg-potassium 1 tab PO BID #14 tabs 05/06/25 clavulanate 125 mg tablet prednisone 10 mg tablet 10 mg PO DAILY #34 tabs 05/06/25 Allergies Allergy/AdvReac Type Severity Reaction Status Date / Time cat dander Allergy Wheezing Verified 05/21/25 20:55 dog dander Allergy Wheezing Verified 05/21/25 20:55 house dust mite Allergy Wheezing Verified 05/21/25 20:55 tree and shrub pollen Allergy Wheezing Verified 05/21/25 20:55 hydrocodone AdvReac TACHYCARDIA Verified 05/21/25 20:55 PER PT ibuprofen AdvReac per Verified 05/21/25 20:55 nephrology tramadol AdvReac Other (See Verified 05/21/25 20:55 Comment) General Stated Complaint: Chest Pain KEILY: 3 Course Vital Signs Vital signs: Vital Signs Temperature 36.8 C 05/21/25 20:47 Pulse 100 H 05/21/25 20:47 Respiratory Rate 16 05/21/25 20:47 Blood Pressure 118/75 05/21/25 20:47 Pulse Oximetry 94 05/21/25 20:47 Temperature 36.8 C 05/21/25 20:47 Temperature Source Oral 05/21/25 20:47 Pulse 100 H 05/21/25 20:47 Respiratory Rate 20 05/21/25 21:20 Respiratory Effort Normal 05/21/25 21:20 Respiratory Depth Normal 05/21/25 21:20 Respiratory Pattern Normal 05/21/25 21:20 Blood Pressure 118/75 05/21/25 20:47 Blood Pressure Position Sitting 05/21/25 20:47 Pulse Oximetry 94 05/21/25 20:47 Oxygen Delivery Method Room Air 05/21/25 20:47 Oxygen Flow Rate 0 05/21/25 20:47 Pain Level 4 05/21/25 20:47 Lab/Test Results Lab/Test Results: Laboratory Tests Range/Units 05/21/25 21:16 WBC (4.4-10.8) 10^3/uL 9.86 RBC (3.93-5.22) 10^6/uL 4.12 Hgb (11.2-15.7) g/dL 10.8 L Hct (36.0-46.0) % 34.2 L MCV (80-95) fL 83 MCH (27.0-33.0) pg 26.2 L MCHC (32.0-36.0) % 31.6 L RDW (11.7-14.6) % 18.8 H Plt Count (130-400) 10^3/uL 285 MPV (8.0-11.0) fL 10.5 Immature Gran % % 1.2 Neutrophils % % 56.6 Lymphocytes % % 33.2 Monocytes % % 6.8 Eosinophils % % 1.8 Basophils % % 0.4 Nucleated RBC % (0.0-0.3) % 0.0 Absolute Neutrophils (1.2-6.7) 10^3/uL 5.58 Absolute Lymphocytes (1.2-3.4) 10^3/uL 3.27 Absolute Monocytes (0.1-0.8) 10^3/uL 0.67 Absolute Eosinophils (0.0-0.7) 10^3/uL 0.18 Absolute Basophils (0.0-0.2) 10^3/uL 0.04 Medical Decision Making Quality:SDOH Health Related Social Needs: Health related social needs lonely/isolated Health related social needs details patient frequently here for SI. 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 Started fluox 03/05, stopped spring 2020- restarted but stopped in the fall secondary to concerns of worsening suicidal ideation- trial lexapro- increase dose to 20 mg today (03/28/22) Chronic kidney disease (CKD) Nasal vestibulitis Patulous eustachian tube of left ear Chronic allergic rhinitis Encounter for immunotherapy Right-sided tinnitus Calcification of brain per [facility] neuro notes; bifrontal first noted in 2019 with some affecting basal ganglia, d/t underlying hypoparathyroidism Sciatica of right side Strain of extensor pollicis longus tendon Injury of thumb, right Allergic reaction Complex regional pain syndrome of right upper extremity Recurrent UTI Cough Abnormal chest xray Moderate persistent asthma Low back pain De Quervain's tenosynovitis, left Dysfunction of right eustachian tube Palpitations Wears hearing aid in both ears Otalgia of right ear TMJ pain dysfunction syndrome Sinusitis Nexplanon in place 09/2023. For menstrual control. Traumatic plantar fasciitis LEFT Lip lesion Electrolyte disturbance Depo-Provera contraceptive status 04/2023. Stopped per patient request 09/2023 restarted per patient request Hypokalemia Abnormal uterine bleeding (AUB) 2017. menstrual irreg. OCPs 05/29/2019. Dysmenorrhea. DepoProvera 150 mg every 3 months Ingrowing toenail (05/14/18) Left great toe; s/p resection ADHD (attention deficit hyperactivity disorder) Surgical History Vesicoureteric reflux (12/15/14) s/p bilateral ureteral implants [place] teeth extracted all 4 teeth extracted ureteral implants- bilat Tonsillectomy and adenoidectomy Myringotomy w/ PE (pressure equalizing) tubes Family History Mother Family history unknown Father Family history unknown Social History Smoking/Tobacco Use Status: Never Smoking risk assessment performed?: Yes Alcohol Intake: current Alcohol Intake frequency: holidays/special occasions only Alcohol type: beer Drug use: Never Substance use type: does not use Adopted: Yes Housing: house Education Level: college Details: [employer], starting [employer] in the fall current occupation: 02/28/2020 works at [employer] Pets and animals: Yes Pets and animals: cat(s), dog(s) and other Details: CHICKENS, TURKEYS, SHEEP, COWS Sexually active: No Do you feel safe at home: No (Pt reports environment is safe but she feels suicidal) Do you feel safe in your relationship?: Yes Additional Social history: safe environment, but not safe in myself Female Reproductive History Menstrual Age of Menarche: 11 Duration of menses: other control method: implanted
[2025-05-21] MEDS: Normal Saline 1,000 ML 1000 ML IV (21:31)
--- NOTE | 2025-05-21 21:35 | NUR.NOTE ---
Asked Dr. Tang if he wanted cardiac monitoring and provider declined cardiac monitoring.
[2025-05-21 21:42] LABS: ALT 40 U/L (14-59); AST 19 U/L (15-37); Albumin 4.2 g/dL (3.4-5.0); Alkaline Phosphatase 68 U/L (46-116); Anion Gap 6.8 mmol/L (3-11); BUN 29 mg/dL (7-18); Bilirubin, Total 0.2 mg/dL (0.2-1.0); CO2 29.2 mmol/L (21.0-32.0); Calcium 11.3 mg/dL (8.5-10.1); Chloride 104 mmol/L (98-107); Estimated GFR 73.31 (mL/min/1.73m2); Glucose 106 mg/dL (74-106); Magnesium 1.9 mg/dL (1.8-2.4); Potassium 4.0 mmol/L (3.5-5.1); Sodium 140 mmol/L (136-145); Total Protein 7.9 g/dL (6.4-8.2)
[2025-05-21 21:55] LABS: Iron 66 ug/dL (50-170); Total Iron Binding Capacity 402 ug/dL (250-450); Transferrin Sat 16 % (15-50)
[2025-05-21 22:46] VITALS: BP 126/77; PULSE 79; RESP 16; TEMP 36.6; O2SAT 97
== END 2025-05-21 22:45 | disposition home or self-care (01) ==
PROVIDERS: Emergency Provider General Practice; PCP Nurse Practitioner Family
DX: E83.52 Hypercalcemia (principal)
CPT/HCPCS: 36415; 80053; 93005; 96360; 99284; 83540; 83550; 83735; 85025; 93010; 99283

== ENCOUNTER 2025-05-23 05:17 | Outpatient (CLI) | payer MEDICAID, SELFPAY ==
[2025-05-23 15:19] LABS: Calcium 9.1 mg/dL (8.5-10.1)
== END 2025-05-23 05:18 | disposition home or self-care (01) ==
LOC: LBO 05:17
PROVIDERS: PCP Nurse Practitioner Family; Visit Provider Internal Medicine
DX: E20.9 Hypoparathyroidism, unspecified (principal); E20.0 Idiopathic hypoparathyroidism; E20.81 Hypoparathyroidism due to impaired parathyroid hormone secretion
CPT/HCPCS: 36415; 82306; 82040; 82310

== ENCOUNTER 2025-05-25 18:10 | Emergency (ER) | payer MEDICAID, SELFPAY ==
[2025-05-25 18:16] VITALS: BP 135/81; PULSE 98; RESP 16; TEMP 37.6; O2SAT 98
--- NOTE | 2025-05-25 18:38 | W.ED.GENAD ---
Discharge Plan Discharge Details Chief Complaint: PsychEval Primary Care Provider: EDILIA GIBSON ED Provider: Rambo Gunn Home Meds and New Rx's Prescriptions: No Action calcitriol 0.25 mcg capsule 0.25 mcg PO BID olanzapine 2.5 mg tablet 2.5 mg PO QHS Patient Comments: Take 1 tablet oral once a day, at bedtime for mood stabilization Patient reports 10mg at HS magnesium oxide 400 mg (241.3 mg magnesium) tablet 400 mg PO DAILY Patient Comments: TAKE ONE TABLET BY MOUTH EVERY DAY prednisone 10 mg tablet 10 mg PO DAILY Qty: 34 0RF Rx Instructions: Take 40mg (4 tablets) one a day for 4 days, 30mg (3 tablets) once a day for 3 days, 20mg (2 tablets) once a day for 3 days , 10mg (1 tablet) for 2 days, 5mg (0.5 tablets) for 2 days teriparatide 20 mcg/dose (560mcg/2.24mL) pen injector 20 mcg subcut BID Ajovy Autoinjector 225 mg/1.5 mL auto-injector 225 mg subcut QMONTH Nexplanon 68 mg implant 1 implant subdermal ONCE Rx Instructions: as a single dose albuterol sulfate [Ventolin HFA] 90 mcg/actuation HFA aerosol inhaler 2 puff inhalation Q6H PRN quetiapine [Seroquel] 200 mg tablet 300 mg PO QHS multivitamin [Daily Multi-Vitamin] Tablet 1 tab PO DAILY sertraline [Zoloft] 100 mg tablet 100 mg PO DAILY fluticasone propion-salmeterol [Advair HFA] 230-21 mcg/actuation HFA aerosol inhaler 2 puff inhalation BID Qty: 12 12RF Airsupra 90-80 mcg/actuation HFA aerosol inhaler 2 inh inhalation ONCE Qty: 10.7 12RF Rx Instructions: as a single dose; may repeat up to 6 doses per day (12 inhalations) albuterol sulfate 2.5 mg /3 mL (0.083 %) solution for nebulization 2.5 mg inhalation Q4H PRN (Reason: shortness of breath or wheezing) Qty: 180 0RF budesonide 90 mcg/actuation aerosol powdr breath activated 2 inh inhalation BID Qty: 1 6RF prazosin 1 mg capsule 3 mg PO QHS Ubrelvy 100 mg tablet 100 mg PO ONCE PRN Rx Instructions: 1-2 tabs epinephrine [EpiPen] 0.3 mg/0.3 mL auto-injector 0.3 ml subcut ONCE PRN Rx Instructions: as a single dose; may repeat once calcium carbonate 400 mg/5 mL suspension 1,250 mg PO BID Rx Instructions: 1250mg/5ml oral suspension levalbuterol tartrate [Xopenex HFA] 2 puff inhalation PRN gabapentin 300 mg capsule 400 mg PO TID cholecalciferol (vitamin D3) [Vitamin D3] 50 mcg (2,000 unit) tablet 50 mcg PO DAILY buspirone 10 mg tablet 20 mg PO BID Patient Comments: TAKE TWO TABLETS BY MOUTH THREE TIMES A DAY . (DISCONTINUE 5MG DOSE) olanzapine 10 mg tablet 5 mg PO DAILY Patient Comments: TAKE ONE TABLET BY MOUTH AT BEDTIME HPI General Mode of arrival: ambulatory. Date/Time Provider Initiated Documentation: 05/25/25 18:13. Limitations to Documentation: no limitations. Information obtained by: patient. History of Present Illness 20 year old F presents to the emergency department with the chief complaint of si, described as moderate, Patient started experiencing this month(s) (2) and it has been constant. No relieving factors improve symptom(s), No exacerbating factors reported . Patient notes no other symptoms.. Patient did receive the following treatments prior to arrival, none Related Data Home Medications ?Medication ?Instructions ?Recorded ?Confirmed calcitriol 0.25 mcg capsule 0.25 mcg PO BID 10/01/24 05/25/25 sertraline 100 mg tablet (Zoloft) 100 mg PO DAILY 10/01/24 05/25/25 calcium carbonate 400 mg/5 mL oral 1,250 mg PO BID 10/04/24 05/25/25 suspension epinephrine 0.3 mg/0.3 mL 0.3 ml subcut ONCE PRN 10/04/24 05/25/25 injection, auto-injector (EpiPen) levalbuterol tartrate 2 puff inhalation PRN 10/04/24 05/25/25 prazosin 1 mg capsule 3 mg PO QHS 10/04/24 05/25/25 ubrogepant 100 mg tablet (Ubrelvy) 100 mg PO ONCE PRN 10/04/24 05/25/25 albuterol sulfate 90 mcg/actuation 2 puff inhalation Q6H PRN 12/31/24 05/25/25 aerosol inhaler (Ventolin HFA) etonogestrel 68 mg subdermal 1 implant subdermal ONCE 12/31/24 05/25/25 implant (Nexplanon) fremanezumab-vfrm 225 mg/1.5 mL 225 mg subcut QMONTH 12/31/24 05/25/25 subcutaneous auto-injector (Ajovy) teriparatide 20 mcg/dose (560 20 mcg subcut BID 12/31/24 05/25/25 mcg/2.24 mL) subcutaneous pen injector gabapentin 300 mg capsule 400 mg PO TID 01/11/25 05/25/25 cholecalciferol (vitamin D3) 50 50 mcg PO DAILY 01/19/25 05/25/25 mcg (2,000 unit) tablet (Vitamin D3) fluticasone propionate 230 2 puff inhalation BID #12 grams 02/17/25 05/25/25 mcg-salmeterol 21 mcg/actuation HFA inhaler (Advair HFA) albuterol 90 mcg-budesonide 80 2 inh inhalation ONCE #10.7 grams 02/24/25 05/25/25 mcg/actuation HFA aerosol inhaler (Airsupra) albuterol sulfate 2.5 mg/3 mL 2.5 mg (3 mL) inhalation Q4H PRN 02/24/25 05/25/25 (0.083 %) solution for nebulization shortness of breath or wheezing #180 mL budesonide 90 mcg/actuation breath 2 inh inhalation BID #1 ea 03/03/25 05/25/25 activated powder inhaler multivitamin (Daily Multi-Vitamin 1 tab PO DAILY 03/03/25 05/25/25 tablet) quetiapine 200 mg tablet (Seroquel) 300 mg PO QHS 03/03/25 05/25/25 magnesium oxide 400 mg (241.3 mg 400 mg PO DAILY 03/27/25 05/25/25 magnesium) tablet olanzapine 2.5 mg tablet 2.5 mg PO QHS 03/27/25 05/25/25 buspirone 10 mg tablet 20 mg PO BID 04/30/25 05/25/25 prednisone 10 mg tablet 10 mg PO DAILY #34 tabs 05/06/25 05/25/25 olanzapine 10 mg tablet 5 mg PO DAILY 05/21/25 05/25/25 Previous Rx's ?Medication ?Instructions ?Recorded fluticasone propionate 230 2 puff inhalation BID #12 grams 02/17/25 mcg-salmeterol 21 mcg/actuation HFA inhaler (Advair HFA) albuterol 90 mcg-budesonide 80 2 inh inhalation ONCE #10.7 grams 02/24/25 mcg/actuation HFA aerosol inhaler (Airsupra) albuterol sulfate 2.5 mg/3 mL 2.5 mg (3 mL) inhalation Q4H PRN 02/24/25 (0.083 %) solution for nebulization shortness of breath or wheezing #180 mL budesonide 90 mcg/actuation breath 2 inh inhalation BID #1 ea 03/03/25 activated powder inhaler prednisone 10 mg tablet 10 mg PO DAILY #34 tabs 05/06/25 Allergies Allergy/AdvReac Type Severity Reaction Status Date / Time cat dander Allergy Wheezing Verified 05/25/25 18:21 dog dander Allergy Wheezing Verified 05/25/25 18:21 house dust mite Allergy Wheezing Verified 05/25/25 18:21 tree and shrub pollen Allergy Wheezing Verified 05/25/25 18:21 hydrocodone AdvReac TACHYCARDIA Verified 05/25/25 18:21 PER PT ibuprofen AdvReac per Verified 05/25/25 18:21 nephrology tramadol AdvReac Other (See Verified 05/25/25 18:21 Comment) General Stated Complaint: PsychEval KEILY: 2 Review of Systems All systems reviewed & are unremarkable except as noted in HPI and below Constitutional Constitutional: Denies chills and Denies fever(s) Cardiovascular Cardiovascular: Denies chest pain and Denies dyspnea Respiratory Respiratory: Denies cough and Denies dyspnea Gastrointestinal Gastrointestinal: Denies abdominal pain, Denies nausea and Denies vomiting Psychiatric Psychiatric: Reports depression Exam Const General: no acute distress Orientation: alert HENMT Head: normal to inspection Ears: external ears normal General nose exam: external nose normal Mouth: moist mucous membranes Eyes General: appearance normal, both eyes and all related structures Neck Neck: normal visual inspection Resp Effort & Inspection: normal respiratory effort and able to speak in complete sentences Cardio Rate: regular rate Skin General skin exam: no rashes or lesions noted Neuro General: patient alert and patient oriented x3 Extrem General: normal to inspection Psych Attitude: cooperative Course Vital Signs Vital signs: Vital Signs Temperature 37.6 C H 05/25/25 18:16 Pulse 98 H 05/25/25 18:16 Respiratory Rate 16 05/25/25 18:16 Blood Pressure 135/81 05/25/25 18:16 Pulse Oximetry 98 05/25/25 18:16 Temperature 37.6 C H 05/25/25 18:16 Temperature Source Oral 05/25/25 18:16 Pulse 98 H 05/25/25 18:16 Respiratory Rate 16 05/25/25 18:16 Blood Pressure 135/81 05/25/25 18:16 Blood Pressure Position Sitting 05/25/25 18:16 Pulse Oximetry 98 05/25/25 18:16 Oxygen Delivery Method Room Air 05/25/25 18:16 Oxygen Flow Rate 0 05/25/25 18:16 Pain Level 0 05/25/25 18:16 Medical Decision Making 20-year-old female with a history of several months of thoughts of self-harm who was recently discharged from [facility] on stating she was still having SI at that time, hypoparathyroidism, comes in with continued thoughts of self-harm. She used a pocket knife to cut her left wrist. She has several superficial lacerations to the left wrist that do not require sutures. She denies doing anything else to try and harm self. She is oriented x 4 normal speech. Given her history of hypoparathyroidism I will check screening labs and if negative I will have crisis screener evaluate. Today, patient's blood work without significant acute findings. Her urine is nitrite positive, she denies urinary symptoms but given the nitrate positive will initiate dose of fosfomycin. She is medically cleared to speak with crisis screener Differential Diagnosis Differential Diagnosis: Depression, SI Quality:SDOH Health Related Social Needs: Health related social needs lonely/isolated Health related social needs details patient frequently here for SI. 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 Started fluox 03/05, stopped spring 2020- restarted but stopped in the fall secondary to concerns of worsening suicidal ideation- trial lexapro- increase dose to 20 mg today (03/28/22) Chronic kidney disease (CKD) Nasal vestibulitis Patulous eustachian tube of left ear Chronic allergic rhinitis Encounter for immunotherapy Right-sided tinnitus Calcification of brain per [facility] neuro notes; bifrontal first noted in 2010; 2019 with some affecting basal ganglia, d/t underlying hypoparathyroidism Sciatica of right side Strain of extensor pollicis longus tendon Injury of thumb, right Allergic reaction Complex regional pain syndrome of right upper extremity Recurrent UTI Cough Abnormal chest xray Moderate persistent asthma Low back pain De Quervain's tenosynovitis, left Dysfunction of right eustachian tube Palpitations Wears hearing aid in both ears Otalgia of right ear TMJ pain dysfunction syndrome Sinusitis Nexplanon in place 09/2023. For menstrual control. Traumatic plantar fasciitis LEFT Lip lesion Electrolyte disturbance Depo-Provera contraceptive status 04/2023. Stopped per patient request 09/2023 restarted per patient request Hypokalemia Abnormal uterine bleeding (AUB) 2017. menstrual irreg. OCPs 05/29/2019. Dysmenorrhea. DepoProvera 150 mg every 3 months Ingrowing toenail (05/14/18) Left great toe; s/p resection ADHD (attention deficit hyperactivity disorder) Surgical History Vesicoureteric reflux (12/15/14) s/p bilateral ureteral implants [place] teeth extracted all 4 teeth extracted ureteral implants- bilat Tonsillectomy and adenoidectomy Myringotomy w/ PE (pressure equalizing) tubes Family History Mother Family history unknown Father Family history unknown Social History Smoking/Tobacco Use Status: Never Smoking risk assessment performed?: Yes Alcohol Intake: current Alcohol Intake frequency: holidays/special occasions only Alcohol type: beer Drug use: Never Substance use type: does not use Adopted: Yes Housing: house Education Level: college Details: [employer], starting [employer] in the fall current occupation: 02/28/2020 works at [employer] Pets and animals: Yes Pets and animals: cat(s), dog(s) and other Details: CHICKENS, TURKEYS, SHEEP, COWS Sexually active: No Do you feel safe at home: No (Pt reports environment is safe but she feels suicidal) Do you feel safe in your relationship?: Yes Additional Social history: safe environment, but not safe in myself Female Reproductive History Menstrual Age of Menarche: 11 Duration of menses: other control method: implanted
[2025-05-25 18:52] LABS: Abs Immature Grans 0.05 10^3/uL (0.0-0.06); HCT 32.2 % (36.0-46.0); HGB 10.2 g/dL (11.2-15.7); Immature Grans % 0.5 %; MCH 26.1 pg (27.0-33.0); MCHC 31.7 % (32.0-36.0); MCV 82 fL (80-95); MPV 9.9 fL (8.0-11.0); Platelet Count 226 10^3/uL (130-400); RBC 3.91 10^6/uL (3.93-5.22); RDW 18.6 % (11.7-14.6); RDW-SD 54.8 fL; WBC 9.83 10^3/uL (4.4-10.8)
[2025-05-25 18:57] LABS: Glucose Negative (Negative)
[2025-05-25] MEDS: Bacitracin 30 GM TUBE TP (18:57)
[2025-05-25 19:09] LABS: C & S Indicated? Yes; RBC Negative HPF (0-2); WBC 0-2 HPF (0-5)
[2025-05-25 19:20] LABS: HCG Qual (Serum) Negative
[2025-05-25 19:21] LABS: Cannabinoids THC Negative (Negative); METHADONE URINE SCREEN Negative (Negative)
[2025-05-25 19:22] LABS: Salicylate < 2.8 mg/dL (<2.8)
[2025-05-25 19:27] LABS: Acetaminophen < 2 ug/mL (10-30)
[2025-05-25 20:04] LABS: ALT 35 U/L (14-59); AST 25 U/L (15-37); Albumin 4.1 g/dL (3.4-5.0); Alkaline Phosphatase 71 U/L (46-116); Anion Gap 10.8 mmol/L (3-11); BUN 17 mg/dL (7-18); Bilirubin, Total 0.2 mg/dL (0.2-1.0); CO2 27.2 mmol/L (21.0-32.0); Calcium 8.1 mg/dL (8.5-10.1); Chloride 104 mmol/L (98-107); Estimated GFR 93.28 (mL/min/1.73m2); Glucose 100 mg/dL (74-106); Potassium 3.1 mmol/L (3.5-5.1); Sodium 142 mmol/L (136-145); Total Protein 7.6 g/dL (6.4-8.2)
[2025-05-25 20:26] LABS: TSH (W/Ref FT4) 2.93 uIU/mL (0.36-3.74)
[2025-05-25] MEDS: Fosfomycin Tromethamine 3 GM PACKET PO (20:26)
[2025-05-25 21:38] VITALS: BP 109/68; PULSE 95; RESP 18; O2SAT 99
[2025-05-25] MEDS: Budesonide/Formoterol 160/4.5 6 GM 60 PUFF INH IH (21:42)
[2025-05-25] MEDS: Prazosin 1 MG CAP 3 MG PO (21:43)
[2025-05-25] MEDS: busPIRone 5 MG TAB 20 MG PO (21:44)
[2025-05-25] MEDS: Gabapentin 300 MG CAP PO (21:49)
[2025-05-25] MEDS: Gabapentin 100 MG CAP PO (21:49)
[2025-05-25] MEDS: OLANZapine 5 MG TAB PO (22:58)
--- NOTE | 2025-05-25 23:35 | PDOC.MHCN ---
Date of service: 05/25/25 Time of Service: 10:45 PHQ-9 Over the last 2 weeks, how often have you been bothered by any of the following problems? 1. Little interest or pleasure in doing things: nearly every day 2. Feeling down, depressed, or hopeless: nearly every day 3. Trouble falling or staying asleep, or sleeping too much: nearly every day 4. Feeling tired or having little energy: nearly every day 5. Poor appetite or overeating: more than half the days 6. Feeling bad about yourself - or that you are a failure or have let yourself and your family down: nearly every day 7. Trouble concentrating on things, such as reading the newspaper or watching television: more than half the days 8. Moving or speaking so slowly that other people could have noticed? - Or the opposite - being so fidgety or restless that you have been moving around a lot more than usual: not at all 9. Thoughts that you would be better off or of hurting yourself in some way: nearly every day Total score: 22 If you checked off any problems, how difficult have these problems made it for you to do your work, take care of things at home, or get along with other people?: very difficult PHQ-9 Results: Positive Source: Developed by Drs. Oskar Marquez, Darlene Betancur, Antonio Barry and colleagues, with an educational heriberto from [employer]. Suicide Severity Rate CSSRS Have you wished you were or wished you could go to sleep and not wake up?: Yes Have you actually had any thoughts of killing yourself?: Yes CSSRS2 Have you been thinking about how you might do this?: Yes Have you had these thoughts and had some intention of acting on them?: Yes Have you started to work out or worked out the details of how to kill yourself? Do you intend to carry out this plan?: Yes CSSRS3 Have you ever done anything, started to do anything or prepared to do anything to end your life?: Yes CSSRS4 Was this within the past three months?: Yes Screening Score Total Score: 8 Screening: Positive Mental Health Emergency Note Release [facility] release signed:: Yes Reason for Visit There was a delay in response due to assessment in the community. This technical report writer received a call from [facility] asking for a screening as Jyothi was at the ED due to self cutting. Jyothi is previously known to both this technical report writer and [facility]. Dr Gunn shared Jyothi was released from [facility] and felt they were released too soon. In the last 2 weeks has the pt presented for ES prior to today?: Unknown Client Information Client is: [employer] Well Housed: Yes Non Suicidal Self Injury Current: No History: yes, Client has a history of self harming via cutting and scratching. Safety Risk/Harm to Self or Others Current Ideation to Harm Self or Others: Yes to self. (Client reports active thoughts of wanting to end their life and that when they cut themselves tonight it was with intent to . ) Intent: yes, has intent. Plan: yes,has a plan. History of suicide attempt: yes,history of suicide attempt reported. Details of previous suicide attempt: Client attempted to end their life today and reports previous attempts to end their life. Risk: Does risk to harm exist?: No Risk: N/A Duty to warn indicated: No Asssessment/Mental Status Appearance: Unremarkable Attitude: Cooperative Behavior: Unremarkable Speech: Normal Affect: Cogruent with mood Mood: Stressed, Depressed and Anxious Thought process: Goal directed Hallucinations: yes, (Client reports hearing voices daily and reports history of seeing shadows. ) Auditory Delusions: No evidence Attention: Unremarkable Perception: Not impaired Orientation: Fully orientated Memory: Intact Insight: Fair Judgement: Fair Neurovegetative Symptoms Sleep: Decrease Appetitie: Decrease Interests: Decrease Energy: Decrease Libido: Not applicable Substance Use: Do you use nicotine?: No Have you used substances in the last 7 days?: No Additional Issues: Assaultive/Threatening Behavior: No Medical Concerns: No Client engaged in active self harm w/weapon: No Threatening to run away: No Child reported abuse/neglect: No Voluntarily presenting for services: Yes Domestic violence is a concern: No Extreme Psychosis or extreme behavior is present: No Impression Jyothi is a [age] year old born female who was adopted at [age] years old, identifies with they/them pronouns and lives in youth services housing. The client lives with a roommate and reports the roommate often is not home. Client is previously known to [facility] and this technical report writer. Client was discharged from [facility] on of last week and reports they were discharged early and she tried to tell [facility] they were still suicidal upon discharge. Robert, client attempted to end their life via slitting their wrist. Client presents to this technical report writer laying in the hospital bed under blankets in blue paper scrubs. Client reports they are doing okay, and I am alive when asked how their day was. Client reports that they were released from treatment on after being in [facility] for 10 days. Client was not ready to leave. Robert, client called dad but dad did not answer so they then called [phone] for help after cutting and feeling like they cut too deep. [phone] sent client to [facility] for a mental health assessment and medical attention. Client's cut is cleaned and bandaged up but did not require stitches. Client reports hearing voices in their head telling them to give up, end their life, and that they are worthless. Client reports that the suicidal ideation is strong and persistent and they have had the same thoughts since being at [facility]. On a self reported scale of 0-10, client reports if they were to go home they rate themself an 8/10 with thoughts and intent to harm self. Client reports previous attempts prior to today to end life via cutting. Client has access to sharps, medications, and extension cords at home. Client has been hospitalized several times previously for their mental health and eating disorder. Client scored a 22/27 on the PHQ9, 5/5 on the PTSD5 and 6/6 on the CSSRS. Client reports they do not feel safe in the community. This technical report writer discussed the carebed, client reports they could not agree to stay safe in the community until a crisis bed became available. Client reports that they feel they need inpatient treatment ocean transportation intermediary. This technical report writer explained emergency services refers to short term treatment. Client and this technical report writer had conversation about utilizing skills and joining groups when in the community. Utilizing the front porch and peers who have experience with wrap. Client reports they feel after treatment, they would be able to do all of this successfully with help from their nurse case manager. Plan/Disposition Recommended Disposition: Hospitalization (Referrals will be sent to all hospitals on 05/25) facilities contacted. Plan: Jyothi will remain at [facility] until treatment is secured or they feel safe enough to return home on a safety plan. Emergency Services will loop their outpatient team into the plan on 05/26. Person reported agreement to plan: Yes Reports/communication Outcome discussed with: ED/Personnel
[2025-05-26 07:39] VITALS: BP 92/55; PULSE 113; RESP 18; TEMP 35.9; O2SAT 99
--- NOTE | 2025-05-26 07:58 | ED.PROG1_ITS ---
Date of service: 05/26/25 Time of Service: 07:59 Psychiatric Border Handoff Update Brief Story: Recently discharged from [facility] with recurrent suicidal ideation. No active behavioral issues. Status: voluntary Able to leave: would need physician/BRIAN and crisis evaluation prior to leaving Potential Disposition: 1:15 PM I spoke with Patricia from [facility]. She had evaluated the patient and come up with a safety plan. I met with the patient. She was amenable to safety plan. She reported that she did not have any access to hand guns at home. I encouraged her to follow-up with her outpatient team. I requested that she return to the emergency department if her symptoms worsened or did not improve. Medical Concerns: None Mediation Reconciliation performed: Yes Code Status ordered: Yes Diet ordered: Yes Discharge Plan Disposition Patient Disposition: Home Discharge Details Clinical Impression: Depression Primary Care Provider: EDILIA GIBSON ED Provider: Jeffy Mo Home Meds and New Rx's Prescriptions: Continued calcitriol 0.25 mcg capsule 0.25 mcg PO BID olanzapine 2.5 mg tablet 2.5 mg PO QHS Patient Comments: Take 1 tablet oral once a day, at bedtime for mood stabilization Patient reports 10mg at HS magnesium oxide 400 mg (241.3 mg magnesium) tablet 400 mg PO DAILY Patient Comments: TAKE ONE TABLET BY MOUTH EVERY DAY prednisone 10 mg tablet 10 mg PO DAILY Qty: 34 0RF Rx Instructions: Take 40mg (4 tablets) one a day for 4 days, 30mg (3 tablets) once a day for 3 days, 20mg (2 tablets) once a day for 3 days , 10mg (1 tablet) for 2 days, 5mg (0.5 tablets) for 2 days teriparatide 20 mcg/dose (560mcg/2.24mL) pen injector 20 mcg subcut BID Ajovy Autoinjector 225 mg/1.5 mL auto-injector 225 mg subcut QMONTH Nexplanon 68 mg implant 1 implant subdermal ONCE Rx Instructions: as a single dose albuterol sulfate [Ventolin HFA] 90 mcg/actuation HFA aerosol inhaler 2 puff inhalation Q6H PRN quetiapine [Seroquel] 200 mg tablet 300 mg PO QHS multivitamin [Daily Multi-Vitamin] Tablet 1 tab PO DAILY sertraline [Zoloft] 100 mg tablet 100 mg PO DAILY fluticasone propion-salmeterol [Advair HFA] 230-21 mcg/actuation HFA aerosol inhaler 2 puff inhalation BID Qty: 12 12RF Airsupra 90-80 mcg/actuation HFA aerosol inhaler 2 inh inhalation ONCE Qty: 10.7 12RF Rx Instructions: as a single dose; may repeat up to 6 doses per day (12 inhalations) albuterol sulfate 2.5 mg /3 mL (0.083 %) solution for nebulization 2.5 mg inhalation Q4H PRN (Reason: shortness of breath or wheezing) Qty: 180 0RF budesonide 90 mcg/actuation aerosol powdr breath activated 2 inh inhalation BID Qty: 1 6RF prazosin 1 mg capsule 3 mg PO QHS Ubrelvy 100 mg tablet 100 mg PO ONCE PRN Rx Instructions: 1-2 tabs epinephrine [EpiPen] 0.3 mg/0.3 mL auto-injector 0.3 ml subcut ONCE PRN Rx Instructions: as a single dose; may repeat once calcium carbonate 400 mg/5 mL suspension 1,250 mg PO BID Rx Instructions: 1250mg/5ml oral suspension levalbuterol tartrate [Xopenex HFA] 2 puff inhalation PRN gabapentin 300 mg capsule 400 mg PO TID cholecalciferol (vitamin D3) [Vitamin D3] 50 mcg (2,000 unit) tablet 50 mcg PO DAILY buspirone 10 mg tablet 20 mg PO BID Patient Comments: TAKE TWO TABLETS BY MOUTH THREE TIMES A DAY . (DISCONTINUE 5MG DOSE) olanzapine 10 mg tablet 5 mg PO DAILY Patient Comments: TAKE ONE TABLET BY MOUTH AT BEDTIME duloxetine 40 mg capsule,delayed release(DR/EC) 40 mg PO .QN Rx Instructions: Per [place]: 1 cap (20mg) PO QN x 3D (filled 05/09/25) then 2 cap (40mg) PO QN thereafter Discharge Instructions Additional Instructions: You are seen in the emergency department for your thoughts of self-harm. You were given a safety plan. If you do not feel safe at home or have any other concerns please return to the emergency department. Otherwise please follow-up with your outpatient team.
[2025-05-26] MEDS: Budesonide/Formoterol 160/4.5 6 GM 60 PUFF INH IH (08:24)
[2025-05-26] MEDS: busPIRone 5 MG TAB 20 MG PO (08:25)
[2025-05-26] MEDS: Cholecalciferol (Vitamin D3) 1,000 UNIT TAB 2000 UNITS PO (08:25)
[2025-05-26] MEDS: Magnesium Oxide 400 MG TAB PO (08:25)
[2025-05-26] MEDS: Bacitracin 30 GM TUBE TP (08:25)
[2025-05-26] MEDS: Gabapentin 300 MG CAP PO (08:25)
[2025-05-26] MEDS: Multivitamin TAB 1 TAB PO (08:25)
--- NOTE | 2025-05-26 10:19 | CMSP_ITS ---
Date of service: 05/26/25 Time of Service: 10:19 Care Management Safety Plan Status Status: Voluntary Safety Plan Safety Plan: VOLUNTARY FOR INPATIENT PSYCHIATRIC STABILIZATION.? Patient is appropriate in all interactions since arriving at [facility]; Pt has demonstrated appropriate coping and communication skills, has articulated his or her needs and concerns and is fully engaged during staff interactions. Safety plan has been established with patient, and care team, to adhere to patient goals, identify restrictions based on behavioral status, address nutrition, and determine allowed personal belongings, tools for hygiene and personal care. Determine level of activity including ambulation, level of supervision, visitors, and determine privileges based on behaviors and level of engagement by pt. VOLUNTARY SAFETY PLAN: 1. Will remain on suicide precautions, in paper clothes 2. Will remain in Zone B under direct supervision of one-on-one staff at all times provided by [employer]; BANDAR, CUSTOMER RELATIONSHIP SPECIALIST turret lathe set up operator. 3. May have paper cups, plates, finger foods as well as a cardboard spoon with which to eat meals. 4. Follow [facility] Management of the Admitted Behavioral Health Patient policy. 5. Shower available in Zone B without restriction. 6. Personal belongings-soft items permitted at RN discretion. 7. Visitors-none at this time. 8. Activities: soft cart items, hospital tablets (Netflix/[place]+/music) appr karoline per RN discretion. 9.? Bathroom available in Zone B without restriction. 10. Phone: limited to [facility] cordless phone at RN discretion. Due to VOLUNTARY status, if patient wishes to leave [facility], staff will contact [facility] Crisis Screener ([phone]) and Stallion Keeper ([phone]) as soon as possible. In the event of elopement, notify [facility] Police ([phone]). Patient is currently voluntarily at [facility] and seeking inpatient admission when a bed becomes available. [facility] Frontline Wrapper Hand will continue seeking placement. Please contact the Stallion Keeper ([phone]) and [facility] Wrapper Hand ([phone]) for any needed changes in the Safety Plan. Safety plan has been provided to interdepartmental care team.
--- NOTE | 2025-05-26 10:19 | PDOC.CMSAFE ---
Date of service: 05/26/25 Time of Service: 10:19 Care Management Safety Plan Status Status: Voluntary Safety Plan Safety Plan: VOLUNTARY FOR INPATIENT PSYCHIATRIC STABILIZATION.? Patient is appropriate in all interactions since arriving at [facility]; Pt has demonstrated appropriate coping and communication skills, has articulated his or her needs and concerns and is fully engaged during staff interactions. Safety plan has been established with patient, and care team, to adhere to patient goals, identify restrictions based on behavioral status, address nutrition, and determine allowed personal belongings, tools for hygiene and personal care. Determine level of activity including ambulation, level of supervision, visitors, and determine privileges based on behaviors and level of engagement by pt. VOLUNTARY SAFETY PLAN: 1. Will remain on suicide precautions, in paper clothes 2. Will remain in Zone B under direct supervision of one-on-one staff at all times provided by [employer]; BANDAR, VOLCANOLOGY TEACHER diet supervisor. 3. May have paper cups, plates, finger foods as well as a cardboard spoon with which to eat meals. 4. Follow [facility] Management of the Admitted Behavioral Health Patient policy. 5. Shower available in Zone B without restriction. 6. Personal belongings-soft items permitted at RN discretion. 7. Visitors-none at this time. 8. Activities: soft cart items, hospital tablets (Netflix/[place]+/music) approved per RN discretion. 9.? Bathroom available in Zone B without restriction. 10. Phone: limited to [facility] cordless phone at RN discretion. Due to VOLUNTARY status, if patient wishes to leave [facility], staff will contact [facility] Crisis Screener ([phone]) and Kitchen Help Handyman ([phone]) as soon as possible. In the event of elopement, notify [facility] Police ([phone]). Patient is currently voluntarily at [facility] and seeking inpatient admission when a bed becomes available. [facility] Frontline Crystal Syrup Maker will continue seeking placement. Please contact the Kitchen Help Handyman ([phone]) and [facility] Crystal Syrup Maker ([phone]) for any needed changes in the Safety Plan. Safety plan has been provided to interdepartmental care team.
--- NOTE | 2025-05-26 10:20 | PDOC.CMPRO ---
Date of service: 05/26/25 Time of Service: 10:20 Care Management Progress Note Progress Note Text Progress Note Text: CM huddled with ED and [facility] staff regarding Jyothi's plan of care. Per report, patient reported experiencing suicidal ideation and carried out a plan to harm herself by slitting her wrists. Recently hospitalization at [facility]. Per report, she has been appropriate today. Per [facility], she goes to therapy 3x/weekly and is agreeable to follow up with [facility]. She is being safety planned to herself and will discharge to her apartment later today. CM will continue to follow. Voluntary safety plan in place; CM will follow. Status Status: Voluntary Social Determinants of Health Screening Will the Patient Participate in the Screening?: Declined to provide
[2025-05-26] MEDS: DULoxetine 20 MG CAP 40 MG PO (10:54)
[2025-05-26 13:27] VITALS: BP 108/58; PULSE 98; RESP 18; O2SAT 99
--- NOTE | 2025-05-26 14:33 | MHPN_ITS ---
Date of service: 05/26/25 Time of Service: 14:34 Mental Health Emergency Note Release [facility] release signed:: Yes Reason for Visit The client is well known to [facility] and the ES team. She has been hospitalized back to back numerous times and her last two were at and was just release from a few day's ago. She has not been able to really be seen by her OP team as she is frequenting the hospital seeking inpatient so frequently. She is scheduled to see her therapist 3 times a week and her CM once a week and this was discussed today to see if the CM will see twice a week so she is seen 5 times a week. The client was initially screened on . by [facility] Dorota and [facility] Inge for self injurious behaviors. In the last 2 weeks has the pt presented for ES prior to today?: Yes, presented at [facility] ED Impression The client is a 20 year old, single born female who resides in [facility] with her girlfriend. She receives services through the [facility] formally known as MOTION AND TIME STUDY TEACHER. She uses They/Them pronouns and all underrepresented categories where honored during this assessment. The client presents lying in bed when this team arrived. The client noted they were going to sit up so they did not fall back asleep again. They said they slept well for the first time in 4 days. They noted they have been experiencing paranoia and auditory hallucinations. They reported they have not been eating well either. The client was asked what they were hoping to get out of another hospital stay and that this clinician heard they wanted to go to a glue jointer operator residential. They said they heard that in order to get into a [facility]p residential they needed to be inpatient and they need a longer time with stabilizing them on their medications and developing coping skills. Both this clinician and their casework specialist informed them that was not the way, that instead they needed to work with their OP team to be referred. Additionally, the case manger reminded them of the last time they tried to get into residential and they were denied as they did not meet criteria. We also discussed how inpatient can be maladaptive to their success. We discussed them wanting to get a job, and having a relationship with their girlfriend. This clinician expressed excitement and informed them that those are great goals and in order to fulfill them they needed to be working on themselves outpatient as going away so much will be a barrier to those goals and be a reason their girlfriend may not be hopeful for their relationship. The client presented calm, insightful, and fully oriented. They made good eye contact and was cooperative an friendly. They showed fair insight and judgement. Resources Reosurces reviewed and given:: Other (FP) Plan/Disposition Recommended Disposition: [facility] Services [facility] Services: MOTION AND TIME STUDY TEACHER and Therapy. Plan: The client engaged in a safety plan and will d/c back home and meet with her CM tomorrow. CM will also address the possibility of losing their transitional housing if they are gone for too long. Person reported agreement to plan: Yes Reports/communication Outcome discussed with: ED/Personnel
--- NOTE | 2025-05-27 06:53 | NUR.NOTE ---
Access chart to get the discharge time for the [place] [facility]. Nursing Note:
--- NOTE | 2025-05-28 08:04 | NUR.NOTE ---
Accessed Pt chart to check if the patient was prescribed any antibiotics. She was not. The Specimen Report was given to the Dr for review.
== END 2025-05-26 13:27 | disposition home or self-care (01) ==
PROVIDERS: Emergency Medicine; Emergency Provider Emergency Medicine; PCP Nurse Practitioner Family
DX: Z60.8 Other problems related to social environment; R45.851 Suicidal ideations; S61.512A Laceration without foreign body of left wrist, initial encounter; F32.A Depression, unspecified; R45.88 Nonsuicidal self-harm
CPT/HCPCS: 99285 ×2; 81025; 00123; 80053; 80307; 96127; 80320; 80329; 81003; 81015; 84443; 84703; 85025; 87086; J3490

== ENCOUNTER 2025-06-17 14:33 | Emergency (ER) | payer MEDICAID, SELFPAY ==
[2025-06-17 14:36] VITALS: BP 135/81; PULSE 113; RESP 18; TEMP 36.6; O2SAT 97
[2025-06-17 15:00] VITALS: BP 112/70; PULSE 106; RESP 16; TEMP 36.5; O2SAT 99
--- NOTE | 2025-06-17 15:40 | W.ED.GENAD ---
Discharge Plan Discharge Details Chief Complaint: Suicide-Atempt Clinical Impression: Depression, Suicidal ideation, Superficial laceration of forearm Primary Care Provider: EDILIA GIBSON ED Provider: Oskar Gordon [place] Meds and New Rx's Prescriptions: No Action magnesium oxide 400 mg (241.3 mg magnesium) tablet 400 mg PO DAILY Patient Comments: TAKE ONE TABLET BY MOUTH EVERY DAY Ajovy Autoinjector 225 mg/1.5 mL auto-injector 225 mg subcut QMONTH Nexplanon 68 mg implant 1 implant subdermal ONCE Rx Instructions: as a single dose benztropine 0.5 mg tablet 0.5 mg PO DAILY risperidone 2 mg tablet 2 mg PO DAILY multivitamin [Daily Multi-Vitamin] Tablet 1 tab PO DAILY fluticasone propion-salmeterol [Advair HFA] 230-21 mcg/actuation HFA aerosol inhaler 2 puff inhalation BID Qty: 12 12RF Airsupra 90-80 mcg/actuation HFA aerosol inhaler 2 inh inhalation ONCE Qty: 10.7 12RF Rx Instructions: as a single dose; may repeat up to 6 doses per day (12 inhalations) albuterol sulfate 2.5 mg /3 mL (0.083 %) solution for nebulization 2.5 mg inhalation Q4H PRN (Reason: shortness of breath or wheezing) Qty: 180 0RF budesonide 90 mcg/actuation aerosol powdr breath activated 2 inh inhalation BID Qty: 1 6RF albuterol sulfate [Ventolin HFA] 90 mcg/actuation HFA aerosol inhaler 2 puff inhalation Q4H PRN (Reason: bronchospasm) Qty: 8.5 12RF prazosin 1 mg capsule 3 mg PO QHS Ubrelvy 100 mg tablet 100 mg PO ONCE PRN Rx Instructions: 1-2 tabs epinephrine [EpiPen] 0.3 mg/0.3 mL auto-injector 0.3 ml subcut ONCE PRN Rx Instructions: as a single dose; may repeat once levalbuterol tartrate [Xopenex HFA] 2 puff inhalation PRN gabapentin 300 mg capsule 400 mg PO TID cholecalciferol (vitamin D3) [Vitamin D3] 50 mcg (2,000 unit) tablet 50 mcg PO DAILY buspirone 10 mg tablet 20 mg PO TID Patient Comments: TAKE TWO TABLETS BY MOUTH THREE TIMES A DAY . (DISCONTINUE 5MG DOSE) duloxetine 40 mg capsule,delayed release(DR/EC) 40 mg PO .QN Rx Instructions: Per [place]: 1 cap (20mg) PO QN x 3D (filled 05/09/25) then 2 cap (40mg) PO QN thereafter HPI General Mode of arrival: ambulatory. Date/Time Provider Initiated Documentation: 06/17/25 14:40. Limitations to Documentation: no limitations. Information obtained by: patient, RN notes reviewed and old records reviewed. HPI Narrative: Patient presents to ED with suicidal ideation, plan to cut herself. Denies any ingestions. Has superficial cuts to her left forearm. Denies any other physical complaint. Saw her therapist yesterday and [facility] licensed social worker has been involved. Presents today for worsening depression and SI. Related Data Home Medications ?Medication ?Instructions ?Recorded ?Confirmed epinephrine 0.3 mg/0.3 mL 0.3 ml subcut ONCE PRN 10/04/24 06/17/25 injection, auto-injector (EpiPen) levalbuterol tartrate 2 puff inhalation PRN 10/04/24 06/17/25 prazosin 1 mg capsule 3 mg PO QHS 10/04/24 06/17/25 ubrogepant 100 mg tablet (Ubrelvy) 100 mg PO ONCE PRN 10/04/24 06/17/25 etonogestrel 68 mg subdermal 1 implant subdermal ONCE 12/31/24 06/17/25 implant (Nexplanon) fremanezumab-vfrm 225 mg/1.5 mL 225 mg subcut QMONTH 12/31/24 06/17/25 subcutaneous auto-injector (Ajovy) gabapentin 300 mg capsule 400 mg PO TID 01/11/25 06/17/25 cholecalciferol (vitamin D3) 50 50 mcg PO DAILY 01/19/25 06/17/25 mcg (2,000 unit) tablet (Vitamin D3) fluticasone propionate 230 2 puff inhalation BID #12 grams 02/17/25 06/17/25 mcg-salmeterol 21 mcg/actuation HFA inhaler (Advair HFA) albuterol 90 mcg-budesonide 80 2 inh inhalation ONCE #10.7 grams 02/24/25 06/17/25 mcg/actuation HFA aerosol inhaler (Airsupra) albuterol sulfate 2.5 mg/3 mL 2.5 mg (3 mL) inhalation Q4H PRN 02/24/25 06/17/25 (0.083 %) solution for nebulization shortness of breath or wheezing #180 mL budesonide 90 mcg/actuation breath 2 inh inhalation BID #1 ea 03/03/25 06/17/25 activated powder inhaler multivitamin (Daily Multi-Vitamin 1 tab PO DAILY 03/03/25 06/17/25 tablet) magnesium oxide 400 mg (241.3 mg 400 mg PO DAILY 03/27/25 06/17/25 magnesium) tablet duloxetine 40 mg capsule,delayed 40 mg PO .QN 05/26/25 06/17/25 release albuterol sulfate 90 mcg/actuation 2 puff inhalation Q4H PRN 06/05/25 06/17/25 aerosol inhaler (Ventolin HFA) bronchospasm #8.5 grams benztropine 0.5 mg tablet 0.5 mg PO DAILY 06/11/25 06/17/25 buspirone 10 mg tablet 20 mg PO TID 06/11/25 06/17/25 risperidone 2 mg tablet 2 mg PO DAILY 06/11/25 06/17/25 Previous Rx's ?Medication ?Instructions ?Recorded fluticasone propionate 230 2 puff inhalation BID #12 grams 02/17/25 mcg-salmeterol 21 mcg/actuation HFA inhaler (Advair HFA) albuterol 90 mcg-budesonide 80 2 inh inhalation ONCE #10.7 grams 02/24/25 mcg/actuation HFA aerosol inhaler (Airsupra) albuterol sulfate 2.5 mg/3 mL 2.5 mg (3 mL) inhalation Q4H PRN 02/24/25 (0.083 %) solution for nebulization shortness of breath or wheezing #180 mL budesonide 90 mcg/actuation breath 2 inh inhalation BID #1 ea 03/03/25 activated powder inhaler albuterol sulfate 90 mcg/actuation 2 puff inhalation Q4H PRN 06/05/25 aerosol inhaler (Ventolin HFA) bronchospasm #8.5 grams Allergies Allergy/AdvReac Type Severity Reaction Status Date / Time cat dander Allergy Wheezing Verified 06/17/25 15:44 dog dander Allergy Wheezing Verified 06/17/25 15:44 house dust mite Allergy Wheezing Verified 06/17/25 15:44 tree and shrub pollen Allergy Wheezing Verified 06/17/25 15:44 haloperidol (From Haldol) AdvReac Severe Other (See Verified 06/17/25 15:44 Comment) hydrocodone AdvReac TACHYCARDIA Verified 06/17/25 15:44 PER PT ibuprofen AdvReac per Verified 06/17/25 15:44 nephrology tramadol AdvReac Other (See Verified 06/17/25 15:44 Comment) General Stated Complaint: PsychEval KEILY: 2 Exam Narrative Exam Narrative: Const: WDWN female in NAD. VS per triage. HEENT: NC/AT. Normal facial exam. Neck: Supple. Trachea midline. Lungs: Normal respiratory effort. Lungs are clear. Cor: RRR without murmur. Good radial pulses. GI: Soft/ND/NT. Neuro: A+O x 3. Normal speech, mentation, gait. Cranial nerves II - XII grossly intact. No gross motor or sensory deficit. Ext: RLE walking boot for ankle sprain. Superficial cuts to left forearm some few days old, one fresh. No suturing required. Psych: Reports SI due to family stress, worsening depression. Course Vital Signs Vital signs: Vital Signs Temperature 97.9 F 06/17/25 14:36 Pulse 113 H 06/17/25 14:36 Respiratory Rate 18 06/17/25 14:36 Blood Pressure 135/81 06/17/25 14:36 Pulse Oximetry 97 06/17/25 14:36 Temperature 97.9 F 06/17/25 14:36 Temperature Source Oral 06/17/25 14:36 Pulse 113 H 06/17/25 14:36 Respiratory Rate 18 06/17/25 14:36 Blood Pressure 135/81 06/17/25 14:36 Pulse Oximetry 97 06/17/25 14:36 Oxygen Delivery Method Room Air 06/17/25 14:36 Oxygen Flow Rate 0 06/17/25 14:36 Pain Level 5 06/17/25 14:36 Medical Decision Making Patient presenting to ED for mental health evaluation. Patient reports increasing stress with family causing worsening depression and SI with plan to cut. She does have superficial cuts on the left forearm, nothing that requires suturing. Denies any ingestions but will plan on getting screening labs. NK consulted. Patient's laboratory studies are unremarkable. Tylenol and aspirin negative. Urine drug screen pending. She has been evaluated by [facility]. She will be involuntary hold for inpatient psychiatric admit. Medical Records Medical records reviewed: Yes I reviewed the patient's medical records. Medical records narrative: PCP notes, previous mental health notes Lab Data Lab results reviewed: Yes I reviewed the patient's lab results. Lab results narrative: See MDM Quality:SDOH Health Related Social Needs: Health related social needs lonely/isolated Health related social needs details patient frequently here for SI. 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 Started fluox 03/05, stopped spring 2020- restarted but stopped in the fall secondary to concerns of worsening suicidal ideation- trial lexapro- increase dose to 20 mg today (03/28/22) Chronic kidney disease (CKD) Nasal vestibulitis Patulous eustachian tube of left ear Chronic allergic rhinitis Encounter for immunotherapy Right-sided tinnitus Calcification of brain per [facility] neuro notes; bifrontal first noted in 2019 with some affecting basal ganglia, d/t underlying hypoparathyroidism Sciatica of right side Strain of extensor pollicis longus tendon Injury of thumb, right Allergic reaction Complex regional pain syndrome of right upper extremity Recurrent UTI Cough Abnormal chest xray Moderate persistent asthma Low back pain De Quervain's tenosynovitis, left Dysfunction of right eustachian tube Palpitations Wears hearing aid in both ears Otalgia of right ear TMJ pain dysfunction syndrome Sinusitis Nexplanon in place 09/2023. For menstrual control. Traumatic plantar fasciitis LEFT Lip lesion Electrolyte disturbance Depo-Provera contraceptive status 04/2023. Stopped per patient request 09/2023 restarted per patient request Hypokalemia Abnormal uterine bleeding (AUB) 2017. menstrual irreg. OCPs 05/29/2019. Dysmenorrhea. DepoProvera 150 mg every 3 months Ingrowing toenail (05/14/18) Left great toe; s/p resection ADHD (attention deficit hyperactivity disorder) Surgical History Vesicoureteric reflux (12/15/14) s/p bilateral ureteral implants [place] teeth extracted all 4 teeth extracted ureteral implants- bilat Tonsillectomy and adenoidectomy Myringotomy w/ PE (pressure equalizing) tubes Family History Mother Family history unknown Father Family history unknown Social History Smoking/Tobacco Use Status: Never Smoking risk assessment performed?: Yes Alcohol Intake: current Alcohol Intake frequency: holidays/special occasions only Alcohol type: beer Drug use: Never Substance use type: does not use Adopted: Yes Housing: house Education Level: college Details: [employer], starting [employer] in the fall current occupation: 02/28/2020 works at [id number] Pets and animals: Yes Pets and animals: cat(s), dog(s) and other Details: CHICKENS, TURKEYS, SHEEP, COWS Sexually active: No Do you feel safe at home: No (Pt reports environment is safe but she feels suicidal) Do you feel safe in your relationship?: Yes Additional Social history: safe environment, but not safe in myself Female Reproductive History Menstrual Age of Menarche: 11 Duration of menses: other control method: implanted
[2025-06-17 16:21] LABS: Abs Immature Grans 0.04 10^3/uL (0.0-0.06); HCT 37.5 % (36.0-46.0); HGB 11.9 g/dL (11.2-15.7); Immature Grans % 0.5 %; MCH 26.8 pg (27.0-33.0); MCHC 31.7 % (32.0-36.0); MCV 85 fL (80-95); MPV 10.6 fL (8.0-11.0); Platelet Count 259 10^3/uL (130-400); RBC 4.44 10^6/uL (3.93-5.22); RDW 17.0 % (11.7-14.6); RDW-SD 53.0 fL; WBC 8.25 10^3/uL (4.4-10.8)
[2025-06-17 16:40] LABS: ALT 21 U/L (14-59); AST 16 U/L (15-37); Albumin 4.2 g/dL (3.4-5.0); Alkaline Phosphatase 83 U/L (46-116); Anion Gap 9.1 mmol/L (3-11); BUN 17 mg/dL (7-18); Bilirubin, Total 0.2 mg/dL (0.2-1.0); CO2 29.9 mmol/L (21.0-32.0); Calcium 10.5 mg/dL (8.5-10.1); Chloride 104 mmol/L (98-107); Estimated GFR 73.31 (mL/min/1.73m2); Glucose 95 mg/dL (74-106); HCG Qual (Serum) Negative; Potassium 3.7 mmol/L (3.5-5.1); Sodium 143 mmol/L (136-145); Total Protein 8.0 g/dL (6.4-8.2)
[2025-06-17 16:48] LABS: Salicylate < 2.8 mg/dL (<2.8)
[2025-06-17 16:49] LABS: Acetaminophen < 2 ug/mL (10-30)
--- NOTE | 2025-06-17 17:55 | PDOC.MHCN ---
Date of service: 06/17/25 Time of Service: 15:26 PHQ-9 Over the last 2 weeks, how often have you been bothered by any of the following problems? 1. Little interest or pleasure in doing things: nearly every day 2. Feeling down, depressed, or hopeless: nearly every day 3. Trouble falling or staying asleep, or sleeping too much: nearly every day 4. Feeling tired or having little energy: nearly every day 5. Poor appetite or overeating: more than half the days 6. Feeling bad about yourself - or that you are a failure or have let yourself and your family down: nearly every day 7. Trouble concentrating on things, such as reading the newspaper or watching television: more than half the days 8. Moving or speaking so slowly that other people could have noticed? - Or the opposite - being so fidgety or restless that you have been moving around a lot more than usual: not at all 9. Thoughts that you would be better off or of hurting yourself in some way: nearly every day Total score: 22 If you checked off any problems, how difficult have these problems made it for you to do your work, take care of things at home, or get along with other people?: somewhat difficult PHQ-9 Results: Positive Source: Developed by Drs. Oskar Marquez, Darlene Betancur, Antonio Barry and colleagues, with an educational heriberto from [employer]. Suicide Severity Rate CSSRS Have you wished you were or wished you could go to sleep and not wake up?: Yes Have you actually had any thoughts of killing yourself?: Yes CSSRS2 Have you been thinking about how you might do this?: Yes Have you had these thoughts and had some intention of acting on them?: Yes Have you started to work out or worked out the details of how to kill yourself? Do you intend to carry out this plan?: Yes CSSRS3 Have you ever done anything, started to do anything or prepared to do anything to end your life?: Yes CSSRS4 Was this within the past three months?: Yes Screening Score Total Score: 8 Screening: Positive Mental Health Emergency Note Release HS release signed:: Yes Reason for Visit Ms Wright is a 20 year old single female who currently resides in transitional housing for at risk youth in [facility]. The client reports that her and her mother have been fighting recently around the client getting a job. The client reports that her mother wants her to get a job which the client states is reasonable but that the client does not feel like she is ready to have a job. The client reports that her therapist has also stated the client is ready to work. The client states that she and her mother have been arguing about this and for the past couple days the client has been feeling suicidal due to these confrontations. The client reports that she then started cutting her wrists with a pocket knife. The client reports that she did state that she was feeling suicidal with her therapist the previous day and that coping skills were reviewed in order to help. The client reports these coping skills have not been helping enough. The client reports attempting to use the front porch in [place] and that this resource has provided helpful when the client is not as escalated but that when she becomes this escalated that it does not help. The client reports no one she can utilize to remove means such as sharps and medications currently. The client reports her father could possibly remove sharps but that medications there is no one who can hold onto access and provide them as prescribed. The client reports wanting in patient treatment to work on coping skills in order to be able to get back to work and handle conflict with her family. In the last 2 weeks has the pt presented for ES prior to today?: No Non Suicidal Self Injury Current: Yes, cutting wrists. History: yes, cutting or scratching wrists. Safety Risk/Harm to Self or Others Current Ideation to Harm Self or Others: Yes to self. Intent: yes, has intent. Plan: yes,has a plan. History of suicide attempt: yes,history of suicide attempt reported. Details of previous suicide attempt: The client reports multiple past suicide attempts by cutting her wrists. Risk: Risk: Moderate Risk Duty to warn indicated: No Asssessment/Mental Status Appearance: Unremarkable Attitude: Cooperative and Friendly Behavior: Unremarkable Speech: Normal Affect: Flat Mood: Stressed and Depressed Thought process: Unremarkable Hallucinations: No Delusions: No Attention: Unremarkable Perception: Not impaired Orientation: Fully orientated Memory: Intact Insight: Poor Judgement: Poor Neurovegetative Symptoms Sleep: Decrease Appetitie: Decrease Interests: Decrease Energy: Decrease Libido: Not applicable Substance Use: Do you use nicotine?: No Have you used substances in the last 7 days?: No Additional Issues: Assaultive/Threatening Behavior: No Medical Concerns: No Client engaged in active self harm w/weapon: No Threatening to run away: No Child reported abuse/neglect: No Voluntarily presenting for services: Yes Domestic violence is a concern: No Extreme Psychosis or extreme behavior is present: No Impression Ms Wright is a 20 year old single female who currently resides in transitional housing for at risk youth in [facility]. The client reports that her and her mother have been fighting recently around the client getting a job. The client reports that her mother wants her to get a job which the client states is reasonable but that the client does not feel like she is ready to have a job. The client reports that her therapist has also stated the client is ready to work. The client states that she and her mother have been arguing about this and for the past couple days the client has been feeling suicidal due to these confrontations. The client reports that she then started cutting her wrists with a pocket knife. The client reports that she did state that she was feeling suicidal with her therapist the previous day and that coping skills were reviewed in order to help. The client reports these coping skills have not been helping enough. The client reports attempting to use the front porch in [place] and that this resource has provided helpful when the client is not as escalated but that when she becomes this escalated that it does not help. The client reports no one she can utilize to remove means such as sharps and medications currently. The client reports her father could possibly remove sharps but that medications there is no one who can hold onto access and provide them as prescribed. The client reports wanting in patient treatment to work on coping skills in order to be able to get back to work and handle conflict with her family. Plan/Disposition Recommended Disposition: Hospitalization facilities contacted. Plan: The client will wait at [facility] for in patient treatment. Facilities contacted if Applicable [facility] Not accepted, Other [facility] Not accepted, Other [facility] Not accepted, Other, [facility] Not accepted, Other [facility]NOTE 3[facility] Not accepted, Other Reports/communication Outcome discussed with: ED/Personnel
[2025-06-17 19:26] VITALS: BP 109/73; PULSE 90; RESP 16; TEMP 36.1
[2025-06-17 22:16] LABS: Cannabinoids THC Negative (Negative); METHADONE URINE SCREEN Negative (Negative)
[2025-06-18 07:42] VITALS: BP 117/80; PULSE 83; RESP 18; TEMP 36.6; O2SAT 99
--- NOTE | 2025-06-18 07:49 | ED.PROG1_ITS ---
Date of service: 06/18/25 Time of Service: 07:50 Psychiatric Border Handoff Update Brief Story: Patient remained stable throughout the night and the shift during the day. We are pending placement. Patient has been accepted at [facility] by Dr. Barnett. We and the mental health care team have addressed all patient concerns at this time. The case was discussed the plan with the admitting physician and they agree with the current assessment and plan and have agreed to assume responsibility for the patient. All parties demonstrate verbal understanding and agreement with our assessment and plan at this time. The documentation in this chart was dictated using [employer] dictation software. Please excuse any dictation errors. Status: voluntary Able to leave: would need physician/BRIAN and crisis evaluation prior to leaving Behavioral Concerns: None Potential Disposition: [facility] Barriers to Disposition: Transportation Medical Concerns: None Mediation Reconciliation performed: Yes Code Status ordered: Yes Diet ordered: Yes Discharge Plan Disposition Patient Disposition: Psychiatric Hospital/Unit Specific Psychiatric Facility: [facility] Condition: Good Discharge Details Clinical Impression: Depression, Suicidal ideation, Superficial laceration of forearm Primary Care Provider: EDILIA GIBSON ED Provider: Mushtaq Tim Home Meds and New Rx's Prescriptions: No Action magnesium oxide 400 mg (241.3 mg magnesium) tablet 400 mg PO DAILY Patient Comments: TAKE ONE TABLET BY MOUTH EVERY DAY Ajovy Autoinjector 225 mg/1.5 mL auto-injector 225 mg subcut QMONTH Nexplanon 68 mg implant 1 implant subdermal ONCE Rx Instructions: as a single dose benztropine 0.5 mg tablet 0.5 mg PO DAILY risperidone 2 mg tablet 2 mg PO DAILY multivitamin [Daily Multi-Vitamin] Tablet 1 tab PO DAILY fluticasone propion-salmeterol [Advair HFA] 230-21 mcg/actuation HFA aerosol inhaler 2 puff inhalation BID Qty: 12 12RF Airsupra 90-80 mcg/actuation HFA aerosol inhaler 2 inh inhalation ONCE Qty: 10.7 12RF Rx Instructions: as a single dose; may repeat up to 6 doses per day (12 inhalations) albuterol sulfate 2.5 mg /3 mL (0.083 %) solution for nebulization 2.5 mg inhalation Q4H PRN (Reason: shortness of breath or wheezing) Qty: 180 0RF budesonide 90 mcg/actuation aerosol powdr breath activated 2 inh inhalation BID Qty: 1 6RF albuterol sulfate [Ventolin HFA] 90 mcg/actuation HFA aerosol inhaler 2 puff inhalation Q4H PRN (Reason: bronchospasm) Qty: 8.5 12RF prazosin 1 mg capsule 3 mg PO QHS Ubrelvy 100 mg tablet 100 mg PO ONCE PRN Rx Instructions: 1-2 tabs epinephrine [EpiPen] 0.3 mg/0.3 mL auto-injector 0.3 ml subcut ONCE PRN Rx Instructions: as a single dose; may repeat once levalbuterol tartrate [Xopenex HFA] 2 puff inhalation PRN gabapentin 300 mg capsule 400 mg PO TID cholecalciferol (vitamin D3) [Vitamin D3] 50 mcg (2,000 unit) tablet 50 mcg PO DAILY buspirone 10 mg tablet 20 mg PO TID Patient Comments: TAKE TWO TABLETS BY MOUTH THREE TIMES A DAY . (DISCONTINUE 5MG DOSE) duloxetine 40 mg capsule,delayed release(DR/EC) 40 mg PO .QN Rx Instructions: Per [place]: 1 cap (20mg) PO QN x 3D (filled 05/09/25) then 2 cap (40mg) PO QN thereafter Discharge Instructions Additional Instructions: Patient was here in the emergency department, medically cleared and then observed. Patient has been accepted at [facility] for continued mental health management on an inpatient setting. Patient will be transferred.
[2025-06-18] MEDS: Gabapentin 100 MG CAP 400 MG PO (08:32)
[2025-06-18] MEDS: DULoxetine 20 MG CAP 40 MG PO (08:32)
[2025-06-18] MEDS: Budesonide/Formoterol 160/4.5 6 GM 60 PUFF INH IH (08:33)
[2025-06-18] MEDS: Multivitamin TAB 1 TAB PO (08:35)
[2025-06-18] MEDS: Cholecalciferol (Vitamin D3) 1,000 UNIT TAB 2000 UNITS PO (08:35)
[2025-06-18] MEDS: busPIRone 5 MG TAB 20 MG PO (08:35)
[2025-06-18] MEDS: Magnesium Oxide 400 MG TAB PO (08:35)
== END 2025-06-18 10:54 ==
PROVIDERS: Emergency Medicine; Emergency Provider Student in an Organized Health Care Education/Training Program; PCP Nurse Practitioner Family
DX: F32.A Depression, unspecified (principal); R45.851 Suicidal ideations
CPT/HCPCS: 99285 ×2; 36415; 00123; 80053; 80307; 96127; 80320; 80329; 84703; 85025

== ENCOUNTER 2025-07-09 15:24 | Emergency (ER) | payer MEDICAID, SELFPAY ==
[2025-07-09 15:33] VITALS: BP 118/78; PULSE 79; RESP 20; TEMP 36.9; O2SAT 95
--- NOTE | 2025-07-09 16:01 | ED.GENADUL_ITS ---
Discharge Plan Disposition Condition: Stable Discharge Details Chief Complaint: PsychEval Clinical Impression: Suicidal ideation, Deliberate self-cutting Primary Care Provider: EDILIA GIBSON ED Provider: Mushtaq Jackson Home Meds and New Rx's Prescriptions: No Action magnesium oxide 400 mg (241.3 mg magnesium) tablet 400 mg PO DAILY Patient Comments: TAKE ONE TABLET BY MOUTH EVERY DAY Ajovy Autoinjector 225 mg/1.5 mL auto-injector 225 mg subcut QMONTH Nexplanon 68 mg implant 1 implant subdermal ONCE Rx Instructions: as a single dose benztropine 0.5 mg tablet 0.5 mg PO DAILY risperidone 2 mg tablet 2 mg PO DAILY multivitamin [Daily Multi-Vitamin] Tablet 1 tab PO DAILY fluticasone propion-salmeterol [Advair HFA] 230-21 mcg/actuation HFA aerosol inhaler 2 puff inhalation BID Qty: 12 12RF Airsupra 90-80 mcg/actuation HFA aerosol inhaler 2 inh inhalation ONCE Qty: 10.7 12RF Rx Instructions: as a single dose; may repeat up to 6 doses per day (12 inhalations) albuterol sulfate 2.5 mg /3 mL (0.083 %) solution for nebulization 2.5 mg inhalation Q4H PRN (Reason: shortness of breath or wheezing) Qty: 180 0RF budesonide 90 mcg/actuation aerosol powdr breath activated 2 inh inhalation BID Qty: 1 6RF albuterol sulfate [Ventolin HFA] 90 mcg/actuation HFA aerosol inhaler 2 puff inhalation Q4H PRN (Reason: bronchospasm) Qty: 8.5 12RF Dupixent Pen 300 mg/2 mL pen injector 300 mg subcut Q2W Qty: 4 11RF Dupixent Pen 300 mg/2 mL pen injector 600 mg subcut ONCE Qty: 4 0RF Rx Instructions: as a single dose prazosin 1 mg capsule 3 mg PO QHS Ubrelvy 100 mg tablet 100 mg PO ONCE PRN Rx Instructions: 1-2 tabs epinephrine [EpiPen] 0.3 mg/0.3 mL auto-injector 0.3 ml subcut ONCE PRN Rx Instructions: as a single dose; may repeat once levalbuterol tartrate [Xopenex HFA] 2 puff inhalation PRN gabapentin 300 mg capsule 400 mg PO TID cholecalciferol (vitamin D3) [Vitamin D3] 50 mcg (2,000 unit) tablet 50 mcg PO DAILY buspirone 10 mg tablet 20 mg PO TID Patient Comments: TAKE TWO TABLETS BY MOUTH THREE TIMES A DAY . (DISCONTINUE 5MG DOSE) duloxetine 40 mg capsule,delayed release(DR/EC) 40 mg PO .QN Rx Instructions: Per [place]: 1 cap (20mg) PO QN x 3D (filled 05/09/25) then 2 cap (40mg) PO QN thereafter HPI General Date/Time Provider Initiated Documentation: 07/09/25 15:37 . HPI Narrative: 20 year-old female presents to ED today by POV/ambulating with a chief complaint of self-harm, laceration to L volar forearm, increased suicidal ideations beyond baseline with onset today. Quality described as superficial laceration, no other physical complaints, no radiation to drug ingestion, homicidal ideation. Severity is described as severe for increased in SI. Palliating factors include nothing specific attempted. Provoking factors include nothing specific. Patient not anticoagulated. Related Data Home Medications ?Medication ?Instructions ?Recorded ?Confirmed epinephrine 0.3 mg/0.3 mL 0.3 ml subcut ONCE PRN 10/0407/09/25 injection, auto-injector (EpiPen) levalbuterol tartrate 2 puff inhalation PRN 07/09/25 prazosin 1 mg capsule 3 mg PO QHS 10/04/24 5 ubrogepant 100 mg tablet (Ubrelvy) 100 mg PO ONCE PRN 10/04/24 07/09/25 etonogestrel 68 mg subdermal 1 implant subdermal ONCE 12/31/24 07/09/25 implant (Nexplanon) fremanezumab-vfrm 225 mg/1.5 mL 225 mg subcut QMONTH 0 12/31/24 07/09/25 subcutaneous auto-injector (Ajovy) gabapentin 300 mg capsule 400 mg PO TID 01/11/2507/09 cholecalciferol (vitamin D3) 50 50 mcg PO DAILY 07/09/25 mcg (2,000 unit) tablet (Vitamin D3) fluticasone propionate 230 2 puff inhalation BID #12 g pema 02/17/25 07/09/25 mcg-salmeterol 21 mcg/actuation HFA inhaler (Advair HFA) albuterol 90 mcg-budesonide 80 2 inh inhalation ONCE # 10.7 grams 02/24/25 07/09/25 mcg/actuation HFA aerosol inhaler (Airsupra) albuterol sulfate 2.5 mg/3 mL 2.5 mg (3 mL) inhalation Q4H PRN 02/24/25 07/09/25 (0.083 %) solution for nebulization shortness of breat h or wheezing #180 mL budesonide 90 mcg/actuation breath 2 inh inhalation BI D #1 ea 03/03/25 07/09/25 activated powder inhaler multivitamin (Daily Multi-Vitamin 1 tab PO DAILY 03/0307/09/25 tablet) magnesium oxide 400 mg (241.3 mg 400 mg PO DAILY 03/2707/09/25 magnesium) tablet Held on 07/09/25. Instructions: Pt Stopped/Never Started duloxetine 40 mg capsule,delayed 40 mg PO .QN 05/26/25 07/09/25 release albuterol sulfate 90 mcg/actuation 2 puff inhalation Q 4H PRN 06/05/25 07/09/25 aerosol inhaler (Ventolin HFA) bronchospasm #8.5 grams benztropine 0.5 mg tablet 0.5 mg PO DAILY 06/11/25 buspirone 10 mg tablet 20 mg PO TID 06/11/25 risperidone 2 mg tablet 2 mg PO DAILY 06/11/2507/09 dupilumab 300 mg/2 mL subcutaneous 300 mg (2 mL) subcu t Q2W #4 mL 06/19/25 07/09/25 pen injector (Dupixent) dupilumab 300 mg/2 mL subcutaneous 600 mg (4 mL) subcu t ONCE #4 mL 06/19/25 07/09/25 pen injector (Dupixent) Previous Rx's ?Medication ?Instructions ?Recorded fluticasone propionate 230 2 puff inhalation BID #12 g pema 02/17/25 mcg-salmeterol 21 mcg/actuation HFA inhaler (Advair HFA) albuterol 90 mcg-budesonide 80 2 inh inhalation ONCE # 10.7 grams 02/24/25 mcg/actuation HFA aerosol inhaler (Airsupra) albuterol sulfate 2.5 mg/3 mL 2.5 mg (3 mL) inhalation Q4H PRN 02/24/25 (0.083 %) solution for nebulization shortness of breat h or wheezing #180 mL budesonide 90 mcg/actuation breath 2 inh inhalation BI D #1 ea 03/03/25 activated powder inhaler albuterol sulfate 90 mcg/actuation 2 puff inhalation Q 4H PRN 06/05/25 aerosol inhaler (Ventolin HFA) bronchospasm #8.5 grams dupilumab 300 mg/2 mL subcutaneous 300 mg (2 mL) subcu t Q2W #4 mL 06/19/25 pen injector (Dupixent) dupilumab 300 mg/2 mL subcutaneous 600 mg (4 mL) subcu t ONCE #4 mL 06/19/25 pen injector (Dupixent) Allergies Allergy/AdvReac Type Severity Reaction Status Date / Time cat dander Allergy Wheezing Verified 07/09/25 15:39 dog dander Allergy Wheezing Verified 07/09/25 15:39 house dust mite Allergy Wheezing Verified 07/09/25 15:39 tree and shrub pollen Allergy Wheezing Verified 07/09/25 15:39 haloperidol (From Haldol) AdvReac Severe Other (See Verified 07/09/25 15:39 Comment) hydrocodone AdvReac TACHYCARDIA Verified 07/09/25 15:39 PER PT ibuprofen AdvReac per Verified 07/09/25 15:39 nephrology tramadol AdvReac Other (See Verified 07/09/25 15:39 Comment) General Stated Complaint: PsychEval KEILY: 2 Review of Systems All systems reviewed & are unremarkable except as noted in HPI and below Exam Narrative Exam Narrative: GENERAL APPEARANCE: Well-nourished, non-toxic, awake and alert, atraumatic, no acute distress. SKIN: Warm, pink, dry, 1.5cm superficial laceration to L volar forearm, no active bleeding, sensation / ROM intact distally, L radial pulse 2+ HEAD: Normocephalic, atraumatic, normal hair distribution for gender/age. EYES: Normal conjunctiva, no exudates on lids/lashes. ENT: Nares patent, no circumoral cyanosis, no facial swelling NECK: Supple, trachea midline, painless cervical ROM. LUNGS/CHEST: Non-labored respirations, normal A/P diameter, symmetrical expansion, no chest wall deformity HEART (CV/PV): Regular rate, no peripheral edema, no JVD. ABDOMEN: Soft, non-distended, no guarding. MSK: Normal ROM, no swelling/deformity to bilateral UEs or LEs, moving all extremities without weakness, no cyanosis, spine midline without tenderness, normal curvature. NEURO: Mental Status AAOx4 - alert to person, place, time, events No facial droop, no forehead involvement. Motor: No focal weakness - strength 5/5 in bilateral UEs and LEs, proximal and distal, symmetric. Sensory: sensation intact to light touch globally. Gait normal: patient ambulated without ataxia into ED room. PSYCH: dysthymic, cooperative, pleasant, appropriate speech, endorses SI, denies HI Course Vital Signs Vital signs: Vital Signs Temperature 36.9 C 07/09/25 15:33 Pulse 79 07/09/25 15:33 Respiratory Rate 20 07/09/25 15:33 Blood Pressure 118/78 07/09/25 15:33 Pulse Oximetry 95 07/09/25 15:33 Temperature 36.9 C 07/09/25 15:33 Pulse 79 07/09/25 15:33 Respiratory Rate 20 07/09/25 15:33 Blood Pressure 118/78 07/09/25 15:33 Blood Pressure Position Sitting 07/09/25 15:33 Pulse Oximetry 95 07/09/25 15:33 Oxygen Delivery Method Room Air 07/09/25 15:33 Oxygen Flow Rate 0 07/09/25 15:33 Procedure Laceration Laceration 1: Provider that performed the procedure: Mushtaq Jackson Standard Time Out Performed: No Patient Consented: Verbally Site: upper extremity Side (If applicable): left Description: linear and clean Depth: simple, single layer Local anesthetic: LET(lidocaine epinephrine tetracaine) Amount of anesthesia used (mL): 3 Pre-repair:: wound explored, irrigated extensively and deep structures intact Skin layer closed with: other (steri-strip) Complications: None Medical Decision Making This dictation utilizes [id number] dictation software and may contain unedited grammatical errors. 20 year-old female presents to ED today by POV/ambulating with a chief complaint of self-harm, laceration to L volar forearm, increased suicidal ideations beyond baseline with onset today. Quality described as superficial laceration, no other physical complaints, no radiation to drug ingestion, homicidal ideation. Severity is described as severe for increased in SI. Palliating factors include nothing specific attempted. Provoking factors include nothing specific. Patients' medical history: CKD, moderate asthma, depression, anxiety, hypoparathyroidism. Family and social history: noncontributory. Pertinent exam findings / vital signs include 1.5cm superficial laceration to L volar forearm, no active bleeding, sensation / ROM intact distally, L radial pulse 2+. Differential / pathologies of concern include suicidal ideation, deliberate self-cutting. Diagnostic studies of: -CBC, BMP, TSH, acetaminophen/salicylate levels, alcohol level, UDS, hCG qualitative serum, urinalysis. - CBC shows no leukocytosis, no left shift, no other abnormality, no anemia - CMP shows no actionable abnormality - TSH within normal limits - UA shows no signs of UTI - UDS negative, alcohol level negative, acetaminophen and salicylate levels negative - hCG negative Interventions of: -Spoke with Lili @ [facility] @ 1905-they state the patient could stay at [facility]- they would just ride RCT home to get medication then RCT to there- there is no way to supervise the patient during this transport- I feel this is unsafe as they did cut their arm, and expressed significant desire that their suicidality was worse than usual today and they really wanted to . It is not reasonably safe to leave them unsupervised into their apartment with no supervision in place. Lili was informed of this and is pursuing in-patient placement. Home meds ordered, placed in ED psych obs hold in Zone B. ED Course/Assessment/Plan: 20-year-old female presents with deliberate self cutting with a superficial laceration to her left volar forearm that is not bleeding that was repaired by [employer], she is medically cleared for [facility] and baseline labs are obtained for likely voluntary admission which showed no actionable abnormalities. Initially [facility] was on board with the patient's request to go to [facility], but this would involve an unsupervised RCT ride to her home to gather her belongings and medications where she would take her personal vehicle to front porch-this is unreasonable as she endorsed to me that she really wants to and her suicidal ideations are more severe lately and she engaged in deliberate self cutting today. She had stated to me prior that she wants to be admitted at [facility], [facility] is currently pursuing inpatient treatment. Patient signed out to oncoming provider at shift change. Disposition of Suicidal Ideation, Deliberate Self-cutting. Patient verbalized understanding of the plan and return to ED criteria and engaged in shared decision making. Medical Records Medical records reviewed: Yes I reviewed the patient's medical records. Lab Data Lab results reviewed: Yes I reviewed the patient's lab results. Labs: Laboratory Tests Range/Units 07/09/25 17:40 WBC (4.4-10.8) 10^3/uL 6.81 RBC (3.93-5.22) 10^6/uL 4.56 Hgb (11.2-15.7) g/dL 12.6 Hct (36.0-46.0) % 37.8 MCV (80-95) fL 83 MCH (27.0-33.0) pg 27.6 MCHC (32.0-36.0) % 33.3 RDW (11.7-14.6) % 15.8 H Plt Count (130-400) 10^3/uL 275 MPV (8.0-11.0) fL 10.1 Immature Gran % % 0.7 Neutrophils % % 75.8 Lymphocytes % % 20.0 Monocytes % % 3.2 Eosinophils % % 0.0 Basophils % % 0.3 Nucleated RBC % (0.0-0.3) % 0.0 Absolute Neutrophils (1.2-6.7) 10^3/uL 5.16 Absolute Lymphocytes (1.2-3.4) 10^3/uL 1.36 Absolute Monocytes (0.1-0.8) 10^3/uL 0.22 Absolute Eosinophils (0.0-0.7) 10^3/uL 0.00 Absolute Basophils (0.0-0.2) 10^3/uL 0.02 Sodium (136-145) mmol/L 142 Potassium (3.5-5.1) mmol/L 3.6 Chloride (98-107) mmol/L 102 Carbon Dioxide (21.0-32.0) mmol/L 27.3 Anion Gap (3-11) mmol/L 12.7 H BUN (7-18) mg/dL 13 Creatinine (0.55-1.02) mg/dL 1.0 Est GFR (CKD-EPI 2020) (mL/min/1.73m2) 82.20 Glucose (74-106) mg/dL 105 Calcium (8.5-10.1) mg/dL 10.0 TSH (0.36-3.74) uIU/mL 1.09 Serum HCG, Qual Negative Urine Color (Yellow) Yellow Urine Clarity (Clear) Sl Cloudy Urine pH (5-8) 7.5 Ur Specific [place] (1.005-1.025) 1.015 Urine Protein (Neg-Trace) mg/dL Negative Urine Ketones (Negative) mg/dL 15 H Urine Blood (Negative) Negative Urine Nitrite (Negative) Negative Urine Bilirubin (Negative) Negative Urine Urobilinogen (Up to 0.2) mg/dL 0.2 Ur Leukocyte Esterase (Negative) Trace H Urine RBC (0-2) HPF Negative Urine WBC (0-5) HPF 5-10 Ur Epithelial Cells (Negative) HPF Moderate Urine Crystals (Negative) HPF Many Amorphous Urine Bacteria (Negative) HPF Moderate Urine Casts (Negative) LPF Negative Urine Mucus (Negative) Negative Ur Culture Indicated? No Urine Glucose (Negative) mg/dL Negative Salicylates (<2.8) mg/dL < 2.8 Urine Opiates Screen (Negative) Negative Urine Methadone Screen (Negative) Negative Acetaminophen (10-30) ug/mL < 2 Ur Barbiturates Screen (Negative) Negative Ur Tricyclics Screen (Negative) Negative Ur Amphetamines Screen (Negative) Negative U Benzodiazepines Scrn (Negative) Negative Urine Cocaine Screen (Negative) Negative Ur THC Screen (Negative) Negative Ethyl Alcohol (<10) mg/dL < 3.0 Quality:SDOH Health Related Social Needs: Health related social needs lonely/isolated Health related social needs details patient frequently here for SI. PFSH All Active Problems (Updated 07/09/25 @ 19:37 by DEAN Cortes) Deliberate self-cutting (Acute) Suicidal ideation (Acute) Superficial laceration of forearm (Acute) Suicidal ideation (Acute) Depression (Chronic) Asthma (Chronic) Hypokalemia (Acute) Hypocalcemia (Acute) Hypomagnesemia (Acute) Muscle spasm (Acute) Hypomagnesemia (Acute) Anxiety (Chronic) Sensorineural hearing loss of both ears (Acute) Stage 2 chronic kidney disease (Chronic) Hypoparathyroidism (Chronic 10/31/14) congenital, followed by [facility] endocrinology Medical History Esotropia (12/15/14) glasses for correction 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 Started fluox 03/05, stopped spring 2020- restarted but stopped in the fall secondary to concerns of worsening suicidal ideation- trial lexapro- increase dose to 20 mg today (03/28/22) Chronic kidney disease (CKD) Nasal vestibulitis Patulous eustachian tube of left ear Chronic allergic rhinitis Encounter for immunotherapy Right-sided tinnitus Calcification of brain per [facility] neuro notes; bifrontal first noted in 2019 with some affecting basal ganglia, d/t underlying hypoparathyroidism Sciatica of right side Strain of extensor pollicis longus tendon Injury of thumb, right Allergic reaction Complex regional pain syndrome of right upper extremity Recurrent UTI Cough Abnormal chest xray Moderate persistent asthma Low back pain De Quervain's tenosynovitis, left Dysfunction of right eustachian tube Palpitations Wears hearing aid in both ears Otalgia of right ear TMJ pain dysfunction syndrome Sinusitis Nexplanon in place 09/2023. For menstrual control. Traumatic plantar fasciitis LEFT Lip lesion Electrolyte disturbance Depo-Provera contraceptive status 04/2023. Stopped per patient request 09/2023 restarted per patient request Hypokalemia Abnormal uterine bleeding (AUB) 2017. menstrual irreg. OCPs 05/29/2019. Dysmenorrhea. DepoProvera 150 mg every 3 months Ingrowing toenail (05/14/18) Left great toe; s/p resection ADHD (attention deficit hyperactivity disorder) Surgical History Vesicoureteric reflux (12/15/14) s/p bilateral ureteral implants [place] teeth extracted all 4 teeth extracted ureteral implants- bilat Tonsillectomy and adenoidectomy Myringotomy w/ PE (pressure equalizing) tubes Family History Mother Family history unknown Father Family history unknown Social History Smoking/Tobacco Use Status: Never Smoking risk assessment performed?: Yes Alcohol Intake: current Alcohol Intake frequency: holidays/special occasions only Alcohol type: beer Drug use: Never Substance use type: does not use Adopted: Yes Housing: house Education Level: college Details: [employer], starting [employer] in the fall current occupation: 02/28/2020 works at [employer] Pets and animals: Yes Pets and animals: cat(s), dog(s) and other Details: CHICKENS, TURKEYS, SHEEP, COWS Sexually active: No Do you feel safe at home: No (Pt reports environment is safe but she feels suicidal) Do you feel safe in your relationship?: Yes Additional Social history: safe environment, but not safe in myself Female Reproductive History Menstrual Age of Menarche: 11 Duration of menses: other control method: implanted
[2025-07-09 17:47] LABS: Abs Immature Grans 0.05 10^3/uL (0.0-0.06); HCT 37.8 % (36.0-46.0); HGB 12.6 g/dL (11.2-15.7); Immature Grans % 0.7 %; MCH 27.6 pg (27.0-33.0); MCHC 33.3 % (32.0-36.0); MCV 83 fL (80-95); MPV 10.1 fL (8.0-11.0); Platelet Count 275 10^3/uL (130-400); RBC 4.56 10^6/uL (3.93-5.22); RDW 15.8 % (11.7-14.6); RDW-SD 47.8 fL; WBC 6.81 10^3/uL (4.4-10.8)
[2025-07-09] MEDS: Lidocaine/Epinephri/Tetracaine Topical Gel 3 ML TP (17:51)
[2025-07-09 18:07] LABS: HCG Qual (Serum) Negative
[2025-07-09 18:15] LABS: Anion Gap 12.7 mmol/L (3-11); BUN 13 mg/dL (7-18); CO2 27.3 mmol/L (21.0-32.0); Calcium 10.0 mg/dL (8.5-10.1); Chloride 102 mmol/L (98-107); Estimated GFR 82.20 (mL/min/1.73m2); Glucose 105 mg/dL (74-106); Glucose Negative (Negative); Potassium 3.6 mmol/L (3.5-5.1); Sodium 142 mmol/L (136-145); TSH (W/Ref FT4) 1.09 uIU/mL (0.36-3.74)
[2025-07-09 18:17] LABS: Salicylate < 2.8 mg/dL (<2.8)
[2025-07-09 18:19] LABS: Acetaminophen < 2 ug/mL (10-30)
[2025-07-09 18:21] LABS: C & S Indicated? No; RBC Negative HPF (0-2)
[2025-07-09 18:29] LABS: Cannabinoids THC Negative (Negative); METHADONE URINE SCREEN Negative (Negative)
[2025-07-09 19:30] VITALS: BP 142/81; PULSE 62; RESP 16; TEMP 36.6; O2SAT 100
--- NOTE | 2025-07-09 19:46 | PDOC.MHCN ---
Date of service: 07/09/25 Time of Service: 19:06 PHQ-9 Over the last 2 weeks, how often have you been bothered by any of the following problems? 1. Little interest or pleasure in doing things: nearly every day 2. Feeling down, depressed, or hopeless: nearly every day 3. Trouble falling or staying asleep, or sleeping too much: nearly every day 4. Feeling tired or having little energy: nearly every day 5. Poor appetite or overeating: nearly every day 6. Feeling bad about yourself - or that you are a failure or have let yourself and your family down: nearly every day 7. Trouble concentrating on things, such as reading the newspaper or watching television: more than half the days 8. Moving or speaking so slowly that other people could have noticed? - Or the opposite - being so fidgety or restless that you have been moving around a lot more than usual: not at all 9. Thoughts that you would be better off or of hurting yourself in some way: several days Total score: 21 Source: Developed by Drs. Oskar Marquez, Darlene Betancur, Antonio Barry and colleagues, with an educational heriberto from [employer]. Suicide Severity Rate CSSRS Have you wished you were or wished you could go to sleep and not wake up?: Yes Have you actually had any thoughts of killing yourself?: Yes CSSRS2 Have you been thinking about how you might do this?: Yes Have you had these thoughts and had some intention of acting on them?: Yes Have you started to work out or worked out the details of how to kill yourself? Do you intend to carry out this plan?: Yes CSSRS3 Have you ever done anything, started to do anything or prepared to do anything to end your life?: Yes CSSRS4 Was this within the past three months?: Yes Screening Score Total Score: 8 Screening: Positive Mental Health Emergency Note Release HS release signed:: Yes Reason for Visit Jyothi is a known [id number] client and is engaged in services. Jyothi is previously known to this typewriters functional tester and the mobile crisis team. Jyothi is in need of support due to suicidal ideation. In the last 2 weeks has the pt presented for ES prior to today?: Unknown Client Information Client is: Adult Outpatient Well Housed: Yes Non Suicidal Self Injury Current: Yes, Client cut themselves tonight with a pocket knife due to stress History: yes, Client has history of self harming Safety Risk/Harm to Self or Others Current Ideation to Harm Self or Others: Yes to self. (Client cut their arm and reported their intent was to end their life, but with a stable environment they could be safe) Intent: no, has no intent. Plan: no.does not have a plan. History of suicide attempt: yes,history of suicide attempt reported. Details of previous suicide attempt: Client has attempted several times to end their life Risk: Does risk to harm exist?: No Risk: N/A Duty to warn indicated: No Asssessment/Mental Status Appearance: Unremarkable Attitude: Cooperative Behavior: Unremarkable Speech: Normal Affect: Normal Mood: Stressed Thought process: Unremarkable Hallucinations: No Delusions: No Attention: Unremarkable Perception: Not impaired Orientation: Fully orientated Memory: Intact Insight: Fair Judgement: Fair Neurovegetative Symptoms Sleep: Decrease Appetitie: Disordered Interests: Decrease Energy: Decrease Libido: Not applicable Substance Use: Do you use nicotine?: No Have you used substances in the last 7 days?: No Additional Issues: Assaultive/Threatening Behavior: No Medical Concerns: No Client engaged in active self harm w/weapon: No Threatening to run away: No Child reported abuse/neglect: No Voluntarily presenting for services: Yes Domestic violence is a concern: No Extreme Psychosis or extreme behavior is present: No Impression The client is a 20-year-old individual assigned female at who identifies as they/them. The client presented to [facility] due to suicidal ideation and a laceration to their wrist. The client reported that they had been doing well recently but became increasingly overwhelmed yesterday, at which point suicidal thoughts emerged. The client stated that over the past four days they have not been eating and have been inducing vomiting, consistent with their ongoing struggle with bulimia. The client reported taking their medications as prescribed but expressed that they do not feel the medications are effective. The client endorsed current suicidal ideation and stated that when they cut themselves earlier, they had intent to end their life. The client further reported that if they were to be alone tonight, they would likely attempt suicide. The client expressed that they feel they need a ?state environment? for some time to stabilize. This typewriters functional tester discussed the option of the [facility] program and the potential for a care bed referral. The client was receptive to these options and stated they thought this would be a good plan. The client requested to take an RCT ride from the hospital to their apartment to retrieve their medications and then drive themselves to the [facility]. This typewriters functional tester initially agreed, and the plan was for the client to check in upon arrival at their apartment prior to [facility] However, Provider Manuel did not approve this plan, stating that the client could not leave the hospital without a carpenters supervisor. As a result, the client will remain at [facility] while referrals are placed for inpatient treatment. Provider Manuel also reported that the client has asked to leave the hospital multiple times, stating that they would drive themselves to another hospital and self-admit to inpatient care. This information was not disclosed to this typewriters functional tester by the client. Plan/Disposition Recommended Disposition: Hospitalization (Referrals will be sent on 07/09) facilities contacted. Person reported agreement to plan: Yes Reports/communication Outcome discussed with: ED/Personnel
[2025-07-09] MEDS: Gabapentin 300 MG CAP PO (20:12)
[2025-07-09] MEDS: busPIRone 5 MG TAB 20 MG PO (20:29)
[2025-07-09] MEDS: Gabapentin 100 MG CAP PO (21:00)
[2025-07-09] MEDS: Prazosin 1 MG CAP 3 MG PO (21:24)
[2025-07-09] MEDS: risperiDONE 1 MG TAB 2 MG PO (21:31)
[2025-07-09] MEDS: DULoxetine 20 MG CAP 40 MG PO (21:37)
[2025-07-09] MEDS: Benztropine 1 MG TAB 0.5 MG PO (21:38)
--- NOTE | 2025-07-10 07:20 | ED.PSYCHBOAR ---
Date of service: 07/10/25 Time of Service: 07:20 Psychiatric Border Handoff Update Brief Story: I received signout on this voluntary 20-year-old female with suicidal ideation. No active behavioral issues last shift. 10:17 AM I was [facility] the patient for hospitalization. I signed transfer paperwork. Status: voluntary Able to leave: would need physician/BRIAN and crisis evaluation prior to leaving Mediation Reconciliation performed: Yes Code Status ordered: Yes Diet ordered: Yes Discharge Plan Disposition Patient Disposition: Psychiatric Hospital/Unit Specific Psychiatric Facility: [facility] Condition: Stable Discharge Details Clinical Impression: Suicidal ideation, Deliberate self-cutting Primary Care Provider: EDILIA GIBSON ED Provider: Jeffy Mo [place] Meds and New Rx's Prescriptions: Continued magnesium oxide 400 mg (241.3 mg magnesium) tablet 400 mg PO DAILY Patient Comments: TAKE ONE TABLET BY MOUTH EVERY DAY Ajovy Autoinjector 225 mg/1.5 mL auto-injector 225 mg subcut QMONTH Nexplanon 68 mg implant 1 implant subdermal ONCE Rx Instructions: as a single dose benztropine 0.5 mg tablet 0.5 mg PO DAILY risperidone 2 mg tablet 2 mg PO DAILY multivitamin [Daily Multi-Vitamin] Tablet 1 tab PO DAILY fluticasone propion-salmeterol [Advair HFA] 230-21 mcg/actuation HFA aerosol inhaler 2 puff inhalation BID Qty: 12 12RF Airsupra 90-80 mcg/actuation HFA aerosol inhaler 2 inh inhalation ONCE Qty: 10.7 12RF Rx Instructions: as a single dose; may repeat up to 6 doses per day (12 inhalations) albuterol sulfate 2.5 mg /3 mL (0.083 %) solution for nebulization 2.5 mg inhalation Q4H PRN (Reason: shortness of breath or wheezing) Qty: 180 0RF budesonide 90 mcg/actuation aerosol powdr breath activated 2 inh inhalation BID Qty: 1 6RF albuterol sulfate [Ventolin HFA] 90 mcg/actuation HFA aerosol inhaler 2 puff inhalation Q4H PRN (Reason: bronchospasm) Qty: 8.5 12RF Dupixent Pen 300 mg/2 mL pen injector 300 mg subcut Q2W Qty: 4 11RF Dupixent Pen 300 mg/2 mL pen injector 600 mg subcut ONCE Qty: 4 0RF Rx Instructions: as a single dose prazosin 1 mg capsule 3 mg PO QHS Ubrelvy 100 mg tablet 100 mg PO ONCE PRN Rx Instructions: 1-2 tabs epinephrine [EpiPen] 0.3 mg/0.3 mL auto-injector 0.3 ml subcut ONCE PRN Rx Instructions: as a single dose; may repeat once levalbuterol tartrate [Xopenex HFA] 2 puff inhalation PRN gabapentin 300 mg capsule 400 mg PO TID cholecalciferol (vitamin D3) [Vitamin D3] 50 mcg (2,000 unit) tablet 50 mcg PO DAILY buspirone 10 mg tablet 20 mg PO TID Patient Comments: TAKE TWO TABLETS BY MOUTH THREE TIMES A DAY . (DISCONTINUE 5MG DOSE) duloxetine 40 mg capsule,delayed release(DR/EC) 40 mg PO .QN Rx Instructions: Per Molly: 1 cap (20mg) PO QN x 3D (filled 05/09/25) then 2 cap (40mg) PO QN thereafter Discharge Instructions Additional Instructions: Patient was seen in the emergency department. [facility] No medications were changed during her ED course.
[2025-07-10 08:10] VITALS: BP 117/78; PULSE 101; RESP 18; TEMP 37.1; O2SAT 97
[2025-07-10] MEDS: Mometasone 220 MCG 14 DOSE INHALER 1 PUFF IH (08:23)
[2025-07-10] MEDS: Cholecalciferol (Vitamin D3) 1,000 UNIT TAB 2000 UNITS PO (08:24)
[2025-07-10] MEDS: busPIRone 5 MG TAB 20 MG PO ×2 (08:24→13:30)
[2025-07-10] MEDS: Gabapentin 300 MG CAP PO ×2 (09:55→13:30)
[2025-07-10] MEDS: Gabapentin 100 MG CAP PO ×2 (09:56→13:30)
--- NOTE | 2025-07-10 19:16 | CMPROGNOTE_ITS ---
Date of service: 07/10/25 Time of Service: 13:00 Care Management Progress Note Progress Note Text Progress Note Text: Jyothi presented to the ED overnight with SI. She is a known [facility] client (formerly [employer]). She was accepted by [facility] this morning, and was transported there via EMS, [place]. She was agreeable to this plan and will follow up with her outpatient supports post discharge from . Social Determinants of Health Screening Will the Patient Participate in the Screening?: Declined to provide
== END 2025-07-10 14:00 ==
PROVIDERS: Physician Assistant; Emergency Provider Emergency Medicine; PCP Nurse Practitioner Family
DX: S51.812A Laceration without foreign body of left forearm, initial encounter (principal); J45.40 Moderate persistent asthma, uncomplicated; F32.A Depression, unspecified; F41.9 Anxiety disorder, unspecified; E20.9 Hypoparathyroidism, unspecified; X78.1XXA Intentional self-harm by knife, initial encounter; Y93.89 Activity, other specified
CPT/HCPCS: 00123; 80048; 80307; 81025; 96127; 99285; 80320; 80329; 81003; 81015; 84443; 84703; 85025

== ENCOUNTER 2025-07-18 17:15 | Emergency (ER) | payer MEDICAID, SELFPAY ==
[2025-07-18 17:14] VITALS: BP 139/100; PULSE 75; RESP 18; TEMP 36.7; O2SAT 98
[2025-07-18] MEDS: Lidocaine/Epinephri/Tetracaine Topical Gel 3 ML TP (17:43)
[2025-07-18] MEDS: Lidocaine 1% Pres-Free 5 ML VIAL IJ (17:43)
--- NOTE | 2025-07-18 18:45 | PDOC.MHCN_ITS ---
Date of service: 07/18/25 Time of Service: 16:20 Suicide Severity Rate CSSRS Have you wished you were or wished you could go to sleep and not wake up?: Yes Have you actually had any thoughts of killing yourself?: Yes CSSRS2 Have you been thinking about how you might do this?: Yes Have you had these thoughts and had some intention of acting on them?: Yes Have you started to work out or worked out the details of how to kill yourself? Do you intend to carry out this plan?: Yes CSSRS3 Have you ever done anything, started to do anything or prepared to do anything to end your life?: Yes CSSRS4 Was this within the past three months?: No Screening Score Total Score: 6 Screening: Positive Mental Health Emergency Note Release [facility] release signed:: Yes Reason for Visit The client presented to the [address] [facility] office for an appointment with her med provider Dr. Alberto and disclosed SI and current NSSI with an open wound on her left arm. Dr. Alberto paged for for a mobile crisis response. The client is known to [facility] and is actively enrolled in the [facility] program. The client is supported by her therapist Caterina, case maker Luma, med provider Dr. Dasilva and [facility]. The client is known to this clinician as well. The client self reports to have been hospitalized in the past for her mental health. The client reports going to inpatient treatment roughly ten times in the past with the last place being [facility] to which she discharged from 07/15/25 by her own choice. 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 History: yes, The client did not disclose how long she has been engaging in NSSI Safety Risk/Harm to Self or Others Current Ideation to Harm Self or Others: Yes to self. Intent: yes, has intent. Plan: yes,has a plan. History of suicide attempt: yes,history of suicide attempt reported. Details of previous suicide attempt: The client reports a past attempt on her life but cutting her arm deeply with a knife in January of 2025. Risk: Does risk to harm exist?: yes. Access to means: Yes. Types of Means: Other weapons and Medication. Details: The client reports having access to [employer] and medications . Counseling provided: No Risk: High Risk Duty to warn indicated: No Asssessment/Mental Status Appearance: Well groomed Attitude: Cooperative and Friendly Behavior: Unremarkable Speech: Normal Affect: Cogruent with mood Mood: Depressed Thought process: Poverty of content Hallucinations: yes, Auditory (The client reports auditory hallucinations of a male voice in her head commanding her to harm herself.) Delusions: No Attention: Unremarkable Perception: Not impaired Orientation: Fully orientated Memory: Intact Insight: Poor Judgement: Poor Neurovegetative Symptoms Sleep: No change Appetitie: Decrease Interests: Decrease Energy: Decrease Libido: Not applicable Additional Issues: Assaultive/Threatening Behavior: No Medical Concerns: No Client engaged in active self harm w/weapon: Yes Threatening to run away: No Child reported abuse/neglect: No Voluntarily presenting for services: Yes Domestic violence is a concern: No Extreme Psychosis or extreme behavior is present: No Impression The client is a 20 year old biological female who lives independently in [place], [place]. The client presents in a well groomed appearance and is seen wearing a cheema sweater, jeans and sneakers sitting in the [facility] office. Affect is congruent with mood and speech is in normal range. Client is friendly and cooperative with this clinician; they report their mood as depressed. Thought process appears to be a poverty of content. There are no delusions observed by this clinician. The client reports auditory hallucinations of a male voice in her head commanding her to harm herself. The client denies visual hallucinations. Cognitive assessment reveals orientation to person, place and time. The client presented to the [facility] office for an appointment with her med provider Dr. Dasilva and disclosed current SI and NSSI. Per collateral report the client had a deep self inflicted wound on her left arm from a knife that borderline needed sutures. The client states she had discharged from [facility] 07/15/25 due to a hearing test but now feels she was not ready to leave. The client reports feeling like she is unable to keep herself safe at home and that she has already hurt herself. The client reports current active SI with a plan of cutting herself with the intent to and rates her level of intent to be a 8 out of 10. The client states she worked on her suicide note today that she has had for the last couple of months. The client scored a 6/6 on the CSSRS. The client reports current NSSI by cutting herself with a pocket knife. The client denies HI with no intent or plan. A safety plan to the [place] was discussed with the client and removing access to means. The client states removing access to means does not work as she will just drive to the store and buy another knife and her suicidal thoughts are very strong today. The client states she does not want any help and would rather . Inpatient treatment was discussed with the client and if she had the means to drive to the hospital to seek treatment. The client stated she not feel like she can keep herself safe driving across town to the hospital and EMS was called for a transport as the client had no other means of getting to the hospital. Plan/Disposition Recommended Disposition: Hospitalization facilities contacted. Plan: The client will remain at [facility] until placement is secured. The client will receive once a day daily assessments by emergency services until placed. Reports/communication Outcome discussed with: ED/Personnel
--- NOTE | 2025-07-18 19:43 | W.ED.GENAD ---
Discharge Plan Discharge Details Chief Complaint: PsychEval Primary Care Provider: EDILIA GIBSON ED Provider: Mushtaq Jackson Home Meds and New Rx's Prescriptions: No Action magnesium oxide 400 mg (241.3 mg magnesium) tablet 400 mg PO DAILY Patient Comments: TAKE ONE TABLET BY MOUTH EVERY DAY Ajovy Autoinjector 225 mg/1.5 mL auto-injector 225 mg subcut QMONTH Nexplanon 68 mg implant 1 implant subdermal ONCE Rx Instructions: as a single dose benztropine 0.5 mg tablet 0.5 mg PO DAILY risperidone 2 mg tablet 2 mg PO DAILY multivitamin [Daily Multi-Vitamin] Tablet 1 tab PO DAILY fluticasone propion-salmeterol [Advair HFA] 230-21 mcg/actuation HFA aerosol inhaler 2 puff inhalation BID Qty: 12 12RF Airsupra 90-80 mcg/actuation HFA aerosol inhaler 2 inh inhalation ONCE Qty: 10.7 12RF Rx Instructions: as a single dose; may repeat up to 6 doses per day (12 inhalations) albuterol sulfate 2.5 mg /3 mL (0.083 %) solution for nebulization 2.5 mg inhalation Q4H PRN (Reason: shortness of breath or wheezing) Qty: 180 0RF budesonide 90 mcg/actuation aerosol powdr breath activated 2 inh inhalation BID Qty: 1 6RF albuterol sulfate [Ventolin HFA] 90 mcg/actuation HFA aerosol inhaler 2 puff inhalation Q4H PRN (Reason: bronchospasm) Qty: 8.5 12RF Dupixent Pen 300 mg/2 mL pen injector 300 mg subcut Q2W Qty: 4 11RF Dupixent Pen 300 mg/2 mL pen injector 600 mg subcut ONCE Qty: 4 0RF Rx Instructions: as a single dose prazosin 1 mg capsule 3 mg PO QHS Ubrelvy 100 mg tablet 100 mg PO ONCE PRN Rx Instructions: 1-2 tabs epinephrine [EpiPen] 0.3 mg/0.3 mL auto-injector 0.3 ml subcut ONCE PRN Rx Instructions: as a single dose; may repeat once levalbuterol tartrate [Xopenex HFA] 2 puff inhalation PRN gabapentin 300 mg capsule 400 mg PO TID cholecalciferol (vitamin D3) [Vitamin D3] 50 mcg (2,000 unit) tablet 50 mcg PO DAILY buspirone 10 mg tablet 20 mg PO TID Patient Comments: TAKE TWO TABLETS BY MOUTH THREE TIMES A DAY . (DISCONTINUE 5MG DOSE) duloxetine 40 mg capsule,delayed release(DR/EC) 40 mg PO .QN Rx Instructions: Per [place]: 1 cap (20mg) PO QN x 3D (filled 05/09/25) then 2 cap (40mg) PO QN thereafter HPI General Date/Time Provider Initiated Documentation: 07/18/25 17:21. HPI Narrative: 20 year-old female presents to ED today by EMS with a chief complaint of self-inflicted wound to wrist, suicidal ideation, recently discharged from [facility]. Quality described as superficial laceration to L wrist about 4cm, no active bleeding, no radiation to homicidal ideation, chest pain, abdominal pain, nausea/vomiting. Severity is described as moderate. Palliating factors include nothing specific. Provoking factors include chronic suicidality. Events leading up to the incident/Associated Symptoms: Patient has already been assessed by [facility] prior to arrival. Patient not anticoagulated. Related Data Home Medications Medication Instructions Recorded Confirmed epinephrine 0.3 mg/0.3 mL 0.3 ml subcut ONCE PRN 10/04/24 07/18/25 injection, auto-injector (EpiPen) levalbuterol tartrate 2 puff inhalation PRN 10/04/24 07/18/25 prazosin 1 mg capsule 3 mg PO QHS 10/04/24 07/18/25 ubrogepant 100 mg tablet (Ubrelvy) 100 mg PO ONCE PRN 10/04/24 07/18/25 etonogestrel 68 mg subdermal 1 implant subdermal ONCE 12/31/24 07/18/25 implant (Nexplanon) fremanezumab-vfrm 225 mg/1.5 mL 225 mg subcut QMONTH 12/31/24 07/18/25 subcutaneous auto-injector (Ajovy) gabapentin 300 mg capsule 400 mg PO TID 01/11/25 07/18/25 cholecalciferol (vitamin D3) 50 50 mcg PO DAILY 01/19/25 07/17/25 mcg (2,000 unit) tablet (Vitamin D3) fluticasone propionate 230 2 puff inhalation BID #12 grams 02/17/25 07/18/25 mcg-salmeterol 21 mcg/actuation HFA inhaler (Advair HFA) albuterol 90 mcg-budesonide 80 2 inh inhalation ONCE #10.7 grams 02/24/25 07/18/25 mcg/actuation HFA aerosol inhaler (Airsupra) albuterol sulfate 2.5 mg/3 mL 2.5 mg (3 mL) inhalation Q4H PRN 02/24/25 07/18/25 (0.083 %) solution for nebulization shortness of breath or wheezing #180 mL budesonide 90 mcg/actuation breath 2 inh inhalation BID #1 ea 03/03/25 07/17/25 activated powder inhaler multivitamin (Daily Multi-Vitamin 1 tab PO DAILY 03/03/25 07/18/25 tablet) magnesium oxide 400 mg (241.3 mg 400 mg PO DAILY 03/27/25 07/18/25 magnesium) tablet duloxetine 40 mg capsule,delayed 40 mg PO .QN 05/26/25 07/18/25 release albuterol sulfate 90 mcg/actuation 2 puff inhalation Q4H PRN 06/05/25 07/18/25 aerosol inhaler (Ventolin HFA) bronchospasm #8.5 grams benztropine 0.5 mg tablet 0.5 mg PO DAILY 06/11/25 07/17/25 buspirone 10 mg tablet 20 mg PO TID 06/11/25 07/17/25 risperidone 2 mg tablet 2 mg PO DAILY 06/11/25 07/18/25 dupilumab 300 mg/2 mL subcutaneous 300 mg (2 mL) subcut Q2W #4 mL 06/19/25 07/18/25 pen injector ([employer] dupilumab 300 mg/2 mL subcutaneous 600 mg (4 mL) subcut ONCE #4 mL 06/19/25 07/18/25 pen injector (Dupixent) Previous Rx's Medication Instructions Recorded fluticasone propionate 230 2 puff inhalation BID #12 grams 02/17/25 mcg-salmeterol 21 mcg/actuation HFA inhaler (Advair HFA) albuterol 90 mcg-budesonide 80 2 inh inhalation ONCE #10.7 grams 02/24/25 mcg/actuation HFA aerosol inhaler (Airsupra) albuterol sulfate 2.5 mg/3 mL 2.5 mg (3 mL) inhalation Q4H PRN 02/24/25 (0.083 %) solution for nebulization shortness of breath or wheezing #180 mL budesonide 90 mcg/actuation breath 2 inh inhalation BID #1 ea 03/03/25 activated powder inhaler albuterol sulfate 90 mcg/actuation 2 puff inhalation Q4H PRN 06/05/25 aerosol inhaler (Ventolin HFA) bronchospasm #8.5 grams dupilumab 300 mg/2 mL subcutaneous 300 mg (2 mL) subcut Q2W #4 mL 06/19/25 pen injector (Dupixent) dupilumab 300 mg/2 mL subcutaneous 600 mg (4 mL) subcut ONCE #4 mL 06/19/25 pen injector (Dupixent) Allergies Allergy/AdvReac Type Severity Reaction Status Date / Time cat dander Allergy Wheezing Verified 07/18/25 17:20 dog dander Allergy Wheezing Verified 07/18/25 17:20 house dust mite Allergy Wheezing Verified 07/18/25 17:20 tree and shrub pollen Allergy Wheezing Verified 07/18/25 17:20 haloperidol (From Haldol) AdvReac Severe Other (See Verified 07/18/25 17:20 Comment) hydrocodone AdvReac TACHYCARDIA Verified 07/18/25 17:20 PER PT ibuprofen AdvReac per Verified 07/18/25 17:20 nephrology tramadol AdvReac Other (See Verified 07/18/25 17:20 Comment) General Stated Complaint: PsychEval KEILY: 2 Review of Systems All systems reviewed & are unremarkable except as noted in HPI and below Exam Narrative Exam Narrative: GENERAL APPEARANCE: Well-nourished, non-toxic, awake and alert, atraumatic, no acute distress. SKIN: Warm, pink, dry, 4cm superficial linear laceration to L forearm, no active bleeding HEAD: Normocephalic, atraumatic, normal hair distribution for gender/age. EYES: Normal conjunctiva, no exudates on lids/lashes. ENT: Nares patent, no circumoral cyanosis, no facial swelling NECK: Supple, trachea midline, painless cervical ROM. LUNGS/CHEST: Non-labored respirations, normal A/P diameter, symmetrical expansion, no chest wall deformity HEART (CV/PV): No peripheral edema, no JVD. ABDOMEN: Soft, non-distended, no guarding. MSK: Normal ROM, no swelling/deformity to bilateral UEs or LEs, moving all extremities without weakness, no cyanosis, spine midline without tenderness, normal curvature. NEURO: Mental Status AAOx4 - alert to person, place, time, events No facial droop, no forehead involvement. Motor: No focal weakness - strength 5/5 in bilateral UEs and LEs, proximal and distal, symmetric. Sensory: sensation intact to light touch globally. Gait normal: patient ambulated without ataxia into ED room. PSYCH: dysthymic, cooperative, appropriate speech, non-psychotic, suicidal ideation Course Vital Signs Vital signs: Vital Signs Temperature 36.7 C 07/18/25 17:14 Pulse 75 07/18/25 17:14 Respiratory Rate 18 07/18/25 17:14 Blood Pressure 139/100 H 07/18/25 17:14 Pulse Oximetry 98 07/18/25 17:14 Temperature 36.7 C 07/18/25 17:14 Pulse 75 07/18/25 17:14 Respiratory Rate 18 07/18/25 17:14 Blood Pressure 139/100 H 07/18/25 17:14 Pulse Oximetry 98 07/18/25 17:14 Pain Level 0 07/18/25 17:14 Lab/Test Results Lab/Test Results: POC- Test(urine) Negative Procedure Laceration Laceration 1: Provider that performed the procedure: Mushtaq Jackson Standard Time Out Performed: No Patient Consented: Verbally Site: upper extremity Side (If applicable): left Description: linear and clean Depth: simple, single layer Local anesthetic: Lidocaine 1% and LET(lidocaine epinephrine tetracaine) Amount of anesthesia used (mL): 5 Pre-repair:: wound explored and irrigated extensively Suture size: 5-0 Number of sutures:: 3 Technique: simple, interrupted Complications: None Medical Decision Making This dictation utilizes [id number] dictation software and may contain unedited grammatical errors. 20 year-old female presents to ED today by EMS with a chief complaint of self-inflicted wound to wrist, suicidal ideation, recently discharged from [facility]. Quality described as superficial laceration to L wrist about 4cm, no active bleeding, no radiation to homicidal ideation, chest pain, abdominal pain, nausea/vomiting. Severity is described as moderate. Palliating factors include nothing specific. Provoking factors include chronic suicidality. Events leading up to the incident/Associated Symptoms: Patient has already been assessed by [facility] prior to arrival. Patients' medical history: Chronic suicidality, CKD, calcification of brain, hypoparathyroidism. Family and social history: Lives with a roommate in an apartment, denies drug or alcohol use, non-smoker. Pertinent exam findings / vital signs include 4 cm superficial linear laceration to the left wrist not actively bleeding repaired by suture, otherwise benign cardiopulmonary status. Differential / pathologies of concern include suicidal ideation, deliberate self cutting. Diagnostic studies of: - None, patient cleared by smart form has no medical complaints. Interventions of: - Suture repair with 3 sutures of 5-0 Ethilon and bandage. ED Course/Assessment/Plan: 20-year-old female presents by EMS for suicidal ideation and deliberate self cutting to the left wrist, she was recently discharged from [facility] due to wanting to attend an outpatient appointment on and bounced back to our ER with acute on chronic suicidality and deliberate self cutting which is her baseline, her wound was repaired, she had been assessed by [facility] prior to arrival and is awaiting voluntary placement. Findings not consistent with homicidal ideation, agitation or psychosis. Disposition of suicidal ideation. Patient verbalized understanding of the plan and return to ED criteria and engaged in shared decision making. Medical Records Medical records reviewed: Yes I reviewed the patient's medical records. Quality:SDOH Health Related Social Needs: Health related social needs lonely/isolated Health related social needs details patient frequently here for SI. 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 Started fluox 03/05, stopped spring 2020- restarted but stopped in the fall secondary to concerns of worsening suicidal ideation- trial lexapro- increase dose to 20 mg today (03/28/22) Chronic kidney disease (CKD) Nasal vestibulitis Patulous eustachian tube of left ear Chronic allergic rhinitis Encounter for immunotherapy Right-sided tinnitus Calcification of brain per [facility] neuro notes; bifrontal first noted in 2010; 2019 with some affecting basal ganglia, d/t underlying hypoparathyroidism Sciatica of right side Strain of extensor pollicis longus tendon Injury of thumb, right Allergic reaction Complex regional pain syndrome of right upper extremity Recurrent UTI Cough Abnormal chest xray Moderate persistent asthma Low back pain De Quervain's tenosynovitis, left Dysfunction of right eustachian tube Palpitations Wears hearing aid in both ears Otalgia of right ear TMJ pain dysfunction syndrome Sinusitis Nexplanon in place 09/2023. For menstrual control. Traumatic plantar fasciitis LEFT Lip lesion Electrolyte disturbance Depo-Provera contraceptive status 04/2023. Stopped per patient request 09/2023 restarted per patient request Hypokalemia Abnormal uterine bleeding (AUB) 2017. menstrual irreg. OCPs 05/29/2019. Dysmenorrhea. DepoProvera 150 mg every 3 months Ingrowing toenail (05/14/18) Left great toe; s/p resection ADHD (attention deficit hyperactivity disorder) Surgical History Vesicoureteric reflux (12/15/14) s/p bilateral ureteral implants [place] teeth extracted all 4 teeth extracted ureteral implants- bilat Tonsillectomy and adenoidectomy Myringotomy w/ PE (pressure equalizing) tubes Family History Mother Family history unknown Father Family history unknown Social History Smoking/Tobacco Use Status: Never Smoking risk assessment performed?: Yes Alcohol Intake: current Alcohol Intake frequency: holidays/special occasions only Alcohol type: beer Drug use: Never Substance use type: does not use Adopted: Yes Housing: house Education Level: college Details: [employer], starting [employer] in the fall current occupation: 02/28/2020 works at [employer] Pets and animals: Yes Pets and animals: cat(s), dog(s) and other Details: CHICKENS, TURKEYS, SHEEP, COWS Sexually active: No Do you feel safe at home: No (Pt reports environment is safe but she feels suicidal) Do you feel safe in your relationship?: Yes Additional Social history: safe environment, but not safe in myself Female Reproductive History Menstrual Age of Menarche: 11 Duration of menses: other control method: implanted
[2025-07-18 19:50] LABS: Cannabinoids THC Negative (Negative)
--- NOTE | 2025-07-18 23:31 | NUR.NOTE ---
after several attempts to correct daily meds for PT . house parent came to ED to assist with med administration. PT was asleep and house parent instructed zone B tech to let her know when she wakes so she can receive her night medications. Nursing Note:
[2025-07-19] MEDS: DULoxetine 20 MG CAP 60 MG PO (01:54)
[2025-07-19] MEDS: Gabapentin 600 MG TAB PO ×2 (01:58→14:33)
[2025-07-19] MEDS: busPIRone 5 MG TAB 20 MG PO ×2 (02:00→14:33)
--- NOTE | 2025-07-19 07:00 | ED.PSYCHBOAR ---
Date of service: 07/19/25 Time of Service: 07:00 Psychiatric Border Handoff Update Brief Story: In brief, this is a 20-year-old adult patient boarding in our emergency department voluntarily for suicidal ideation and self-harm by cutting. Prior to my taking over their care, the patient was medically cleared, and has been resting comfortably. They have met with the perinatal social worker and we are awaiting final dispo. They have not required any additional medications for restraint or sedation. They have been admitted to ED psych observation. The patient was accepted to [place] [facility], report was given to Liana Albert by this provider. I signed out care of this patient to the oncoming provider prior to transportation to [place] being arranged and available. Remained hemodynamically appropriate and without behavioral concerns while under my care. They did meet with [facility] and if they were to try to leave the hospital at this time, they would meet criteria for an EE given their danger to self. The patient remained voluntary until the end of my shift. No other acute events. Moira Walters MD Status: voluntary Able to leave: would need physician/BRIAN and crisis evaluation prior to leaving Behavioral Concerns: None Potential Disposition: Inpatient psychiatric care Barriers to Disposition: Awaiting placement Medical Concerns: Hypoparathyroidism medication not available, currently taking calcium carbonate for repletion Mediation Reconciliation performed: Yes Code Status ordered: Yes Diet ordered: Yes Discharge Plan Disposition Patient Disposition: Psychiatric Hospital/Unit Specific Psychiatric Facility: [facility] Condition: Stable Discharge Details Clinical Impression: Suicidal ideation, Deliberate self-cutting Primary Care Provider: EDILIA GIBSON ED Provider: Moira Walters Home Meds and New Rx's Prescriptions: No Action magnesium oxide 400 mg (241.3 mg magnesium) tablet 400 mg PO DAILY Patient Comments: TAKE ONE TABLET BY MOUTH EVERY DAY Ajovy Autoinjector 225 mg/1.5 mL auto-injector 225 mg subcut QMONTH Nexplanon 68 mg implant 1 implant subdermal ONCE Rx Instructions: as a single dose benztropine 0.5 mg tablet 0.5 mg PO DAILY risperidone 2 mg tablet 2 mg PO DAILY multivitamin [Daily Multi-Vitamin] Tablet 1 tab PO DAILY fluticasone propion-salmeterol [Advair HFA] 230-21 mcg/actuation HFA aerosol inhaler 2 puff inhalation BID Qty: 12 12RF Airsupra 90-80 mcg/actuation HFA aerosol inhaler 2 inh inhalation ONCE Qty: 10.7 12RF Rx Instructions: as a single dose; may repeat up to 6 doses per day (12 inhalations) albuterol sulfate 2.5 mg /3 mL (0.083 %) solution for nebulization 2.5 mg inhalation Q4H PRN (Reason: shortness of breath or wheezing) Qty: 180 0RF budesonide 90 mcg/actuation aerosol powdr breath activated 2 inh inhalation BID Qty: 1 6RF albuterol sulfate [Ventolin HFA] 90 mcg/actuation HFA aerosol inhaler 2 puff inhalation Q4H PRN (Reason: bronchospasm) Qty: 8.5 12RF Dupixent Pen 300 mg/2 mL pen injector 300 mg subcut Q2W Qty: 4 11RF Dupixent Pen 300 mg/2 mL pen injector 600 mg subcut ONCE Qty: 4 0RF Rx Instructions: as a single dose prazosin 1 mg capsule 3 mg PO QHS Ubrelvy 100 mg tablet 100 mg PO ONCE PRN Rx Instructions: 1-2 tabs epinephrine [EpiPen] 0.3 mg/0.3 mL auto-injector 0.3 ml subcut ONCE PRN Rx Instructions: as a single dose; may repeat once levalbuterol tartrate [Xopenex HFA] 2 puff inhalation PRN gabapentin 300 mg capsule 600 mg PO TID cholecalciferol (vitamin D3) [Vitamin D3] 50 mcg (2,000 unit) tablet 50 mcg PO DAILY buspirone 10 mg tablet 20 mg PO TID Patient Comments: TAKE TWO TABLETS BY MOUTH THREE TIMES A DAY . (DISCONTINUE 5MG DOSE) duloxetine 40 mg capsule,delayed release(DR/EC) 60 mg PO .QN Rx Instructions: Per [place]: 1 cap (20mg) PO QN x 3D (filled 05/09/25) then 2 cap (40mg) PO QN thereafter Discharge Instructions Instructions: Laceration Repair With Stitches ED, Suicide prevention Additional Instructions: You were seen in the emergency department today for evaluation of suicidal ideation and cutting. You had sutures placed that will require removal in 7 to 10 days. (Right around July 26). This wound will need to be kept clean and dry, you can use topical antibiotic ointment once per day and keep it covered with a dressing. It is okay for soapy water to run over it while bathing, just pat dry gently and rebandage after you are done. You were medically cleared and evaluated by one of our crisis workers. They recommended inpatient level of psychiatric care and you will be admitted to [facility]. Please follow-up on all the recommendations made by your mental health providers, and follow-up with your outpatient PCP upon discharge to discuss any ongoing health issues. Thank you for allowing us to be part of your care.
[2025-07-19 08:22] VITALS: BP 100/65; PULSE 56; RESP 20; TEMP 36.3; O2SAT 98
[2025-07-19] MEDS: Mometasone 220 MCG 14 DOSE INHALER IH ×2 (08:27→08:34)
[2025-07-19] MEDS: Cholecalciferol (Vitamin D3) 1,000 UNIT TAB 1000 UNITS PO (08:27)
[2025-07-19] MEDS: Multivitamin TAB 1 TAB PO (08:27)
[2025-07-19] MEDS: Magnesium Oxide 400 MG TAB PO (08:27)
[2025-07-19] MEDS: Calcium Carbonate *TUMS* 500 MG CHEW 1500 MG PO (08:34)
[2025-07-19] MEDS: Calcium Carbonate *TUMS* 500 MG CHEW PO (11:51)
--- NOTE | 2025-07-19 19:27 | CMPROGNOTE_ITS ---
Date of service: 07/19/25 Time of Service: 19:27 Care Management Progress Note Progress Note Text Progress Note Text: Jyothi was transferred to [facility] for voluntary psychiatric stabilization. Social Determinants of Health Screening Will the Patient Participate in the Screening?: Declined to provide
== END 2025-07-19 17:50 ==
PROVIDERS: Physician Assistant; Emergency Provider General Practice; PCP Nurse Practitioner Family
DX: S61.512A Laceration without foreign body of left wrist, initial encounter (principal); R45.851 Suicidal ideations; W26.8XXA Contact with other sharp object(s), not elsewhere classified, initial encounter; Z60.8 Other problems related to social environment
CPT/HCPCS: 00123; 12002; 80307; 81025; 99285; H0046; J2003

== ENCOUNTER 2025-07-29 10:41 | Outpatient (CLI) | payer MEDICAID, SELFPAY ==
[2025-06-27 16:25] LABS: Albumin 4.0 g/dL (3.4-5.0); Calcium 10.1 mg/dL (8.5-10.1); Vitamin D 25 Total 43 ng/mL (30-100)
== END 2025-07-29 10:42 | disposition home or self-care (01) ==
LOC: LBO 10:41
PROVIDERS: PCP Nurse Practitioner Family; Visit Provider Internal Medicine
DX: E20.9 Hypoparathyroidism, unspecified (principal)
CPT/HCPCS: 36415; 82306; 82040; 82310

== ENCOUNTER 2025-08-21 10:34 | Outpatient (CLI) | payer MEDICAID, SELFPAY ==
[2025-08-21 11:30] LABS: Albumin 4.7 g/dL (3.2-5.0); Calcium 7.6 mg/dL (8.3-10.6)
[2025-08-21 11:35] LABS: Vitamin D 25 Total 45 ng/mL (30-100)
== END 2025-08-21 10:35 | disposition home or self-care (01) ==
LOC: LBO 10:39
PROVIDERS: PCP Nurse Practitioner Family; Visit Provider Internal Medicine
DX: E20.0 Idiopathic hypoparathyroidism; E20.81 Hypoparathyroidism due to impaired parathyroid hormone secretion
CPT/HCPCS: 36415; 82306; 82040; 82310

== ENCOUNTER → 2025-09-03 10:55 | Outpatient (CLI) | payer MEDICAID, SELFPAY ==
--- NOTE | 2025-09-03 | DI.RAD_ITS ---
Exam(s) XR CERVICAL SPINE COMP 4-5V EXAM: XR CERVICAL SPINE COMP 4-5V CLINICAL HISTORY: M54.2 Cervicalgia. TECHNIQUE: 2D digital imaging was performed. Five views were performed. COMPARISON: No exams were available for comparison FINDINGS: BONES: No fracture or destructive lesion. Vertebral bodies are unremarkable. DISKS: Intervertebral disc spaces are maintained. ALIGNMENT: Cervical spinal alignment is within normal limits. The odontoid and atlantoaxial articulations are normal. SOFT TISSUE: Normal. The lung apices are clear. IMPRESSION: Unremarkable radiographs of the cervical spine. DATA REPOSITORY: RADIATION DOSE DELIVERED:
== END ==
LOC: DI 10:55
PROVIDERS: PCP Nurse Practitioner Family; Visit Provider Clinical Nurse Specialist
DX: M54.2 Cervicalgia (principal)
CPT/HCPCS: 72050

== ENCOUNTER 2025-09-03 15:41 | Outpatient (CLI) | payer MEDICAID, SELFPAY ==
[2025-09-03 17:01] LABS: Albumin 5.0 g/dL (3.2-5.0); Calcium 9.3 mg/dL (8.3-10.6)
[2025-09-03 17:04] LABS: Vitamin D 25 Total 51 ng/mL (30-100)
== END 2025-09-03 15:42 | disposition home or self-care (01) ==
LOC: LBO 15:44
PROVIDERS: PCP Nurse Practitioner Family; Visit Provider Internal Medicine
DX: E20.9 Hypoparathyroidism, unspecified (principal); E20.0 Idiopathic hypoparathyroidism; E20.81 Hypoparathyroidism due to impaired parathyroid hormone secretion
CPT/HCPCS: 36415; 82306; 82040; 82310

== ENCOUNTER 2025-09-05 10:47 | Emergency (ER) | payer MEDICAID, SELFPAY ==
[2025-09-05 10:53] VITALS: BP 121/87; PULSE 96; RESP 18; TEMP 36.7; O2SAT 95
--- NOTE | 2025-09-05 11:30 | DI.CT_ITS ---
Exam(s) CT HEAD CERVICAL SPINE WO EXAM: CT HEAD CERVICAL SPINE WO CLINICAL HISTORY: fall, headache and neck pain. TECHNIQUE: Imaging Protocol: Axial computed tomography images with coronal and sagittal reformatted images were created and reviewed COMPARISON: CT CT HEAD WO from 05/15/2020 CR XR CERVICAL SPINE COMP 4-5V from 09/03/2025 FINDINGS: CT Head: Ventricles and Extra axial spaces: Normal in size and morphology for the patient's age. Hemorrhage: None. Cerebral parenchyma: There again seen bilateral parenchymal calcifications in the frontal lobes in the basal ganglia. There has been progression of the calcifications seen in the basal ganglia since the prior examination. There is no evidence of an acute infarct or mass effect. Midline shift: None. Brainstem/Cerebellum: Normal. Calvarium: Normal. Visualized Paranasal sinuses/Mastoids: There is mild mucosal thickening in the visualized paranasal sinuses. The mastoid air cells are clear. Soft Tissues: Unremarkable. CT Cervical Spine: Bones: No acute fracture or subluxation. 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 There is straightening of the normal cervical lordosis. This may be due to muscle spasm or patient positioning. Soft Tissues: Unremarkable. Lung Apices: Clear. IMPRESSION: 1. No acute intracranial process. 2. No acute fracture or subluxation in the cervical spine. RADIATION DOSE DELIVERED: 1,214.14mGy.cm Total DLP DATA REPOSITORY: All CT scans at this facility are submitted to the National Radiology Data Registry (NRDR) Dose Index Registry (DIR) with the [employer] (ACR). RADIATION OPTIMIZATION: All CT scans at this facility use at least one of these dose optimization techniques: automated exposure control; mA and/or kV adjustment per patient size (includes targeted exams where dose is matched to clinical indication); or iterative reconstruction.
[2025-09-05 13:45] VITALS: BP 125/82; PULSE 89; RESP 16; TEMP 36.8; O2SAT 97
--- NOTE | 2025-09-06 08:46 | NUR.NOTE ---
Access chart to print the demographic sheet for [facility] billing requisition. Nursing Note:
--- NOTE | 2025-09-07 14:39 | W.ED.GENAD ---
Discharge Plan Disposition Patient Disposition: Home Condition: Stable Discharge Details Clinical Impression: Concussion, Cervicalgia Primary Care Provider: EDILIA GIBSON ED Provider: Hina Marrufo Home Meds and New Rx's Prescriptions: New cyclobenzaprine 10 mg tablet 10 mg PO TID PRNQty: 6 0RF ondansetron HCl 4 mg tablet 4 mg PO Q8H 3 Days Qty: 9 0RF Continued magnesium oxide 400 mg (241.3 mg magnesium) tablet 400 mg PO DAILY Patient Comments: TAKE ONE TABLET BY MOUTH EVERY DAY Ajovy Autoinjector 225 mg/1.5 mL auto-injector 225 mg subcut QMONTH Nexplanon 68 mg implant 1 implant subdermal ONCE Rx Instructions: as a single dose benztropine 0.5 mg tablet 0.5 mg PO DAILY risperidone 2 mg tablet 2 mg PO DAILY multivitamin [Daily Multi-Vitamin] Tablet 1 tab PO DAILY fluticasone propion-salmeterol [Advair HFA] 230-21 mcg/actuation HFA aerosol inhaler 2 puff inhalation BID Qty: 12 12RF Airsupra 90-80 mcg/actuation HFA aerosol inhaler 2 inh inhalation ONCE Qty: 10.7 12RF Rx Instructions: as a single dose; may repeat up to 6 doses per day (12 inhalations) albuterol sulfate 2.5 mg /3 mL (0.083 %) solution for nebulization 2.5 mg inhalation Q4H PRN (Reason: shortness of breath or wheezing) Qty: 180 0RF budesonide 90 mcg/actuation aerosol powdr breath activated 2 inh inhalation BID Qty: 1 6RF albuterol sulfate [Ventolin HFA] 90 mcg/actuation HFA aerosol inhaler 2 puff inhalation Q4H PRN (Reason: bronchospasm) Qty: 8.5 12RF Dupixent Pen 300 mg/2 mL pen injector 300 mg subcut Q2W Qty: 4 11RF prazosin 1 mg capsule 3 mg PO QHS Ubrelvy 100 mg tablet 100 mg PO ONCE PRN Rx Instructions: 1-2 tabs epinephrine [EpiPen] 0.3 mg/0.3 mL auto-injector 0.3 ml subcut ONCE PRN Rx Instructions: as a single dose; may repeat once levalbuterol tartrate [Xopenex HFA] 2 puff inhalation PRN gabapentin 300 mg capsule 600 mg PO TID cholecalciferol (vitamin D3) [Vitamin D3] 50 mcg (2,000 unit) tablet 50 mcg PO DAILY buspirone 10 mg tablet 20 mg PO TID Patient Comments: TAKE TWO TABLETS BY MOUTH THREE TIMES A DAY . (DISCONTINUE 5MG DOSE) bupropion HCl [Wellbutrin XL] 300 mg tablet extended release 24 hr 300 mg PO DAILY Dupixent Pen 300 mg/2 mL pen injector 600 mg subcut .every 2 weeks Rx Instructions: as a single dose duloxetine 40 mg capsule,delayed release(DR/EC) 20 mg PO .QN Rx Instructions: 09/05 - per pt only takes 20mg Per [place]: 1 cap (20mg) PO QN x 3D (filled 05/09/25) then 2 cap (40mg) PO QN thereafter Discharge Instructions Instructions: Cervical Muscle Strain (DC), Concussion, Adult ED Additional Instructions: Avoid driving while you are headache, lightheadedness and nausea continue likely have a concussion, try to limit phone use and reading is much as possible Make sure you are drinking at least eight 8 ounce glasses of water daily you may take the Flexeril sparingly, I would only take this at night especially with a concussion as it can make you tired You may take Motrin and Tylenol as needed for pain, I will also prescribe nausea medication should you need Follow-up with your primary care physician next week for reassessment and return earlier should you have worsening pain, vomiting, or should any new concerns arise Stand Alone Forms: Portal Information, Work Release Referrals: EDILIA GIBSON NP [Primary Care Provider, Medicine] Discharge Data Discharge Date/Time-TO BE ENTERED AT DEPARTURE: 09/05/25 13:57 HPI General Date/Time Provider Initiated Documentation: 09/05/25 11:10. HPI Narrative: This 20-year-old female presents after slipping twice down her stairs this week. They are carpeted and she just moved into a new location. She stated was between 8-10 stairs. The first time she was evaluated urgent care, but she slept last night and hit her neck and back states she has had headache with 1 episode of vomiting which is why she presents. She denies strength or sensation change denies chance of . Denies chest pain or shortness of breath. Denies history of coagulopathy. Unsure as to whether or not she lost consciousness but does not believe so per patient. Denies any seizure-like activity or weakness or chest pain prior to the event. Related Data Home Medications ?Medication ?Instructions ?Recorded ?Confirmed epinephrine 0.3 mg/0.3 mL 0.3 ml subcut ONCE PRN 10/04/24 09/05/25 injection, auto-injector (EpiPen) levalbuterol tartrate 2 puff inhalation PRN 10/04/24 09/05/25 prazosin 1 mg capsule 3 mg PO QHS 10/04/24 09/05/25 ubrogepant 100 mg tablet (Ubrelvy) 100 mg PO ONCE PRN 10/04/24 09/05/25 etonogestrel 68 mg subdermal 1 implant subdermal ONCE 12/31/24 09/05/25 implant (Nexplanon) fremanezumab-vfrm 225 mg/1.5 mL 225 mg subcut QMONTH 12/31/24 09/05/25 subcutaneous auto-injector (Ajovy) gabapentin 300 mg capsule 600 mg PO TID 01/11/25 09/05/25 cholecalciferol (vitamin D3) 50 50 mcg PO DAILY 01/19/25 09/05/25 mcg (2,000 unit) tablet (Vitamin D3) fluticasone propionate 230 2 puff inhalation BID #12 grams 02/17/25 09/05/25 mcg-salmeterol 21 mcg/actuation HFA inhaler (Advair HFA) albuterol 90 mcg-budesonide 80 2 inh inhalation ONCE #10.7 grams 02/24/25 09/05/25 mcg/actuation HFA aerosol inhaler (Airsupra) albuterol sulfate 2.5 mg/3 mL 2.5 mg (3 mL) inhalation Q4H PRN 02/24/25 09/05/25 (0.083 %) solution for nebulization shortness of breath or wheezing #180 mL budesonide 90 mcg/actuation breath 2 inh inhalation BID #1 ea 03/03/25 09/05/25 activated powder inhaler multivitamin (Daily Multi-Vitamin 1 tab PO DAILY 03/03/25 09/05/25 tablet) magnesium oxide 400 mg (241.3 mg 400 mg PO DAILY 03/27/25 09/05/25 magnesium) tablet duloxetine 40 mg capsule,delayed 20 mg PO .QN 05/26/25 09/05/25 release albuterol sulfate 90 mcg/actuation 2 puff inhalation Q4H PRN 06/05/25 09/05/25 aerosol inhaler (Ventolin HFA) bronchospasm #8.5 grams benztropine 0.5 mg tablet 0.5 mg PO DAILY 06/11/25 09/05/25 buspirone 10 mg tablet 20 mg PO TID 06/11/25 09/05/25 risperidone 2 mg tablet 2 mg PO DAILY 06/11/25 09/05/25 dupilumab 300 mg/2 mL subcutaneous 300 mg (2 mL) subcut Q2W #4 mL 06/19/25 09/05/25 pen injector ([employer]) bupropion HCl 300 mg 24 hr tablet, 300 mg PO DAILY 09/05/25 09/05/25 extended release (Wellbutrin XL) cyclobenzaprine 10 mg tablet 10 mg PO TID PRN #6 tabs 09/05/25 dupilumab 300 mg/2 mL subcutaneous 600 mg subcut .every 2 weeks 09/05/25 09/05/25 pen injector ([employer]) ondansetron HCl 4 mg tablet 4 mg PO Q8H 3 days #9 tabs 09/05/25 Previous Rx's ?Medication ?Instructions ?Recorded fluticasone propionate 230 2 puff inhalation BID #12 grams 02/17/25 mcg-salmeterol 21 mcg/actuation HFA inhaler (Advair HFA) albuterol 90 mcg-budesonide 80 2 inh inhalation ONCE #10.7 grams 02/24/25 mcg/actuation HFA aerosol inhaler (Airsupra) albuterol sulfate 2.5 mg/3 mL 2.5 mg (3 mL) inhalation Q4H PRN 02/24/25 (0.083 %) solution for nebulization shortness of breath or wheezing #180 mL budesonide 90 mcg/actuation breath 2 inh inhalation BID #1 ea 03/03/25 activated powder inhaler albuterol sulfate 90 mcg/actuation 2 puff inhalation Q4H PRN 06/05/25 aerosol inhaler (Ventolin HFA) bronchospasm #8.5 grams dupilumab 300 mg/2 mL subcutaneous 300 mg (2 mL) subcut Q2W #4 mL 06/19/25 pen injector ([place]) cyclobenzaprine 10 mg tablet 10 mg PO TID PRN #6 tabs 09/05/25 ondansetron HCl 4 mg tablet 4 mg PO Q8H 3 days #9 tabs 09/05/25 Allergies Allergy/AdvReac Type Severity Reaction Status Date / Time cat dander Allergy Wheezing Verified 09/05/25 10:58 dog dander Allergy Wheezing Verified 09/05/25 10:58 house dust mite Allergy Wheezing Verified 09/05/25 10:58 tree and shrub pollen Allergy Wheezing Verified 09/05/25 10:58 haloperidol (From Haldol) AdvReac Severe Other (See Verified 09/05/25 10:58 Comment) hydrocodone AdvReac TACHYCARDIA Verified 09/05/25 10:58 PER PT ibuprofen AdvReac per Verified 09/05/25 10:58 nephrology tramadol AdvReac Other (See Verified 09/05/25 10:58 Comment) General Stated Complaint: Fall/Non TraumaCriteria KEILY: 4 Exam Narrative Exam Narrative: Alert and oriented 20-year-old female pupils equal and reactive to light and accommodation GCS 15, no hemotympanum no obvious hematomas to scalp answering questions appropriately oropharynx patent uvula midline paraspinal and some mild midline tenderness without obvious deformity neurovascularly intact all 4 extremities, ambulatory with steady gait no abdominal tenderness or visible evidence of trauma no chest wall trauma or visible or tenderness appreciated Course Vital Signs Vital signs: Vital Signs Temperature 36.7 C 09/05/25 10:53 Pulse 96 H 09/05/25 10:53 Respiratory Rate 18 09/05/25 10:53 Blood Pressure 121/87 09/05/25 10:53 Pulse Oximetry 95 09/05/25 10:53 Temperature 36.8 C 09/05/25 13:45 Temperature Source Oral 09/05/25 10:53 Pulse 89 09/05/25 13:45 Respiratory Rate 16 09/05/25 13:45 Blood Pressure 125/82 09/05/25 13:45 Pulse Oximetry 97 09/05/25 13:45 Pain Level 0 09/05/25 13:45 Lab/Test Results Lab/Test Results: Laboratory Tests Range/Units 09/05/25 11:10 Monoscreen Cancelled Medical Decision Making Results: CT head and cervical spine do not show evidence of acute abnormality per radiology interpretation my review Assessment and plan: Patient presents after a fall with likely concussive signs and symptoms and cervical strain. She is encouraged to engage in supportive care and refrain from driving until she is having symptomatic improvement. She has ambulatory steady gait. She will need to make sure she staying hydrated and take Motrin and Tylenol as needed for pain. Zofran as needed for nausea and vomiting and Flexeril for muscle pain as needed. Encouraged to follow-up with primary care physician next week return precautions reviewed and patient expressed understanding Quality:SDOH Health Related Social Needs: Health related social needs lonely/isolated Health related social needs details patient frequently here for SI. PFS All Active Problems (Updated 09/05/25 @ 13:04 by DEAN Patel) Cervicalgia (Acute) Concussion (Acute) Encounter for injection education (Acute) Severe persistent asthma (Acute) Acute asthma exacerbation (Acute) Asthma (Chronic) Hypokalemia (Acute) Hypocalcemia (Acute) Hypomagnesemia (Acute) Muscle spasm (Acute) Hypomagnesemia (Acute) Anxiety (Chronic) Sensorineural hearing loss of both ears (Acute) Stage 2 chronic kidney disease (Chronic) Hypoparathyroidism (Chronic 10/31/14) congenital, followed by [facility] endocrinology Medical History Esotropia (12/15/14) glasses for correction 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 Started fluox 03/05, stopped spring 2020- restarted but stopped in the fall secondary to concerns of worsening suicidal ideation- trial lexapro- increase dose to 20 mg today (03/28/22) Chronic kidney disease (CKD) Nasal vestibulitis Patulous eustachian tube of left ear Chronic allergic rhinitis Encounter for immunotherapy Right-sided tinnitus Calcification of brain per [facility] neuro notes; bifrontal first noted in 2019 with some affecting basal ganglia, d/t underlying hypoparathyroidism Sciatica of right side Strain of extensor pollicis longus tendon Injury of thumb, right Allergic reaction Complex regional pain syndrome of right upper extremity Recurrent UTI Cough Abnormal chest xray Moderate persistent asthma Low back pain De Quervain's tenosynovitis, left Dysfunction of right eustachian tube Palpitations Wears hearing aid in both ears Otalgia of right ear TMJ pain dysfunction syndrome Sinusitis Nexplanon in place 09/2023. For menstrual control. Traumatic plantar fasciitis LEFT Lip lesion Electrolyte disturbance Depo-Provera contraceptive status 04/2023. Stopped per patient request 09/2023 restarted per patient request Hypokalemia Abnormal uterine bleeding (AUB) 2017. menstrual irreg. OCPs 05/29/2019. Dysmenorrhea. DepoProvera 150 mg every 3 months Ingrowing toenail (05/14/18) Left great toe; s/p resection ADHD (attention deficit hyperactivity disorder) Surgical History Vesicoureteric reflux (12/15/14) s/p bilateral ureteral implants [place] teeth extracted all 4 teeth extracted ureteral implants- bilat Tonsillectomy and adenoidectomy Myringotomy w/ PE (pressure equalizing) tubes Family History Mother Family history unknown Father Family history unknown Social History Smoking/Tobacco Use Status: Never Smoking risk assessment performed?: Yes Alcohol Intake: current Alcohol Intake frequency: holidays/special occasions only Alcohol type: beer Drug use: Never Substance use type: does not use Adopted: Yes Housing: house Education Level: college Details: [employer], starting [employer] in the fall current occupation: 02/28/2020 works at [employer] Pets and animals: Yes Pets and animals: cat(s), dog(s) and other Details: CHICKENS, TURKEYS, SHEEP, COWS Sexually active: No Do you feel safe at home: No (Pt reports environment is safe but she feels suicidal) Do you feel safe in your relationship?: Yes Additional Social history: safe environment, but not safe in myself Female Reproductive History Menstrual Age of Menarche: 11 Duration of menses: other control method: implanted
== END 2025-09-05 13:57 | disposition home or self-care (01) ==
PROVIDERS: Emergency Provider Physician Assistant; PCP Nurse Practitioner Family
DX: S06.0XAA Concussion with loss of consciousness status unknown, initial encounter (principal); M54.2 Cervicalgia; W01.0XXA Fall on same level from slipping, tripping and stumbling without subsequent striking against object, initial encounter; Z60.8 Other problems related to social environment
CPT/HCPCS: 99283; 99284; 70450; 72125; 86308; 87081

== ENCOUNTER 2025-09-14 20:56 | Emergency (ER) | payer MEDICAID, SELFPAY ==
[2025-09-14 20:58] VITALS: BP 147/101; PULSE 79; RESP 18; TEMP 36.6; O2SAT 97
[2025-09-14 21:07] VITALS: BP 144/101; PULSE 79; RESP 18; TEMP 36.7; O2SAT 97
[2025-09-14] MEDS: Ketorolac 15 MG/ML VIAL IV (21:51)
[2025-09-14] MEDS: Droperidol 5 MG/2 ML VIAL 2.5 MG IVP (21:52)
[2025-09-14] MEDS: Cyclobenzaprine 10 MG TAB PO (21:52)
[2025-09-14] MEDS: Normal Saline 1,000 ML 1000 ML IV (21:54)
[2025-09-14] MEDS: MAGNESIUM SULFATE 2 GM/50 ML BAG IV_INF (21:56)
--- NOTE | 2025-09-14 22:28 | W.ED.GENAD ---
Discharge Plan Disposition Patient Disposition: Home Discharge Details Clinical Impression: Post-concussion headache Primary Care Provider: EDILIA GIBSON ED Provider: Adiel Tang Home Meds and New Rx's Prescriptions: New metoclopramide HCl [Reglan] 5 mg tablet 5 mg PO Q8H PRN (Reason: headache) Qty: 10 0RF No Action magnesium oxide 400 mg (241.3 mg magnesium) tablet 400 mg PO DAILY Patient Comments: TAKE ONE TABLET BY MOUTH EVERY DAY Ajovy Autoinjector 225 mg/1.5 mL auto-injector 225 mg subcut QMONTH Nexplanon 68 mg implant 1 implant subdermal ONCE Rx Instructions: as a single dose benztropine 0.5 mg tablet 0.5 mg PO DAILY risperidone 2 mg tablet 2 mg PO DAILY multivitamin [Daily Multi-Vitamin] Tablet 1 tab PO DAILY fluticasone propion-salmeterol [Advair HFA] 230-21 mcg/actuation HFA aerosol inhaler 2 puff inhalation BID Qty: 12 12RF Airsupra 90-80 mcg/actuation HFA aerosol inhaler 2 inh inhalation ONCE Qty: 10.7 12RF Rx Instructions: as a single dose; may repeat up to 6 doses per day (12 inhalations) albuterol sulfate 2.5 mg /3 mL (0.083 %) solution for nebulization 2.5 mg inhalation Q4H PRN (Reason: shortness of breath or wheezing) Qty: 180 0RF budesonide 90 mcg/actuation aerosol powdr breath activated 2 inh inhalation BID Qty: 1 6RF albuterol sulfate [Ventolin HFA] 90 mcg/actuation HFA aerosol inhaler 2 puff inhalation Q4H PRN (Reason: bronchospasm) Qty: 8.5 12RF Dupixent Pen 300 mg/2 mL pen injector 300 mg subcut Q2W Qty: 4 11RF prazosin 1 mg capsule 3 mg PO QHS Ubrelvy 100 mg tablet 100 mg PO ONCE PRN Rx Instructions: 1-2 tabs epinephrine [EpiPen] 0.3 mg/0.3 mL auto-injector 0.3 ml subcut ONCE PRN Rx Instructions: as a single dose; may repeat once levalbuterol tartrate [Xopenex HFA] 2 puff inhalation PRN gabapentin 300 mg capsule 600 mg PO TID cholecalciferol (vitamin D3) [Vitamin D3] 50 mcg (2,000 unit) tablet 50 mcg PO DAILY buspirone 10 mg tablet 20 mg PO TID Patient Comments: TAKE TWO TABLETS BY MOUTH THREE TIMES A DAY . (DISCONTINUE 5MG DOSE) bupropion HCl [Wellbutrin XL] 300 mg tablet extended release 24 hr 300 mg PO DAILY Dupixent Pen 300 mg/2 mL pen injector 600 mg subcut .every 2 weeks Rx Instructions: as a single dose cyclobenzaprine 10 mg tablet 10 mg PO TID PRNQty: 6 0RF duloxetine 40 mg capsule,delayed release(DR/EC) 20 mg PO .QN Rx Instructions: 09/05 - per pt only takes 20mg Per [place]: 1 cap (20mg) PO QN x 3D (filled 05/09/25) then 2 cap (40mg) PO QN thereafter Discharge Instructions Additional Instructions: Remainder of labs are unremarkable however okay Continue taking the medications as you have at home, and I will also provide a prescription for Reglan to help with your headaches. Please return emergency department to develop any new or worsening symptoms. Stand Alone Forms: Portal Information Discharge Data Discharge Date/Time-TO BE ENTERED AT DEPARTURE: 09/14/25 22:58 HPI General Date/Time Provider Initiated Documentation: 09/14/25 21:01. HPI Narrative: MDM/Narrative: 20-year-old female presents for evaluation of headache times several days status post treatment for concussion in the emergency department 1 week ago. No focal neurologic deficits at this suggest acute intracranial lesion. Patient treated with migraine cocktail significant improvement and was stable for discharge. Disposition: Home HPI: 20-year-old female presents for evaluation of headache. Patient was evaluated in our emergency department approximately 1 week ago following a slip and fall down the stairs where she struck her head and diagnosed with a concussion at that time with cervical strain. She notes for the past 3 days she has been having a worsening frontal headache, denies any associated neurologic deficits. Does note some continued posterolateral neck pain and tightness. ROS: Negative besides as mentioned above Exam: Gen: A&O NAD HEENT: NCAT, EOMI, not icteric. External ears normal. No rhinorrhea. Moist mucous membranes. Neck: No midline step-offs, tenderness or deformities. Bilateral upper trapezial tenderness and spasm. Lungs: No Respiratory distress. CV: RRR, no edema. Abdomen: Soft, nondistended, No rebound tenderness. MSK: No joint swelling, no redness. Skin: No rashes, petechiae, lesions. Normal color per patient. Neuro: Normal Gait, Grossly intact. Psych: Appropriate for situation. Related Data Home Medications ?Medication ?Instructions ?Recorded ?Confirmed epinephrine 0.3 mg/0.3 mL 0.3 ml subcut ONCE PRN 10/04/24 09/14/25 injection, auto-injector (EpiPen) levalbuterol tartrate 2 puff inhalation PRN 10/04/24 09/14/25 prazosin 1 mg capsule 3 mg PO QHS 10/04/24 09/14/25 ubrogepant 100 mg tablet (Ubrelvy) 100 mg PO ONCE PRN 10/04/24 09/14/25 etonogestrel 68 mg subdermal 1 implant subdermal ONCE 12/31/24 09/14/25 implant (Nexplanon) fremanezumab-vfrm 225 mg/1.5 mL 225 mg subcut QMONTH 12/31/24 09/14/25 subcutaneous auto-injector (Ajovy) gabapentin 300 mg capsule 600 mg PO TID 01/11/25 09/14/25 cholecalciferol (vitamin D3) 50 50 mcg PO DAILY 01/19/25 09/14/25 mcg (2,000 unit) tablet (Vitamin D3) fluticasone propionate 230 2 puff inhalation BID #12 grams 02/17/25 09/14/25 mcg-salmeterol 21 mcg/actuation HFA inhaler (Advair HFA) albuterol 90 mcg-budesonide 80 2 inh inhalation ONCE #10.7 grams 02/24/25 09/14/25 mcg/actuation HFA aerosol inhaler (Airsupra) albuterol sulfate 2.5 mg/3 mL 2.5 mg (3 mL) inhalation Q4H PRN 02/24/25 09/14/25 (0.083 %) solution for nebulization shortness of breath or wheezing #180 mL budesonide 90 mcg/actuation breath 2 inh inhalation BID #1 ea 03/03/25 09/14/25 activated powder inhaler multivitamin (Daily Multi-Vitamin 1 tab PO DAILY 03/03/25 09/14/25 tablet) magnesium oxide 400 mg (241.3 mg 400 mg PO DAILY 03/27/25 09/14/25 magnesium) tablet duloxetine 40 mg capsule,delayed 20 mg PO .QN 05/26/25 09/14/25 release albuterol sulfate 90 mcg/actuation 2 puff inhalation Q4H PRN 06/05/25 09/14/25 aerosol inhaler (Ventolin HFA) bronchospasm #8.5 grams benztropine 0.5 mg tablet 0.5 mg PO DAILY 06/11/25 09/14/25 buspirone 10 mg tablet 20 mg PO TID 06/11/25 09/14/25 risperidone 2 mg tablet 2 mg PO DAILY 06/11/25 09/14/25 dupilumab 300 mg/2 mL subcutaneous 300 mg (2 mL) subcut Q2W #4 mL 06/19/25 09/14/25 pen injector (Dupixent) bupropion HCl 300 mg 24 hr tablet, 300 mg PO DAILY 09/05/25 09/14/25 extended release (Wellbutrin XL) cyclobenzaprine 10 mg tablet 10 mg PO TID PRN #6 tabs 09/05/25 09/14/25 dupilumab 300 mg/2 mL subcutaneous 600 mg subcut .every 2 weeks 09/05/25 09/14/25 pen injector (Dupixent) metoclopramide HCl 5 mg tablet 5 mg PO Q8H PRN headache #10 tabs 09/14/25 (Reglan) Previous Rx's ?Medication ?Instructions ?Recorded fluticasone propionate 230 2 puff inhalation BID #12 grams 02/17/25 mcg-salmeterol 21 mcg/actuation HFA inhaler (Advair HFA) albuterol 90 mcg-budesonide 80 2 inh inhalation ONCE #10.7 grams 02/24/25 mcg/actuation HFA aerosol inhaler (Airsupra) albuterol sulfate 2.5 mg/3 mL 2.5 mg (3 mL) inhalation Q4H PRN 02/24/25 (0.083 %) solution for nebulization shortness of breath or wheezing #180 mL budesonide 90 mcg/actuation breath 2 inh inhalation BID #1 ea 03/03/25 activated powder inhaler albuterol sulfate 90 mcg/actuation 2 puff inhalation Q4H PRN 06/05/25 aerosol inhaler (Ventolin HFA) bronchospasm #8.5 grams dupilumab 300 mg/2 mL subcutaneous 300 mg (2 mL) subcut Q2W #4 mL 06/19/25 pen injector (FREEjit) cyclobenzaprine 10 mg tablet 10 mg PO TID PRN #6 tabs 09/05/25 metoclopramide HCl 5 mg tablet 5 mg PO Q8H PRN headache #10 tabs 09/14/25 (Reglan) Allergies Allergy/AdvReac Type Severity Reaction Status Date / Time cat dander Allergy Wheezing Verified 09/14/25 21:03 dog dander Allergy Wheezing Verified 09/14/25 21:03 house dust mite Allergy Wheezing Verified 09/14/25 21:03 tree and shrub pollen Allergy Wheezing Verified 09/14/25 21:03 haloperidol (From Haldol) AdvReac Severe Other (See Verified 09/14/25 21:03 Comment) hydrocodone AdvReac TACHYCARDIA Verified 09/14/25 21:03 PER PT ibuprofen AdvReac per Verified 09/14/25 21:03 nephrology tramadol AdvReac Other (See Verified 09/14/25 21:03 Comment) General Stated Complaint: Headache KEILY: 3 Course Vital Signs Vital signs: Vital Signs Temperature 36.6 C 09/14/25 20:58 Pulse 79 09/14/25 20:58 Respiratory Rate 18 09/14/25 20:58 Blood Pressure 147/101 H 09/14/25 20:58 Pulse Oximetry 97 09/14/25 20:58 Temperature 36.7 C 09/14/25 21:07 Temperature Source Oral 09/14/25 21:07 Pulse 79 09/14/25 21:07 Respiratory Rate 18 09/14/25 21:07 Respiratory Effort Normal, Non-Labored 09/14/25 22:00 Respiratory Depth Normal 09/14/25 22:00 Respiratory Pattern Normal 09/14/25 22:00 Blood Pressure 144/101 H 09/14/25 21:07 Blood Pressure Position Sitting 09/14/25 21:07 Pulse Oximetry 97 09/14/25 21:07 Oxygen Delivery Method Room Air 09/14/25 21:07 Oxygen Flow Rate 0 09/14/25 20:58 Pain Level 7 09/14/25 21:28 Medical Decision Making Quality:SDOH Health Related Social Needs: Health related social needs lonely/isolated Health related social needs details patient frequently here for SI. PFSH All Active Problems (Updated 09/14/25 @ 22:29 by Adiel Tang MD) Post-concussion headache (Acute) Cervicalgia (Acute) Concussion (Acute) Encounter for injection education (Acute) Severe persistent asthma (Acute) Acute asthma exacerbation (Acute) Asthma (Chronic) Hypokalemia (Acute) Hypocalcemia (Acute) Hypomagnesemia (Acute) Muscle spasm (Acute) Hypomagnesemia (Acute) Anxiety (Chronic) Sensorineural hearing loss of both ears (Acute) Stage 2 chronic kidney disease (Chronic) Hypoparathyroidism (Chronic 10/31/14) congenital, followed by [facility] endocrinology Medical History Esotropia (12/15/14) glasses for correction 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 Started fluox 03/05, stopped spring 2020- restarted but stopped in the fall secondary to concerns of worsening suicidal ideation- trial lexapro- increase dose to 20 mg today (03/28/22) Chronic kidney disease (CKD) Nasal vestibulitis Patulous eustachian tube of left ear Chronic allergic rhinitis Encounter for immunotherapy Right-sided tinnitus Calcification of brain per [facility] neuro notes; bifrontal first noted in 2019 with some affecting basal ganglia, d/t underlying hypoparathyroidism Sciatica of right side Strain of extensor pollicis longus tendon Injury of thumb, right Allergic reaction Complex regional pain syndrome of right upper extremity Recurrent UTI Cough Abnormal chest xray Moderate persistent asthma Low back pain De Quervain's tenosynovitis, left Dysfunction of right eustachian tube Palpitations Wears hearing aid in both ears Otalgia of right ear TMJ pain dysfunction syndrome Sinusitis Nexplanon in place 09/2023. For menstrual control. Traumatic plantar fasciitis LEFT Lip lesion Electrolyte disturbance Depo-Provera contraceptive status 04/2023. Stopped per patient request 09/2023 restarted per patient request Hypokalemia Abnormal uterine bleeding (AUB) 2017. menstrual irreg. OCPs 05/29/2019. Dysmenorrhea. DepoProvera 150 mg every 3 months Ingrowing toenail (05/14/18) Left great toe; s/p resection ADHD (attention deficit hyperactivity disorder) Surgical History Vesicoureteric reflux (12/15/14) s/p bilateral ureteral implants [place] teeth extracted all 4 teeth extracted ureteral implants- bilat Tonsillectomy and adenoidectomy Myringotomy w/ PE (pressure equalizing) tubes Family History Mother Family history unknown Father Family history unknown Social History Smoking/Tobacco Use Status: Never Smoking risk assessment performed?: Yes Alcohol Intake: current Alcohol Intake frequency: holidays/special occasions only Alcohol type: beer Drug use: Never Substance use type: does not use Adopted: Yes Housing: house Education Level: college Details: [employer], starting [employer] in the fall current occupation: 02/28/2020 works at [employer] Pets and animals: Yes Pets and animals: cat(s), dog(s) and other Details: CHICKENS, TURKEYS, SHEEP, COWS Sexually active: No Do you feel safe at home: No (Pt reports environment is safe but she feels suicidal) Do you feel safe in your relationship?: Yes Additional Social history: safe environment, but not safe in myself Female Reproductive History Menstrual Age of Menarche: 11 Duration of menses: other control method: implanted
[2025-09-14 22:56] VITALS: BP 114/62; PULSE 90; RESP 16; O2SAT 100
== END 2025-09-14 22:58 | disposition home or self-care (01) ==
PROVIDERS: Emergency Provider General Practice; PCP Nurse Practitioner Family
DX: G44.309 Post-traumatic headache, unspecified, not intractable
CPT/HCPCS: 36415; 96361; 96365; 96375; 99284; 99283; J1790; J1885; J3475

== ENCOUNTER 2025-09-15 17:32 | Observation (INO) | payer MEDICAID, SELFPAY ==
[2025-09-15] VITALS (30 sets, daily range): BP systolic 139–183; BP diastolic 88–108; PULSE 75–109; RESP 11–24; TEMP 36.3; O2SAT 97–99
--- NOTE | 2025-09-15 17:30 | DI.CT_ITS ---
Exam(s) CT HEAD WO EXAM: CT HEAD WO CLINICAL HISTORY: persistant headache, s/p head trauma. TECHNIQUE: Imaging Protocol: Axial computed tomography images with coronal and sagittal reformatted images were created and reviewed COMPARISON: CT CT HEAD CERVICAL SPINE WO from 09/05/2025 FINDINGS: Ventricles and Extra axial spaces: Normal in size and morphology for the patient's age. Hemorrhage: None. Cerebral parenchyma: No evidence of acute infarct or mass. Calcifications are again noted in both frontal lobes and in the basal ganglia. Midline shift: None. Brainstem/Cerebellum: Normal. Bones: No skull or facial fractures. Visualized Paranasal sinuses:Clear. Mastoids: Clear. Soft Tissues: Unremarkable. ORBITS: Unremarkable. PITUITARY: Not enlarged. IMPRESSION: No acute intracranial process. RADIATION DOSE DELIVERED: Total DLP DATA REPOSITORY: All CT scans at this facility are submitted to the National Radiology Data Registry (NRDR) Dose Index Registry (DIR) with the [employer] (A[employer]). RADIATION OPTIMIZATION: All CT scans at this facility use at least one of these dose optimization techniques: automated exposure control; mA and/or kV adjustment per patient size (includes targeted exams where dose is matched to clinical indication); or iterative reconstruction.
--- NOTE | 2025-09-15 17:45 | RT.EKG_ITS ---
APPROVED REPORT Exam: Resting ECG Reason for Exam: tachycardia, vomiting Patient Location: E HR:87 bpm ECG Measurements Heart Rate 87 AXIS MA 141 P 23 QRSd 82 QRS 60 QT 377 T 88 QTc 455 Conclusion Sinus rhythm...normal P axis, V-rate 60- 99 Abnrm T, consider ischemia, anterolateral lds...T <-0.20mV, I aVL V2-V6 No STEMI
--- NOTE | 2025-09-15 17:55 | W.ED.GENAD ---
Discharge Plan Disposition Patient Disposition: Home Discharge Details Clinical Impression: Post-concussion headache, Cervicalgia Primary Care Provider: EDILIA GIBSON ED Provider: Adiel Tang Home Meds and New Rx's Prescriptions: No Action magnesium oxide 400 mg (241.3 mg magnesium) tablet 400 mg PO DAILY Patient Comments: TAKE ONE TABLET BY MOUTH EVERY DAY Ajovy Autoinjector 225 mg/1.5 mL auto-injector 225 mg subcut QMONTH Nexplanon 68 mg implant 1 implant subdermal ONCE Rx Instructions: as a single dose benztropine 0.5 mg tablet 0.5 mg PO DAILY risperidone 2 mg tablet 2 mg PO DAILY multivitamin [Daily Multi-Vitamin] Tablet 1 tab PO DAILY fluticasone propion-salmeterol [Advair HFA] 230-21 mcg/actuation HFA aerosol inhaler 2 puff inhalation BID Qty: 12 12RF Airsupra 90-80 mcg/actuation HFA aerosol inhaler 2 inh inhalation ONCE Qty: 10.7 12RF Rx Instructions: as a single dose; may repeat up to 6 doses per day (12 inhalations) albuterol sulfate 2.5 mg /3 mL (0.083 %) solution for nebulization 2.5 mg inhalation Q4H PRN (Reason: shortness of breath or wheezing) Qty: 180 0RF budesonide 90 mcg/actuation aerosol powdr breath activated 2 inh inhalation BID Qty: 1 6RF albuterol sulfate [Ventolin HFA] 90 mcg/actuation HFA aerosol inhaler 2 puff inhalation Q4H PRN (Reason: bronchospasm) Qty: 8.5 12RF Dupixent Pen 300 mg/2 mL pen injector 300 mg subcut Q2W Qty: 4 11RF prazosin 1 mg capsule 3 mg PO QHS Ubrelvy 100 mg tablet 100 mg PO ONCE PRN Rx Instructions: 1-2 tabs epinephrine [EpiPen] 0.3 mg/0.3 mL auto-injector 0.3 ml subcut ONCE PRN Rx Instructions: as a single dose; may repeat once levalbuterol tartrate [Xopenex HFA] 2 puff inhalation PRN gabapentin 300 mg capsule 600 mg PO TID cholecalciferol (vitamin D3) [Vitamin D3] 50 mcg (2,000 unit) tablet 50 mcg PO DAILY buspirone 10 mg tablet 20 mg PO TID Patient Comments: TAKE TWO TABLETS BY MOUTH THREE TIMES A DAY . (DISCONTINUE 5MG DOSE) bupropion HCl [Wellbutrin XL] 300 mg tablet extended release 24 hr 300 mg PO DAILY Dupixent Pen 300 mg/2 mL pen injector 600 mg subcut .every 2 weeks Rx Instructions: as a single dose cyclobenzaprine 10 mg tablet 10 mg PO TID PRNQty: 6 0RF duloxetine 40 mg capsule,delayed release(DR/EC) 20 mg PO .QN Rx Instructions: 09/05 - per pt only takes 20mg Per [place]: 1 cap (20mg) PO QN x 3D (filled 05/09/25) then 2 cap (40mg) PO QN thereafter metoclopramide HCl [Reglan] 5 mg tablet 5 mg PO Q8H PRN (Reason: headache) Qty: 10 0RF Discharge Instructions Instructions: Headache, Adult ED Additional Instructions: Your workup today was reassuring for no significant life-threatening processes causing your symptoms. I suspect your symptoms are still secondary to recent concussion. Please take the prescribed Reglan to help manage your headaches. For tonight I can provide you doses to go home with of Flexeril as well as Zofran to help manage your pain and nausea. I will refer you to [facility] neurology to follow-up with given your prolonged symptoms, and please return emergency department if you have any new or worsening symptoms. Stand Alone Forms: Portal Information Ref[place] [place], [place] Clinical Impression: Post-concussion headache HPI General Date/Time Provider Initiated Documentation: 09/15/25 17:33. HPI Narrative: MDM/Narrative: 20-year-old female presents for persistent headache, as well as an episode of syncope and vomiting this morning. Vital signs notable for tachycardia mild hypertension. Physical exam is otherwise unremarkable. EKG notable for new T wave versions as compared to prior, in the setting of syncope without reported prodromal symptoms, concern for possible PE. As such we will obtain screening labs to rule out ACS, anemia, electrolyte abnormality, obtain CT to rule out intracranial injury, as well as a CT of the chest to rule out pulmonary embolus. Will also attempt to treat patient's migraine, however she reports she is driving tonight, as such we will provide IV Tylenol, Toradol and magnesium, and if patient is stable for discharge following her assessment, will provide other adjuncts to use at home due to current inclement weather. ED course: Workup is unrevealing. Patient notes some improvement following medication. Will provide Flexeril for her neck tenderness, and encouraged outpatient follow-up. Disposition: Home HPI: 20-year-old female past medical history of anxiety, depression, and who was evaluated several weeks ago and diagnosed with a concussion after closed head injury, and seen by myself last night for persistent headache, presents for worsening headache. Patient states she was unable to roll picker her prescribed medications yesterday due to inclement weather, however today she spent the majority of her morning vomiting, notes 1 episode few she went to the bathroom, and passed out. She is unable to provide any prodromal symptoms or how long she may have been unconscious for. She states she woke up on the floor and thinks that she hit the back of her head on the ground. She denies any numbness, weakness of any vision, or any other new or concerning symptoms. Denies any fever, has continued stiff neck however similar last night and this is lateral pain of the muscles of the neck. ROS: Negative besides as mentioned above Exam: Gen: A&O NAD HEENT: NCAT, EOMI, not icteric. External ears normal. No rhinorrhea. Moist mucous membranes. Neck: Bilateral paraspinal muscle tenderness to palpation, no midline step-offs, or tenderness. Lungs: No Respiratory distress. CV: RRR, no edema. Abdomen: Soft, nondistended, No rebound tenderness. MSK: No joint swelling, no redness. Skin: No rashes, petechiae, lesions. Normal color per patient. Neuro: Normal Gait, Grossly intact. Psych: Appropriate for situation. Rhythm: NSR Rate: 87 [place]: Normal axis Intervals: Normal intervals Other findings: Nonspecific T wave inversions in leads aVL, V2, which are new as compared to prior EKG dated May 20, 2025. Labs: Laboratory Tests Range/Units 09/15/25 18:23 WBC (4.4-10.8) 10^3/uL 9.73 RBC (3.93-5.22) 10^6/uL 4.37 Hgb (11.2-15.7) g/dL 12.8 Hct (36.0-46.0) % 38.2 MCV (80-95) fL 87 MCH (27.0-33.0) pg 29.3 MCHC (32.0-36.0) % 33.5 RDW (11.7-14.6) % 13.0 Plt Count (130-400) 10^3/uL 285 MPV (8.0-11.0) fL 9.7 Immature Gran % % 0.3 Neutrophils % % 72.6 Lymphocytes % % 21.7 Monocytes % % 4.5 Eosinophils % % 0.6 Basophils % % 0.3 Nucleated RBC % (0.0-0.3) % 0.0 Absolute Neutrophils (1.2-6.7) 10^3/uL 7.06 H Absolute Lymphocytes (1.2-3.4) 10^3/uL 2.11 Absolute Monocytes (0.1-0.8) 10^3/uL 0.44 Absolute Eosinophils (0.0-0.7) 10^3/uL 0.06 Absolute Basophils (0.0-0.2) 10^3/uL 0.03 Sodium (136-145) mmol/L 145 Potassium (3.5-5.1) mmol/L 3.6 Chloride (98-107) mmol/L 108 H Carbon Dioxide (20.0-31.0) mmol/L 27.3 Anion Gap (3-11) mmol/L 9.7 BUN (9-23) mg/dL 10 Creatinine (0.55-1.02) mg/dL 0.92 Est GFR (CKD-EPI 2020) (mL/min/1.73m2) 76.56 Glucose (74-106) mg/dL 110 H Calcium (8.3-10.6) mg/dL 10.2 Total Bilirubin (0.2-1.2) mg/dL 0.3 AST (<34) U/L 23 ALT (10-49) U/L 22 Alkaline Phosphatase (46-116) U/L 77 Total Protein (5.7-8.2) g/dL 8.0 Albumin (3.2-5.0) g/dL 4.8 Radiology: Accession No. : [id number] Creator : CLAY PAINTER Dictator : CLAY PAINTER Batch Still Operator : Solid Waste Technician : CLAY PAINTER Approver2 : Report Date : 09/15/2025 18:58:42 Exam(s) CT CHEST PE CTA EXAM: CT CHEST PE CTA CLINICAL HISTORY: syncope, EKG changes. TECHNIQUE: Imaging Protocol: Axial CT angiography was performed with multi-slice acquisition and multi-planar reconstructions as well as axial, coronal and sagittal MIP reconstructions. Computer aided detection (CAD) was utilized. CONTRAST MATERIAL: Intravenous: Omnipaque 350 Contrast volume:100 ml COMPARISON: CT CT CHEST WO from 10/28/2022 FINDINGS: Pulmonary Arteries: No evidence of filling defect to suggest pulmonary emboli. Mediastinum and Marly: No dominant adenopathy or fluid collection. Pulmonary parenchyma: Expiratory changes. No consolidation or dominant measurable mass. Pleura: No effusion or pneumothorax. Heart: The heart is not dilated. No coronary artery calcifications are seen. Aorta: Thoracic aorta non-dilated. No dissection. Upper abdomen: No acute findings. Streak artifact related to patient arm positioning. Bones: Unremarkable for age. Tubes, Catheters, and Lines: None Soft tissues: Unremarkable. IMPRESSION: No evidence of pulmonary embolism or other acute abnormality in the chest. RADIATION DOSE DELIVERED: Total DLP DATA REPOSITORY: All CT scans at this facility are submitted to the National Radiology Data Registry (NRDR) Dose Index Registry (DIR) with the [employer] (ACR). RADIATION OPTIMIZATION: All CT scans at this facility use at least one of these dose optimization techniques: automated exposure control; mA and/or kV adjustment per patient size (includes targeted exams where dose is matched to clinical indication); or iterative reconstruction. Accession No. : [id number] Creator : CLAY PAINTER Dictator : PAINTER, CLAY Batch Still Operator : Solid Waste Technician : CLAY PAINTER Approver2 : Report Date : 09/15/2025 18:55:06 Exam(s) CT HEAD WO EXAM: CT HEAD WO CLINICAL HISTORY: persistant headache, s/p head trauma. TECHNIQUE: Imaging Protocol: Axial computed tomography images with coronal and sagittal reformatted images were created and reviewed COMPARISON: CT CT HEAD CERVICAL SPINE WO from 09/05/2025 FINDINGS: Ventricles and Extra axial spaces: Normal in size and morphology for the patient's age. Hemorrhage: None. Cerebral parenchyma: No evidence of acute infarct or mass. Calcifications are again noted in both frontal lobes and in the basal ganglia. Midline shift: None. Brainstem/Cerebellum: Normal. Bones: No skull or facial fractures. Visualized Paranasal sinuses:Clear. Mastoids: Clear. Soft Tissues: Unremarkable. ORBITS: Unremarkable. PITUITARY: Not enlarged. IMPRESSION: No acute intracranial process. RADIATION DOSE DELIVERED: Total DLP DATA REPOSITORY: All CT scans at this facility are submitted to the National Radiology Data Registry (NRDR) Dose Index Registry (DIR) with the [employer] (ACR). RADIATION OPTIMIZATION: All CT scans at this facility use at least one of these dose optimization techniques: automated exposure control; mA and/or kV adjustment per patient size (includes targeted exams where dose is matched to clinical indication); or iterative reconstruction. Related Data Home Medications ?Medication ?Instructions ?Recorded ?Confirmed epinephrine 0.3 mg/0.3 mL 0.3 ml subcut ONCE PRN 10/04/24 09/15/25 injection, auto-injector (EpiPen) levalbuterol tartrate 2 puff inhalation PRN 10/04/24 09/15/25 prazosin 1 mg capsule 3 mg PO QHS 10/04/24 09/15/25 ubrogepant 100 mg tablet (Ubrelvy) 100 mg PO ONCE PRN 10/04/24 09/15/25 etonogestrel 68 mg subdermal 1 implant subdermal ONCE 12/31/24 09/15/25 implant (Nexplanon) fremanezumab-vfrm 225 mg/1.5 mL 225 mg subcut QMONTH 12/31/24 09/15/25 subcutaneous auto-injector (Ajovy) gabapentin 300 mg capsule 600 mg PO TID 01/11/25 09/15/25 cholecalciferol (vitamin D3) 50 50 mcg PO DAILY 01/19/25 09/15/25 mcg (2,000 unit) tablet (Vitamin D3) fluticasone propionate 230 2 puff inhalation BID #12 grams 02/17/25 09/15/25 mcg-salmeterol 21 mcg/actuation HFA inhaler (Advair HFA) albuterol 90 mcg-budesonide 80 2 inh inhalation ONCE #10.7 grams 02/24/25 09/15/25 mcg/actuation HFA aerosol inhaler (Airsupra) albuterol sulfate 2.5 mg/3 mL 2.5 mg (3 mL) inhalation Q4H PRN 02/24/25 09/15/25 (0.083 %) solution for nebulization shortness of breath or wheezing #180 mL budesonide 90 mcg/actuation breath 2 inh inhalation BID #1 ea 03/03/25 09/15/25 activated powder inhaler multivitamin (Daily Multi-Vitamin 1 tab PO DAILY 03/03/25 09/15/25 tablet) magnesium oxide 400 mg (241.3 mg 400 mg PO DAILY 03/27/25 09/15/25 magnesium) tablet duloxetine 40 mg capsule,delayed 20 mg PO .QN 05/26/25 09/15/25 release albuterol sulfate 90 mcg/actuation 2 puff inhalation Q4H PRN 06/05/25 09/15/25 aerosol inhaler (Ventolin HFA) bronchospasm #8.5 grams benztropine 0.5 mg tablet 0.5 mg PO DAILY 06/11/25 09/15/25 buspirone 10 mg tablet 20 mg PO TID 06/11/25 09/15/25 risperidone 2 mg tablet 2 mg PO DAILY 06/11/25 09/15/25 dupilumab 300 mg/2 mL subcutaneous 300 mg (2 mL) subcut Q2W #4 mL 06/19/25 09/15/25 pen injector (Dupixent) bupropion HCl 300 mg 24 hr tablet, 300 mg PO DAILY 09/05/25 09/15/25 extended release (Wellbutrin XL) cyclobenzaprine 10 mg tablet 10 mg PO TID PRN #6 tabs 09/05/25 09/15/25 dupilumab 300 mg/2 mL subcutaneous 600 mg subcut .every 2 weeks 09/05/25 09/15/25 pen injector (Dupixent) metoclopramide HCl 5 mg tablet 5 mg PO Q8H PRN headache #10 tabs 09/14/25 09/15/25 (Reglan) Previous Rx's ?Medication ?Instructions ?Recorded fluticasone propionate 230 2 puff inhalation BID #12 grams 02/17/25 mcg-salmeterol 21 mcg/actuation HFA inhaler (Advair HFA) albuterol 90 mcg-budesonide 80 2 inh inhalation ONCE #10.7 grams 02/24/25 mcg/actuation HFA aerosol inhaler (Airsupra) albuterol sulfate 2.5 mg/3 mL 2.5 mg (3 mL) inhalation Q4H PRN 02/24/25 (0.083 %) solution for nebulization shortness of breath or wheezing #180 mL budesonide 90 mcg/actuation breath 2 inh inhalation BID #1 ea 03/03/25 activated powder inhaler albuterol sulfate 90 mcg/actuation 2 puff inhalation Q4H PRN 06/05/25 aerosol inhaler (Ventolin HFA) bronchospasm #8.5 grams dupilumab 300 mg/2 mL subcutaneous 300 mg (2 mL) subcut Q2W #4 mL 06/19/25 pen injector (Dupixent) cyclobenzaprine 10 mg tablet 10 mg PO TID PRN #6 tabs 09/05/25 metoclopramide HCl 5 mg tablet 5 mg PO Q8H PRN headache #10 tabs 09/14/25 (Reglan) Allergies Allergy/AdvReac Type Severity Reaction Status Date / Time cat dander Allergy Wheezing Verified 09/15/25 17:35 dog dander Allergy Wheezing Verified 09/15/25 17:35 house dust mite Allergy Wheezing Verified 09/15/25 17:35 tree and shrub pollen Allergy Wheezing Verified 09/15/25 17:35 haloperidol (From Haldol) AdvReac Severe Other (See Verified 09/15/25 17:35 Comment) hydrocodone AdvReac TACHYCARDIA Verified 09/15/25 17:35 PER PT ibuprofen AdvReac per Verified 09/15/25 17:35 nephrology tramadol AdvReac Other (See Verified 09/15/25 17:35 Comment) General Stated Complaint: Headache KEILY: 3 Course Vital Signs Vital signs: Vital Signs Temperature 36.3 C L 09/15/25 17:33 Pulse 109 H 09/15/25 17:33 Blood Pressure 147/94 H 09/15/25 17:33 Pulse Oximetry 97 09/15/25 17:33 Temperature 36.3 C L 09/15/25 17:36 Pulse 109 H 09/15/25 17:36 Blood Pressure 147/94 H 09/15/25 17:36 Pulse Oximetry 97 09/15/25 17:36 Medical Decision Making Quality:SDOH Health Related Social Needs: Health related social needs daily activities Health related social needs details 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 PFSH All Active Problems (Updated 09/15/25 @ 19:07 by Adiel Tang MD) Post-concussion headache (Acute) Cervicalgia (Acute) Concussion (Acute) Encounter for injection education (Acute) Severe persistent asthma (Acute) Acute asthma exacerbation (Acute) Asthma (Chronic) Hypokalemia (Acute) Hypocalcemia (Acute) Hypomagnesemia (Acute) Muscle spasm (Acute) Hypomagnesemia (Acute) Anxiety (Chronic) Sensorineural hearing loss of both ears (Acute) Stage 2 chronic kidney disease (Chronic) Hypoparathyroidism (Chronic 10/31/14) congenital, followed by [facility] endocrinology Medical History Esotropia (12/15/14) glasses for correction 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 Started fluox 03/05, stopped spring 2020- restarted but stopped in the fall secondary to concerns of worsening suicidal ideation- trial lexapro- increase dose to 20 mg today (03/28/22) Chronic kidney disease (CKD) Nasal vestibulitis Patulous eustachian tube of left ear Chronic allergic rhinitis Encounter for immunotherapy Right-sided tinnitus Calcification of brain per [facility] neuro notes; bifrontal first noted in 2010; 2019 with some affecting basal ganglia, d/t underlying hypoparathyroidism Sciatica of right side Strain of extensor pollicis longus tendon Injury of thumb, right Allergic reaction Complex regional pain syndrome of right upper extremity Recurrent UTI Cough Abnormal chest xray Moderate persistent asthma Low back pain De Quervain's tenosynovitis, left Dysfunction of right eustachian tube Palpitations Wears hearing aid in both ears Otalgia of right ear TMJ pain dysfunction syndrome Sinusitis Nexplanon in place 09/2023. For menstrual control. Traumatic plantar fasciitis LEFT Lip lesion Electrolyte disturbance Depo-Provera contraceptive status 04/2023. Stopped per patient request 09/2023 restarted per patient request Hypokalemia Abnormal uterine bleeding (AUB) 2017. menstrual irreg. OCPs 05/29/2019. Dysmenorrhea. DepoProvera 150 mg every 3 months Ingrowing toenail (05/14/18) Left great toe; s/p resection ADHD (attention deficit hyperactivity disorder) Surgical History Vesicoureteric reflux (12/15/14) s/p bilateral ureteral implants [place] teeth extracted all 4 teeth extracted ureteral implants- bilat Tonsillectomy and adenoidectomy Myringotomy w/ PE (pressure equalizing) tubes Family History Mother Family history unknown Father Family history unknown Social History Smoking/Tobacco Use Status: Never Smoking risk assessment performed?: Yes Alcohol Intake: current Alcohol Intake frequency: holidays/special occasions only Alcohol type: beer Drug use: Never Substance use type: does not use Adopted: Yes Housing: house Education Level: college Details: [employer], starting [employer] in the fall current occupation: 02/28/2020 works at [employer] Pets and animals: Yes Pets and animals: cat(s), dog(s) and other Details: CHICKENS, TURKEYS, SHEEP, COWS Sexually active: No Do you feel safe at home: No (Pt reports environment is safe but she feels suicidal) Do you feel safe in your relationship?: Yes Additional Social history: safe environment, but not safe in myself Female Reproductive History Menstrual Age of Menarche: 11 Duration of menses: other control method: implanted
--- NOTE | 2025-09-15 18:00 | DI.CT_ITS ---
Exam(s) CT CHEST PE CTA EXAM: CT CHEST PE CTA CLINICAL HISTORY: syncope, EKG changes. TECHNIQUE: Imaging Protocol: Axial CT angiography was performed with multi- slice acquisition and multi-planar reconstructions as well as axial, coronal and sagittal MIP reconstructions. Computer aided detection (CAD) was utilized. CONTRAST MATERIAL: Intravenous: Omnipaque 350 Contrast volume:100 ml COMPARISON: CT CT CHEST WO from 10/28/2022 FINDINGS: Pulmonary Arteries: No evidence of filling defect to suggest pulmonary emboli. Mediastinum and Marly: No dominant adenopathy or fluid collection. Pulmonary parenchyma: Expiratory changes. No consolidation or dominant measurable mass. Pleura: No effusion or pneumothorax. Heart: The heart is not dilated. No coronary artery calcifications are seen. Aorta: Thoracic aorta non-dilated. No dissection. Upper abdomen: No acute findings. Streak artifact related to patient arm positioning. Bones: Unremarkable for age. Tubes, Catheters, and Lines: None Soft tissues: Unremarkable. IMPRESSION: No evidence of pulmonary embolism or other acute abnormality in the chest. RADIATION DOSE DELIVERED: Total DLP DATA REPOSITORY: All CT scans at this facility are submitted to the National Radiology Data Registry (NRDR) Dose Index Registry (DIR) with the [employer] (ACR). RADIATION OPTIMIZATION: All CT scans at this facility use at least one of these dose optimization techniques: automated exposure control; mA and/or kV adjustment per patient size (includes targeted exams where dose is matched to clinical indication); or iterative reconstruction.
[2025-09-15] MEDS: ACETAMINOPHEN 1,000 MG/100 ML BAG 400 MG IVPB (18:24)
[2025-09-15] MEDS: Ketorolac 15 MG/ML VIAL IVP (18:25)
[2025-09-15] MEDS: Lactated Ringers 1,000 ML 2000 ML IV (18:25)
[2025-09-15] MEDS: Ondansetron 4 MG/2 ML VIAL IVP (18:25)
[2025-09-15] MEDS: MAGNESIUM SULFATE 2 GM/50 ML BAG IV_INF (18:25)
[2025-09-15 18:31] LABS: Abs Immature Grans 0.03 10^3/uL (0.0-0.06); HCT 38.2 % (36.0-46.0); HGB 12.8 g/dL (11.2-15.7); Immature Grans % 0.3 %; MCH 29.3 pg (27.0-33.0); MCHC 33.5 % (32.0-36.0); MCV 87 fL (80-95); MPV 9.7 fL (8.0-11.0); Platelet Count 285 10^3/uL (130-400); RBC 4.37 10^6/uL (3.93-5.22); RDW 13.0 % (11.7-14.6); RDW-SD 41.4 fL; WBC 9.73 10^3/uL (4.4-10.8)
[2025-09-15] MEDS: Normal Saline - Diluent 50 ML VIAL IJ (18:48)
[2025-09-15] MEDS: Normal Saline Flush 10 ML SYR IVP (18:48)
[2025-09-15] MEDS: Omnipaque 350 MG/ML 100 ML BTL IJ (18:48)
[2025-09-15 18:56] LABS: ALT 22 U/L (10-49); AST 23 U/L (<34); Albumin 4.8 g/dL (3.2-5.0); Alkaline Phosphatase 77 U/L (46-116); Anion Gap 9.7 mmol/L (3-11); BUN 10 mg/dL (9-23); Bilirubin, Total 0.3 mg/dL (0.2-1.2); CO2 27.3 mmol/L (20.0-31.0); Calcium 10.2 mg/dL (8.3-10.6); Chloride 108 mmol/L (98-107); Glucose 110 mg/dL (74-106); Potassium 3.6 mmol/L (3.5-5.1); Sodium 145 mmol/L (136-145); Total Protein 8.0 g/dL (5.7-8.2)
[2025-09-15 19:21] LABS: Troponin I 94 ng/L (<35)
[2025-09-15 20:14] LABS: Troponin I 99 ng/L (<35)
--- NOTE | 2025-09-15 20:45 | RT.EKG_ITS ---
APPROVED REPORT Exam: Resting ECG Reason for Exam: trendng Patient Location: E HR:83 bpm ECG Measurements Heart Rate 83 AXIS IN 170 P -12 QRSd 88 QRS 76 QT 412 T 91 QTc 486 Conclusion Sinus rhythm...normal P axis, V-rate 60- 99 Nonspecific T abnrm, anterolateral leads...T <-0.10mV, I aVL V2-V6 No STEMI
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
[2025-09-15 21:43] LABS: ESR 15 mm/hr (0-20)
[2025-09-15 22:11] LABS: Troponin I 86 ng/L (<35)
[2025-09-15 22:51] LABS: Glucose Negative (Negative)
[2025-09-15 23:03] LABS: Cannabinoids THC Negative (Negative)
[2025-09-16] VITALS (32 sets, daily range): BP systolic 116–120; BP diastolic 67–70; PULSE 69–107; RESP 12–20; TEMP 36.4; O2SAT 97
[2025-09-16] MEDS: Prazosin 1 MG CAP 3 MG PO (01:10)
[2025-09-16 02:35] LABS: COVID-19 PCR Negative (Negative); RSV PCR Negative (Negative)
[2025-09-16 06:27] LABS: HCT 36.8 % (36.0-46.0); HGB 12.4 g/dL (11.2-15.7); MCH 29.7 pg (27.0-33.0); MCHC 33.7 % (32.0-36.0); MCV 88 fL (80-95); MPV 9.7 fL (8.0-11.0); Platelet Count 252 10^3/uL (130-400); RBC 4.18 10^6/uL (3.93-5.22); RDW 13.2 % (11.7-14.6); RDW-SD 42.5 fL; WBC 7.86 10^3/uL (4.4-10.8)
[2025-09-16 06:47] LABS: ALT 18 U/L (10-49); AST 21 U/L (<34); Albumin 4.5 g/dL (3.2-5.0); Alkaline Phosphatase 70 U/L (46-116); Anion Gap 9.6 mmol/L (3-11); BUN 10 mg/dL (9-23); Bilirubin, Total 0.5 mg/dL (0.2-1.2); CO2 28.4 mmol/L (20.0-31.0); Calcium 10.4 mg/dL (8.3-10.6); Chloride 105 mmol/L (98-107); Glucose 104 mg/dL (74-106); Magnesium 1.8 mg/dL (1.6-2.6); Potassium 3.4 mmol/L (3.5-5.1); Sodium 143 mmol/L (136-145); Total Protein 7.5 g/dL (5.7-8.2)
[2025-09-16 06:49] LABS: TSH (W/Ref FT4) 2.62 uIU/mL (0.55-4.78)
--- NOTE | 2025-09-16 08:00 | DI.US_ITS ---
APPROVED REPORT EXAM: Comprehensive 2D, Doppler, and color-flow Echocardiogram Patient Location: ER Room/Bed: 9 Production Truck Driver: Quinton Lim RDCS (AE) Indications: Syncope recurrent Other Information Study Quality: Adequate. Technically limited study due to exam done bedside ER. Patient has neck brace on. . Conclusion Normal left ventricular wall thickness and chamber size. Ejection fraction is 55 to 60%. Wall motion is normal Normal right ventricular size and function Both atria are normal in size There is no structural or hemodynamically significant valvular disease Wall motion Left Ventricle The left ventricle is normal size. The left ventricular systolic function is normal. The left ventricular ejection fraction is within the normal range. There is normal left ventricular wall thickness. There is normal LV segmental wall motion. There is no ventricular septal defect visualized. LVEF is 55-60%. Right Ventricle The right ventricle is normal size. The right ventricular systolic function is normal. Atria The left atrium size is normal. The right atrium size is normal. The interatrial septum is intact with no evidence for an atrial septal defect. Aortic Valve The aortic valve is normal in structure. Aortic valve is trileaflet. There is no aortic valvular stenosis. No aortic regurgitation is present. Mitral Valve The mitral valve is normal in structure. No evidence of mitral valve stenosis. Trace mitral regurgitation. Tricuspid Valve The tricuspid valve is normal in structure. There is no tricuspid valve stenosis. Trace tricuspid regurgitation. Unable to assess PA pressure. Pulmonic Valve The pulmonary valve is normal in structure. There is no pulmonic valvular stenosis. Trace pulmonic regurgitation. Great Vessels The aortic root is normal in size. The ascending aorta is normal in size. Aortic arch is not visualized. Neck brace is present. IVC is normal in size and collapses >50% with inspiration. Pericardium There is no pericardial effusion. 2D Dimensions IVSD d PLAX 0.90 cm F: 0.6-1.0 Ao Root d 2.24 cm F: 2.7 - 3.3 LVPW d PLAX 0.90 cm F: 0.6 - 1.0 Ao Asc Diam d 2.60 cm F: 2.3 - 3.1 LVID d PLAX 4.00 cm F: 3.8 - 5.2 LVDs 2.73 cm F: 2.2 - 3.5 LV EF Teichholz 59.5 % FS 31.16 % LV EDV (Teich) 68.5 mL LV ESV (Teich) 27.7 mL M-Mode TAPSE 1.61 cm (M/F) >1.7 Auto EF LV EDV A4C 90.9 mL LV EDV A2C 82.6 mL LV EDV BP 86.1 mL LV ESV A4C 39.6 mL LV ESV A2C 36.9 mL LV ESV BP 38.7 mL LVEF(%) A4C 56.5 % LVEF(%) A2C 55.3 % LVEF(%) BP 55.0 % LV SV A4C 51.3 ml LV SV A2C 45.7 ml LV SV BP 47.4 ml LV CO A4C 4.4 L/min LV CO A2C 3.9 L/min LV CO BP 4.2 L/min HR A4C 85.72 BPM HR A2C 85.72 BPM LV EDV Index (BP) LA Volume LA Length A4C 4.6 cm LA Length A2C 4.0 cm LA Area A4C s 12.24 cm2 LA Area A2C s 11.47 cm2 LA Vol A4C A-L 27.83 mL LA Vol A2C A-L 27.92 mL LA Vol Biplane A-L 29.8 mL LA Vol/BSA A4C A-L LA Vol/BSA A2C A-L LA Vol/BSA BP A-L 16.7 mL/m2 LA Vol A4C MOD 24.7 mL LA Vol A2C MOD 26.5 mL LA Vol BP MOD 27.2 mL RA Volume RA Area A4C 8.7 cm2 RA ESV A4C (A-L) 17.1mL RA Vol/BSA A4C A-L RA Length A4C 3.8 cm RA ESV A4C (MOD) 16.3mL LV Diastology MV E' medial 0.082 (>0.07 m/s) MV E Vmax 0.68 (0.4-1.3 m/s) MV E/E' MED 8.34 (<14) MV A Vmax 0.55 (0.4-1.3 m/s) MV E' lateral 0.138 (>0.1 m/s) E/A Ratio 1.2 MV E/E' LAT 4.95 (<14) MV E' Average 0.110 m/s MV E/E'(average) 6.21 Aortic Valve AoV Vmax 1.25 m/s LVOT Vmax 1.16 m/s AoV Peak Grad 6.3 mmHg LVOT Peak Grad 5.4 mmHg AoV Area (Vmax) 2.82 cm2 LVOT VTI 0.186 m AoV VTI 0.210 m LVOT Mean Grad 2.9 mmHg AoV Mean Toby. 0.88 m/s LVOT SV 56.59 mL AoV Mean Grad 3.5 mmHg LVOT Diam s 1.95 cm AoV Area (VTI) 2.69 cm2 AV Regurg Peak Gr. 6.29 mmHg Velocity Ratio 0.93 Mitral Valve MV DT 179 (160-240 msec) MV Vmax TIPS 0.55 m/s MV Mean Grad 0.7 (<2mmHg) MV VTI 0.153 m Pulmonary Valve PV Vmax 1.23 (0.5-1.5 m/s) RVOT Vmax 0.79 m/s PV Peak Grad 6.0 mmHg RVOT Peak Gr. 2.5 mmHg PV Mean Toby 0.79 m/s RVOT VTI 0.143 m PV Mean Grad 2.9 mmHg RVOT Mean Gr. 1.3 mmHg Tricuspid Valve TV S' 0.12 m/s
[2025-09-16] MEDS: Normal Saline Flush 10 ML SYR IVP (08:16)
[2025-09-16] MEDS: Gabapentin 300 MG CAP 600 MG PO (08:16)
[2025-09-16] MEDS: Magnesium Oxide 400 MG TAB PO (08:17)
[2025-09-16] MEDS: buPROPion-XL 150 MG TABCR 300 MG PO (08:17)
[2025-09-16] MEDS: Cholecalciferol (Vitamin D3) 1,000 UNIT TAB 2000 UNITS PO (08:17)
[2025-09-16] MEDS: Multivitamin TAB 1 TAB PO (08:18)
[2025-09-16] MEDS: Enoxaparin 40 MG/0.4 ML SYR SC (08:18)
[2025-09-16] MEDS: busPIRone 5 MG TAB 20 MG PO (08:18)
[2025-09-16] MEDS: Mometasone 220 MCG 14 DOSE INHALER 1 PUFF IH (08:28)
[2025-09-16] MEDS: Acetaminophen 325 MG TAB 650 MG PO (11:34)
--- NOTE | 2025-09-16 11:57 | DSE_ITS ---
Date of service: 09/16/25 Time of Service: 12:00 DS: Diagnosis Discharge Diagnosis (1) Syncope and collapse: Status: Acute Asessment and Plan: -Overall workup reassuring, unclear etiology. head swamper x 30 days initiated. Pt to f/u outpatient with cardiology (2) Elevated troponin: Status: Resolved Asessment and Plan: -serial troponins trended, flat. (3) Acute electrocardiogram changes: Status: Resolved Asessment and Plan: -new t-wave inversions, follow up with cardiology outpatient (4) Post-concussion headache: Status: Acute Asessment and Plan: -reassuring workup with no acute abnormalities on head CT. Lamar collar in place for possible exacerbation by cervicalgia. (5) Asthma: Status: Chronic Asessment and Plan: -no current exacerbation, continue home meds as prescribed (6) ADHD (attention deficit hyperactivity disorder): Asessment and Plan: -continue home meds as prescribed (7) Depression with anxiety: Status: Chronic Asessment and Plan: -continue home meds as prescribed (8) Hypoparathyroidism: Status: Chronic Asessment and Plan: -continue home meds as prescribed (9) Migraine: Status: Chronic Asessment and Plan: -continue home meds as prescribed Discharge Plan Disposition Patient Disposition: Home Anticipated Discharge Date/Time: 09/16/25 12:08 Condition: Good Discharge Details Reason For Visit: Syncope,Elevated Troponins with EKG Changes,Headac Admit Date/Time: 09/15/25 23:10 Admit Provider: Mike John Attending Provider: Mike John Primary Care Provider: EDILIA GIBSON Hospital Course Hospital Course: Jyothi is a 20 year old female with PMH recent concussion and cervical strain s/p fall down stairs (09/07/25), sycopal episodes (with prodrome), congenital abnormalities including hypoparathyroidism and CKD stage 2 who presented to the ED on 09/15/25 for evaluation of syncopal episode without prodromal symptoms accompanied by headache and vomiting. Headache treated with IV tylenol, toradol, dexamethasone, and magnesium, as well as an Lamar collar for cervicalgia which may be contributory to headache. Workup in ED significant for EKG with new t wave inversions compared to previous with elevated troponins (flat at 94>99>86). CTA chest and CT head both negative, labs otherwise unremarkable (including inflammatory markers). Cardiology consulted, recommended overnight observation on telemetry, echo in AM (which was unremarkable), and outpatient cardiac mo nitoring patch with cardiology follow up. Reviewed discharge instructions, including importance of f/u with PCP and cardiology Home Meds and New Rx's Prescriptions: New cyclobenzaprine 10 mg tablet 10 mg PO TID PRNQty: 20 0RF Continued magnesium oxide 400 mg (241.3 mg magnesium) tablet 400 mg PO DAILY Patient Comments: TAKE ONE TABLET BY MOUTH EVERY DAY Ajovy Autoinjector 225 mg/1.5 mL auto-injector 225 mg subcut QMONTH Nexplanon 68 mg implant 1 implant subdermal ONCE Rx Instructions: as a single dose benztropine 0.5 mg tablet 0.5 mg PO DAILY risperidone 2 mg tablet 2 mg PO DAILY multivitamin [Daily Multi-Vitamin] Tablet 1 tab PO DAILY fluticasone propion-salmeterol [Advair HFA] 230-21 mcg/actuation HFA aerosol inhaler 2 puff inhalation BID Qty: 12 12RF Airsupra 90-80 mcg/actuation HFA aerosol inhaler 2 inh inhalation ONCE Qty: 10.7 12RF Rx Instructions: as a single dose; may repeat up to 6 doses per day (12 inhalations) albuterol sulfate 2.5 mg /3 mL (0.083 %) solution for nebulization 2.5 mg inhalation Q4H PRN (Reason: shortness of breath or wheezing) Qty: 180 0RF budesonide 90 mcg/actuation aerosol powdr breath activated 2 inh inhalation BID Qty: 1 6RF Dupixent Pen 300 mg/2 mL pen injector 300 mg subcut Q2W Qty: 4 11RF prazosin 1 mg capsule 3 mg PO QHS Ubrelvy 100 mg tablet 100 mg PO ONCE PRN Rx Instructions: 1-2 tabs epinephrine [EpiPen] 0.3 mg/0.3 mL auto-injector 0.3 ml subcut ONCE PRN Rx Instructions: as a single dose; may repeat once gabapentin 300 mg capsule 600 mg PO TID cholecalciferol (vitamin D3) [Vitamin D3] 50 mcg (2,000 unit) tablet 50 mcg PO DAILY buspirone 10 mg tablet 20 mg PO TID Patient Comments: TAKE TWO TABLETS BY MOUTH THREE TIMES A DAY . (DISCONTINUE 5MG DOSE) bupropion HCl [Wellbutrin XL] 300 mg tablet extended release 24 hr 300 mg PO DAILY hydroxyzine HCl 25 mg tablet 25 mg PO TID PRN duloxetine 40 mg capsule,delayed release(DR/EC) 20 mg PO .QN Rx Instructions: 09/05 - per pt only takes 20mg Per [place]: 1 cap (20mg) PO QN x 3D (filled 05/09/25) then 2 cap (40mg) PO QN t hereafter metoclopramide HCl [Reglan] 5 mg tablet 5 mg PO Q8H PRN (Reason: headache) Qty: 10 0RF Discharge Instructions Additional Instructions: Please call [facility] [place] cardiology at [phone] to schedule a follow up appointment to discuss your episode of syncope and review your manager water results. I also encourage you to follow up as scheduled with your PCP to discuss your neck pain; a referral to PT may be indicated. For neck discomfort you may use tylenol and ibuprofen as needed, as well as the cyclobenzaprine as prescribed for muscle spasm. You may wear the aspen collar provided for comfort. Return to emergency care if you develop new episodes of passing out, chest pains, difficulty breathing, or if you are very worried and need to be rechecked again immediately. Stand Alone Forms: Portal Information Referrals: NEUROLOGY,[facility] [place] [OTHER, Neurology] Problems: Post-concussion headache EDILIA GIBSON NP [Primary Care Provider, Medicine] - 09/22/25 8:00 am Activity:: Activity as Tolerated Equipment/Supplies:: No Equipment Needed Diet:: Normal Diet Discharge Orders Discharge Orders: Discharge Order (Routine); Ordered 09/16/25 Ordered By: Carlos Resendiz Other Ambulatory Orders: Cardiac Event Recorder (Routine) Timeframe: 1 Day Facility: [facility] - Location: Respiratory Therapy Ordered By: Carlos Resendiz Discharge Data Discharge Date/Time-TO BE ENTERED AT DEPARTURE: 09/16/25 12:39 DS: Summary Time Spent with Patient providing and/or coordinating discharge services: Greater than 30 minutes Status at Discharge Functional status at discharge: independent ambulation Overall status at discharge: patient is back to baseline Mental Status: mental status grossly normal Speech and Movement: speech and movement normal Mood: congruent mood Affect: normal affect Quality:SDOH Health Related Social Needs: Health related social needs daily activities Health related social needs details 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 Health related social needs details: 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 Exam Const General: cooperative, healthy appearing, comfortable, no acute distress and well developed Nutritional Appearance: average body habitus Orientation: alert and oriented x3 HENMT Head: normal to inspection, normocephalic and atraumatic Ears: hearing grossly normal bilaterally General nose exam: external nose normal Face and sinus: normal facial exam Neck Neck: other (aspen collar in place) Resp Effort & Inspection: normal respiratory effort and able to speak in complete sentences Neuro General: patient alert, patient oriented x3, tone normal and moves all extremities Cranial Nerves: facial strength normal Cognition: normal cognition Speech: speech normal Extrem General: normal to inspection Psych Mental Status: mental status grossly normal Speech and Movement: speech and movement normal Mood: congruent mood Affect: normal affect DS: Data Vitals/I&O Vitals and I&O: Vital Signs Temperature 97.5 F L 09/16/25 08:24 Temperature Source Temporal Artery Scan 09/16/25 08:24 Pulse 107 H 09/16/25 08:24 Pulse 87 09/16/25 05:20 Respiratory Rate 16 09/16/25 08:24 Respiratory Effort Normal, Non-Labored 09/16/25 06:21 Respiratory Depth Normal 09/16/25 06:21 Respiratory Pattern Normal 09/16/25 05:29 Blood Pressure 120/67 09/16/25 08:24 Blood Pressure Mean 84 09/16/25 08:24 Pulse Oximetry 97 09/16/25 08:24 Oxygen Delivery Method Room Air 09/16/25 08:24 Oxygen Flow Rate 0 09/16/25 08:24 Pain Level 6 09/16/25 11:34 Intake & Output 09/15/25 09/15/25 09/16/25 11:59 23:59 11:59 Intake Total 1150.00 / 1150.00 Balance 1150.00 / 1150.00 Weight 160 lb Intake: IV 1150.00 / 1150.00 Other: # Voids 1 Data Completed and Pending Pending Labs at Discharge: 09/15/25 09/15/25 09/15/25 18:23 19:30 21:25 WBC 9.73 RBC 4.37 Hgb 12.8 Hct 38.2 MCV 87 MCH 29.3 MCHC 33.5 RDW 13.0 Plt Count 285 MPV 9.7 Immature Gran % 0.3 Neutrophils % 72.6 Lymphocytes % 21.7 Monocytes % 4.5 Eosinophils % 0.6 Basophils % 0.3 Nucleated RBC % 0.0 Absolute Neutrophils 7.06 H Absolute Lymphocytes 2.11 Absolute Monocytes 0.44 Absolute Eosinophils 0.06 Absolute Basophils 0.03 ESR 15 Sodium 145 Potassium 3.6 Chloride 108 H Carbon Dioxide 27.3 Anion Gap 9.7 BUN 10 Creatinine 0.92 Est GFR (CKD-EPI 2020) 76.56 Glucose 110 H Calcium 10.2 Magnesium Total Bilirubin 0.3 AST 23 ALT 22 Alkaline Phosphatase 77 Troponin I 94 H* 99 H* 86 H* C-React Prot High Sens Total Protein 8.0 Albumin 4.8 TSH Urine Color Urine Clarity Urine pH Ur Specific [place] Urine Protein Urine Ketones Urine Blood Urine Nitrite Urine Bilirubin Urine Urobilinogen Ur Leukocyte Esterase Urine Glucose Urine Opiates Screen Urine Methadone Screen Ur Barbiturates Screen Ur Tricyclics Screen Ur Amphetamines Screen U Benzodiazepines Scrn Urine Cocaine Screen U Cannabinoids Screen COVID-19 Source SARS-CoV-2 (PCR) Influenza Type A (PCR) Influenza Type B (PCR) RSV (PCR) 09/15/25 09/15/25 09/15/25 21:31 22:29 22:30 WBC RBC Hgb Hct MCV MCH MCHC RDW Plt Count MPV Immature Gran % Neutrophils % Lymphocytes % Monocytes % Eosinophils % Basophils % Nucleated RBC % Absolute Neutrophils Absolute Lymphocytes Absolute Monocytes Absolute Eosinophils Absolute Basophils ESR Sodium Potassium Chloride Carbon Dioxide Anion Gap BUN Creatinine Est GFR (CKD-EPI 2020) Glucose Calcium Magnesium Total Bilirubin AST ALT Alkaline Phosphatase Troponin I Cancelled C-React Prot High Sens Pending Total Protein Albumin TSH Urine Color Yellow Urine Clarity Clear Urine pH 7.0 Ur Specific [place] 1.015 Urine Protein Negative Urine Ketones Negative Urine Blood Negative Urine Nitrite Negative Urine Bilirubin Negative Urine Urobilinogen 0.2 Ur Leukocyte Esterase Negative Urine Glucose Negative Urine Opiates Screen Negative Urine Methadone Screen Negative Ur Barbiturates Screen Negative Ur Tricyclics Screen Negative Ur Amphetamines Screen Negative U Benzodiazepines Scrn Negative Urine Cocaine Screen Negative U Cannabinoids Screen Negative COVID-19 Source SARS-CoV-2 (PCR) Influenza Type A (PCR) Influenza Type B (PCR) RSV (PCR) 09/16/25 09/16/25 01:15 06:19 WBC 7.86 RBC 4.18 Hgb 12.4 Hct 36.8 MCV 88 MCH 29.7 MCHC 33.7 RDW 13.2 Plt Count 252 MPV 9.7 Immature Gran % Neutrophils % Lymphocytes % Monocytes % Eosinophils % Basophils % Nucleated RBC % Absolute Neutrophils Absolute Lymphocytes Absolute Monocytes Absolute Eosinophils Absolute Basophils ESR Sodium 143 Potassium 3.4 L Chloride 105 Carbon Dioxide 28.4 Anion Gap 9.6 BUN 10 Creatinine 1.09 H Est GFR (CKD-EPI 2020) 62.95 Glucose 104 Calcium 10.4 Magnesium 1.8 Total Bilirubin 0.5 AST 21 ALT 18 Alkaline Phosphatase 70 Troponin I C-React Prot High Sens Total Protein 7.5 Albumin 4.5 TSH 2.62 Urine Color Urine Clarity Urine pH Ur Specific [place] Urine Protein Urine Ketones Urine Blood Urine Nitrite Urine Bilirubin Urine Urobilinogen Ur Leukocyte Esterase Urine Glucose Urine Opiates Screen Urine Methadone Screen Ur Barbiturates Screen Ur Tricyclics Screen Ur Amphetamines Screen U Benzodiazepines Scrn Urine Cocaine Screen U Cannabinoids Screen COVID-19 Source Nasopharynx SARS-CoV-2 (PCR) Negative Influenza Type A (PCR) Negative Influenza Type B (PCR) Negative RSV (PCR) Negative PFSH All Active Problems (Updated 09/17/25 @ 00:02 by PELON HERRERA) Migraine (Chronic) Depression with anxiety (Chronic) Syncope and collapse (Acute) Post-concussion headache (Acute) Cervicalgia (Acute) Concussion (Acute) Encounter for injection education (Acute) Severe persistent asthma (Acute) Acute asthma exacerbation (Acute) Asthma (Chronic) Hypokalemia (Acute) Hypocalcemia (Acute) Hypomagnesemia (Acute) Muscle spasm (Acute) Hypomagnesemia (Acute) Anxiety (Chronic) Sensorineural hearing loss of both ears (Acute) Stage 2 chronic kidney disease (Chronic) Hypoparathyroidism (Chronic 10/31/14) congenital, followed by [facility] endocrinology Medical History Esotropia (12/15/14) glasses for correction 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 Started fluox 03/05, stopped spring 2020- restarted but stopped in the fall secondary to concerns of worsening suicidal ideation- trial lexapro- increase dose to 20 mg today (03/28/22) Chronic kidney disease (CKD) Nasal vestibulitis Patulous eustachian tube of left ear Chronic allergic rhinitis Encounter for immunotherapy Right-sided tinnitus Calcification of brain per [facility] neuro notes; bifrontal first noted in 2010; 2019 with some affecting basal ganglia, d/t underlying hypoparathyroidism Sciatica of right side Strain of extensor pollicis longus tendon Injury of thumb, right Allergic reaction Complex regional pain syndrome of right upper extremity Recurrent UTI Cough Abnormal chest xray Moderate persistent asthma Low back pain De Quervain's tenosynovitis, left Dysfunction of right eustachian tube Palpitations Wears hearing aid in both ears Otalgia of right ear TMJ pain dysfunction syndrome Sinusitis Nexplanon in place 09/2023. For menstrual control. Traumatic plantar fasciitis LEFT Lip lesion Electrolyte disturbance Depo-Provera contraceptive status 04/2023. Stopped per patient request 09/2023 restarted per patient request Hypokalemia Abnormal uterine bleeding (AUB) 2017. menstrual irreg. OCPs 05/29/2019. Dysmenorrhea. DepoProvera 150 mg every 3 months Ingrowing toenail (05/14/18) Left great toe; s/p resection ADHD (attention deficit hyperactivity disorder) Surgical History Vesicoureteric reflux (12/15/14) s/p bilateral ureteral implants Shafter teeth extracted all 4 teeth extracted ureteral implants- bilat Tonsillectomy and adenoidectomy Myringotomy w/ PE (pressure equalizing) tubes Family History Mother Family history unknown Father Family history unknown Social History Smoking/Tobacco Use Status: Never Smoking risk assessment performed?: Yes Alcohol Intake: current Alcohol Intake frequency: holidays/special occasions only Alcohol type: beer Drug use: Never Substance use type: does not use Adopted: Yes Housing: house Education Level: college Details: [employer], starting [employer] in the fall current occupation: 02/28/2020 works at [employer] Pets and animals: Yes Pets and animals: cat(s), dog(s) and other Details: CHICKENS, TURKEYS, SHEEP, COWS Sexually active: No Do you feel safe at home: No (Pt reports environment is safe but she feels suicidal) Do you feel safe in your relationship?: Yes Additional Social history: safe environment, but not safe in myself Female Reproductive History Menstrual Age of Menarche: 11 Duration of menses: other control method: implanted Time Spent with Patient Time Spent with Patient: <45 minutes Time was spent: preparing to see the patient(eg.review tests), obtaining and/or reviewing separately otained hiistory, ordering medications,tests, procedures, referring, communicating with other health personal care service provider, indepentently interpreting results, counseling the patient and care coordination
[2025-09-16] MEDS: Ketorolac 10 MG TAB PO (12:11)
[2025-09-16] MEDS: Dexamethasone 1 MG TAB PO (12:11)
[2025-09-16 17:23] LABS: CRP, High Sensitivity 1.91 mg/L (See Note)
== END 2025-09-16 12:39 | disposition home or self-care (01) ==
LOC: ER 21:52 → EDHOLD 09-16 07:18
PROVIDERS: General Practice; Admitting Provider Family Medicine; Emergency Provider Family Medicine; PCP Nurse Practitioner Family; Responsible Provider Family Medicine; Visit Provider Family Medicine
DX: R55 Syncope and collapse (principal); R94.31 Abnormal electrocardiogram [ECG] [EKG]; G44.309 Post-traumatic headache, unspecified, not intractable; J45.50 Severe persistent asthma, uncomplicated; F90.2 Attention-deficit hyperactivity disorder, combined type; F41.8 Other specified anxiety disorders; E20.9 Hypoparathyroidism, unspecified; G43.809 Other migraine, not intractable, without status migrainosus; R11.10 Vomiting, unspecified; R74.8 Abnormal levels of other serum enzymes; Z79.899 Other long term (current) drug therapy; H90.3 Sensorineural hearing loss, bilateral; N18.2 Chronic kidney disease, stage 2 (mild)
CPT/HCPCS: 00123; 36415; 71275; 80053; 80307; 85027; 85652; 86141; 87637; 93005; 96365; 96375; 99285; J1650; 70450; 81003; 83735; 84443; 84484; 85025; 93010; 93306; 99223; G0378; J0131; J1885; J2405; J3475; J3490; J8540

== ENCOUNTER 2025-09-16 11:53 | Outpatient (CLI) | payer MEDICAID, SELFPAY | END 2025-09-16 11:54 | disposition home or self-care (01) | PROVIDERS: PCP Nurse Practitioner Family; Visit Provider Family Medicine | DX: R55 Syncope and collapse (principal) | CPT/HCPCS: 93270 ==

== ENCOUNTER 2025-09-17 15:17 | Emergency (ER) | payer MEDICAID, SELFPAY ==
[2025-09-17] VITALS (56 sets, daily range): BP systolic 111–165; BP diastolic 61–91; PULSE 52–120; RESP 11–23; TEMP 37.6; O2SAT 93–100
--- NOTE | 2025-09-17 15:30 | RT.EKG_ITS ---
APPROVED REPORT Exam: Resting ECG Reason for Exam: Seizure Patient Location: E HR:85 bpm ECG Measurements Heart Rate 85 AXIS MN 137 P -29 QRSd 81 QRS 79 QT 390 T 84 QTc 463 Conclusion Sinus rhythm...normal P axis, V-rate 60- 99 No STEMI
[2025-09-17] MEDS: Midazolam 5 MG/5 ML VIAL (15:36)
[2025-09-17 15:45] LABS: BE (Venous) -8 mmol/L (-2-3); HCO3 (Venous) 21 mmol/L (23-28); O2 Sat (Venous) 69 %; TCO2 (Venous) 20 mmol/L (24-29); pO2 (Venous) 51 mmHg
[2025-09-17 15:48] LABS: Abs Immature Grans 0.17 10^3/uL (0.0-0.06); HCT 43.4 % (36.0-46.0); HGB 14.4 g/dL (11.2-15.7); Immature Grans % 1.4 %; MCH 30.1 pg (27.0-33.0); MCHC 33.2 % (32.0-36.0); MCV 91 fL (80-95); MPV 9.8 fL (8.0-11.0); Platelet Count 338 10^3/uL (130-400); RBC 4.79 10^6/uL (3.93-5.22); RDW 12.5 % (11.7-14.6); RDW-SD 41.6 fL; WBC 12.23 10^3/uL (4.4-10.8); pCO2 (Venous) 63 mmHg (41-51)
[2025-09-17] MEDS: levETIRAcetam 3,000 MG in Normal Saline 100 ML 400 MG IVPB (15:59)
[2025-09-17 16:02] LABS: INR 1.1 (0.9-1.1); PTT Activated 24.1 sec (20.6-30.2); Prothrombin Time 10.9 sec (9.1-11.1)
--- NOTE | 2025-09-17 16:02 | ED.GENADUL_ITS ---
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 needs daily activities Health related social needs details Pt has [employer] and so [employer] work Critical Care Time Critical Care Time Attestation: Upon my evaluation, this patient had a high probability of imminent or life- threatening deterioration due to seizure and possible cardiovascular collapse, which required my direct attention, intervention, and personal management. I have personally provided [35 minutes of critical care time exclusive of time spent on separately billable procedures. Time includes review of laboratory data, radiology results, discussion with consultants, and monitoring for potential decompensation. Interventions were performed as documented above, including monitoring of critical vital signs, ordering critical medications from bedside, and re-assessing effectiveness, repeating critical exam findings, and reviewing patients' chart. PFSH All Active Problems (Updated 09/17/25 @ 22:17 by Adiel Tang MD) New onset seizure (Acute) Migraine (Chronic) Depression with anxiety (Chronic) Syncope and collapse (Acute) Post-concussion headache (Acute) Cervicalgia (Acute) Concussion (Acute) Encounter for injection education (Acute) Severe persistent asthma (Acute) Acute asthma exacerbation (Acute) Asthma (Chronic) Hypokalemia (Acute) Hypocalcemia (Acute) Hypomagnesemia (Acute) Muscle spasm (Acute) Hypomagnesemia (Acute) Anxiety (Chronic) Sensorineural hearing loss of both ears (Acute) Stage 2 chronic kidney disease (Chronic) Hypoparathyroidism (Chronic 10/31/14) congenital, followed by [facility] endocrinology Medical History Esotropia (12/15/14) glasses for correction 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 Started fluox 03/05, stopped spring 2020- restarted but stopped in the fall secondary to concerns of worsening suicidal ideation- trial lexapro- increase dose to 20 mg today (03/28/22) Chronic kidney disease (CKD) Nasal vestibulitis Patulous eustachian tube of left ear Chronic allergic rhinitis Encounter for immunotherapy Right-sided tinnitus Calcification of brain per [facility] neuro notes; bifrontal first noted in 2010; 2019 with some affecting basal ganglia, d/t underlying hypoparathyroidism Sciatica of right side Strain of extensor pollicis longus tendon Injury of thumb, right Allergic reaction Complex regional pain syndrome of right upper extremity Recurrent UTI Cough Abnormal chest xray Moderate persistent asthma Low back pain De Quervain's tenosynovitis, left Dysfunction of right eustachian tube Palpitations Wears hearing aid in both ears Otalgia of right ear TMJ pain dysfunction syndrome Sinusitis Nexplanon in place 09/2023. For menstrual control. Traumatic plantar fasciitis LEFT Lip lesion Electrolyte disturbance Depo-Provera contraceptive status 04/2023. Stopped per patient request 09/2023 restarted per patient request Hypokalemia Abnormal uterine bleeding (AUB) 2017. menstrual irreg. OCPs 05/29/2019. Dysmenorrhea. DepoProvera 150 mg every 3 months Ingrowing toenail (05/14/18) Left great toe; s/p resection ADHD (attention deficit hyperactivity disorder) Surgical History Vesicoureteric reflux (12/15/14) s/p bilateral ureteral implants [place] teeth extracted all 4 teeth extracted ureteral implants- bilat Tonsillectomy and adenoidectomy Myringotomy w/ PE (pressure equalizing) tubes Family History Mother Family history unknown Father Family history unknown Social History Smoking/Tobacco Use Status: Never Smoking risk assessment performed?: Yes Alcohol Intake: current Alcohol Intake frequency: holidays/special occasions only Alcohol type: beer Drug use: Never Substance use type: does not use Adopted: Yes Housing: house Education Level: college Details: [employer], starting [employer] in the fall current occupation: 02/28/2020 works at [employer] Pets and animals: Yes Pets and animals: cat(s), dog(s) and other Details: CHICKENS, TURKEYS, SHEEP, COWS Sexually active: No Do you feel safe at home: No (Pt reports environment is safe but she feels suicidal) Do you feel safe in your relationship?: Yes Additional Social history: safe environment, but not safe in myself Female Reproductive History Menstrual Age of Menarche: 11 Duration of menses: other control method: implanted
[2025-09-17 16:05] LABS: Troponin I 12 ng/L (<35)
[2025-09-17 16:06] LABS: ALT 21 U/L (10-49); AST 23 U/L (<34); Albumin 5.3 g/dL (3.2-5.0); Alkaline Phosphatase 78 U/L (46-116); Anion Gap 19.6 mmol/L (3-11); BUN 13 mg/dL (9-23); Bilirubin, Total 0.4 mg/dL (0.2-1.2); CO2 22.4 mmol/L (20.0-31.0); Calcium 9.6 mg/dL (8.3-10.6); Chloride 101 mmol/L (98-107); Glucose 144 mg/dL (74-106); Lipase 31 U/L (<53); Magnesium 1.5 mg/dL (1.6-2.6); Potassium 3.3 mmol/L (3.5-5.1); Sodium 143 mmol/L (136-145); Total Protein 8.8 g/dL (5.7-8.2)
[2025-09-17 16:21] LABS: Acetaminophen 6 ug/mL (10-20); Salicylate < 3.0 mg/dL (<30.0)
[2025-09-17] MEDS: MAGNESIUM SULFATE 2 GM/50 ML BAG IV_INF (16:27)
[2025-09-17] MEDS: POTASSIUM CHLORIDE 20 MEQ/100 ML BAG 50 MEQ IV INF (16:27)
[2025-09-17 16:55] LABS: Troponin I 14 ng/L (<35)
--- NOTE | 2025-09-17 17:20 | DI.CT_ITS ---
Exam(s) CT CHEST/ABD/PEL W EXAM: CT CHEST/ABD/PEL W CLINICAL HISTORY: Trauma. TECHNIQUE: Imaging Protocol: Axial computed tomography images with coronal and sagittal reformatted images were created and reviewed CONTRAST MATERIAL: Intravenous: Omnipaque 350 Contrast volume:75 mL Oral: None COMPARISON: CT CT CHEST WO from 10/28/[address] CHEST PE CTA from 09/15/2025 FINDINGS: CHEST: LUNGS: There is infiltrate in the posterior basal segments both lower lobes, more prominent on the left side, either infectious/aspiration versus is lung contusions. There are no overlying rib fractures. No pneumothorax. No pleural effusions. No significant focal findings in the trachea and mainstem bronchi.. MEDIASTINUM: There is no hilar nor subcarinal adenopathy. There is density in the anterior mediastinal fat which is either remnant thymus or hematoma. There is no sternal fracture nor anterior rib fractures. CARDIAC: Heart size is normal. There is no pericardial effusion.Caliber of the thoracic aorta is within normal limits. No evidence of the dissection. OSSEOUS: No significant osseous lesions.No fractures.. ABDOMEN: There is no evidence of bowel wall nor mesenteric hematoma and there is no ascites. No evidence of I ileus pattern or bowel obstruction or free air. LIVER: Intact. No lacerations nor subcapsular hematomas. No lesions. No dilated intrahepatic ducts. GALLBLADDER/BILIARY: No obvious gallbladder pathology. CBD is not dilated. PANCREAS: No evidence of pancreatic mass nor dilatation of the pancreatic duct. SPLEEN: Intact. Normal size. No lacerations. No lesions. Splenic and portal veins are patent. ADRENALS: No evidence of adrenal masses nor adrenal hemorrhage. KIDNEYS: No renal lacerations nor subcapsular hematomas. No focal findings in the left kidney. Benign cysts in the right kidney noted measuring up to 1.8 cm, not requiring further workup. There are no calculi in the kidneys. No hydronephrosis. No hydroureter.. No significant acute findings in the urinary bladder ABDOMINAL AORTA: Abdominal aorta is not enlarged. LYMPH NODES: There is no retroperitoneal nor paraaortic adenopathy. ABDOMINAL WALL: No evidence of significant anterior abdominal wall nor inguinal hernia. GI: There is no evidence of bowel obstruction.No evidence of bowel wall hematoma. PELVIS: LYMPH NODES: There is no intrapelvic nor inguinal adenopathy. GI: No evidence of appendicitis.No evidence of sigmoid diverticulitis. URINARY BLADDER: Mildly distended. No calculi nor masses evident REPRODUCTIVE: Uterus and adnexal regions appear age-appropriate. There is no free fluid. No extraovarian adnexal masses. OSSEOUS: No pelvic fractures. No sacral fractures. No significant osseous lesions. IMPRESSION: 1. There is infiltrate in both lower lobes posterior basal segments, more so on the left side. No associated pleural effusions. No pneumothorax. No fractures evident. Probably related to aspiration, given the history of seizures here. 2. There is density in the anterior mediastinal fat, not associated with sternal fracture. This is possibly remnant thymus in this age group but cannot exclude retrosternal hematoma. No significant aortic findings. 3. No significant acute findings in the abdomen and pelvis. Urinary bladder is mildly distended. All reports on this patient called by myself to ER physician 09/17/2025 at 6:15 p.m. RADIATION DOSE DELIVERED: 723.46mGy.cm Total DLP DATA REPOSITORY: All CT scans at this facility are submitted to the National Radiology Data Registry (NRDR) Dose Index Registry (DIR) with the [employer] (A[employer]). RADIATION OPTIMIZATION: All CT scans at this facility use at least one of these dose optimization techniques: automated exposure control; mA and/or kV adjustment per patient size (includes targeted exams where dose is matched to clinical indication); or iterative reconstruction.
--- NOTE | 2025-09-17 17:21 | DI.CT_ITS ---
Exam(s) CT THORACIC LUMBAR SPINE REC EXAM: CT THORACIC LUMBAR SPINE REC CLINICAL HISTORY: Trauma TECHNIQUE: COMPARISON: CT CT CHEST/ABD/PEL W from 09/17/2025 FINDINGS: THORACIC SPINAL COLUMN: No evidence of fracture nor listhesis nor significant disc space narrowing. There is no facet joint malalignment facet arthropathy. No osseous lesions. LUMBOSACRAL SPINAL COLUMN: No evidence of fracture, listhesis, nor pars interarticularis defects. All the disc spaces exhibit normal height. Facet joints appear unremarkable and without facet joint malalignment. There is no scoliosis. Sacroiliac joints appear unremarkable. No obvious disc herniations nor central canal stenosis. IMPRESSION: No acute osseous findings in the thoracic and lumbosacral spinal columns.
--- NOTE | 2025-09-17 17:21 | DI.CT_ITS ---
Exam(s) CT BRAIN NECK CTA EXAM: CT BRAIN NECK CTA CLINICAL HISTORY: trauma nad neck pain. TECHNIQUE: Imaging Protocol: Axial CT angiography was performed with multi- slice acquisition and multi-planar and/or 3D reconstructions. CONTRAST MATERIAL: Intravenous: Omnipaque 350 Contrast volume:75 COMPARISON: CT CT HEAD WO from 05/15/2020 MR MR BRAIN WO from 08/25/[address] HEAD CERVICAL SPINE WO from 09/05/[address] HEAD WO from 09/15/2025 FINDINGS: CTA Neck W: Aortic arch anatomy: The aortic arch anatomy is conventional and there is no significant stenosis at the origin of the great vessels off of the aortic arch. No intimal flap evident. Anterior circulation: Both common carotid arteries ascend with normal luminal diameters. At the level the carotid bulbs and proximal internal carotid arteries there is minimal plaque without hemodynamically significant stenosis evident. Posterior circulation: Both vertebral arteries originate in conventional fashion off of the subclavian arteries and there is no obvious stenosis at the origin of the vertebral arteries. Both vertebral arteries exhibit normal luminal diameters within the foramen transversarium. Both vertebral arteries contribute to the formation of the basilar artery at the skull base. CTA Brain W: Anterior circulation: Both internal carotid arteries are patent in the skull base-carotid canals as well as within the cavernous sinuses. The supraclinoid aspects of the ICAs are patent. Both A1 segments are patent as are the anterior cerebral arteries and there is no evidence of aneurysm at the level of the anterior communicating artery. Both middle cerebral arteries are patent with no evidence of significant stenosis nor intraluminal thrombus. There also no aneurysms of these vessels. Posterior circulation: The basilar artery ascends in the midline. Distally it gives off patent bilateral superior cerebellar arteries. Above this level the basilar artery terminates as patent bilateral posterior cerebral arteries. There is a patent posterior communicating artery noted on the left side of the [id number] adding circulation to the left posterior cerebral artery. There is no evidence of aneurysm at the tip of the basilar artery nor elsewhere in the [id number]. CT BRAIN: There are no skull fractures. There is a small amount of fluid noted in the sphenoid sinuses. There is no fluid in the maxillary sinuses nor within the ethmoidal air cells. Frontal sinuses are not developed. No mastoid effusions evident. Previously described abnormal hyperdensities in the right greater than left frontal lobes are again noted as well as in the bilateral basal ganglia. Appearance is unchanged from 09/05/2025. May be sequelae of prior remote trauma. The ventricles are not enlarged or shifted and there is no blood within the ventricular system nor within the basal cisterns. IMPRESSION: 1. Patent carotid arteries in the neck. No hemodynamically significant stenosis. No dissection 2. Patent vertebral arteries. No stenosis nor occlusion or dissection 3. Patent intracranial arteries. 4. Hyperdensities/calcification in the basal ganglia both sides the brain as well as in the frontal lobes again noted. May be related to prior trauma sequelae. RADIATION DOSE DELIVERED: 2,194.24mGy.cm Total DLP DATA REPOSITORY: All CT scans at this facility are submitted to the National Radiology Data Registry (NRDR) Dose Index Registry (DIR) with the [employer] (ACR). RADIATION OPTIMIZATION: All CT scans at this facility use at least one of these dose optimization techniques: automated exposure control; mA and/or kV adjustment per patient size (includes targeted exams where dose is matched to clinical indication); or iterative reconstruction.
--- NOTE | 2025-09-17 17:26 | DI.CT_ITS ---
Exam(s) CT CERVICAL SPINE RECONS EXAM: CT CERVICAL SPINE RECONS CLINICAL HISTORY: Trauma TECHNIQUE: COMPARISON: CT CT HEAD CERVICAL SPINE WO from 09/05/2025 FINDINGS: There is no evidence of fracture. There is developmental discontinuity of the posterior aspect of the C1 arch. No fracture at this level nor elsewhere in the cervical vertebrae. No disc space narrowing. No significant facet arthropathy nor facet joint malalignment evident. No osseous lesions. IMPRESSION: No evidence of acute cervical spine fracture nor compromise of the cervical canal.
[2025-09-17] MEDS: Normal Saline - Diluent 50 ML VIAL IJ ×2 (17:28→17:29)
[2025-09-17] MEDS: Omnipaque 350 MG/ML 100 ML BTL IJ ×2 (17:29→17:30)
[2025-09-17] MEDS: Normal Saline Flush 10 ML SYR IVP ×2 (17:30)
[2025-09-17] MEDS: ACETAMINOPHEN 1,000 MG/100 ML BAG 400 MG IVPB (18:00)
[2025-09-17 18:24] LABS: Glucose Negative (Negative)
[2025-09-17 18:35] LABS: C & S Indicated? No; RBC 0-2 HPF (0-2); WBC Negative HPF (0-5)
[2025-09-17 18:48] LABS: Cannabinoids THC Negative (Negative)
[2025-09-17] MEDS: Ketorolac 15 MG/ML VIAL IVP (19:01)
== END 2025-09-17 23:18 | disposition short-term general hospital (02) ==
PROVIDERS: Emergency Provider General Practice; PCP Nurse Practitioner Family
DX: R56.9 Unspecified convulsions (principal); V47.5XXA Car driver injured in collision with fixed or stationary object in traffic accident, initial encounter; Z73.9 Problem related to life management difficulty, unspecified
CPT/HCPCS: 36415; 36416; 70496; 70498; 72125; 74177; 80053; 80307; 81025; 82805; 82962; 83690; 86850; 86900; 86901; 93005; 96365; 96366; 96367; 96375; 99291; 71260; 80320; 80329; 81003; 81015; 83605; 83735; 83880; 84100; 84484; 85025; 85610; 85730; 93010; J0131; J1885; J1953; J2250; J3475; J3480; J3490